=== PATIENT | female | born 1970 ===

== ENCOUNTER 2017-04-13 11:45 | Observation (INO) | payer MEDICAID ==
[2017-04-13 12:07] VITALS: BMI 25.8
[2017-04-13] MEDS ORDERED: Sodium Chloride 0.9% 1,000 ML IV STA ×2 (12:11→14:14)
--- NOTE | 2017-04-13 12:14 | ED PDOC ---
HPI: Abdomen Time Seen by Provider: 04/13/17 12:00 Chief Complaint (Nursing): Abdominal Pain Chief Complaint (Provider): Abdominal Pain History Per: Patient History/Exam Limitations: no limitations Onset/Duration Of Symptoms: Days (x4) Outside of [place] travel?: No Current Symptoms Are (Timing): Still Present Location Of Pain/Discomfort: Diffuse Additional Complaint(s): Annel Willingham is a 46 year old female with a history of hypertension, diabetes, and thyroid problems that presents to the ED with a chief complaint of nonbloody diarrhea and bubbling, cramping abdominal pain that she has been experiencing for the past four days. Patient denies any chest pain, nausea, vomiting, back pain, weakness, numbness, tingling, or headaches. Patient denies eating any new foods or recent travel. Past Medical History Reviewed: Historical Data, Nursing Documentation, Vital Signs - Medical History PMH: HTN, Hyperthyroidism - Family History Family History: States: Unknown Family Hx - Immunization History Hx Tetanus Toxoid Vaccination: No Hx Influenza Vaccination: No Hx Pneumococcal Vaccination: No - Home Medications Home Medications: Ambulatory Orders Medication Instructions Recorded Lisinopril [Zestril] 40 mg PO DAILY 11/13/16 MetFORMIN [glucOPHAGE] 1,000 mg PO BID 11/13/16 Methimazole 20 mg PO BID 11/13/16 SITagliptin [Januvia] 25 mg PO DAILY 11/13/16 Naproxen [Naprosyn] 1 tab PO BID PRN #25 tab 11/14/16 Ciprofloxacin [Cipro] 250 mg PO BID #14 tab 11/27/16 Tramadol HCl [Ultram] 50 mg PO Q6 #10 tab 11/27/16 - Allergies Allergies/Adverse Reactions: Allergies Allergy/AdvReac Type Severity Reaction Status Date / Time shellfish derived Allergy RASH Verified 11/27/16 20:28 Review of Systems ROS Statement: Except As Marked, All Systems Reviewed And Found Negative Cardiovascular: Negative for: Chest Pain Gastrointestinal: Positive for: Abdominal Pain (bubbling, cramping), Diarrhea ( nonbloody). Negative for: Nausea, Vomiting Musculoskeletal: Negative for: Back Pain Neurological: Negative for: Weakness, Numbness, Headache, Other (no tingling) Physical Exam - Reviewed Nursing Documentation Reviewed: Yes Vital Signs Reviewed: Yes - Physical Exam Appears: Positive for: Non-toxic, No Acute Distress Head Exam: Positive for: ATRAUMATIC, NORMOCEPHALIC Skin: Positive for: Normal Color, Warm Eye Exam: Positive for: Normal appearance, EOMI, PERRL Cardiovascular/Chest: Positive for: Regular Rate, Rhythm. Negative for: Murmur Respiratory: Positive for: Normal Breath Sounds. Negative for: Wheezing Gastrointestinal/Abdominal: Positive for: Tenderness (mild diffuse abdominal tenderness). Negative for: Normal Exam, Guarding, Rebound Back: Positive for: Normal Inspection. Negative for: L CVA Tenderness, R CVA Tenderness Neurologic/Psych: Positive for: Alert, bi lead II-XII, Oriented. Negative for: Motor/Sensory Deficits - Laboratory Results Result Diagrams: 04/13/17 12:22 04/13/17 12:22 Interpretation Of Abn Labs: 19 CO2 - Progress ED Course And Treament: 182: Large cyst. Will need us to eval further. 1839: Stable. Dr. Mojica to take over care. FU on US. Medical Decision Making Medical Decision Making: Impression: Abdominal Pain/Diarrhea Plan: * CMP * CBC * Urine * Bentyl 10 mg PO * Sodium Chloride 1000 mLs at 1000 mLs/hr * Reevaluation Scribe Attestation: Documented by Bertha Ponce, acting as a scribe for Fantasma Rajan MD. Provider Scribe Attestation: All medical record entries made by the Scribe were at my direction and personally dictated by me. I have reviewed the chart and agree that the record accurately reflects my personal performance of the history, physical exam, medical decision making, and the department course for this patient. I have also personally directed, reviewed, and agree with the discharge instructions and disposition. ED OBSERVATION Date of observation admission: 04/13/17 Time of observation admission: 14:14 - Observation admission statement Patient is being placed in observation because:: need for further examinations for abdominal pain. - Goals of Observation Goals of observation are:: Continue meds and eval. Disposition - Clinical Impression Clinical Impression: Abdominal cramps, Ovarian cyst - Patient ED Disposition Is Patient to be Admitted: Transfer of Care - Disposition Disposition: Transfer of Care Disposition Time: 18:39 Condition: STABLE Patient Signed Over To: Titi Mojica
[2017-04-13 12:44] LABS: BASO % 0.3 % (0.0-2.0); EOS # 0.1 K/uL (0.0-0.7); EOS % 1.9 % (0.0-4.0); LYMPH # 1.7 K/uL (1.0-4.3); LYMPH % 27.4 % (20.0-40.0); MEAN CELL VOLUME 76.5 fl (81.0-99.0); MEAN CORPUSCULAR HEMOGLOBIN 25.6 pg (27.0-31.0); MEAN CORPUSCULAR HGB CONC 33.4 g/dL (33.0-37.0); MEAN PLATELET VOLUME 9.2 fl (7.2-11.7); MONO # 0.6 K/uL (0.0-0.8); MONO % 9.7 % (0.0-10.0); NEUT # 3.7 K/uL (1.8-7.0); NEUT % 60.7 % (50.0-75.0); NRBC % 0.1 % (0.0-0.0); RBC 5.07 Mil/uL (3.80-5.20); RED CELL DISTRIBUTION WIDTH 14.3 % (11.5-14.5)
[2017-04-13 12:57] LABS: ALB/GLOB RATIO 1.4 (1.0-2.1); ALBUMIN 4.3 g/dL (3.5-5.0); ALT/SGPT 27 U/L (9-52); AST/SGOT 13 U/L (14-36); BLOOD UREA NITROGEN 13 mg/dl (7-17); CALCIUM 9.4 mg/dL (8.4-10.2); GFR AFRICAN-AMERICAN > 60; GFR NON-AFRICAN AMERICAN > 60
[2017-04-13] MEDS ORDERED: Iohexol 240 (50 ml) PO ONE (14:12)
[2017-04-13] MEDS ORDERED: Atropine-Diphenoxylate 0.025-2.5mg/5 mL Oral Liq (60 ml) PO ONE (14:21)
[2017-04-13] MEDS ORDERED: Iohexol 300 100 ML IJ ONE (17:26)
[2017-04-13] MEDS ORDERED: Sodium Chloride 0.9% 50 ML IV ONE (17:26)
--- NOTE | 2017-04-13 18:18 | CT ---
PROCEDURE: CT Abdomen and Pelvis with contrast HISTORY: abd pain COMPARISON: 01/26/2014 TECHNIQUE: Contrast dose: 90 mL Omnipaque 300 Radiation dose: Total exam DLP = 879.23 mGy-cm. This CT exam was performed using one or more of the following dose reduction techniques: Automated exposure control, adjustment of the mA and/or kV according to patient size, and/or use of iterative reconstruction technique. FINDINGS: LOWER THORAX: Unremarkable. LIVER: Unremarkable. No gross lesion or ductal dilatation. GALLBLADDER AND BILE DUCTS: Status post cholecystectomy PANCREAS: Unremarkable. No gross lesion or ductal dilatation. SPLEEN: Unremarkable. ADRENALS: Unremarkable. No mass. KIDNEYS AND URETERS: Unremarkable. No hydronephrosis. No solid mass. VASCULATURE: Unremarkable. No aortic aneurysm. BOWEL: Unremarkable. No obstruction. No gross mural thickening. APPENDIX: Normal appendix. PERITONEUM: Trace fluid in cul-de-sac. LYMPH NODES: Unremarkable. No enlarged lymph nodes. BLADDER: Poorly distended. No gross abnormality. REPRODUCTIVE: Unremarkable uterus. Right ovarian cyst, 3.0 cm diameter. Left ovarian cyst, 5.0 x 6.5 cm. The left ovarian cyst is slightly increased attenuation, measuring 29 Hounsfield units. This may correspond to proteinaceous or hemorrhagic content. Correlate with pelvic ultrasound. BONES: No acute fracture. OTHER FINDINGS: None. IMPRESSION: Bilateral ovarian cysts, 3.0 cm on the right and 6.5 cm on the left. Left ovarian cyst slightly increased in attenuation, nonspecific. This may indicate hemorrhagic or proteinaceous content. Correlate with ultrasound examination. No additional abnormality.
[2017-04-13] MEDS ORDERED: Atropine-Diphenoxylate 0.025-2.5 mg Tab PO ONE (18:45)
--- NOTE | 2017-04-13 19:15 | ED PDOC ---
- Laboratory Results Result Diagrams: 04/13/17 12:22 04/13/17 12:22 Medical Decision Making Medical Decision Making: Receiving sign out: Patient signed out to me by Dr. Rajan pending US Pelvis. Scribe Attestation: Documented by Shonna Noriega acting as a scribe for Titi Mojica MD. Provider Attestation: All medical record entries made by the Scribe were at my direction and personally dictated by me. I have reviewed the chart and agree that the record accurately reflects my personal performance of the history, physical exam, medical decision making, and the department course for this patient. I have also personally directed, reviewed, and agree with the discharge instructions and disposition. Disposition Counseled Patient/Family Regarding: Studies Performed, Diagnosis, Need For Followup - Clinical Impression Clinical Impression: Abdominal cramps, Ovarian cyst - POA Present On Arrival: None - Disposition Disposition: Routine/Home Disposition Time: 21:00 Condition: STABLE Progress Note - Review of Symptoms Events since last encounter: Time: 2251 US Transvaginal IMPRESSION: 1. RIGHT ovarian cyst. 2. Probable LEFT ovarian cyst. Suggest followup to ensure resolution/stability. 3. Incidental/non-acute findings are described above
--- NOTE | 2017-04-13 22:48 | US ---
EXAM: US Pelvis Complete, Transabdominal CLINICAL HISTORY: 46 years old, female; Pain; Pelvic pain TECHNIQUE: Real-time transabdominal pelvic ultrasound (complete) with image documentation. COMPARISON: No relevant prior studies available. FINDINGS: Uterus/cervix: Uterus measures 12.7 x 5.7 x 7.3 cm in size. No myometrial mass. Endometrium: 0.8 cm in thickness. Right ovary: 5.4 x 2.7 x 4.5 cm in size. 2.5 x 2.3 x 2.6 cm anechoic lesion. Small follicles. Normal flow. Left ovary: 7.9 x 4.8 x 6.9 in size. 6.6 x 5.1 x 5.9 anechoic lesion. Small follicles. Normal flow. Free fluid: No significant free fluid. Bladder: Unremarkable as visualized. IMPRESSION: 1. RIGHT ovarian cyst. 2. Probable LEFT ovarian cyst. Suggest followup to ensure resolution/stability. 3. Incidental/non-acute findings are described above. EXAM: US Pelvis, Transvaginal CLINICAL HISTORY: 46 years old, female; Pain; Pelvic pain TECHNIQUE: Real-time transvaginal pelvic ultrasound (complete) with image documentation. Transvaginal imaging was used for better evaluation of the endometrium and adnexa. COMPARISON: No relevant prior studies available. FINDINGS: Uterus/cervix: Uterus measures 12.7 x 5.7 x 7.3 cm in size. No myometrial mass. Endometrium: 0.8 cm in thickness. Right ovary: 5.4 x 2.7 x 4.5 cm in size. 2.5 x 2.3 x 2.6 cm anechoic lesion. Small follicles. Normal flow. Left ovary: 7.9 x 4.8 x 6.9 in size. 6.6 x 5.1 x 5.9 anechoic lesion. Small follicles. Normal flow. Free fluid: No significant free fluid. Bladder: Empty bladder which cannot be evaluated with this probe.
[2017-04-13 23:41] VITALS: BP 127/85; PULSE 87; RESP 16; TEMP 98.2; O2SAT 99
== END 2017-04-13 23:45 | disposition home or self-care (01) ==
LOC: H.ER 11:45 → H.EROBSV 13:12
PROVIDERS: ADMIT Emergency Medicine; ATTEND Emergency Medicine
DX: R19.7 Diarrhea, unspecified (principal); R10.9 Unspecified abdominal pain; E11.9 Type 2 diabetes mellitus without complications; I10 Essential (primary) hypertension; N83.209 Unspecified ovarian cyst, unspecified side; Z79.899 Other long term (current) drug therapy

== ENCOUNTER 2017-11-02 07:41 | Day surgery (SDC) | payer MEDICAID ==
[2017-11-02] MEDS ORDERED: Lactated Ringer's 1,000 ML IV ONE (08:07)
[2017-11-02] MEDS ORDERED: Sodium Chloride 0.9% 500 ML IV ONE (08:07)
[2017-11-02 08:20] VITALS: O2SAT 98
[2017-11-02 08:23] VITALS: BMI 27.3
[2017-11-02] MEDS ORDERED: Midazolam 2 MG/2 ML VIAL ONE (08:50)
[2017-11-02] MEDS ORDERED: Propofol 10 mg/ml Inj (20 ML) ONE ×2 (08:50→09:16)
[2017-11-02 09:47] VITALS: TEMP 96.8
[2017-11-02 10:09] VITALS: BP 122/64; PULSE 71; RESP 14
== END 2017-11-02 10:10 | disposition home or self-care (01) ==
LOC: H.ENDO 07:41
PROVIDERS: ATTEND Internal Medicine Gastroenterology
DX: K29.70 Gastritis, unspecified, without bleeding (principal); K62.1 Rectal polyp; K57.30 Diverticulosis of large intestine without perforation or abscess without bleeding; K21.9 Gastro-esophageal reflux disease without esophagitis; B96.81 Helicobacter pylori [H. pylori] as the cause of diseases classified elsewhere; K64.8 Other hemorrhoids; K59.09 Other constipation; I10 Essential (primary) hypertension; E11.9 Type 2 diabetes mellitus without complications; E78.5 Hyperlipidemia, unspecified; Z79.84 Long term (current) use of oral hypoglycemic drugs
CPT/HCPCS: 43239; 45385; 82948; 88305; J2250; J2704; J7040

== ENCOUNTER 2017-12-07 16:57 | Emergency (ER) | payer MEDICAID ==
[2017-12-07 16:57] VITALS: BMI 27.3
[2017-12-07 17:11] VITALS: PULSE 73; RESP 16; TEMP 99.1; O2SAT 100
[2017-12-07] MEDS ORDERED: Iohexol 240 (50 ml) PO ONE (17:28)
[2017-12-07] MEDS ORDERED: Iohexol 240 (50 ml) ONE (17:36)
[2017-12-07 17:52] VITALS: BP 137/80
[2017-12-07 17:59] LABS: BASO # 0.1 K/uL (0.0-0.2); BASO % 0.7 % (0.0-2.0); EOS # 0.1 K/uL (0.0-0.7); EOS % 0.9 % (0.0-4.0); HEMOGLOBIN 13.2 g/dL (12.0-16.0); LYMPH # 2.1 K/uL (1.0-4.3); LYMPH % 20.8 % (20.0-40.0); MEAN CELL VOLUME 78.3 fl (81.0-99.0); MEAN CORPUSCULAR HEMOGLOBIN 27.3 pg (27.0-31.0); MEAN CORPUSCULAR HGB CONC 34.9 g/dL (33.0-37.0); MEAN PLATELET VOLUME 9.1 fl (7.2-11.7); MONO # 0.5 K/uL (0.0-0.8); MONO % 4.7 % (0.0-10.0); NEUT # 7.2 K/uL (1.8-7.0); NEUT % 72.9 % (50.0-75.0); NRBC % 0.2 % (0.0-0.0); RBC 4.83 Mil/uL (3.80-5.20); RED CELL DISTRIBUTION WIDTH 13.9 % (11.5-14.5); WHITE BLOOD COUNT 9.9 K/uL (4.8-10.8)
[2017-12-07 18:08] LABS: ALT/SGPT 31 U/L (9-52); AST/SGOT 18 U/L (14-36); BLOOD UREA NITROGEN 13 mg/dl (7-17); CALCIUM 9.1 mg/dL (8.4-10.2); GFR AFRICAN-AMERICAN > 60; GFR NON-AFRICAN AMERICAN > 60; LIPASE 64 U/L (23-300)
[2017-12-07 18:26] LABS: SQUAMOUS EPITHIAL 3 /hpf (0-5); URINE BACTERIA RARE (<OCC); URINE BILIRUBIN NEGATIVE (NEGATIVE); URINE BLOOD NEGATIVE (NEGATIVE); URINE CLARITY SLIGHTY-CLOUDY (Clear); URINE COLOR STRAW (YELLOW); URINE GLUCOSE (UA) >=500 mg/dL (Normal); URINE LEUKOCYTE ESTERASE TRACE Leu/uL (Negative); URINE PROTEIN NEGATIVE (NEGATIVE); URINE UROBILINOGEN 0.2-1.0 mg/dL (0.2-1.0)
[2017-12-07] MEDS ORDERED: Insulin Regular 100 units/ml IVP ONE (18:29)
[2017-12-07] MEDS ORDERED: Insulin Regular 100 units/ml ONE (19:00)
[2017-12-07] MEDS ORDERED: Sodium Chloride 0.9% 1,000 ML IV STA (20:50)
--- NOTE | 2017-12-07 20:53 | ED PDOC ---
HPI: Abdomen Time Seen by Provider: 12/07/17 17:20 Chief Complaint (Nursing): Abdominal Pain Chief Complaint (Provider): abdominal pain nausea History Per: Patient History/Exam Limitations: no limitations Current Symptoms Are (Timing): Still Present Severity: Moderate Location Of Pain/Discomfort: Diffuse Quality Of Discomfort: Cramping Associated Symptoms: Nausea, Loss Of Appetite. denies: Vomiting, Diarrhea Exacerbating Factors: None Alleviating Factors: None Last Bowel Movement: Today Additional Complaint(s): 47yo female presents c/o crampy diffuse abdominal pain associated w nausea, bloating and frequent normal BM today. Denies melena, fever, hematemesis, syncope or weakness. Recently completed treatment for Hpylori had EGD and colonoscopy Dr Tolbert recently. Past Medical History Reviewed: Historical Data, Nursing Documentation Vital Signs: Last Vital Signs Temp 99.1 F 12/07/17 17:09 Pulse 73 12/07/17 17:09 Resp 16 12/07/17 17:09 BP 137/80 12/07/17 17:51 Pulse Ox 100 12/07/17 23:11 - Medical History PMH: Gall Bladder Disease, HTN, Hypercholesterolemia, Hyperthyroidism Denies: Chronic Kidney Disease - Surgical History Surgical History: Cholecystectomy - Family History Family History: States: Unknown Family Hx - Living Arrangements Living Arrangements: With Family - Social History Current smoker - smoking cessation education provided: No - Immunization History Hx Tetanus Toxoid Vaccination: No Hx Influenza Vaccination: No Hx Pneumococcal Vaccination: No - Home Medications Home Medications: Ambulatory Orders Medication Instructions Recorded Lisinopril [Zestril] 40 mg PO DAILY 11/13/16 Methimazole 20 mg PO BID 11/13/16 Aspirin [Ecotrin] 81 mg PO DAILY 11/02/17 Dulaglutide [Trulicity] 0.75 mg SQ QWK 11/02/17 Empagliflozin [Jardiance] 25 mg PO DAILY 11/02/17 Lubiprostone [Amitiza] 8 mcg PO BID 11/02/17 MetFORMIN [glucoPHAGE] 1 tab PO BID 11/02/17 Omeprazole 40 mg PO DAILY 11/02/17 Dicyclomine [Dicyclomine HCl] 10 mg PO TID PRN #12 cap 12/07/17 Docusate Sodium [Colace] 100 mg PO BID PRN #20 capsule 12/07/17 Ondansetron [Zofran] 4 mg PO Q6H PRN #10 tab 12/07/17 Ranitidine HCl [Zantac 75] 75 mg PO BID #20 tablet 12/07/17 Naproxen [Naprosyn] 500 mg PO BID PRN #14 tablet 12/08/17 - Allergies Allergies/Adverse Reactions: Allergies Allergy/AdvReac Type Severity Reaction Status Date / Time hazelnut Allergy RASH Verified 11/02/17 08:25 shellfish derived Allergy RASH Verified 11/02/17 08:26 Review of Systems Constitutional: Negative for: Fever, Chills ENT: Negative for: Throat Pain Cardiovascular: Negative for: Chest Pain, Palpitations Respiratory: Negative for: Cough, Shortness of Breath Gastrointestinal: Positive for: Nausea, Abdominal Pain. Negative for: Diarrhea , Constipation, Melena, Hematochezia, Hematemesis, Rectal Pain Genitourinary Female: Negative for: Dysuria, Hematuria Musculoskeletal: Negative for: Neck Pain, Arm Pain, Back Pain Skin: Negative for: Rash, Lesions, Jaundice Neurological: Negative for: Weakness, Numbness, Headache, Dizziness Psych: Negative for: Depression Physical Exam - Reviewed Nursing Documentation Reviewed: Yes Vital Signs Reviewed: Yes - Physical Exam Appears: Positive for: Well, Non-toxic, No Acute Distress Head Exam: Positive for: ATRAUMATIC, NORMAL INSPECTION, NORMOCEPHALIC Skin: Positive for: Normal Color, Warm, DRY Eye Exam: Positive for: EOMI, Normal appearance, PERRL ENT: Positive for: Normal ENT Inspection Neck: Positive for: Normal, Painless ROM Cardiovascular/Chest: Positive for: Regular Rate, Rhythm Respiratory: Positive for: Normal Breath Sounds. Negative for: Respiratory Distress Gastrointestinal/Abdominal: Positive for: Soft, Tenderness (mild diffuse tenderness). Negative for: Guarding, Rebound Back: Positive for: Normal Inspection Extremity: Positive for: Normal ROM Neurologic/Psych: Positive for: Alert, Oriented. Negative for: Motor/Sensory Deficits - Laboratory Results Result Diagrams: 12/07/17 17:56 12/07/17 17:56 - ECG O2 Sat by Pulse Oximetry: 100 Medical Decision Making Medical Decision Making: workup for abd pain initiated w bloodwork, CT abd pelv, bentyl and toradol, zofran ODT (iv zofran not currently available) labs reviewed and clinically unremarkable FINDINGS: Lower thorax: Heart size is normal. There is a hiatal hernia. There is minimal dependent atelectasis and scarring at the lung bases ABDOMEN: Liver: unremarkable Gallbladder and bile ducts: Gallbladder is absent.Common duct is unremarkable. Pancreas: unremarkable Spleen: unremarkable Adrenals: unremarkable Kidneys and ureters: unremarkable Stomach and bowel: Stomach is partially distended. Rotation is normal. There is no small bowel obstruction. There is contrast throughout the small bowel. Terminal ileum is unremarkable. There is mild prominence of the appendix. Appendix contains a small amount of air. Maximal diameter is approximately 9 mm. Similar findings were seen on the prior study. There is a moderately large amount of stool throughout the colon. Appendix: See stomach and bowel PELVIS: Bladder: unremarkable Reproductive: Uterus appears mildly enlarged, 13 x 6.5 cm. There is mild prominence of the right adnexa with multiple follicles/cysts. There is enlargement of the left adnexa with a 6 cm cyst. There are clips versus calcification in the left adnexa. ABDOMEN and PELVIS: Intraperitoneal space: There is no significant fluid.There is no free air. Bones/joints: There are no acute osseous abnormalities. There is minimal spondylosis Soft tissues: unremarkable Vasculature: Aorta and inferior vena cava are unremarkable. There are splenic artery calcifications. Lymph nodes: There are multiple mildly enlarged periaortic nodes. IMPRESSION: Prominence of the left ovary/adnexa with a 6 cm cyst, similar finding seen on the prior study; prominence of the right adnexa with multiple follicles/cysts; no CT findings of appendicitis;; cholecystectomy no ductal dilatation; no acute solid visceral abnormality; possible constipation Additional nonemergent findings as described above. Thank you for allowing us to participate in the care of your patient. 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 Explained need for followup. Requested only naprosyn for Rx for pain. Percocet makes her nauseus. Abdomen non-acute on discharge, ambulating freely without discomfort Has followup w GI. Disposition - Clinical Impression Clinical Impression: Abdominal pain, Ovarian cyst - Patient ED Disposition Is Patient to be Admitted: No - Disposition Referrals: Jose Tolbert MD [Medical Doctor] - Disposition: Routine/Home Disposition Time: 23:50 Condition: STABLE Additional Instructions: Return to ER for any worse or new symptoms. See [employer]E [employer] doctor for further testing of ovarian findings. Take medications as directed Prescriptions: Dicyclomine [Dicyclomine HCl] 10 mg PO TID PRN #12 cap PRN Reason: Gi Distress Docusate Sodium [Colace] 100 mg PO BID PRN #20 capsule PRN Reason: Gi Distress Naproxen [Naprosyn] 500 mg PO BID PRN #14 tablet PRN Reason: Pain, Moderate (4-7) Ondansetron [Zofran] 4 mg PO Q6H PRN #10 tab PRN Reason: Nausea/Vomiting Ranitidine HCl [Zantac 75] 75 mg PO BID #20 tablet Instructions: Ovarian Cysts, Constipation, Adult (DC), Acute Abdomen (Belly Pain), Adult (DC) Forms: Copious (Persian)
--- NOTE | 2017-12-07 21:55 | CT ---
EXAM: CT Abdomen and Pelvis With Intravenous Contrast EXAM DATE/TIME: 12/07/2017 5:28 PM CLINICAL HISTORY: 47 years old, female; Pain; Abdominal pain; Generalized; Prior surgery; Surgery date: 6+ months; Surgery type: 3 c-sections. Removal of ovarian cyst. Gb removed november; Additional info: Abd pain l>r, nausea TECHNIQUE: Axial computed tomography images of the abdomen and pelvis with intravenous contrast. All CT scans at this facility use one or more dose reduction techniques, viz.: automated exposure control; ma/kV adjustment per patient size (including targeted exams where dose is matched to indication; i.e. head); or iterative reconstruction technique. Coronal and sagittal reformatted images were created and reviewed. COMPARISON: CT - ABD PELVIS PO IV CONTRAST 2017-04-13 17:33 FINDINGS: Lower thorax: Heart size is normal. There is a hiatal hernia. There is minimal dependent atelectasis and scarring at the lung bases ABDOMEN: Liver: unremarkable Gallbladder and bile ducts: Gallbladder is absent.Common duct is unremarkable. Pancreas: unremarkable Spleen: unremarkable Adrenals: unremarkable Kidneys and ureters: unremarkable Stomach and bowel: Stomach is partially distended. Rotation is normal. There is no small bowel obstruction. There is contrast throughout the small bowel. Terminal ileum is unremarkable. There is mild prominence of the appendix. Appendix contains a small amount of air. Maximal diameter is approximately 9 mm. Similar findings were seen on the prior study. There is a moderately large amount of stool throughout the colon. Appendix: See stomach and bowel PELVIS: Bladder: unremarkable Reproductive: Uterus appears mildly enlarged, 13 x 6.5 cm. There is mild prominence of the right adnexa with multiple follicles/cysts. There is enlargement of the left adnexa with a 6 cm cyst. There are clips versus calcification in the left adnexa. ABDOMEN and PELVIS: Intraperitoneal space: There is no significant fluid.There is no free air. Bones/joints: There are no acute osseous abnormalities. There is minimal spondylosis Soft tissues: unremarkable Vasculature: Aorta and inferior vena cava are unremarkable. There are splenic artery calcifications. Lymph nodes: There are multiple mildly enlarged periaortic nodes. IMPRESSION: Prominence of the left ovary/adnexa with a 6 cm cyst, similar finding seen on the prior study; prominence of the right adnexa with multiple follicles/cysts; no CT findings of appendicitis;; cholecystectomy no ductal dilatation; no acute solid visceral abnormality; possible constipation Additional nonemergent findings as described above.
--- NOTE | 2017-12-08 00:11 | US ---
EXAM: US Pelvis, Transvaginal US Duplex Arterial/Venous of the Pelvis, Complete EXAM DATE/TIME: 12/07/2017 11:10 PM CLINICAL HISTORY: 47 years old, female; Pain and abnormal findings; Abnormal imaging test; Pelvic pain; Additional info: L ovarian cyst R/O torsion; LMP 11/27/16 TECHNIQUE: Real-time transvaginal pelvic ultrasound (complete) with image documentation. Transvaginal imaging was used for better evaluation of the endometrium and adnexa. Real-time duplex ultrasound scan of the arterial and venous flow of the pelvis with color Doppler flow and spectral waveform analysis. COMPARISON: CT - ABD PELVIS PO CONTRAST ONLY 2017-12-07 20:40 FINDINGS: Uterus: Uterus measures approximately 11 x 6 x 7 cm. endometrium measures approximately 10 mm. There is a nabothian cyst in the cervix. Right ovary: Right ovary measures approximately 4.4 x 3 x 3.3 cm. There are multiple follicles.There is expected blood flow on Doppler imaging Left ovary: Left ovary measures approximately 5.2 x 6 x 6.1 cm. There is a simple appearing 5.3 x 4.8 x 5.7 cm cyst. There is flow in the parenchyma of the left ovary. Free fluid: There is no free fluid. Bladder: Bladder was not visualized. IMPRESSION: 5 x 5 x 5.7 cm left ovarian cyst; multiple follicles the right ovary; no torsion
== END 2017-12-08 00:34 | disposition home or self-care (01) ==
LOC: H.ER 16:57
DX: N83.202 Unspecified ovarian cyst, left side (principal); R10.9 Unspecified abdominal pain; E05.90 Thyrotoxicosis, unspecified without thyrotoxic crisis or storm; E78.00 Pure hypercholesterolemia, unspecified; I10 Essential (primary) hypertension; Z79.84 Long term (current) use of oral hypoglycemic drugs; Z90.49 Acquired absence of other specified parts of digestive tract; Z79.82 Long term (current) use of aspirin
CPT/HCPCS: 74176; 76830; 80053; 81003; 81025; 82948; 83690; 85025; 96374; 99285; J1885; J7040; Q9966

== ENCOUNTER 2017-12-10 10:59 | Inpatient (IN) | payer MEDICAID ==
[2017-12-10 11:00] VITALS: BMI 27.3
[2017-12-10] MEDS ORDERED: Sodium Chloride 0.9% 1,000 ML IV STA (11:42)
[2017-12-10] MEDS ORDERED: Piperacillin/Tazobact 3.375 GM in Sodium Chloride 0.9% 100 ML IVPB STA (11:43)
[2017-12-10 12:02] LABS: VENOUS BLOOD GAS BASE EXCESS 0.5 mmol/L (0.0-2.0); VENOUS BLOOD GAS PCO2 47 mmHg (40-60); VENOUS BLOOD GAS PO2 13 mm/Hg (30-55); VENOUS BLOOD PH 7.36 (7.32-7.43)
[2017-12-10] MEDS ORDERED: Piperacillin/Tazobact 3.375 gm Inj IVPB ONE (12:13)
[2017-12-10 12:16] LABS: BASO % 0.3 % (0.0-2.0); EOS % 0.1 % (0.0-4.0); HEMOGLOBIN 13.2 g/dL (12.0-16.0); LYMPH # 0.8 K/uL (1.0-4.3); MEAN CELL VOLUME 78.6 fl (81.0-99.0); MEAN CORPUSCULAR HEMOGLOBIN 26.1 pg (27.0-31.0); MEAN CORPUSCULAR HGB CONC 33.3 g/dL (33.0-37.0); MEAN PLATELET VOLUME 8.8 fl (7.2-11.7); MONO # 0.5 K/uL (0.0-0.8); MONO % 4.2 % (0.0-10.0); NEUT # 9.7 K/uL (1.8-7.0); NEUT % 88.4 % (50.0-75.0); PLATELET COUNT 225 K/uL (130-400); RBC 5.05 Mil/uL (3.80-5.20); RED CELL DISTRIBUTION WIDTH 13.4 % (11.5-14.5); WHITE BLOOD COUNT 10.9 K/uL (4.8-10.8)
[2017-12-10 12:31] LABS: ALBUMIN 4.3 g/dL (3.5-5.0); ALT/SGPT 18 U/L (9-52); AST/SGOT 23 U/L (14-36); BLOOD UREA NITROGEN 12 mg/dl (7-17); GFR AFRICAN-AMERICAN > 60; GFR NON-AFRICAN AMERICAN > 60; LIPASE 36 U/L (23-300)
[2017-12-10 12:34] LABS: SQUAMOUS EPITHIAL 1 /hpf (0-5); URINE BILIRUBIN NEGATIVE (NEGATIVE); URINE BLOOD SMALL (NEGATIVE); URINE CLARITY SLIGHTY-CLOUDY (Clear); URINE COLOR YELLOW (YELLOW); URINE GLUCOSE (UA) >=500 mg/dL (Normal); URINE LEUKOCYTE ESTERASE TRACE Leu/uL (Negative); URINE PROTEIN NEGATIVE (NEGATIVE); URINE UROBILINOGEN 0.2-1.0 mg/dL (0.2-1.0)
[2017-12-10] MEDS ORDERED: DiphenhydrAMINE 50 mg/ml Inj ONE (12:57)
[2017-12-10] MEDS ORDERED: DiphenhydrAMINE 50 mg/ml Inj IVP STA (13:00)
[2017-12-10] MEDS ORDERED: Sodium Chloride 0.9% 100 ML ONE (13:21)
[2017-12-10] MEDS ORDERED: Iohexol 300 100 ML IJ ONE (13:21)
--- NOTE | 2017-12-10 13:29 | ED PDOC ---
HPI: Abdomen Time Seen by Provider: 12/10/17 11:40 Chief Complaint (Nursing): Abdominal Pain Chief Complaint (Provider): abdominal pain/fever History Per: Patient (47 y/o female here with complaint of LLQ pain since yesterday and fever today. Denies any vomiting/diarrhea. Notes nausea. Has h/ o diverticulitis in past. Patient has h/o cholecystectomy in past. Recently seen 12/07 and diagnosed with ovarian cyst/constipation.) Past Medical History Reviewed: Historical Data, Nursing Documentation, Vital Signs Vital Signs: Last Vital Signs Temp 101 F H 12/10/17 11:05 Pulse 104 H 12/10/17 11:05 Resp 17 12/10/17 11:05 BP 144/75 12/10/17 11:05 Pulse Ox 98 12/10/17 14:23 - Medical History PMH: Gall Bladder Disease, HTN, Hypercholesterolemia, Hyperthyroidism Denies: Chronic Kidney Disease Comment Only: Diverticulitis (Diverticulosis) - Surgical History Surgical History: Cholecystectomy - Family History Family History: States: Unknown Family Hx - Immunization History Hx Tetanus Toxoid Vaccination: No Hx Influenza Vaccination: No Hx Pneumococcal Vaccination: No - Home Medications Home Medications: Ambulatory Orders Medication Instructions Recorded Lisinopril [Zestril] 40 mg PO DAILY 11/13/16 Methimazole 20 mg PO BID 11/13/16 Aspirin [Ecotrin] 81 mg PO DAILY 11/02/17 Dulaglutide [Trulicity] 0.75 mg SQ QWK 11/02/17 Empagliflozin [Jardiance] 25 mg PO DAILY 11/02/17 Lubiprostone [Amitiza] 8 mcg PO BID 11/02/17 MetFORMIN [glucoPHAGE] 1 tab PO BID 11/02/17 Omeprazole 40 mg PO DAILY 11/02/17 Dicyclomine [Dicyclomine HCl] 10 mg PO TID PRN #12 cap 12/07/17 Docusate Sodium [Colace] 100 mg PO BID PRN #20 capsule 12/07/17 Ondansetron [Zofran] 4 mg PO Q6H PRN #10 tab 12/07/17 Ranitidine HCl [Zantac 75] 75 mg PO BID #20 tablet 12/07/17 Naproxen [Naprosyn] 500 mg PO BID PRN #14 tablet 12/08/17 - Allergies Allergies/Adverse Reactions: Allergies Allergy/AdvReac Type Severity Reaction Status Date / Time hazelnut Allergy RASH Verified 11/02/17 08:25 shellfish derived Allergy RASH Verified 11/02/17 08:26 Review of Systems ROS Statement: Except As Marked, All Systems Reviewed And Found Negative Constitutional: Positive for: Fever Gastrointestinal: Positive for: Abdominal Pain Physical Exam - Reviewed Nursing Documentation Reviewed: Yes Vital Signs Reviewed: Yes - Physical Exam Appears: Positive for: Well, Non-toxic, No Acute Distress Head Exam: Positive for: ATRAUMATIC, NORMAL INSPECTION, NORMOCEPHALIC Skin: Positive for: Normal Color, Warm, DRY Eye Exam: Positive for: EOMI, Normal appearance, PERRL ENT: Positive for: Normal ENT Inspection Neck: Positive for: Normal, Painless ROM Cardiovascular/Chest: Positive for: Regular Rate, Rhythm Respiratory: Positive for: CNT, Normal Breath Sounds Gastrointestinal/Abdominal: Positive for: Normal Exam, Bowel Sounds, Soft, Tenderness (left upper/left lower abdomianl pain) Back: Positive for: Normal Inspection Extremity: Positive for: Normal ROM Neurologic/Psych: Positive for: Alert, Oriented - Laboratory Results Result Diagrams: 12/10/17 11:45 12/10/17 11:45 - ECG O2 Sat by Pulse Oximetry: 98 - Progress ED Course And Treament: patient given tylenol 975mg x 1 dose NS 1 liter wide open BC x 2 sent Zosyn 3.375gm iv given Called to bedside for reaction to zosyn. Notes generalized rash/pruiritis. Benadryl 50mg iv x 1 dose/solumedrol 125 mg iv x [address] ABD/PELVIS: IMPRESSION: Large left adnexal cyst with smaller adjacent daughter cyst as described. Multiple small to medium-sized periaortic lymph nodes. Mild bladder wall thickening; rule out cystitis. Minor fatty hepatic infiltration. Postoperative changes of cholecystectomy. Mild splenomegaly. Seen by memory care program resident for Dr. Blood. Will admit to hospital for observation as patient has uncontrolled diabetes in setting of fever/abdominal pain/uti. Disposition - Clinical Impression Clinical Impression: Complicated UTI (urinary tract infection), Uncontrolled diabetes mellitus - Patient ED Disposition Is Patient to be Admitted: Yes - Disposition Disposition Time: 15:53 Condition: FAIR Forms: [employer] ([employer]) - Pt Status Changed To: Hospital Disposition Of: Observation
[2017-12-10 13:30] LABS: BANDS 1 % (0-2); LYMPHOCYTE 8 % (20-50); MONOCYTE 4 % (0-10); NEUTROPHIL 87 % (42-75); TOTAL CELLS COUNTED 100
[2017-12-10 13:31] LABS: LARGE PLATELETS PRESENT; PLATELET ESTIMATE NORMAL (NORMAL)
[2017-12-10] MEDS ORDERED: Iohexol 240 (50 ml) PO ONE (13:31)
--- NOTE | 2017-12-10 14:21 | CT ---
PROCEDURE: CT abdomen pelvis dated 12/10/2017 HISTORY: Diverticulitis COMPARISON: Made with prior CT scan abdomen pelvis and pelvic ultrasound both dated 12/07/2017 TECHNIQUE: Contiguous axial images of the abdomen and pelvis performed following intravenous injection of approximately 95 cc of Omnipaque 300 contrast material. Additional 2 dimensional sagittal and coronal reformats generated. Radiation dose: Total exam DLP = 785.[address] exam was performed using one or more of the following dose reduction techniques: Automated exposure control, adjustment of the mA and/or kV according to patient size, and/or use of iterative reconstruction technique. FINDINGS: LOWER THORAX: Minor passive/dependent type atelectasis both posterior lower lung zones. No evidence of effusion or basilar pneumothorax. Small hiatal hernia with wall thickening of the distal esophagus likely due to protrusion of gastric mucosa. Possibility of esophagitis not excluded. LIVER: Liver exhibits normal size measuring approximately 16 cm in CC dimension. Very minor diffuse fatty hepatic infiltration felt present. No obvious hepatic mass collection or calcification. Portal and splenic veins are opacified. GALLBLADDER AND BILE DUCTS: Post cholecystectomy changes again noted PANCREAS: Unremarkable. No mass. No ductal dilatation. SPLEEN: Spleen is borderline/mildly enlarged measuring approximately 13.6 cm in CC dimension. No obvious splenic mass collection or calcification. ADRENALS: No adrenal lesions. KIDNEYS AND URETERS: Kidneys demonstrate symmetric nephrograms. No evidence of nephrolithiasis or hydronephrosis. . There are tiny foci of low attenuation posterior inferior cortex right kidney and posterolateral mid pole left kidney that could represent tiny cyst or possibly a small angiomyolipoma. BLADDER: Minimal urinary bladder wall thickening which may be due to incomplete distention. Possibility of a cystitis not excluded. REPRODUCTIVE: Apparent large left ovarian cyst which measures smaller adjacent daughter cyst that measures approximately 3.1 x 1.8 cm. . Multiple tiny follicular cysts are also present left ovary. Uterus appears grossly unremarkable. APPENDIX: Normal-appearing partially fluid and contrast filled appendix best seen on coronal image number [id number]. No periappendiceal inflammatory changes. BOWEL: Evaluation of the bowel is somewhat limited due to the lack of oral contrast material. Stomach is incompletely distended which in part accounts for thick-walled appearance. Possibility of gastritis not excluded. Visualized loops of small bowel exhibit normal contour and caliber. No evidence of acute mechanical small bowel obstruction. There is residual oral contrast material present within the colon from prior CT scan. Multiple colonic diverticula are present however no radiographic evidence of acute diverticulitis. . PERITONEUM: Unremarkable. No fluid collection. No free air. LYMPH NODES: Re- demonstrated are to medium-sized multiple small PE medium sized periaortic lymph nodes. VASCULATURE: Unremarkable. No aortic aneurysm. BONES: Minor multilevel degenerative spondylosis of the lower thoracic and lumbar spine. There are no acute compression fractures no retropulsed fragments. OTHER FINDINGS: None. IMPRESSION: Large left adnexal cyst with smaller adjacent daughter cyst as described. Multiple small to medium-sized periaortic lymph nodes. Mild bladder wall thickening; rule out cystitis. Minor fatty hepatic infiltration. Postoperative changes of cholecystectomy. Mild splenomegaly.
--- NOTE | 2017-12-10 15:12 | RAD ---
HISTORY: FEVER COMPARISON: Comparison chest 02/06/2013 TECHNIQUE: Chest PA and lateral FINDINGS: LUNGS: No active pulmonary disease. PLEURA: No significant pleural effusion identified. No pneumothorax apparent. CARDIOVASCULAR: Normal. OSSEOUS STRUCTURES: No significant abnormalities. VISUALIZED UPPER ABDOMEN: Normal. OTHER FINDINGS: None. IMPRESSION: No active disease.
--- NOTE | 2017-12-10 16:28 | CP.PCM.HP ---
<JuanFabián - Last Filed: 12/10/17 20:25> History of Present Illness - History of Present Illness History of Present Illness: 47 y/o F with PMHx of Uncontrolled DM, diverticulosis and HTN presented to ED c/ o abd pain for 1 week associated with occasional nausea. Patient visited ED 3 days ago with similar complains and was diagnosed with constipation/ovarian cyst. Patient states she on multiple DM meds and is compliant but her BS at home are usually elevated 200-300. Abd pain is located to LLQ, she has know hx of diverticulosis/rectal polyp diagnosed on colonoscopy last month. Patient was recently treated for H.Pylori infection which she finished about 2-3 weeks ago. Denies fever at home but admits chills. Denies cough, SOB, CP, palpitations or diarrhea. At ED UA was abnormal and patient had elevated temp. Present on Admission - Present on Admission Any Indicators Present on Admission: Yes History of Uncontrolled Diabetes: Yes Review of Systems - Review of Systems All systems: reviewed and no additional remarkable complaints except - Constitutional Constitutional: Chills, Fever - Gastrointestinal Gastrointestinal: Abdominal Pain - Genitourinary Genitourinary: Dysuria Past Patient History - Infectious Disease Hx of Infectious Diseases: None - Past Medical History & Family History Past Medical History?: Yes - Past Social History Smoking Status: Never Smoked - CARDIAC Hx Hypercholesterolemia: Yes Hx Hypertension: Yes - PULMONARY Hx Respiratory Disorders: No - NEUROLOGICAL Hx Neurological Disorder: No - HEENT Hx HEENT Problems: No - RENAL Hx Chronic Kidney Disease: No - ENDOCRINE/METABOLIC Hx Hyperthyroidism: Yes - HEMATOLOGICAL/ONCOLOGICAL Hx Blood Disorders: No - INTEGUMENTARY Hx Dermatological Problems: No - MUSCULOSKELETAL/RHEUMATOLOGICAL Hx Musculoskeletal Disorders: No - GASTROINTESTINAL Hx Diverticulitis: (Diverticulosis) Hx Gall Bladder Disease: Yes - GENITOURINARY/GYNECOLOGICAL Hx Genitourinary Disorders: No Other/Comment: Ovarian cyst - PSYCHIATRIC Hx Psychophysiologic Disorder: No Hx Substance Use: No - SURGICAL HISTORY Hx Cholecystectomy: Yes - ANESTHESIA Hx Anesthesia: Yes Hx Anesthesia Reactions: No Hx Malignant Hyperthermia: No Meds Allergies/Adverse Reactions: Allergies Allergy/AdvReac Type Severity Reaction Status Date / Time hazelnut Allergy RASH Verified 11/02/17 08:25 shellfish derived Allergy RASH Verified 11/02/17 08:26 piperacillin [From Zosyn] AdvReac RASH Verified 12/10/17 17:07 tazobactam [From Zosyn] AdvReac RASH Verified 12/10/17 17:07 Physical Exam - Constitutional Appears: Non-toxic, No Acute Distress - Eye Exam Eye Exam: EOMI, PERRL - ENT Exam ENT Exam: Mucous Membranes Moist - Respiratory Exam Respiratory Exam: Clear to Auscultation Bilateral, NORMAL BREATHING PATTERN. absent: Decreased Breath Sounds, Rales, Rhonchi, Wheezes, Respiratory Distress - Cardiovascular Exam Cardiovascular Exam: REGULAR RHYTHM, +S1, +S2. absent: Gallop - GI/Abdominal Exam GI & Abdominal Exam: Normal Bowel Sounds, Soft, Tenderness (MIld, LLQ). absent : Distended, Guarding, Rebound, Rigid - Extremities Exam Extremities exam: Positive for: normal capillary refill, pedal pulses present. Negative for: pedal edema, tenderness - Back Exam Back exam: absent: CVA tenderness (L), CVA tenderness (R), muscle spasm, vertebral tenderness - Neurological Exam Neurological exam: Alert, Normal Gait, Oriented x3 - Psychiatric Exam Psychiatric exam: Normal Affect, Normal Mood - Skin Skin Exam: Normal Color, Warm Results - Vital Signs Recent Vital Signs: Last Vital Signs Temp 101 F H 12/10/17 11:05 Pulse 104 H 12/10/17 11:05 Resp 17 12/10/17 11:05 BP 144/75 12/10/17 11:05 Pulse Ox 98 12/10/17 15:54 - Labs Result Diagrams: 12/10/17 11:45 12/10/17 11:45 Labs: Laboratory Results - last 24 hr 12/10/17 12/10/17 12/10/17 11:45 11:45 11:45 WBC 10.9 H RBC 5.05 Hgb 13.2 Hct 39.7 MCV 78.6 L MCH 26.1 L MCHC 33.3 RDW 13.4 Plt Count 225 MPV 8.8 Neut % (Auto) 88.4 H Lymph % (Auto) 7.0 L Banner % (Auto) 4.2 Eos % (Auto) 0.1 Baso % (Auto) 0.3 Neut # (Auto) 9.7 H Lymph # (Auto) 0.8 L Banner # (Auto) 0.5 Eos # (Auto) 0.0 Baso # (Auto) 0.0 Neutrophils % (Manual) 87 H Band Neutrophils % 1 Lymphocytes % (Manual) 8 L Monocytes % (Manual) 4 Platelet Estimate Normal Large Platelets Present RBC Morphology Normal pO2 VBG pH VBG pCO2 VBG HCO3 VBG Total CO2 VBG O2 Sat (Calc) VBG Base Excess VBG Potassium Glucose Lactate FiO2 Sodium 143 Potassium 4.2 Chloride 101 Carbon Dioxide 25 Anion Gap 21 H BUN 12 Creatinine 0.7 Est GFR ( Amer) > 60 Est GFR (Non-Af Amer) > 60 Random Glucose 165 H Calcium 10.0 Total Bilirubin 0.8 AST 23 ALT 18 Alkaline Phosphatase 101 Total Protein 8.6 H Albumin 4.3 Globulin 4.4 H Albumin/Globulin Ratio 1.0 Lipase 36 Venous Blood Potassium Urine Color Yellow Urine Clarity Slighty-cloudy Urine pH 6.0 Ur Specific [place] 1.030 Urine Protein Negative Urine Glucose (UA) >=500 Urine Ketones 80 Urine Blood Small Urine Nitrate Positive H Urine Bilirubin Negative Urine Urobilinogen 0.2-1.0 Ur Leukocyte Esterase Trace Urine RBC (Auto) 2 Urine Microscopic WBC 11 H Ur Squamous Epith Cells 1 12/10/17 11:55 WBC RBC Hgb Hct MCV MCH MCHC RDW Plt Count MPV Neut % (Auto) Lymph % (Auto) Banner % (Auto) Eos % (Auto) Baso % (Auto) Neut # (Auto) Lymph # (Auto) Banner # (Auto) Eos # (Auto) Baso # (Auto) Neutrophils % (Manual) Band Neutrophils % Lymphocytes % (Manual) Monocytes % (Manual) Platelet Estimate Large Platelets RBC Morphology pO2 13 L VBG pH 7.36 VBG pCO2 47 VBG HCO3 23.1 VBG Total CO2 28.0 VBG O2 Sat (Calc) 19.2 L VBG Base Excess 0.5 VBG Potassium 4.1 Glucose 168 H Lactate 0.9 FiO2 21.0 Sodium 140.0 Potassium Chloride 102.0 Carbon Dioxide Anion Gap BUN Creatinine Est GFR ( Amer) Est GFR (Non-Af Amer) Random Glucose Calcium Total Bilirubin AST ALT Alkaline Phosphatase Total Protein Albumin Globulin Albumin/Globulin Ratio Lipase Venous Blood Potassium 4.1 Urine Color Urine Clarity Urine pH Ur Specific [place] Urine Protein Urine Glucose (UA) Urine Ketones Urine Blood Urine Nitrate Urine Bilirubin Urine Urobilinogen Ur Leukocyte Esterase Urine RBC (Auto) Urine Microscopic WBC Ur Squamous Epith Cells Assessment & Plan - Assessment and Plan (Free Text) Assessment: Complicated UTI Cant rule out Pyelonephritis CT of abd no mention to Pyelo however patient has abd UA with fever and chills High risk due to uncontrolled DM Hemodinamically stable F/u Cultures Start IV Cipro for now and supportive measures LLQ abd pain No diverticulitis. Patient has Hx of diverticulosis/constipation Poss due to ovarian cyst vs UTI Stool softeners Uncontrlled DM C/W Home meds for now ISS ACHS Monitor Hyperthyroidism C/W Methimazole <Bruce Blood - Last Filed: 12/13/17 00:29> Results - Vital Signs Recent Vital Signs: Last Vital Signs Temp 98.9 F 12/12/17 23:30 Pulse 85 12/12/17 23:30 Resp 18 12/12/17 23:30 BP 132/80 12/12/17 23:30 Pulse Ox 99 12/12/17 23:30 - Labs Result Diagrams: 12/11/17 05:10 12/11/17 05:10 Labs: Laboratory Results - last 24 hr 12/12/17 12/12/17 12/12/17 05:45 10:58 16:39 POC Glucose (mg/dL) 193 H 243 H 147 H 12/12/17 21:47 POC Glucose (mg/dL) 156 H Assessment & Plan - Assessment and Plan (Free Text) Plan: I was present during evaluation and discussed with Dr Martinez re plans of care and tx. Bruce Blood M.D.
[2017-12-10] MEDS ORDERED: Sodium Chloride 0.9% 1,000 ML IV SCH (16:30)
[2017-12-10] MEDS ORDERED: LUBIPROSTONE 8 MCG PO SCH (17:00)
[2017-12-10] MEDS: Insulin Regular 100 units/ml SC SCH ×2 (18:00→23:42)
[2017-12-10] MEDS: Ciprofloxacin 400mg/200ml D5W 400 MG/200 ML BAG IVPB SCH (21:22)
[2017-12-11 07:19] LABS: BASO % 0.1 % (0.0-2.0); HEMOGLOBIN 12.5 g/dL (12.0-16.0); LYMPH # 1.2 K/uL (1.0-4.3); LYMPH % 9.3 % (20.0-40.0); MEAN CELL VOLUME 79.1 fl (81.0-99.0); MEAN CORPUSCULAR HEMOGLOBIN 26.3 pg (27.0-31.0); MEAN CORPUSCULAR HGB CONC 33.2 g/dL (33.0-37.0); MEAN PLATELET VOLUME 9.3 fl (7.2-11.7); MONO # 0.5 K/uL (0.0-0.8); MONO % 3.7 % (0.0-10.0); NEUT # 10.8 K/uL (1.8-7.0); NEUT % 86.9 % (50.0-75.0); RBC 4.76 Mil/uL (3.80-5.20); RED CELL DISTRIBUTION WIDTH 13.4 % (11.5-14.5); WHITE BLOOD COUNT 12.4 K/uL (4.8-10.8)
[2017-12-11 07:58] LABS: BLOOD UREA NITROGEN 20 mg/dl (7-17); CALCIUM 9.2 mg/dL (8.4-10.2); GFR AFRICAN-AMERICAN > 60; GFR NON-AFRICAN AMERICAN > 60
[2017-12-11] MEDS: methIMAzole 5 MG TAB PO SCH ×2 (08:31→17:05)
[2017-12-11] MEDS: Ciprofloxacin 400mg/200ml D5W 400 MG/200 ML BAG IVPB SCH ×2 (08:31→21:13)
[2017-12-11] MEDS: Insulin Regular 100 units/ml SC SCH ×4 (08:32→23:26)
[2017-12-11] MEDS: Pantoprazole 40 mg EC Tab PO SCH (08:32)
[2017-12-11] MEDS ORDERED: Patient's Own Med (Lisinopril [Zestril] 40 MG) PO SCH (09:00)
[2017-12-11] MEDS ORDERED: Patient's Own Med (Omeprazole [Omeprazole] 40 MG) PO SCH (09:00)
[2017-12-12] MEDS: Insulin Regular 100 units/ml SC SCH ×4 (07:30→23:00)
[2017-12-12] MEDS: Ciprofloxacin 400mg/200ml D5W 400 MG/200 ML BAG IVPB SCH (08:47)
[2017-12-12] MEDS: methIMAzole 5 MG TAB PO SCH (08:48)
[2017-12-12] MEDS: Pantoprazole 40 mg EC Tab PO SCH (08:48)
--- NOTE | 2017-12-12 17:46 | CP.PCM.PN ---
Subjective - Date & Time of Evaluation Date of Evaluation: 12/12/17 Time of Evaluation: 17:45 - Subjective Subjective: I D NOTE PATIENT EXAMINED ,CHART REVIEWED FULL CONSULT DICTATED STARTED RX WITH GENTAMICIN Objective - Vital Signs/Intake and Output Vital Signs (last 24 hours): Temp Pulse Resp BP Pulse Ox 99.2 F 83 20 141/79 98 12/12/17 16:53 12/12/17 16:53 12/12/17 16:53 12/12/17 16:53 12/12/17 16:53 - Medications Medications: Current Medications Acetaminophen (Tylenol 325mg Tab) 650 mg PO Q6 PRN PRN Reason: Fever >100.4 F Aspirin (Ecotrin) 81 mg PO DAILY [facility] Last Admin: 12/12/17 08:48 Dose: 81 mg Dicyclomine HCl (Bentyl) 10 mg PO TID PRN PRN Reason: GI distress Last Admin: 12/11/17 17:06 Dose: 10 mg Docusate Sodium (Colace) 100 mg PO BID PRN PRN Reason: GI distress Last Admin: 12/11/17 08:32 Dose: 100 mg Home Med (Empagliflozin [Jardiance]) 25 mg PO DAILY [facility] Last Admin: 12/12/17 08:48 Dose: 25 mg Home Med (Lubiprostone [Amitiza]) 8 mcg PO BID [facility] Home Med (Dulaglutide [Trulicity]) 0.75 mg SQ QWK [facility] Gentamicin Sulfate/Sodium Chloride (Gentamicin 60mg/50ml Ns) 60 mg in 50 mls @ 50 mls/hr IVPB Q8 [facility] PRN Reason: Protocol Insulin Detemir (Levemir) 15 units SC [facility] Insulin Human Regular (Humulin R) 0 units SC ACCU-CHECK [facility] PRN Reason: Protocol Last Admin: 12/12/17 17:16 Dose: Not Given Lisinopril (Zestril) 40 mg PO DAILY [facility] Last Admin: 12/12/17 08:49 Dose: 40 mg Metformin HCl (Glucophage) 1,000 mg PO BID [facility] Last Admin: 12/12/17 17:17 Dose: 1,000 mg Methimazole (Tapazole) 20 mg PO BID [facility] Last Admin: 12/12/17 17:18 Dose: 20 mg Pantoprazole Sodium (Protonix Ec Tab) 40 mg PO DAILY [facility] Last Admin: 12/12/17 08:48 Dose: 40 mg - Labs Labs: 12/11/17 05:10 12/11/17 05:10
[2017-12-12] MEDS: Gentamicin 60mg/50ml NS 60 MG/50 ML BAG IVPB SCH (17:52)
--- NOTE | 2017-12-12 22:00 | CON ---
INFECTIOUS DISEASE CONSULT DATE: HISTORY OF PRESENT ILLNESS: The patient is a 47-year-old female with a history of diabetes mellitus basically uncontrolled, diverticulosis, HTN, and came to the emergency room today with abdominal pain for one week associated with some nausea, but no vomiting. She came to the emergency room previously this week and was diagnosed with an ovarian cyst and constipation. She is on diabetic meds and is compliant, but her blood sugars at home are usually elevated 200 to 300 She has abdominal pain located to left lower quadrant. She has a history of diverticulosis and a rectal polyp diagnosed on colonoscopy.She was recently treated for an H. pylori infection. There is no fever that she is aware of, but does have chills. PHYSICAL EXAMINATION: GENERAL: The patient is very cooperative and oriented to time and place. HEENT: Within normal limits. LUNGS: Clear. HEART: Regular sinus rhythm. ABDOMEN: Has right and left lower quadrant abdominal pain along with some pain on exam on percussion or pressure. EXTREMITIES: No CCE. BACK: She has some left CVA tenderness. LABORATORY DATA: White count is 12.4, hemoglobin 12.5, platelet count 334, and she has a left shift as she has 86 polys, and 1 band on yesterday's exam. Creatinine is 0.7. GFR is greater than 60. Of significance is her urine culture shows an ESBL E. coli, which is significant resistance. She was given a dose of Cipro in the emergency room, but it is resistant, it is sensitive to piperacillin to which she is allergic to, meropenem and ertapenem, but as she is allergic to Cipro is likely she has pen allergy. I have given her a stat dose earlier in the day of tobramycin and we will start her on gentamicin 60 mg IV piggyback every 8 hours as it is sensitive to that. We will follow her. There may be some issue with her because she will have to be treated with IV gentamicin or an IV aminoglycosides and there is no real oral equivalent to treating this with it. Kale Espinosa MD [facility]
[2017-12-12] MEDS: Insulin Detemir 100 Units/ml Inj SC SCH (22:05)
--- NOTE | 2017-12-13 00:33 | CP.PCM.PN ---
Subjective - Date & Time of Evaluation Date of Evaluation: 12/11/17 Time of Evaluation: 12:40 - Subjective Subjective: Patient continues to have Left flank and LLQ opain Has no fever Still with elevated WBC Accuchecks are elevated Objective - Vital Signs/Intake and Output Vital Signs (last 24 hours): Temp Pulse Resp BP Pulse Ox 98.9 F 85 18 132/80 99 12/12/17 23:30 12/12/17 23:30 12/12/17 23:30 12/12/17 23:30 12/12/17 23:30 - Medications Medications: Current Medications Acetaminophen (Tylenol 325mg Tab) 650 mg PO Q6 PRN PRN Reason: Fever >100.4 F Acetaminophen (Tylenol 325mg Tab) 650 mg PO Q6 PRN PRN Reason: Fever >100.4 F Aspirin (Ecotrin) 81 mg PO DAILY [facility] Last Admin: 12/12/17 08:48 Dose: 81 mg Dicyclomine HCl (Bentyl) 10 mg PO TID PRN PRN Reason: GI distress Last Admin: 12/11/17 17:06 Dose: 10 mg Docusate Sodium (Colace) 100 mg PO BID PRN PRN Reason: GI distress Last Admin: 12/11/17 08:32 Dose: 100 mg Home Med (Empagliflozin [Jardiance]) 25 mg PO DAILY [facility] Last Admin: 12/12/17 08:48 Dose: 25 mg Home Med (Lubiprostone [Amitiza]) 8 mcg PO BID [facility] Home Med (Dulaglutide [Trulicity]) 0.75 mg SQ QWK [facility] Gentamicin Sulfate/Sodium Chloride (Gentamicin 60mg/50ml Ns) 60 mg in 50 mls @ 50 mls/hr IVPB Q8 [facility] PRN Reason: Protocol Last Admin: 12/12/17 17:52 Dose: 50 mls/hr Insulin Detemir (Levemir) 15 units SC HS [facility] Last Admin: 12/12/17 22:05 Dose: 15 units Insulin Human Regular (Humulin R) 0 units SC ACCU-CHECK [facility] PRN Reason: Protocol Last Admin: 12/12/17 17:16 Dose: Not Given Lisinopril (Zestril) 40 mg PO DAILY [facility] Last Admin: 12/12/17 08:49 Dose: 40 mg Metformin HCl (Glucophage) 1,000 mg PO BID [facility] Last Admin: 12/12/17 17:17 Dose: 1,000 mg Methimazole (Tapazole) 20 mg PO BID [facility] Last Admin: 12/12/17 17:18 Dose: 20 mg Ondansetron HCl (Zofran Inj) 4 mg IVP Q6 PRN PRN Reason: Nausea/Vomiting Last Admin: 12/12/17 21:43 Dose: 4 mg Pantoprazole Sodium (Protonix Ec Tab) 40 mg PO DAILY [facility] Last Admin: 12/12/17 08:48 Dose: 40 mg - Labs Labs: 12/11/17 05:10 12/11/17 05:10 - Eye Exam Eye Exam: Normal appearance - ENT Exam ENT Exam: Mucous Membranes Moist - Respiratory Exam Respiratory Exam: Clear to Ausculation Bilateral - Cardiovascular Exam Cardiovascular Exam: REGULAR RHYTHM - GI/Abdominal Exam GI & Abdominal Exam: Tenderness, Normal Bowel Sounds Additional comments: slight tenderness on the LLQ area - Neurological Exam Neurological Exam: Awake, Oriented x3 Assessment and Plan (1) Complicated UTI (urinary tract infection) Status: Acute (2) Uncontrolled diabetes mellitus Status: Acute (3) Abdominal pain Status: Acute - Assessment and Plan (Free Text) Plan: Cont meds Cont tx Cont iv antibiotics follow up urine C and S
[2017-12-13] MEDS: Gentamicin 60mg/50ml NS 60 MG/50 ML BAG IVPB SCH ×3 (00:34→18:01)
--- NOTE | 2017-12-13 00:35 | CP.PCM.PN ---
Subjective - Date & Time of Evaluation Date of Evaluation: 12/12/17 Time of Evaluation: 13:00 - Subjective Subjective: Patient has less pain on the left flank and LLQ area Noted ESBL in urine C and S Currently on Cipro which is resistant. Objective - Vital Signs/Intake and Output Vital Signs (last 24 hours): Temp Pulse Resp BP Pulse Ox 98.9 F 85 18 132/80 99 12/12/17 23:30 12/12/17 23:30 12/12/17 23:30 12/12/17 23:30 12/12/17 23:30 - Medications Medications: Current Medications Acetaminophen (Tylenol 325mg Tab) 650 mg PO Q6 PRN PRN Reason: Fever >100.4 F Acetaminophen (Tylenol 325mg Tab) 650 mg PO Q6 PRN PRN Reason: Fever >100.4 F Aspirin (Ecotrin) 81 mg PO DAILY [facility] Last Admin: 12/12/17 08:48 Dose: 81 mg Dicyclomine HCl (Bentyl) 10 mg PO TID PRN PRN Reason: GI distress Last Admin: 12/11/17 17:06 Dose: 10 mg Docusate Sodium (Colace) 100 mg PO BID PRN PRN Reason: GI distress Last Admin: 12/11/17 08:32 Dose: 100 mg Home Med (Empagliflozin [Jardiance]) 25 mg PO DAILY [facility] Last Admin: 12/12/17 08:48 Dose: 25 mg Home Med (Lubiprostone [Amitiza]) 8 mcg PO BID [facility] Home Med (Dulaglutide [Trulicity]) 0.75 mg SQ QWK [facility] Gentamicin Sulfate/Sodium Chloride (Gentamicin 60mg/50ml Ns) 60 mg in 50 mls @ 50 mls/hr IVPB Q8 [facility] PRN Reason: Protocol Last Admin: 12/12/17 17:52 Dose: 50 mls/hr Insulin Detemir (Levemir) 15 units SC HS [facility] Last Admin: 12/12/17 22:05 Dose: 15 units Insulin Human Regular (Humulin R) 0 units SC ACCU-CHECK [facility] PRN Reason: Protocol Last Admin: 12/12/17 17:16 Dose: Not Given Lisinopril (Zestril) 40 mg PO DAILY [facility] Last Admin: 12/12/17 08:49 Dose: 40 mg Metformin HCl (Glucophage) 1,000 mg PO BID [facility] Last Admin: 12/12/17 17:17 Dose: 1,000 mg Methimazole (Tapazole) 20 mg PO BID [facility] Last Admin: 12/12/17 17:18 Dose: 20 mg Ondansetron HCl (Zofran Inj) 4 mg IVP Q6 PRN PRN Reason: Nausea/Vomiting Last Admin: 12/12/17 21:43 Dose: 4 mg Pantoprazole Sodium (Protonix Ec Tab) 40 mg PO DAILY [facility] Last Admin: 12/12/17 08:48 Dose: 40 mg - Labs Labs: 12/11/17 05:10 12/11/17 05:10 - Head Exam Head Exam: NORMAL INSPECTION - Respiratory Exam Respiratory Exam: NORMAL BREATHING PATTERN - Cardiovascular Exam Cardiovascular Exam: REGULAR RHYTHM - GI/Abdominal Exam GI & Abdominal Exam: Tenderness, Normal Bowel Sounds Assessment and Plan (1) Complicated UTI (urinary tract infection) Status: Acute (2) Uncontrolled diabetes mellitus Status: Acute (3) Abdominal pain Status: Acute - Assessment and Plan (Free Text) Plan: Cont meds Cont tx Inf disease eval for change of antibiotics cont hydration add levemir at hs cont accucheck
[2017-12-13 09:02] LABS: BASO % 0.3 % (0.0-2.0); EOS # 0.1 K/uL (0.0-0.7); EOS % 0.6 % (0.0-4.0); HEMOGLOBIN 12.3 g/dL (12.0-16.0); LYMPH # 2.3 K/uL (1.0-4.3); LYMPH % 20.3 % (20.0-40.0); MEAN CELL VOLUME 76.6 fl (81.0-99.0); MEAN CORPUSCULAR HEMOGLOBIN 26.3 pg (27.0-31.0); MEAN CORPUSCULAR HGB CONC 34.3 g/dL (33.0-37.0); MEAN PLATELET VOLUME 8.5 fl (7.2-11.7); MONO # 0.9 K/uL (0.0-0.8); MONO % 7.9 % (0.0-10.0); NEUT % 70.9 % (50.0-75.0); NRBC % 0.2 % (0.0-0.0); RBC 4.68 Mil/uL (3.80-5.20); RED CELL DISTRIBUTION WIDTH 13.1 % (11.5-14.5); WHITE BLOOD COUNT 11.3 K/uL (4.8-10.8)
[2017-12-13] MEDS: Insulin Regular 100 units/ml SC SCH ×4 (09:36→22:32)
[2017-12-13] MEDS: Pantoprazole 40 mg EC Tab PO SCH (09:37)
--- NOTE | 2017-12-13 11:43 | CP.PCM.PCO ---
Physician Communication Note - Physician Communication Note Physician Communication Note: Per Dr. Espinosa, pt will require IV abx for at least 7 days in TCU
--- NOTE | 2017-12-13 22:31 | CP.PCM.PN ---
Subjective - Date & Time of Evaluation Date of Evaluation: 12/13/17 Time of Evaluation: 11:35 - Subjective Subjective: Patient has no fever. Has no fever Still with elevated WBC Still with elevated FBS Objective - Vital Signs/Intake and Output Vital Signs (last 24 hours): Temp Pulse Resp BP Pulse Ox 99 F 81 18 123/77 97 12/13/17 16:06 12/13/17 16:06 12/13/17 16:06 12/13/17 16:06 12/13/17 16:06 - Medications Medications: Current Medications Acetaminophen (Tylenol 325mg Tab) 650 mg PO Q6 PRN PRN Reason: Fever >100.4 F Acetaminophen (Tylenol 325mg Tab) 650 mg PO Q6 PRN PRN Reason: Fever >100.4 F Aspirin (Ecotrin) 81 mg PO DAILY [facility] Last Admin: 12/13/17 09:30 Dose: 81 mg Dicyclomine HCl (Bentyl) 10 mg PO TID PRN PRN Reason: GI distress Last Admin: 12/11/17 17:06 Dose: 10 mg Docusate Sodium (Colace) 100 mg PO BID PRN PRN Reason: GI distress Last Admin: 12/13/17 18:06 Dose: 100 mg Home Med (Empagliflozin [Jardiance]) 25 mg PO DAILY [facility] Last Admin: 12/13/17 09:32 Dose: 25 mg Home Med (Lubiprostone [Amitiza]) 8 mcg PO BID [facility] Home Med (Dulaglutide [Trulicity]) 0.75 mg SQ QWK [facility] Gentamicin Sulfate/Sodium Chloride (Gentamicin 60mg/50ml Ns) 60 mg in 50 mls @ 50 mls/hr IVPB Q8 [facility] PRN Reason: Protocol Last Admin: 12/13/17 18:01 Dose: 50 mls/hr Insulin Detemir (Levemir) 15 units SC HS [facility] Last Admin: 12/12/17 22:05 Dose: 15 units Insulin Human Regular (Humulin R) 0 units SC ACCU-CHECK [facility] PRN Reason: Protocol Last Admin: 12/13/17 18:07 Dose: 1 unit Lisinopril (Zestril) 40 mg PO DAILY [facility] Last Admin: 12/13/17 09:39 Dose: 40 mg Metformin HCl (Glucophage) 1,000 mg PO BID [facility] Last Admin: 12/13/17 18:07 Dose: 1,000 mg Methimazole (Tapazole) 20 mg PO BID [facility] Last Admin: 12/13/17 18:10 Dose: 20 mg Ondansetron HCl (Zofran Inj) 4 mg IVP Q6 PRN PRN Reason: Nausea/Vomiting Last Admin: 12/12/17 21:43 Dose: 4 mg Pantoprazole Sodium (Protonix Ec Tab) 40 mg PO DAILY [facility] Last Admin: 12/13/17 09:37 Dose: 40 mg - Labs Labs: 12/13/17 08:05 12/11/17 05:10 - Head Exam Head Exam: NORMAL INSPECTION - Eye Exam Eye Exam: Normal appearance - Respiratory Exam Respiratory Exam: NORMAL BREATHING PATTERN - Cardiovascular Exam Cardiovascular Exam: REGULAR RHYTHM - GI/Abdominal Exam GI & Abdominal Exam: Normal Bowel Sounds - Neurological Exam Neurological Exam: Awake, Oriented x3 Assessment and Plan (1) Complicated UTI (urinary tract infection) Status: Acute (2) Uncontrolled diabetes mellitus Status: Acute (3) Abdominal pain Status: Acute - Assessment and Plan (Free Text) Plan: Cont meds Cont tx Cont PT Cont antibiotics increase levemir
[2017-12-13] MEDS: Insulin Detemir 100 Units/ml Inj SC SCH (22:41)
[2017-12-14] MEDS: Gentamicin 60mg/50ml NS 60 MG/50 ML BAG IVPB SCH ×3 (00:18→18:08)
[2017-12-14] MEDS: Insulin Regular 100 units/ml SC SCH ×4 (06:40→22:19)
[2017-12-14] MEDS: Pantoprazole 40 mg EC Tab PO SCH (08:20)
[2017-12-14 09:16] LABS: MEAN CELL VOLUME 77.1 fl (81.0-99.0); MEAN CORPUSCULAR HEMOGLOBIN 26.4 pg (27.0-31.0); MEAN CORPUSCULAR HGB CONC 34.2 g/dL (33.0-37.0); RBC 4.92 Mil/uL (3.80-5.20); RED CELL DISTRIBUTION WIDTH 13.3 % (11.5-14.5); WHITE BLOOD COUNT 13.9 K/uL (4.8-10.8)
[2017-12-14 09:24] LABS: INR 1.2 (0.9-1.2); PARTIAL THROMBOPLASTIN TIME 31.2 Seconds (25.6-37.1); PROTHROMBIN TIME 13.3 Seconds (9.8-13.1)
[2017-12-14] MEDS ORDERED: Lidocaine 2% Inj (20ml) ONE (12:16)
--- NOTE | 2017-12-14 12:33 | PCM.SURG1 ---
Surgeon's Initial Post Op Note - Surgeon's Notes Surgeon: Jersey Santoyo MD Professional Development Instructor: NONE Type of Anesthesia: Local Pre-Operative Diagnosis: Poor venous access Operative Findings: Patent right basilic vein Post-Operative Diagnosis: Poor venous access Operation Performed: Single lumen picc right arm, 33 cm. Tip is in the SVC. Specimen/Specimens Removed: NONE Estimated Blood Loss: EBL {In ML}: 2 Blood Products Given: N/A Drains Used: No Drains Post-Op Condition: Fair Date of Surgery/Procedure: 12/14/17 Time of Surgery/Procedure: 12:25
--- NOTE | 2017-12-14 13:02 | CP.PCM.PN ---
Subjective - Date & Time of Evaluation Date of Evaluation: 12/14/17 Time of Evaluation: 11:00 - Subjective Subjective: Stable, doing better, no acute events overnight, afebrile. No changes in urination or stools. Denies cp, SOB, palpitations, abd pain. Objective - Vital Signs/Intake and Output Vital Signs (last 24 hours): Temp Pulse Resp BP Pulse Ox 97.9 F 88 18 123/65 99 12/14/17 12:17 12/14/17 12:17 12/14/17 12:17 12/14/17 12:17 12/14/17 12:17 - Medications Medications: Current Medications Acetaminophen (Tylenol 325mg Tab) 650 mg PO Q6 PRN PRN Reason: Fever >100.4 F Acetaminophen (Tylenol 325mg Tab) 650 mg PO Q6 PRN PRN Reason: Fever >100.4 F Aspirin (Ecotrin) 81 mg PO DAILY [facility] Last Admin: 12/14/17 08:16 Dose: 81 mg Dicyclomine HCl (Bentyl) 10 mg PO TID PRN PRN Reason: GI distress Last Admin: 12/11/17 17:06 Dose: 10 mg Docusate Sodium (Colace) 100 mg PO BID PRN PRN Reason: GI distress Last Admin: 12/13/17 18:06 Dose: 100 mg Glipizide (Glucotrol) 5 mg PO BID [facility] Last Admin: 12/14/17 08:19 Dose: 5 mg Home Med (Empagliflozin [Jardiance]) 25 mg PO DAILY [facility] Last Admin: 12/14/17 08:17 Dose: 25 mg Home Med (Lubiprostone [Amitiza]) 8 mcg PO BID [facility] Home Med (Dulaglutide [Trulicity]) 0.75 mg SQ QWK [facility] Gentamicin Sulfate/Sodium Chloride (Gentamicin 60mg/50ml Ns) 60 mg in 50 mls @ 50 mls/hr IVPB Q8 [facility] PRN Reason: Protocol Last Admin: 12/14/17 08:18 Dose: 50 mls/hr Insulin Detemir (Levemir) 15 units SC [facility] Last Admin: 12/13/17 22:41 Dose: 15 units Insulin Human Regular (Humulin R) 0 units SC ACCU-CHECK [facility] PRN Reason: Protocol Last Admin: 12/14/17 12:52 Dose: Not Given Lisinopril (Zestril) 40 mg PO DAILY [facility] Last Admin: 12/14/17 08:24 Dose: 40 mg Metformin HCl (Glucophage) 1,000 mg PO BID [facility] Last Admin: 12/14/17 08:18 Dose: 1,000 mg Methimazole (Tapazole) 20 mg PO BID [facility] Last Admin: 12/14/17 08:20 Dose: 20 mg Ondansetron HCl (Zofran Inj) 4 mg IVP Q6 PRN PRN Reason: Nausea/Vomiting Last Admin: 12/12/17 21:43 Dose: 4 mg Pantoprazole Sodium (Protonix Ec Tab) 40 mg PO DAILY [facility] Last Admin: 12/14/17 08:20 Dose: 40 mg - Labs Labs: 12/14/17 09:00 12/11/17 05:10 PT 13.3 Seconds (9.8-13.1) H 12/14/17 09:00 INR 1.2 (0.9-1.2) 12/14/17 09:00 APTT 31.2 Seconds (25.6-37.1) 12/14/17 09:00 - Constitutional Appears: Non-toxic, No Acute Distress - Eye Exam Eye Exam: EOMI, PERRL - ENT Exam ENT Exam: Mucous Membranes Moist - Respiratory Exam Respiratory Exam: Clear to Ausculation Bilateral. absent: Decreased Breath Sounds, Rales, Rhonchi, Wheezes, Respiratory Distress - Cardiovascular Exam Cardiovascular Exam: REGULAR RHYTHM, +S1, +S2. absent: Gallop, Murmur - GI/Abdominal Exam GI & Abdominal Exam: Soft, Normal Bowel Sounds. absent: Firm, Guarding, Rigid, Tenderness, Rebound - Extremities Exam Extremities Exam: Normal Inspection. absent: Calf Tenderness, Pedal Edema - Back Exam Back Exam: absent: CVA tenderness (L), CVA tenderness (R) - Neurological Exam Neurological Exam: Alert, Awake, Normal Gait, Oriented x3 - Psychiatric Exam Psychiatric exam: Normal Affect, Normal Mood - Skin Skin Exam: Normal Color, Warm Assessment and Plan - Assessment and Plan (Free Text) Assessment: UTI to multiresistant ESBL+ E.Coli BCx neg Patient allergic to PCN ID consult appreciated C/W Genta IV as per ID recs PICC line ordered Poss DC later today with IV abx as outpatient
--- NOTE | 2017-12-14 13:58 | CP.PCM.PCO ---
Assessment/Plan - Assessment/Plan Assessment (Free Text): Pt stable in no distress. Prefers to go home on IV abx. Per Dr. Espinosa, gentamicin 80mg q12 hrs x 7 days. Pt aware of d/c plan. Picc inserted. Weekly labs
[2017-12-14] MEDS: Insulin Detemir 100 Units/ml Inj SC SCH (22:20)
[2017-12-15] MEDS: Gentamicin 60mg/50ml NS 60 MG/50 ML BAG IVPB SCH ×2 (00:57→08:41)
[2017-12-15] MEDS: Insulin Regular 100 units/ml SC SCH ×2 (06:52→12:30)
[2017-12-15 08:09] VITALS: BP 121/77; PULSE 89; RESP 20; TEMP 99.2; O2SAT 97
[2017-12-15] MEDS: Pantoprazole 40 mg EC Tab PO SCH (08:42)
--- NOTE | 2017-12-15 12:12 | CP.PCM.DIS ---
Provider - Provider Date of Admission: 12/11/17 15:34 Attending physician: Bruce Blood MD Consults: ID Time Spent in preparation of Discharge (in minutes): 30 Diagnosis - Discharge Diagnosis (1) Complicated UTI (urinary tract infection) Status: Acute (2) Uncontrolled diabetes mellitus Status: Acute Hospital Course - Lab Results Lab Results: Micro Results 12/10/17 11:45 Blood Blood Culture - Preliminary NO GROWTH AFTER 4 DAYS 12/10/17 12:15 Blood Blood Culture - Preliminary NO GROWTH AFTER 4 DAYS 12/10/17 11:45 Urine,Clean Catch Urine Culture - Final Escherichia Coli Most Recent Lab Values WBC 13.9 K/uL (4.8-10.8) H 12/14/17 09:00 RBC 4.92 Mil/uL (3.80-5.20) 12/14/17 09:00 Hgb 13.0 g/dL (12.0-16.0) 12/14/17 09:00 Hct 37.9 % (34.0-47.0) 12/14/17 09:00 MCV 77.1 fl (81.0-99.0) L 12/14/17 09:00 MCH 26.4 pg (27.0-31.0) L 12/14/17 09:00 MCHC 34.2 g/dL (33.0-37.0) 12/14/17 09:00 RDW 13.3 % (11.5-14.5) 12/14/17 09:00 Plt Count 314 K/uL (130-400) 12/14/17 09:00 MPV 8.5 fl (7.2-11.7) 12/13/17 08:05 Neut % (Auto) 70.9 % (50.0-75.0) 12/13/17 08:05 Lymph % (Auto) 20.3 % (20.0-40.0) 12/13/17 08:05 Warren % (Auto) 7.9 % (0.0-10.0) 12/13/17 08:05 Eos % (Auto) 0.6 % (0.0-4.0) 12/13/17 08:05 Baso % (Auto) 0.3 % (0.0-2.0) 12/13/17 08:05 Neut # (Auto) 8.0 K/uL (1.8-7.0) H 12/13/17 08:05 Lymph # (Auto) 2.3 K/uL (1.0-4.3) 12/13/17 08:05 Warren # (Auto) 0.9 K/uL (0.0-0.8) H 12/13/17 08:05 Eos # (Auto) 0.1 K/uL (0.0-0.7) 12/13/17 08:05 Baso # (Auto) 0.0 K/uL (0.0-0.2) 12/13/17 08:05 Neutrophils % (Manual) 87 % (42-75) H 12/10/17 11:45 Band Neutrophils % 1 % (0-2) 12/10/17 11:45 Lymphocytes % (Manual) 8 % (20-50) L 12/10/17 11:45 Monocytes % (Manual) 4 % (0-10) 12/10/17 11:45 Platelet Estimate Normal (NORMAL) 12/10/17 11:45 Large Platelets Present 12/10/17 11:45 RBC Morphology Normal (NORMAL) 12/10/17 11:45 ESR 98 mm/hr (0-20) H 12/13/17 05:50 PT 13.3 Seconds (9.8-13.1) H 12/14/17 09:00 INR 1.2 (0.9-1.2) 12/14/17 09:00 APTT 31.2 Seconds (25.6-37.1) 12/14/17 09:00 pO2 13 mm/Hg (30-55) L 12/10/17 11:55 VBG pH 7.36 (7.32-7.43) 12/10/17 11:55 VBG pCO2 47 mmHg (40-60) 12/10/17 11:55 VBG HCO3 23.1 mmol/L 12/10/17 11:55 VBG Total CO2 28.0 mmol/L (22-28) 12/10/17 11:55 VBG O2 Sat (Calc) 19.2 % (40-65) L 12/10/17 11:55 VBG Base Excess 0.5 mmol/L (0.0-2.0) 12/10/17 11:55 VBG Potassium 4.1 mmol/L (3.6-5.2) 12/10/17 11:55 Sodium 140.0 mmol/L (132-148) 12/10/17 11:55 Chloride 102.0 mmol/L (98-107) 12/10/17 11:55 Glucose 168 mg/dL (65-105) H 12/10/17 11:55 Lactate 0.9 mmol/L (0.7-2.1) 12/10/17 11:55 FiO2 21.0 % 12/10/17 11:55 Sodium 141 mmol/l (132-148) 12/11/17 05:10 Potassium 4.2 MMOL/L (3.6-5.0) 12/11/17 05:10 Chloride 104 mmol/L (98-107) 12/11/17 05:10 Carbon Dioxide 18 mmol/L (22-30) L 12/11/17 05:10 Anion Gap 23 (10-20) H 12/11/17 05:10 BUN 20 mg/dl (7-17) H 12/11/17 05:10 Creatinine 0.7 mg/dl (0.7-1.2) 12/11/17 05:10 Est GFR ( Amer) > 60 12/11/17 05:10 Est GFR (Non-Af Amer) > 60 12/11/17 05:10 POC Glucose (mg/dL) 182 mg/dL (65-110) H 12/15/17 11:25 Random Glucose 171 mg/dL (65-105) H 12/11/17 05:10 Calcium 9.2 mg/dL (8.4-10.2) 12/11/17 05:10 Total Bilirubin 0.8 mg/dl (0.2-1.3) 12/10/17 11:45 AST 23 U/L (14-36) 12/10/17 11:45 ALT 18 U/L (9-52) 12/10/17 11:45 Alkaline Phosphatase 101 U/L (38-126) 12/10/17 11:45 Total Protein 8.6 G/DL (6.3-8.2) H 12/10/17 11:45 Albumin 4.3 g/dL (3.5-5.0) 12/10/17 11:45 Globulin 4.4 gm/dL (2.2-3.9) H 12/10/17 11:45 Albumin/Globulin Ratio 1.0 (1.0-2.1) 12/10/17 11:45 Lipase 36 U/L (23-300) 12/10/17 11:45 Venous Blood Potassium 4.1 mmol/L (3.6-5.2) 12/10/17 11:55 Urine Color Yellow (YELLOW) 12/10/17 11:45 Urine Clarity Slighty-cloudy (Clear) 12/10/17 11:45 Urine pH 6.0 (5.0-8.0) 12/10/17 11:45 Ur Specific Perry 1.030 (1.003-1.030) 12/10/17 11:45 Urine Protein Negative mg/dL (NEGATIVE) 12/10/17 11:45 Urine Glucose (UA) >=500 mg/dL (Normal) 12/10/17 11:45 Urine Ketones 80 mg/dL (NEGATIVE) 12/10/17 11:45 Urine Blood Small (NEGATIVE) 12/10/17 11:45 Urine Nitrate Positive (NEGATIVE) H 12/10/17 11:45 Urine Bilirubin Negative (NEGATIVE) 12/10/17 11:45 Urine Urobilinogen 0.2-1.0 mg/dL (0.2-1.0) 12/10/17 11:45 Ur Leukocyte Esterase Trace Deanna/uL (Negative) 12/10/17 11:45 Urine RBC (Auto) 2 /hpf (0-3) 12/10/17 11:45 Urine Microscopic WBC 11 /hpf (0-5) H 12/10/17 11:45 Ur Squamous Epith Cells 1 /hpf (0-5) 12/10/17 11:45 - Hospital Course Hospital Course: 47 y/o F with PMHx of Uncontrolled DM, diverticulosis and HTN presented to ED c/ o abd pain for 1 week associated with occasional nausea. Patient was found to have ESBl E.Coli UTI highly resistant and patient was started on IV abx and ID was consulted. DM was uncontrolled and patient was started on Glipizide BID and HS levemir while her other home emds were continued. Patient developed a small allergic reaction to 1 dose of Zosyn at ED and she as then treated with aminoglycosides. Today patient is afebrile, asymptomatic and is to be DC home with services to finish IV abx course as per ID recs after PICC line was placed. Discharge Exam - Head Exam Head Exam: NORMAL INSPECTION - Eye Exam Eye Exam: EOMI, PERRL - ENT Exam ENT Exam: Mucous Membranes Moist - Respiratory Exam Respiratory Exam: Clear to PA & Lateral, NORMAL BREATHING PATTERN, UNREMARKABLE. absent: Respiratory Distress - Cardiovascular Exam Cardiovascular Exam: REGULAR RHYTHM, +S1, +S2. absent: Gallop, Systolic Murmur - GI/Abdominal Exam GI & Abdominal Exam: Normal Bowel Sounds, Soft, Unremarkable. absent: Tenderness - Extremities Exam Extremities exam: normal capillary refill, normal inspection - Back Exam Back exam: absent: CVA tenderness (L), CVA tenderness (R) - Neurological Exam Neurological exam: Alert, Oriented x3 - Psychiatric Exam Psychiatric exam: Normal Affect, Normal Mood - Skin Skin Exam: Normal Color, Warm Discharge Plan - Discharge Medications Prescriptions: Gentamicin 60mg/50ml NS 80 mg IVPB Q12 #14 bag GlipiZIDE [Glucotrol] 5 mg PO BID #30 tab - Follow Up Plan Condition: GOOD Disposition: HOME/ ROUTINE Instructions: Glipizide, Extended-Spectrum Beta Lactamase Infection Additional Instructions: follow up with primary MD 1 week. home care services [phone] Referrals: Bruce Blood MD [Family Provider] -
== END 2017-12-15 14:10 | disposition home or self-care (01) | DRG 320 ==
LOC: H.ER 10:59 → INTOOBSV 15:50 → OBSVTOIN 15:50 → H.ERHOLD 15:50 → UNDOADMOB 15:50 → H.MEDSURG1 17:33 → H.ERHOLD 17:33 → H.MEDSURG1 12-11 15:34 → OBSVTOIN 12-11 15:34 → H.MEDSURG1 12-14 18:12
PROVIDERS: ADMIT Family Medicine; ATTEND Family Medicine
PROC: 02HV33Z Insertion of Infusion Device into Superior Vena Cava, Percutaneous Approach (ICD-10-PCS; principal; 2017-12-14)
DX: N39.0 Urinary tract infection, site not specified (principal); E11.65 Type 2 diabetes mellitus with hyperglycemia; E05.90 Thyrotoxicosis, unspecified without thyrotoxic crisis or storm; B96.20 Unspecified Escherichia coli [E. coli] as the cause of diseases classified elsewhere; Z88.0 Allergy status to penicillin; Z16.12 Extended spectrum beta lactamase (ESBL) resistance; E78.00 Pure hypercholesterolemia, unspecified; I10 Essential (primary) hypertension; Z91.013 Allergy to seafood; Z91.018 Allergy to other foods; L27.0 Generalized skin eruption due to drugs and medicaments taken internally; T36.0X5A Adverse effect of penicillins, initial encounter

== ENCOUNTER 2017-12-20 16:11 | Inpatient (IN) | payer MEDICAID ==
[2017-12-20 16:12] VITALS: BMI 27.3
[2017-12-20] MEDS ORDERED: Insulin Regular 100 units/ml IVP ONE (16:32)
[2017-12-20] MEDS ORDERED: Sodium Chloride 0.9% 1,000 ML IV STA ×3 (16:32→19:41)
[2017-12-20] MEDS ORDERED: Morphine 4 MG/ML VIAL IV STA (16:43)
[2017-12-20] MEDS ORDERED: Insulin Regular 100 units/ml ONE (16:58)
[2017-12-20 16:59] LABS: VENOUS BLOOD GAS BASE EXCESS 1.7 mmol/L (0.0-2.0); VENOUS BLOOD GAS PCO2 32 mmHg (40-60); VENOUS BLOOD GAS PO2 27 mm/Hg (30-55); VENOUS BLOOD PH 7.49 (7.32-7.43)
[2017-12-20] MEDS ORDERED: Morphine 4 MG/ML VIAL ONE (16:59)
[2017-12-20 17:02] LABS: BASO # 0.1 K/uL (0.0-0.2); BASO % 0.4 % (0.0-2.0); HEMOGLOBIN 12.5 g/dL (12.0-16.0); LYMPH # 0.7 K/uL (1.0-4.3); LYMPH % 3.9 % (20.0-40.0); MEAN CELL VOLUME 77.8 fl (81.0-99.0); MEAN CORPUSCULAR HGB CONC 33.5 g/dL (33.0-37.0); MEAN PLATELET VOLUME 8.8 fl (7.2-11.7); MONO # 0.6 K/uL (0.0-0.8); MONO % 3.2 % (0.0-10.0); NEUT # 16.2 K/uL (1.8-7.0); NEUT % 92.5 % (50.0-75.0); NRBC % 0.1 % (0.0-0.0); PLATELET COUNT 404 K/uL (130-400); RBC 4.81 Mil/uL (3.80-5.20); RED CELL DISTRIBUTION WIDTH 12.7 % (11.5-14.5); WHITE BLOOD COUNT 17.5 K/uL (4.8-10.8)
[2017-12-20 17:04] LABS: SQUAMOUS EPITHIAL 2 /hpf (0-5); URINE BACTERIA RARE (<OCC); URINE BILIRUBIN NEGATIVE (NEGATIVE); URINE BLOOD SMALL (NEGATIVE); URINE CLARITY SLIGHTY-CLOUDY (Clear); URINE COLOR YELLOW (YELLOW); URINE GLUCOSE (UA) >=500 mg/dL (Normal); URINE LEUKOCYTE ESTERASE TRACE Leu/uL (Negative); URINE PROTEIN NEGATIVE (NEGATIVE); URINE UROBILINOGEN 0.2-1.0 mg/dL (0.2-1.0)
[2017-12-20 17:22] LABS: ALB/GLOB RATIO 0.8 (1.0-2.1); ALBUMIN 3.8 g/dL (3.5-5.0); ALT/SGPT 24 U/L (9-52); AST/SGOT 23 U/L (14-36); BLOOD UREA NITROGEN 17 mg/dl (7-17); CALCIUM 10.1 mg/dL (8.4-10.2); GFR AFRICAN-AMERICAN > 60; GFR NON-AFRICAN AMERICAN > 60; LIPASE 72 U/L (23-300)
[2017-12-20 17:23] LABS: INR 1.3 (0.9-1.2); PARTIAL THROMBOPLASTIN TIME 31.1 Seconds (25.6-37.1); PROTHROMBIN TIME 14.8 Seconds (9.8-13.1)
--- NOTE | 2017-12-20 18:23 | ED PDOC ---
HPI: Abdomen Time Seen by Provider: 12/20/17 16:31 Chief Complaint (Nursing): Abdominal Pain Chief Complaint (Provider): abdominal pain History Per: Patient History/Exam Limitations: no limitations Onset/Duration Of Symptoms: Days (1), Gradual Current Symptoms Are (Timing): Still Present Location Of Pain/Discomfort: RLQ, LLQ Quality Of Discomfort: Sharp Associated Symptoms: Chills, Nausea, Loss Of Appetite, Back Pain Exacerbating Factors: None Alleviating Factors: None Last Bowel Movement: Today Additional Complaint(s): 47yo female under outpatient care with IV gentamicin for ESBL UTI, now presents w worsening lower abdominal pain, chills, weakness and nausea. States received gentamicin via PICC line this morning. Past Medical History Reviewed: Historical Data, Nursing Documentation, Vital Signs Vital Signs: Last Vital Signs Temp 99.7 F H 12/20/17 19:42 Pulse 96 H 12/20/17 19:42 Resp 16 12/20/17 19:42 BP 110/60 12/20/17 19:42 Pulse Ox 98 12/20/17 19:42 - Medical History PMH: Gall Bladder Disease, HTN, Hypercholesterolemia, Hyperthyroidism, Sexually Transmitted Disease Denies: HIV, Chronic Kidney Disease Comment Only: Diverticulitis (Diverticulosis) - Surgical History Surgical History: Cholecystectomy - Family History Family History: States: Unknown Family Hx - Living Arrangements Living Arrangements: With Family - Social History Current smoker - smoking cessation education provided: No Alcohol: None - Immunization History Hx Tetanus Toxoid Vaccination: No Hx Influenza Vaccination: No Hx Pneumococcal Vaccination: No - Home Medications Home Medications: Ambulatory Orders Medication Instructions Recorded Lisinopril [Zestril] 40 mg PO DAILY 11/13/16 Methimazole 20 mg PO BID 11/13/16 Aspirin [Ecotrin] 81 mg PO HS 11/02/17 Empagliflozin [Jardiance] 25 mg PO DAILY 11/02/17 MetFORMIN [glucoPHAGE] 1,000 mg PO BID 11/02/17 Dicyclomine [Bentyl] 10 mg PO TID PRN #12 cap 12/07/17 Docusate Sodium [Colace] 100 mg PO BID PRN #20 capsule 12/07/17 Gentamicin 60mg/50ml NS 80 mg IVPB Q12 #14 bag 12/14/17 GlipiZIDE [Glucotrol] 5 mg PO BID #30 tab 12/15/17 Dulaglutide [Trulicity] 1.5 mg SC MO 12/20/17 Ergocalciferol (Vitamin D2) 50,000 unit PO WE 12/20/17 [Vitamin D2] Fenofibrate [Tricor] 145 mg PO HS 12/20/17 Glucosam/Chond/Hyalu/Cf Borate 1 tab PO DAILY 12/20/17 [Move Free Joint Health Tablet] Ondansetron ODT [Zofran ODT] 4 mg PO Q6 PRN 12/20/17 Ranitidine HCl [Zantac] 150 mg PO Q12 12/20/17 traMADol [Ultram] 50 mg PO Q8 PRN 12/20/17 - Allergies Allergies/Adverse Reactions: Allergies Allergy/AdvReac Type Severity Reaction Status Date / Time hazelnut Allergy RASH Verified 11/02/17 08:25 shellfish derived Allergy RASH Verified 11/02/17 08:26 piperacillin [From Zosyn] AdvReac RASH Verified 12/10/17 17:07 tazobactam [From Zosyn] AdvReac RASH Verified 12/10/17 17:07 Review of Systems Review Of Systems: ROS cannot be obtained secondary to pt's inabilty to answer questions. Constitutional: Positive for: Chills, Weakness Cardiovascular: Negative for: Chest Pain Respiratory: Negative for: Cough, Shortness of Breath Gastrointestinal: Positive for: Nausea, Abdominal Pain Genitourinary Female: Negative for: Dysuria, Frequency Musculoskeletal: Negative for: Neck Pain, Shoulder Pain, Back Pain Skin: Negative for: Rash, Lesions, Jaundice Neurological: Positive for: Weakness (generalized), Dizziness. Negative for: Numbness Psych: Negative for: Anxiety Physical Exam - Reviewed Nursing Documentation Reviewed: Yes Vital Signs Reviewed: Yes - Physical Exam Appears: Positive for: Non-toxic (ill but nontoxic), Uncomfortable Head Exam: Positive for: ATRAUMATIC, NORMAL INSPECTION, NORMOCEPHALIC Skin: Positive for: Warm, Pallor Eye Exam: Positive for: EOMI, Normal appearance, PERRL ENT: Positive for: Normal ENT Inspection, Other (dry mucous membranes) Neck: Positive for: Normal, Painless ROM Cardiovascular/Chest: Positive for: Regular Rate, Rhythm Respiratory: Positive for: CNT, Normal Breath Sounds Gastrointestinal/Abdominal: Positive for: Tenderness (Lower abdomen), Guarding, Rebound Extremity: Positive for: Normal ROM. Negative for: Deformity, Swelling Neurologic/Psych: Positive for: Alert, Oriented. Negative for: Motor/Sensory Deficits - Laboratory Results Result Diagrams: 12/20/17 16:40 12/20/17 16:40 - ECG O2 Sat by Pulse Oximetry: 99 Pulse Ox Interpretation: Normal Medical Decision Making Medical Decision Making: workup for sepsis initiated IVF bolus, cultures, pain control, bloodwork labs reveal elevated WBC 17.5, elevated lactate 3.3, hyperglycemia, and normal Roper Operator. Gentle insulin therapy initiated. CT abd pelv obtained given shellfish allergy no contrast able to be used Accession No. 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 Additional 2 dimensional sagittal and coronal reformats generated. Radiation dose: Total exam DLP = This CT exam was performed using one or more of the following dose reduction techniques: Automated exposure control, adjustment of the mA and/or kV according to patient size, and/or use of iterative reconstruction technique. FINDINGS: LOWER THORAX: Pneumothorax lung bases are clear without infiltrate effusion or basilar pneumothorax. LIVER: The liver exhibits normal size and attenuation pattern without mass collection or calcification. GALLBLADDER AND BILE DUCTS: Distended post cholecystectomy changes again noted PANCREAS: The pancreas appears unremarkable without masses collections or calcifications. SPLEEN: Spleen measures nearly 12 cm in AP dimension. No splenic mass or collection. Early calcification of the splenic artery noted. ADRENALS: No adrenal lesions. . KIDNEYS AND URETERS: Kidneys demonstrate relatively symmetric size. No evidence of nephrolithiasis or hydronephrosis. BLADDER: Urinary bladder incompletely distended which may account for slight thick- walled appearance. Rule out cystitis. REPRODUCTIVE: Previously noted large left adnexal cystic lesion has increased in size. ( Measuring approximately 8.3 cm cc by 8.2 cm trans by 7.6 cm AP and now exhibits air-fluid level. Rule out underlying superinfection - TOA. Questionable small amount of air within what appear to have represented a adjacent daughter cyst versus air within a compressed loop of bowel along right posteromedial aspect of the cystic focus. Mild infiltration changes are seen surrounding the aforementioned cystic structure. There is also free fluid seen within the pelvis APPENDIX: Unremarkable. BOWEL: . Evaluation of the bowel is limited due to the lack of oral contrast material. Stomach is incompletely distended. Visualized loops of small bowel exhibit normal contour and caliber. No evidence of acute mechanical small bowel obstruction. There is a large amount of stool seen within the cecum at ascending and transverse colon consistent with fecal retention/constipation. PERITONEUM: As above. No gross free intraperitoneal air not withstanding air within the aforementioned adnexal cystic lesion LYMPH NODES: Unremarkable. No enlarged lymph nodes. VASCULATURE: No evidence of abdominal aortic aneurysm. BONES: Mild multilevel degenerative spondylosis of the lower thoracic and lumbar spine. OTHER FINDINGS: None. IMPRESSION: Interval increase in size of a left adnexal regions cystic focus of which now exhibits air-fluid level. Rule out superinfection -TOA. Questionable small amount of air within what appear to have represented a small daughter cyst adjacent to this focus versus air within a compressed a loop of of bowel. Mild infiltration changes are seen surrounding the aforementioned cystic structure. There is also of free fluid in the pelvis. Findings discussed with Dr. Matta at approximately 6:10 p.m. with written down and read back verification. Large amount of stool is present within the colon consistent with fecal retention/constipation. approx 6pm Discussed w Dr Jesús Penny and Reji Rosa, received gentamicin this morning approx 620pm Discussed w PMD Dr Blood admit, REVENUE CYCLE ADMINISTRATOR consult Dr Valenzuela if available- call placed. Admit tele, repeat lactate pending in an hour, additional IVF and pain medicine ordered Patient updated on results surgery and REVENUE CYCLE ADMINISTRATOR, d/w Dr Palma 720 to consult Surg resident in ED 730p care transferred Disposition - Clinical Impression Clinical Impression: Severe sepsis, Pelvic abscess - Patient ED Disposition Is Patient to be Admitted: Yes - Disposition Disposition Time: 17:45 Condition: GUARDED - Pt Status Changed To: Hospital Disposition Of: Inpatient - Admit Certification Admit to Inpatient:: After my assessment, the patient will require hospitalization for at least two midnights. This is because of the severity of symptoms shown, intensity of services needed, and/or the medical risk in this patient being treated as an outpatient. - POA Present On Arrival: Poor Glycemic Control
[2017-12-20] MEDS ORDERED: metroNIDAZOLE 500mg/100ml NS 100 ML IVPB STA (18:28)
--- NOTE | 2017-12-20 18:28 | CT ---
PROCEDURE: CT scan abdomen pelvis dated 12/20/2017 HISTORY: Lower abdominal pain , pallor COMPARISON: Comparison made with CT scan 12/10/2017 TECHNIQUE: Contiguous axial images of the abdomen and pelvis performed without oral or intravenous contrast material. Additional 2 dimensional sagittal and coronal reformats generated. Radiation dose: Total exam DLP = This CT exam was performed using one or more of the following dose reduction techniques: Automated exposure control, adjustment of the mA and/or kV according to patient size, and/or use of iterative reconstruction technique. FINDINGS: LOWER THORAX: Pneumothorax lung bases are clear without infiltrate effusion or basilar pneumothorax. LIVER: The liver exhibits normal size and attenuation pattern without mass collection or calcification. GALLBLADDER AND BILE DUCTS: Distended post cholecystectomy changes again noted PANCREAS: The pancreas appears unremarkable without masses collections or calcifications. SPLEEN: Spleen measures nearly 12 cm in AP dimension. No splenic mass or collection. Early calcification of the splenic artery noted. ADRENALS: No adrenal lesions. . KIDNEYS AND URETERS: Kidneys demonstrate relatively symmetric size. No evidence of nephrolithiasis or hydronephrosis. BLADDER: Urinary bladder incompletely distended which may account for slight thick-walled appearance. Rule out cystitis. REPRODUCTIVE: Previously noted large left adnexal cystic lesion has increased in size. (Measuring approximately 8.3 cm cc by 8.2 cm trans by 7.6 cm AP and now exhibits air-fluid level. Rule out underlying superinfection - TOA. Questionable small amount of air within what appear to have represented a adjacent daughter cyst versus air within a compressed loop of bowel along right posteromedial aspect of the cystic focus. Mild infiltration changes are seen surrounding the aforementioned cystic structure. There is also free fluid seen within the pelvis APPENDIX: Unremarkable. BOWEL: . Evaluation of the bowel is limited due to the lack of oral contrast material. Stomach is incompletely distended. Visualized loops of small bowel exhibit normal contour and caliber. No evidence of acute mechanical small bowel obstruction. There is a large amount of stool seen within the cecum at ascending and transverse colon consistent with fecal retention/constipation. PERITONEUM: As above. No gross free intraperitoneal air not withstanding air within the aforementioned adnexal cystic lesion LYMPH NODES: Unremarkable. No enlarged lymph nodes. VASCULATURE: No evidence of abdominal aortic aneurysm. BONES: Mild multilevel degenerative spondylosis of the lower thoracic and lumbar spine. OTHER FINDINGS: None. IMPRESSION: Interval increase in size of a left adnexal regions cystic focus of which now exhibits air-fluid level. Rule out superinfection -TOA. Questionable small amount of air within what appear to have represented a small daughter cyst adjacent to this focus versus air within a compressed a loop of of bowel. Mild infiltration changes are seen surrounding the aforementioned cystic structure. There is also of free fluid in the pelvis. Findings discussed with Dr. Matta at approximately 6:10 p.m. with written down and read back verification. Large amount of stool is present within the colon consistent with fecal retention/constipation.
[2017-12-20 18:37] LABS: ANISOCYTOSIS SLIGHT; BANDS 6 % (0-2); LYMPHOCYTE 8 % (20-50); MICROCYTOSIS SLIGHT; MONOCYTE 5 % (0-10); NEUTROPHIL 81 % (42-75); PLATELET ESTIMATE NORMAL (NORMAL); TOTAL CELLS COUNTED 100
[2017-12-20 18:38] LABS: HYPERSEGMENTATION PRESENT; LARGE PLATELETS PRESENT; OVALOCYTES MODERATE; TEARDROP CELLS SLIGHT
[2017-12-20] MEDS ORDERED: metroNIDAZOLE 500mg/100ml NS 100 ML IVPB ONE (19:19)
[2017-12-20] MEDS ORDERED: HYDROmorphone 0.5 mg/0.5 ml ISec ONE (19:23)
--- NOTE | 2017-12-20 20:09 | CP.PCM.PN ---
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 HAS VANCOMYCIN ON BOARD(RANDOM LEVEL ORDERED FOR AM) HAVE DISCUSSED c WILL SEE IN AM Objective - Vital Signs/Intake and Output Vital Signs (last 24 hours): Temp Pulse Resp BP Pulse Ox 99.7 F H 96 H 16 110/60 99 12/20/17 19:42 12/20/17 19:42 12/20/17 19:42 12/20/17 19:42 12/20/17 20:00 Intake and Output: 12/20/17 12/21/17 18:59 06:59 Intake Total 1000 1000 Balance 1000 1000 - Medications Medications: Current Medications Doxycycline Hyclate 100 mg/ (Sodium Chloride) 100 mls @ 100 mls/hr IVPB Q12 TASHIA PRN Reason: Protocol Sodium Chloride (Sodium Chloride 0.9%) 1,000 mls @ 200 mls/hr IV .Q5H STA Stop: 12/21/17 00:40 Metronidazole (Flagyl 500mg/100ml Ns) 100 mls @ 100 mls/hr IVPB Q8 TASHIA PRN Reason: Protocol Gentamicin Sulfate 180 mg/ (Sodium Chloride) 104.5 mls @ 100 mls/hr IVPB Q24H TASHIA PRN Reason: Protocol - Labs Labs: 12/20/17 16:40 12/20/17 16:40 PT 14.8 Seconds (9.8-13.1) H 12/20/17 16:40 INR 1.3 (0.9-1.2) H 12/20/17 16:40 APTT 31.1 Seconds (25.6-37.1) 12/20/17 16:40
--- NOTE | 2017-12-20 21:04 | CP.PCM.CON ---
<HernanIke - Last Filed: 12/20/17 21:02> History of Present Illness - History of Present Illness History of Present Illness: General Surgery Consult For Dr. Nelson This is a 47F with a PMH of Ovarian cysts, DM, diverticulosis and HTN, hypothryoid who was admitted 2 weeks ago for ESBL UTI. She presents today with acute onset abdominal pain that began while she was watching TV earlier today. She denies any similar pain like this before. Nothing makes it better and nothing makes it worse. SHe reports one episode of emesis that was clear and watery. She denies any fevers or chills at home. In the ED she had a CT which showed a fluid filled cyst in the pelvis. Previous CT had a similar cyst without only fluid an no air. PMH: See above PSH: C-SectionX3, Laparoscopic ovarian cystectomy X2, Lap mirian ALL: Zosyn, Shellfish Social: Denies vices Review of Systems - Review of Systems All systems: reviewed and no additional remarkable complaints except - Constitutional Constitutional: As Per HPI - Cardiovascular Cardiovascular: absent: Chest Pain - Respiratory Respiratory: absent: Cough, Dyspnea - Gastrointestinal Gastrointestinal: Abdominal Pain, Nausea, Vomiting. absent: Diarrhea, Dyspepsia - Genitourinary Genitourinary: absent: Hematuria, Pyuria Past Patient History - Infectious Disease Hx of Infectious Diseases: None - Past Medical History & Family History Past Medical History?: Yes - Past Social History Alcohol: None - CARDIAC Hx Hypercholesterolemia: Yes Hx Hypertension: Yes - PULMONARY Hx Respiratory Disorders: No - NEUROLOGICAL Hx Neurological Disorder: No - HEENT Hx HEENT Problems: No - RENAL Hx Chronic Kidney Disease: No - ENDOCRINE/METABOLIC Hx Hyperthyroidism: Yes - HEMATOLOGICAL/ONCOLOGICAL Hx Human Immunodeficiency Virus (HIV): No - INTEGUMENTARY Hx Dermatological Problems: No - MUSCULOSKELETAL/RHEUMATOLOGICAL Hx Musculoskeletal Disorders: No - GASTROINTESTINAL Hx Diverticulitis: (Diverticulosis) Hx Gall Bladder Disease: Yes - GENITOURINARY/GYNECOLOGICAL Hx Sexually Transmitted Disorders: Yes - PSYCHIATRIC Hx Psychophysiologic Disorder: No Hx Substance Use: No - SURGICAL HISTORY Hx Cholecystectomy: Yes - ANESTHESIA Hx Anesthesia: Yes Hx Anesthesia Reactions: No Hx Malignant Hyperthermia: No Meds Allergies/Adverse Reactions: Allergies Allergy/AdvReac Type Severity Reaction Status Date / Time hazelnut Allergy RASH Verified 11/02/17 08:25 shellfish derived Allergy RASH Verified 11/02/17 08:26 piperacillin [From Zosyn] AdvReac RASH Verified 12/10/17 17:07 tazobactam [From Zosyn] AdvReac RASH Verified 12/10/17 17:07 - Medications Medications: Current Medications Doxycycline Hyclate 100 mg/ (Sodium Chloride) 100 mls @ 100 mls/hr IVPB Q12 TASHIA PRN Reason: Protocol Sodium Chloride (Sodium Chloride 0.9%) 1,000 mls @ 200 mls/hr IV .Q5H STA Stop: 12/21/17 00:40 Metronidazole (Flagyl 500mg/100ml Ns) 100 mls @ 100 mls/hr IVPB Q8 TASHIA PRN Reason: Protocol Gentamicin Sulfate 180 mg/ (Sodium Chloride) 104.5 mls @ 100 mls/hr IVPB Q24H TASHIA PRN Reason: Protocol Physical Exam - Constitutional Appears: Non-toxic, No Acute Distress - Head Exam Head Exam: ATRAUMATIC, NORMOCEPHALIC - Eye Exam Eye Exam: EOMI, Normal appearance - ENT Exam ENT Exam: Mucous Membranes Moist - Respiratory Exam Respiratory Exam: NORMAL BREATHING PATTERN - Cardiovascular Exam Cardiovascular Exam: +S1, +S2 - GI/Abdominal Exam GI & Abdominal Exam: Soft, Tenderness. absent: Distended, Firm, Guarding, Hernia, Rigid - Neurological Exam Neurological exam: Alert, Oriented x3 - Psychiatric Exam Psychiatric exam: Normal Affect, Normal Mood - Skin Skin Exam: Dry, Intact Results - Vital Signs Recent Vital Signs: Last Vital Signs Temp 99.7 F H 12/20/17 19:42 Pulse 96 H 12/20/17 19:42 Resp 16 12/20/17 19:42 BP 110/60 12/20/17 19:42 Pulse Ox 99 12/20/17 20:00 - Labs Result Diagrams: 12/20/17 16:40 12/20/17 16:40 Labs: Laboratory Results - last 24 hr 12/20/17 12/20/17 12/20/17 16:30 16:40 16:40 WBC 17.5 H RBC 4.81 Hgb 12.5 Hct 37.4 MCV 77.8 L MCH 26.0 L MCHC 33.5 RDW 12.7 Plt Count 404 H MPV 8.8 Neut % (Auto) 92.5 H Lymph % (Auto) 3.9 L [place] % (Auto) 3.2 Eos % (Auto) 0.0 Baso % (Auto) 0.4 Neut # (Auto) 16.2 H Lymph # (Auto) 0.7 L [place] # (Auto) 0.6 Eos # (Auto) 0.0 Baso # (Auto) 0.1 Neutrophils % (Manual) 81 H Band Neutrophils % 6 H Lymphocytes % (Manual) 8 L Monocytes % (Manual) 5 Hypersegmented Polys Present Platelet Estimate Normal Large Platelets Present Anisocytosis (manual) Slight Microcytosis (manual) Slight Tear Drop Cells Slight Ovalocytes Moderate PT INR APTT pO2 VBG pH VBG pCO2 VBG HCO3 VBG Total CO2 VBG O2 Sat (Calc) VBG Base Excess Glucose Lactate FiO2 Crit Value Called To Crit Value Called By Crit Value Read Back Blood Gas Notified Time Sodium 142 Potassium 5.1 H Chloride 100 Carbon Dioxide 23 Anion Gap 24 H BUN 17 Creatinine 0.8 Est GFR ( Amer) > 60 Est GFR (Non-Af Amer) > 60 POC Glucose (mg/dL) 329 H Random Glucose 311 H Calcium 10.1 Total Bilirubin 0.6 AST 23 ALT 24 Alkaline Phosphatase 209 H D Total Protein 8.4 H Albumin 3.8 Globulin 4.7 H Albumin/Globulin Ratio 0.8 L Lipase 72 Urine Color Urine Clarity Urine pH Ur Specific [place] Urine Protein Urine Glucose (UA) Urine Ketones Urine Blood Urine Nitrate Urine Bilirubin Urine Urobilinogen Ur Leukocyte Esterase Urine RBC (Auto) Urine Microscopic WBC Ur Squamous Epith Cells Urine Bacteria 12/20/17 12/20/17 12/20/17 16:40 16:52 16:55 WBC RBC Hgb Hct MCV MCH MCHC RDW Plt Count MPV Neut % (Auto) Lymph % (Auto) [place] % (Auto) Eos % (Auto) Baso % (Auto) Neut # (Auto) Lymph # (Auto) [place] # (Auto) Eos # (Auto) Baso # (Auto) Neutrophils % (Manual) Band Neutrophils % Lymphocytes % (Manual) Monocytes % (Manual) Hypersegmented Polys Platelet Estimate Large Platelets Anisocytosis (manual) Microcytosis (manual) Tear Drop Cells Ovalocytes PT 14.8 H INR 1.3 H APTT 31.1 pO2 27 L VBG pH 7.49 H VBG pCO2 32 L VBG HCO3 25.2 VBG Total CO2 25.4 VBG O2 Sat (Calc) 56.1 VBG Base Excess 1.7 Glucose 308 H Lactate 3.3 H FiO2 21.0 Crit Value Called To Dr phillips Crit Value Called By 6075 Crit Value Read Back Y Blood Gas Notified Time 1658 Sodium 193.0 H* Potassium Chloride 119.0 H Carbon Dioxide Anion Gap BUN Creatinine Est GFR ( Amer) Est GFR (Non-Af Amer) POC Glucose (mg/dL) Random Glucose Calcium Total Bilirubin AST ALT Alkaline Phosphatase Total Protein Albumin Globulin Albumin/Globulin Ratio Lipase Urine Color Yellow Urine Clarity Slighty-cloudy Urine pH 6.0 Ur Specific [place] 1.035 H Urine Protein Negative Urine Glucose (UA) >=500 Urine Ketones Trace Urine Blood Small Urine Nitrate Negative Urine Bilirubin Negative Urine Urobilinogen 0.2-1.0 Ur Leukocyte Esterase Trace Urine RBC (Auto) 5 H Urine Microscopic WBC 11 H Ur Squamous Epith Cells 2 Urine Bacteria Rare 12/20/17 19:33 WBC RBC Hgb Hct MCV MCH MCHC RDW Plt Count MPV Neut % (Auto) Lymph % (Auto) [place] % (Auto) Eos % (Auto) Baso % (Auto) Neut # (Auto) Lymph # (Auto) [place] # (Auto) Eos # (Auto) Baso # (Auto) Neutrophils % (Manual) Band Neutrophils % Lymphocytes % (Manual) Monocytes % (Manual) Hypersegmented Polys Platelet Estimate Large Platelets Anisocytosis (manual) Microcytosis (manual) Tear Drop Cells Ovalocytes PT INR APTT pO2 VBG pH VBG pCO2 VBG HCO3 VBG Total CO2 VBG O2 Sat (Calc) VBG Base Excess Glucose Lactate FiO2 Crit Value Called To Crit Value Called By Crit Value Read Back Blood Gas Notified Time Sodium Potassium Chloride Carbon Dioxide Anion Gap BUN Creatinine Est GFR ( Amer) Est GFR (Non-Af Amer) POC Glucose (mg/dL) 211 H Random Glucose Calcium Total Bilirubin AST ALT Alkaline Phosphatase Total Protein Albumin Globulin Albumin/Globulin Ratio Lipase Urine Color Urine Clarity Urine pH Ur Specific [place] Urine Protein Urine Glucose (UA) Urine Ketones Urine Blood Urine Nitrate Urine Bilirubin Urine Urobilinogen Ur Leukocyte Esterase Urine RBC (Auto) Urine Microscopic WBC Ur Squamous Epith Cells Urine Bacteria Assessment & Plan - Assessment and Plan (Free Text) Assessment: 47F with abdominal pain CT: Pelvic Cyst with air fluid level WBC 17 NPO IVF ABX F/U OBGYN Recs Discussed with Dr. Omar Becerra PGY2 <Samir Nelson - Last Filed: 12/21/17 16:51> History of Present Illness - History of Present Illness History of Present Illness: Patient was seen and examined at the bedside. Agree with resident's note above. Meds - Medications Medications: Current Medications Aspirin (Ecotrin) 81 mg PO HS [facility] Dicyclomine HCl (Bentyl) 10 mg PO TID PRN PRN Reason: GI distress Docusate Sodium (Colace) 100 mg PO BID PRN PRN Reason: GI distress Ergocalciferol (Drisdol 50,000 Intl Units Cap) 1 cap PO WE TASHIA Famotidine (Pepcid) 20 mg PO BID [facility] Last Admin: 12/21/17 10:16 Dose: Not Given Fenofibrate (Tricor) 145 mg PO HS [facility] Glipizide (Glucotrol) 5 mg PO BID [facility] Last Admin: 12/21/17 10:12 Dose: Not Given Doxycycline Hyclate 100 mg/ (Sodium Chloride) 100 mls @ 100 mls/hr IVPB Q12 TASHIA PRN Reason: Protocol Last Admin: 12/21/17 10:23 Dose: 100 mls/hr Metronidazole (Flagyl 500mg/100ml Ns) 100 mls @ 100 mls/hr IVPB Q8 TASHIA PRN Reason: Protocol Last Admin: 12/21/17 10:23 Dose: 100 mls/hr Gentamicin Sulfate 180 mg/ (Sodium Chloride) 104.5 mls @ 100 mls/hr IVPB Q24H TASHIA PRN Reason: Protocol Last Admin: 12/21/17 00:30 Dose: 100 mls/hr Sodium Chloride (Sodium Chloride 0.9%) 1,000 mls @ 125 mls/hr IV .Q8H [facility] Stop: 12/22/17 14:58 Last Admin: 12/21/17 15:28 Dose: 125 mls/hr Lisinopril (Zestril) 40 mg PO DAILY [facility] Last Admin: 12/21/17 15:29 Dose: 40 mg Metformin HCl (Glucophage) 1,000 mg PO BID [facility] Last Admin: 12/21/17 10:11 Dose: Not Given Methimazole (Tapazole) 20 mg PO BID [facility] Last Admin: 12/21/17 14:03 Dose: Not Given Morphine Sulfate (Morphine) 2 mg IVP Q4 PRN PRN Reason: Pain, severe (8-10) Last Admin: 12/21/17 14:21 Dose: 2 mg Ondansetron HCl (Zofran Odt) 4 mg PO Q6 PRN PRN Reason: Nausea/Vomiting Tramadol HCl (Ultram) 50 mg PO Q8 PRN PRN Reason: Pain, severe (8-10) Results - Vital Signs Recent Vital Signs: Last Vital Signs Temp 99.8 F H 12/21/17 15:41 Pulse 102 H 12/21/17 15:41 Resp 20 12/21/17 15:41 BP 150/63 12/21/17 15:41 Pulse Ox 96 12/21/17 15:41 - Labs Result Diagrams: 12/21/17 04:20 12/21/17 04:20 Labs: Laboratory Results - last 24 hr 12/20/17 12/20/17 12/20/17 16:40 16:40 16:40 WBC 17.5 H RBC 4.81 Hgb 12.5 Hct 37.4 MCV 77.8 L MCH 26.0 L MCHC 33.5 RDW 12.7 Plt Count 404 H MPV 8.8 Neut % (Auto) 92.5 H Lymph % (Auto) 3.9 L [place] % (Auto) 3.2 Eos % (Auto) 0.0 Baso % (Auto) 0.4 Neut # (Auto) 16.2 H Lymph # (Auto) 0.7 L [place] # (Auto) 0.6 Eos # (Auto) 0.0 Baso # (Auto) 0.1 Neutrophils % (Manual) 81 H Band Neutrophils % 6 H Lymphocytes % (Manual) 8 L Monocytes % (Manual) 5 Hypersegmented Polys Present Platelet Estimate Normal Large Platelets Present Anisocytosis (manual) Slight Microcytosis (manual) Slight Tear Drop Cells Slight Ovalocytes Moderate PT 14.8 H INR 1.3 H APTT 31.1 pO2 VBG pH VBG pCO2 VBG HCO3 VBG Total CO2 VBG O2 Sat (Calc) VBG Base Excess VBG Potassium Glucose Lactate FiO2 Crit Value Called To Crit Value Called By Crit Value Read Back Blood Gas Notified Time Sodium 142 Potassium 5.1 H Chloride 100 Carbon Dioxide 23 Anion Gap 24 H BUN 17 Creatinine 0.8 Est GFR ( Amer) > 60 Est GFR (Non-Af Amer) > 60 POC Glucose (mg/dL) Random Glucose 311 H Calcium 10.1 Total Bilirubin 0.6 AST 23 ALT 24 Alkaline Phosphatase 209 H D Total Protein 8.4 H Albumin 3.8 Globulin 4.7 H Albumin/Globulin Ratio 0.8 L Lipase 72 Venous Blood Potassium Urine Color Urine Clarity Urine pH Ur Specific [place] Urine Protein Urine Glucose (UA) Urine Ketones Urine Blood Urine Nitrate Urine Bilirubin Urine Urobilinogen Ur Leukocyte Esterase Urine RBC (Auto) Urine Microscopic WBC Ur Squamous Epith Cells Urine Bacteria Random Vancomycin 12/20/17 12/20/17 12/20/17 16:52 16:55 19:33 WBC RBC Hgb Hct MCV MCH MCHC RDW Plt Count MPV Neut % (Auto) Lymph % (Auto) [place] % (Auto) Eos % (Auto) Baso % (Auto) Neut # (Auto) Lymph # (Auto) [place] # (Auto) Eos # (Auto) Baso # (Auto) Neutrophils % (Manual) Band Neutrophils % Lymphocytes % (Manual) Monocytes % (Manual) Hypersegmented Polys Platelet Estimate Large Platelets Anisocytosis (manual) Microcytosis (manual) Tear Drop Cells Ovalocytes PT INR APTT pO2 27 L VBG pH 7.49 H VBG pCO2 32 L VBG HCO3 25.2 VBG Total CO2 25.4 VBG O2 Sat (Calc) 56.1 VBG Base Excess 1.7 VBG Potassium Glucose 308 H Lactate 3.3 H FiO2 21.0 Crit Value Called To Dr phillips Crit Value Called By 6075 Crit Value Read Back Y Blood Gas Notified Time 1658 Sodium 193.0 H* Potassium Chloride 119.0 H Carbon Dioxide Anion Gap BUN Creatinine Est GFR ( Amer) Est GFR (Non-Af Amer) POC Glucose (mg/dL) 211 H Random Glucose Calcium Total Bilirubin AST ALT Alkaline Phosphatase Total Protein Albumin Globulin Albumin/Globulin Ratio Lipase Venous Blood Potassium Urine Color Yellow Urine Clarity Slighty-cloudy Urine pH 6.0 Ur Specific [place] 1.035 H Urine Protein Negative Urine Glucose (UA) >=500 Urine Ketones Trace Urine Blood Small Urine Nitrate Negative Urine Bilirubin Negative Urine Urobilinogen 0.2-1.0 Ur Leukocyte Esterase Trace Urine RBC (Auto) 5 H Urine Microscopic WBC 11 H Ur Squamous Epith Cells 2 Urine Bacteria Rare Random Vancomycin 12/20/17 12/21/17 12/21/17 21:51 04:20 04:20 WBC 19.8 H RBC 4.29 Hgb 11.0 L Hct 33.8 L MCV 78.6 L MCH 25.6 L MCHC 32.5 L RDW 12.9 Plt Count 383 MPV Neut % (Auto) Lymph % (Auto) [place] % (Auto) Eos % (Auto) Baso % (Auto) Neut # (Auto) Lymph # (Auto) [place] # (Auto) Eos # (Auto) Baso # (Auto) Neutrophils % (Manual) Band Neutrophils % Lymphocytes % (Manual) Monocytes % (Manual) Hypersegmented Polys Platelet Estimate Large Platelets Anisocytosis (manual) Microcytosis (manual) Tear Drop Cells Ovalocytes PT INR APTT pO2 40 VBG pH 7.36 VBG pCO2 37 L VBG HCO3 21.1 VBG Total CO2 22.0 VBG O2 Sat (Calc) 76.8 H VBG Base Excess -4.0 L VBG Potassium 4.6 Glucose 221 H Lactate 1.1 FiO2 21.0 Crit Value Called To Crit Value Called By Crit Value Read Back Blood Gas Notified Time Sodium 139.0 145 Potassium 4.7 Chloride 109.0 H 106 Carbon Dioxide 15 L Anion Gap 29 H BUN 15 Creatinine 0.8 Est GFR ( Amer) > 60 Est GFR (Non-Af Amer) > 60 POC Glucose (mg/dL) Random Glucose 178 H Calcium 9.0 Total Bilirubin 0.9 AST 19 ALT 32 Alkaline Phosphatase 174 H Total Protein 7.2 Albumin 3.2 L Globulin 4.0 H Albumin/Globulin Ratio 0.8 L Lipase Venous Blood Potassium 4.6 Urine Color Urine Clarity Urine pH Ur Specific [place] Urine Protein Urine Glucose (UA) Urine Ketones Urine Blood Urine Nitrate Urine Bilirubin Urine Urobilinogen Ur Leukocyte Esterase Urine RBC (Auto) Urine Microscopic WBC Ur Squamous Epith Cells Urine Bacteria Random Vancomycin 12/21/17 12/21/17 12/21/17 04:20 05:46 11:31 WBC RBC Hgb Hct MCV MCH MCHC RDW Plt Count MPV Neut % (Auto) Lymph % (Auto) [place] % (Auto) Eos % (Auto) Baso % (Auto) Neut # (Auto) Lymph # (Auto) [place] # (Auto) Eos # (Auto) Baso # (Auto) Neutrophils % (Manual) Band Neutrophils % Lymphocytes % (Manual) Monocytes % (Manual) Hypersegmented Polys Platelet Estimate Large Platelets Anisocytosis (manual) Microcytosis (manual) Tear Drop Cells Ovalocytes PT INR APTT pO2 VBG pH VBG pCO2 VBG HCO3 VBG Total CO2 VBG O2 Sat (Calc) VBG Base Excess VBG Potassium Glucose Lactate FiO2 Crit Value Called To Crit Value Called By Crit Value Read Back Blood Gas Notified Time Sodium Potassium Chloride Carbon Dioxide Anion Gap BUN Creatinine Est GFR ( Amer) Est GFR (Non-Af Amer) POC Glucose (mg/dL) 151 H 144 H Random Glucose Calcium Total Bilirubin AST ALT Alkaline Phosphatase Total Protein Albumin Globulin Albumin/Globulin Ratio Lipase Venous Blood Potassium Urine Color Urine Clarity Urine pH Ur Specific [place] Urine Protein Urine Glucose (UA) Urine Ketones Urine Blood Urine Nitrate Urine Bilirubin Urine Urobilinogen Ur Leukocyte Esterase Urine RBC (Auto) Urine Microscopic WBC Ur Squamous Epith Cells Urine Bacteria Random Vancomycin 9.2 12/21/17 15:34 WBC RBC Hgb Hct MCV MCH MCHC RDW Plt Count MPV Neut % (Auto) Lymph % (Auto) [place] % (Auto) Eos % (Auto) Baso % (Auto) Neut # (Auto) Lymph # (Auto) [place] # (Auto) Eos # (Auto) Baso # (Auto) Neutrophils % (Manual) Band Neutrophils % Lymphocytes % (Manual) Monocytes % (Manual) Hypersegmented Polys Platelet Estimate Large Platelets Anisocytosis (manual) Microcytosis (manual) Tear Drop Cells Ovalocytes PT INR APTT pO2 VBG pH VBG pCO2 VBG HCO3 VBG Total CO2 VBG O2 Sat (Calc) VBG Base Excess VBG Potassium Glucose Lactate FiO2 Crit Value Called To Crit Value Called By Crit Value Read Back Blood Gas Notified Time Sodium Potassium Chloride Carbon Dioxide Anion Gap BUN Creatinine Est GFR ( Amer) Est GFR (Non-Af Amer) POC Glucose (mg/dL) 157 H Random Glucose Calcium Total Bilirubin AST ALT Alkaline Phosphatase Total Protein Albumin Globulin Albumin/Globulin Ratio Lipase Venous Blood Potassium Urine Color Urine Clarity Urine pH Ur Specific [place] Urine Protein Urine Glucose (UA) Urine Ketones Urine Blood Urine Nitrate Urine Bilirubin Urine Urobilinogen Ur Leukocyte Esterase Urine RBC (Auto) Urine Microscopic WBC Ur Squamous Epith Cells Urine Bacteria Random Vancomycin - Imaging and Cardiology CT scan - abdomen Status: Image reviewed by me, Report reviewed by me
[2017-12-20 21:54] LABS: VENOUS BLOOD GAS PCO2 37 mmHg (40-60); VENOUS BLOOD GAS PO2 40 mm/Hg (30-55); VENOUS BLOOD PH 7.36 (7.32-7.43)
--- NOTE | 2017-12-20 23:56 | CP.PCM.CON ---
History of Present Illness - History of Present Illness History of Present Illness: 47-year-old female with acute onset today of generalized abdominal pain. Patient reports pain has stayed somewhat constant since onset. Patient reports having a few episodes of vomiting earlier in the day. Patient reports having bowel movement today without difficulty. Now, patient resting comfortably but complains of lingering discomfort. Patient denies any nausea at this time, urinary symptoms, diarrhea, irregular bleeding, vaginal discharge, fever or chills. Patient previously diagnosed with ovarian cyst approximately [address] and ultrasound today shows increased size to 8 cm. Area with atypical presentation showing air fluid levels. Past Patient History - Infectious Disease Hx of Infectious Diseases: None - Past Medical History & Family History Past Medical History?: Yes - Past Social History Alcohol: None - CARDIAC Hx Cardiac Disorders: Yes - PULMONARY Hx Respiratory Disorders: No - NEUROLOGICAL Hx Neurological Disorder: No - HEENT Hx HEENT Problems: No - RENAL Hx Chronic Kidney Disease: No - ENDOCRINE/METABOLIC Hx Endocrine Disorders: Yes - HEMATOLOGICAL/ONCOLOGICAL Hx Human Immunodeficiency Virus (HIV): No - INTEGUMENTARY Hx Dermatological Problems: No - MUSCULOSKELETAL/RHEUMATOLOGICAL Hx Musculoskeletal Disorders: No - GASTROINTESTINAL Hx Diverticulitis: (Diverticulosis) Hx Gall Bladder Disease: Yes - GENITOURINARY/GYNECOLOGICAL Hx Sexually Transmitted Disorders: Yes - PSYCHIATRIC Hx Psychophysiologic Disorder: No - SURGICAL HISTORY Hx Cholecystectomy: Yes - ANESTHESIA Hx Anesthesia: Yes Hx Anesthesia Reactions: No Hx Malignant Hyperthermia: No Meds Allergies/Adverse Reactions: Allergies Allergy/AdvReac Type Severity Reaction Status Date / Time hazelnut Allergy RASH Verified 11/02/17 08:25 shellfish derived Allergy RASH Verified 11/02/17 08:26 piperacillin [From Zosyn] AdvReac RASH Verified 12/10/17 17:07 tazobactam [From Zosyn] AdvReac RASH Verified 12/10/17 17:07 - Medications Medications: Current Medications Doxycycline Hyclate 100 mg/ (Sodium Chloride) 100 mls @ 100 mls/hr IVPB Q12 TASHIA PRN Reason: Protocol Sodium Chloride (Sodium Chloride 0.9%) 1,000 mls @ 200 mls/hr IV .Q5H STA Stop: 12/21/17 00:40 Last Admin: 12/20/17 22:05 Dose: 200 mls/hr Metronidazole (Flagyl 500mg/100ml Ns) 100 mls @ 100 mls/hr IVPB Q8 TASHIA PRN Reason: Protocol Gentamicin Sulfate 180 mg/ (Sodium Chloride) 104.5 mls @ 100 mls/hr IVPB Q24H TASHIA PRN Reason: Protocol Physical Exam - Constitutional Appears: Non-toxic - Head Exam Head Exam: ATRAUMATIC - Respiratory Exam Respiratory Exam: NORMAL BREATHING PATTERN - Cardiovascular Exam Cardiovascular Exam: REGULAR RHYTHM - GI/Abdominal Exam Additional comments: Positive diffuse mild distention, abdomen diffusely tender, hyperactive bowel sounds. No rebound, no guarding. - Extremities Exam Extremities exam: Positive for: normal inspection. Negative for: calf tenderness Results - Vital Signs Recent Vital Signs: Last Vital Signs Temp 99.9 F H 12/20/17 22:35 Pulse 102 H 12/20/17 22:35 Resp 20 12/20/17 22:35 BP 121/76 12/20/17 22:35 Pulse Ox 98 12/20/17 22:35 - Labs Result Diagrams: 12/20/17 16:40 12/20/17 16:40 Labs: Laboratory Results - last 24 hr 12/20/17 12/20/17 12/20/17 16:30 16:40 16:40 WBC 17.5 H RBC 4.81 Hgb 12.5 Hct 37.4 MCV 77.8 L MCH 26.0 L MCHC 33.5 RDW 12.7 Plt Count 404 H MPV 8.8 Neut % (Auto) 92.5 H Lymph % (Auto) 3.9 L [place] % (Auto) 3.2 Eos % (Auto) 0.0 Baso % (Auto) 0.4 Neut # (Auto) 16.2 H Lymph # (Auto) 0.7 L [place] # (Auto) 0.6 Eos # (Auto) 0.0 Baso # (Auto) 0.1 Neutrophils % (Manual) 81 H Band Neutrophils % 6 H Lymphocytes % (Manual) 8 L Monocytes % (Manual) 5 Hypersegmented Polys Present Platelet Estimate Normal Large Platelets Present Anisocytosis (manual) Slight Microcytosis (manual) Slight Tear Drop Cells Slight Ovalocytes Moderate PT INR APTT pO2 VBG pH VBG pCO2 VBG HCO3 VBG Total CO2 VBG O2 Sat (Calc) VBG Base Excess VBG Potassium Glucose Lactate FiO2 Crit Value Called To Crit Value Called By Crit Value Read Back Blood Gas Notified Time Sodium 142 Potassium 5.1 H Chloride 100 Carbon Dioxide 23 Anion Gap 24 H BUN 17 Creatinine 0.8 Est GFR ( Amer) > 60 Est GFR (Non-Af Amer) > 60 POC Glucose (mg/dL) 329 H Random Glucose 311 H Calcium 10.1 Total Bilirubin 0.6 AST 23 ALT 24 Alkaline Phosphatase 209 H D Total Protein 8.4 H Albumin 3.8 Globulin 4.7 H Albumin/Globulin Ratio 0.8 L Lipase 72 Venous Blood Potassium Urine Color Urine Clarity Urine pH Ur Specific [place] Urine Protein Urine Glucose (UA) Urine Ketones Urine Blood Urine Nitrate Urine Bilirubin Urine Urobilinogen Ur Leukocyte Esterase Urine RBC (Auto) Urine Microscopic WBC Ur Squamous Epith Cells Urine Bacteria 12/20/17 12/20/17 12/20/17 16:40 16:52 16:55 WBC RBC Hgb Hct MCV MCH MCHC RDW Plt Count MPV Neut % (Auto) Lymph % (Auto) [place] % (Auto) Eos % (Auto) Baso % (Auto) Neut # (Auto) Lymph # (Auto) [place] # (Auto) Eos # (Auto) Baso # (Auto) Neutrophils % (Manual) Band Neutrophils % Lymphocytes % (Manual) Monocytes % (Manual) Hypersegmented Polys Platelet Estimate Large Platelets Anisocytosis (manual) Microcytosis (manual) Tear Drop Cells Ovalocytes PT 14.8 H INR 1.3 H APTT 31.1 pO2 27 L VBG pH 7.49 H VBG pCO2 32 L VBG HCO3 25.2 VBG Total CO2 25.4 VBG O2 Sat (Calc) 56.1 VBG Base Excess 1.7 VBG Potassium Glucose 308 H Lactate 3.3 H FiO2 21.0 Crit Value Called To Dr phillips Crit Value Called By 6060 Crit Value Read Back Y Blood Gas Notified Time 1658 Sodium 193.0 H* Potassium Chloride 119.0 H Carbon Dioxide Anion Gap BUN Creatinine Est GFR ( Amer) Est GFR (Non-Af Amer) POC Glucose (mg/dL) Random Glucose Calcium Total Bilirubin AST ALT Alkaline Phosphatase Total Protein Albumin Globulin Albumin/Globulin Ratio Lipase Venous Blood Potassium Urine Color Yellow Urine Clarity Slighty-cloudy Urine pH 6.0 Ur Specific [place] 1.035 H Urine Protein Negative Urine Glucose (UA) >=500 Urine Ketones Trace Urine Blood Small Urine Nitrate Negative Urine Bilirubin Negative Urine Urobilinogen 0.2-1.0 Ur Leukocyte Esterase Trace Urine RBC (Auto) 5 H Urine Microscopic WBC 11 H Ur Squamous Epith Cells 2 Urine Bacteria Rare 12/20/17 12/20/17 19:33 21:51 WBC RBC Hgb Hct MCV MCH MCHC RDW Plt Count MPV Neut % (Auto) Lymph % (Auto) [place] % (Auto) Eos % (Auto) Baso % (Auto) Neut # (Auto) Lymph # (Auto) [place] # (Auto) Eos # (Auto) Baso # (Auto) Neutrophils % (Manual) Band Neutrophils % Lymphocytes % (Manual) Monocytes % (Manual) Hypersegmented Polys Platelet Estimate Large Platelets Anisocytosis (manual) Microcytosis (manual) Tear Drop Cells Ovalocytes PT INR APTT pO2 40 VBG pH 7.36 VBG pCO2 37 L VBG HCO3 21.1 VBG Total CO2 22.0 VBG O2 Sat (Calc) 76.8 H VBG Base Excess -4.0 L VBG Potassium 4.6 Glucose 221 H Lactate 1.1 FiO2 21.0 Crit Value Called To Crit Value Called By Crit Value Read Back Blood Gas Notified Time Sodium 139.0 Potassium Chloride 109.0 H Carbon Dioxide Anion Gap BUN Creatinine Est GFR ( Amer) Est GFR (Non-Af Amer) POC Glucose (mg/dL) 211 H Random Glucose Calcium Total Bilirubin AST ALT Alkaline Phosphatase Total Protein Albumin Globulin Albumin/Globulin Ratio Lipase Venous Blood Potassium 4.6 Urine Color Urine Clarity Urine pH Ur Specific [place] Urine Protein Urine Glucose (UA) Urine Ketones Urine Blood Urine Nitrate Urine Bilirubin Urine Urobilinogen Ur Leukocyte Esterase Urine RBC (Auto) Urine Microscopic WBC Ur Squamous Epith Cells Urine Bacteria - Imaging and Cardiology CT scan - pelvis Status: Image reviewed by me, Report reviewed by me US - abdomen Status: Image reviewed by me Assessment & Plan - Assessment and Plan (Free Text) Assessment: Abdominal pain, left adnexal cyst possible tubo-ovarian abscess. Plan: Continue observation and IV antibiotics Nothing by mouth after midnight today If discomfort does not improve or worsen, consider laparoscopy I discussed plan with patient and all patient questions answered. - Date & Time Date: 12/21/17 Time: 00:03
[2017-12-21] MEDS: metroNIDAZOLE 500mg/100ml NS 100 ML IVPB SCH ×4 (00:01→17:15)
[2017-12-21] MEDS ORDERED: Morphine 4 MG/ML VIAL IVP PRN ×2 (00:04→22:50)
[2017-12-21] MEDS: Gentamicin 180 MG in Sodium Chloride 0.9% 100 ML IVPB SCH (00:30)
[2017-12-21] MEDS ORDERED: Morphine 4 MG/ML VIAL IVP SCH (05:00)
[2017-12-21 06:11] LABS: MEAN CELL VOLUME 78.6 fl (81.0-99.0); MEAN CORPUSCULAR HEMOGLOBIN 25.6 pg (27.0-31.0); MEAN CORPUSCULAR HGB CONC 32.5 g/dL (33.0-37.0); RBC 4.29 Mil/uL (3.80-5.20); RED CELL DISTRIBUTION WIDTH 12.9 % (11.5-14.5); WHITE BLOOD COUNT 19.8 K/uL (4.8-10.8)
[2017-12-21] MEDS: Morphine 4 MG/ML VIAL IVP PRN ×3 (06:31→14:21)
[2017-12-21 06:35] LABS: ALB/GLOB RATIO 0.8 (1.0-2.1); ALBUMIN 3.2 g/dL (3.5-5.0); ALT/SGPT 32 U/L (9-52); AST/SGOT 19 U/L (14-36); BLOOD UREA NITROGEN 15 mg/dl (7-17); GFR AFRICAN-AMERICAN > 60; GFR NON-AFRICAN AMERICAN > 60
--- NOTE | 2017-12-21 08:00 | CP.PCM.PN ---
Addendum entered and electronically signed by Carlos Grover DO 12/21/17 09:28: No IR consult needed Cont IV Abx F/u OBGYN recs Sarkis Grover, PGY2 Original Note: <Carlos Grover - Last Filed: 12/21/17 07:57> Subjective - Date & Time of Evaluation Date of Evaluation: 12/21/17 Time of Evaluation: 07:57 - Subjective Subjective: SURGERY NOTE DR. NELSON 47F seen and examined at bedside. Patient continues to complain of abdominal pain. States pain is diffuse but more in the periumbilical region. Denies nausea , vomiting, fevers or chills. Objective - Vital Signs/Intake and Output Vital Signs (last 24 hours): Temp Pulse Resp BP Pulse Ox 99.1 F 106 H 18 115/72 99 12/21/17 05:01 12/21/17 05:01 12/21/17 05:01 12/21/17 05:01 12/21/17 05:01 Intake and Output: 12/21/17 12/21/17 06:59 18:59 Intake Total 1000 Balance 1000 - Medications Medications: Current Medications Aspirin (Ecotrin) 81 mg PO HS TASHIA Dicyclomine HCl (Bentyl) 10 mg PO TID PRN PRN Reason: GI distress Docusate Sodium (Colace) 100 mg PO BID PRN PRN Reason: GI distress Ergocalciferol (Drisdol 50,000 Intl Units Cap) 1 cap PO WE TASHIA Famotidine (Pepcid) 20 mg PO BID TASHIA Fenofibrate (Tricor) 145 mg PO HS TASHIA Glipizide (Glucotrol) 5 mg PO BID TASHIA Home Med (Dulaglutide [Trulicity]) 1.5 mg SC MO TASHIA Home Med (Empagliflozin [Jardiance]) 25 mg PO DAILY TASHIA Home Med (Glucosam/Chond/Hyalu/Cf Borate [Move Free Joint Health Tablet]) 1 tab PO DAILY TASHIA Doxycycline Hyclate 100 mg/ (Sodium Chloride) 100 mls @ 100 mls/hr IVPB Q12 TASHIA PRN Reason: Protocol Last Admin: 12/21/17 00:25 Dose: 100 mls/hr Metronidazole (Flagyl 500mg/100ml Ns) 100 mls @ 100 mls/hr IVPB Q8 TASHIA PRN Reason: Protocol Last Admin: 12/21/17 00:30 Dose: 100 mls/hr Gentamicin Sulfate 180 mg/ (Sodium Chloride) 104.5 mls @ 100 mls/hr IVPB Q24H TASHIA PRN Reason: Protocol Last Admin: 12/21/17 00:30 Dose: 100 mls/hr Lisinopril (Zestril) 40 mg PO DAILY TASHIA Metformin HCl (Glucophage) 1,000 mg PO BID TASHIA Methimazole (Tapazole) 20 mg PO BID TASHIA Morphine Sulfate (Morphine) 2 mg IVP Q4 PRN PRN Reason: Pain, severe (8-10) Last Admin: 12/21/17 06:31 Dose: 2 mg Ondansetron HCl (Zofran Odt) 4 mg PO Q6 PRN PRN Reason: Nausea/Vomiting Tramadol HCl (Ultram) 50 mg PO Q8 PRN PRN Reason: Pain, severe (8-10) - Labs Labs: 12/21/17 04:20 12/21/17 04:20 PT 14.8 Seconds (9.8-13.1) H 12/20/17 16:40 INR 1.3 (0.9-1.2) H 12/20/17 16:40 APTT 31.1 Seconds (25.6-37.1) 12/20/17 16:40 - Constitutional Appears: Well, Non-toxic, No Acute Distress - Respiratory Exam Respiratory Exam: Clear to Ausculation Bilateral, NORMAL BREATHING PATTERN - Cardiovascular Exam Cardiovascular Exam: REGULAR RHYTHM, +S1, +S2 - GI/Abdominal Exam GI & Abdominal Exam: Soft, Tenderness (diffusely). absent: Distended, Firm, Guarding, Rigid, Rebound - Neurological Exam Neurological Exam: Alert, Awake - Psychiatric Exam Psychiatric exam: Normal Affect, Normal Mood - Skin Skin Exam: Dry, Intact, Normal Color, Warm Assessment and Plan - Assessment and Plan (Free Text) Assessment: 47F with abdominal pain 2/2 pelvic cysts, likely infected Plan: NPO IVF Continue antibiotics Rec OBGYN consult Rec IR consults for poss drainage Further recs discuss with Dr. Omar Grover, PGY2 <Samir Nelson - Last Filed: 12/21/17 16:54> Subjective - Date & Time of Evaluation Time of Evaluation: 16:30 - Subjective Subjective: Patient was seen and examined at the bedside. Agree with resident's note above. Objective - Vital Signs/Intake and Output Vital Signs (last 24 hours): Temp Pulse Resp BP Pulse Ox 99.8 F H 102 H 20 150/63 96 12/21/17 15:41 12/21/17 15:41 12/21/17 15:41 12/21/17 15:41 12/21/17 15:41 Intake and Output: 12/21/17 12/21/17 06:59 18:59 Intake Total 1000 Balance 1000 - Medications Medications: Current Medications Aspirin (Ecotrin) 81 mg PO HS TASHIA Dicyclomine HCl (Bentyl) 10 mg PO TID PRN PRN Reason: GI distress Docusate Sodium (Colace) 100 mg PO BID PRN PRN Reason: GI distress Ergocalciferol (Drisdol 50,000 Intl Units Cap) 1 cap PO WE TASHIA Famotidine (Pepcid) 20 mg PO BID [facility] Last Admin: 12/21/17 10:16 Dose: Not Given Fenofibrate (Tricor) 145 mg PO HS TASHIA Glipizide (Glucotrol) 5 mg PO BID [facility] Last Admin: 12/21/17 10:12 Dose: Not Given Doxycycline Hyclate 100 mg/ (Sodium Chloride) 100 mls @ 100 mls/hr IVPB Q12 TASHIA PRN Reason: Protocol Last Admin: 12/21/17 10:23 Dose: 100 mls/hr Metronidazole (Flagyl 500mg/100ml Ns) 100 mls @ 100 mls/hr IVPB Q8 TASHIA PRN Reason: Protocol Last Admin: 12/21/17 10:23 Dose: 100 mls/hr Gentamicin Sulfate 180 mg/ (Sodium Chloride) 104.5 mls @ 100 mls/hr IVPB Q24H TASHIA PRN Reason: Protocol Last Admin: 12/21/17 00:30 Dose: 100 mls/hr Sodium Chloride (Sodium Chloride 0.9%) 1,000 mls @ 125 mls/hr IV .Q8H [facility] Stop: 12/22/17 14:58 Last Admin: 12/21/17 15:28 Dose: 125 mls/hr Lisinopril (Zestril) 40 mg PO DAILY [facility] Last Admin: 12/21/17 15:29 Dose: 40 mg Metformin HCl (Glucophage) 1,000 mg PO BID [facility] Last Admin: 12/21/17 10:11 Dose: Not Given Methimazole (Tapazole) 20 mg PO BID [facility] Last Admin: 12/21/17 14:03 Dose: Not Given Morphine Sulfate (Morphine) 2 mg IVP Q4 PRN PRN Reason: Pain, severe (8-10) Last Admin: 12/21/17 14:21 Dose: 2 mg Ondansetron HCl (Zofran Odt) 4 mg PO Q6 PRN PRN Reason: Nausea/Vomiting Tramadol HCl (Ultram) 50 mg PO Q8 PRN PRN Reason: Pain, severe (8-10) - Labs Labs: 12/21/17 04:20 12/21/17 04:20 PT 14.8 Seconds (9.8-13.1) H 12/20/17 16:40 INR 1.3 (0.9-1.2) H 12/20/17 16:40 APTT 31.1 Seconds (25.6-37.1) 12/20/17 16:40 Assessment and Plan - Assessment and Plan (Free Text) Plan: - NPO - IV fluids - pain control - Continue antibiotics as per ID - Patient is going to OR today with [facility] team - No general surgery intervention at present time - Will follow
--- NOTE | 2017-12-21 08:23 | RAD ---
HISTORY: Sepsis COMPARISON: 12/10/2017. FINDINGS: LUNGS: The lungs are well inflated and clear. PLEURA: No significant pleural effusion identified, no pneumothorax apparent. CARDIOVASCULAR: Normal. OSSEOUS STRUCTURES: No significant abnormalities. VISUALIZED UPPER ABDOMEN: Normal. OTHER FINDINGS: None. IMPRESSION: No active pulmonary disease.
[2017-12-21] MEDS ORDERED: Patient's Own Med (Lisinopril [Zestril] 40 MG) PO SCH (09:00)
[2017-12-21] MEDS ORDERED: [UNRECOGNIZED DRUG - REMARK] PO SCH (09:00)
--- NOTE | 2017-12-21 10:52 | US ---
HISTORY: Large adnexal cysts Menstrual status: LMP 12/03/2017 COMPARISON: 12/07/2017 pelvic ultrasound December 20, 2017. CT abdomen and pelvis taylor TECHNIQUE: Transabdominal only. Real-time technique with 2D, duplex and color Doppler FINDINGS: UTERUS: Measures 5.6 x 6.1 x 10.7 cm. Normal in size and appearance. No fibroid or other mass lesion seen. ENDOMETRIUM: Measures 4.6 mm in diameter. Unremarkable. CERVIX: No cervical abnormality identified. RIGHT OVARY: Measures 3.8 x 6.2 cm. No solid mass. Normal flow. Multiple subcentimeter follicles. Additional larger simple cysts 2.3 x 3.3 cm and 1.4 x 2.2 cm. LEFT OVARY: Measures 4.2 x 6.7 x 8.1 cm. No solid mass. Normal flow. Septated cyst 6.5 x 8.1 cm the air-fluid level identified on recent CT scan is not appreciated with seen degree of clarity. FREE FLUID: No significant free fluid noted. OTHER FINDINGS: None. IMPRESSION: Confirmation of findings on recent CT scan. Specifically a enlarged adnexa bilaterally. The right ovary contains simple cysts. The left adnexa contains a large dominant cyst with small daughter cysts. Concordant results (preliminary interpretation) provided by [employer]. Procedure Completed: 22:00 Preliminary ([facility]) Report: Dictated and Authenticated: 21:36. Final Interpretation: 10:46.
--- NOTE | 2017-12-21 14:32 | CP.PCM.PN ---
<Dell Nunes - Last Filed: 12/21/17 14:29> Subjective - Date & Time of Evaluation Date of Evaluation: 12/21/17 Time of Evaluation: 10:30 - Subjective Subjective: patient bela nd examined at bedside this morning. There are no acute events overnight; however, patient is having generalized abdominal pain. Patietn receives pain medication with minimal relief. Patient reports gas production and small hard bowel movement last night. Patient evaluated by [employer] [employer] and general surgery. Objective - Vital Signs/Intake and Output Vital Signs (last 24 hours): Temp Pulse Resp BP Pulse Ox 99.4 F 107 H 18 127/76 97 12/21/17 12:00 12/21/17 12:00 12/21/17 12:00 12/21/17 14:03 12/21/17 12:00 Intake and Output: 12/21/17 12/21/17 06:59 18:59 Intake Total 1000 Balance 1000 - Medications Medications: Current Medications Aspirin (Ecotrin) 81 mg PO HS TASHIA Dicyclomine HCl (Bentyl) 10 mg PO TID PRN PRN Reason: GI distress Docusate Sodium (Colace) 100 mg PO BID PRN PRN Reason: GI distress Ergocalciferol (Drisdol 50,000 Intl Units Cap) 1 cap PO WE TASHIA Famotidine (Pepcid) 20 mg PO BID [facility] Last Admin: 12/21/17 10:16 Dose: Not Given Fenofibrate (Tricor) 145 mg PO HS TASHIA Glipizide (Glucotrol) 5 mg PO BID [facility] Last Admin: 12/21/17 10:12 Dose: Not Given Doxycycline Hyclate 100 mg/ (Sodium Chloride) 100 mls @ 100 mls/hr IVPB Q12 TASHIA PRN Reason: Protocol Last Admin: 12/21/17 10:23 Dose: 100 mls/hr Metronidazole (Flagyl 500mg/100ml Ns) 100 mls @ 100 mls/hr IVPB Q8 TASHIA PRN Reason: Protocol Last Admin: 12/21/17 10:23 Dose: 100 mls/hr Gentamicin Sulfate 180 mg/ (Sodium Chloride) 104.5 mls @ 100 mls/hr IVPB Q24H TASHIA PRN Reason: Protocol Last Admin: 12/21/17 00:30 Dose: 100 mls/hr Lisinopril (Zestril) 40 mg PO DAILY [facility] Last Admin: 12/21/17 14:03 Dose: Not Given Metformin HCl (Glucophage) 1,000 mg PO BID [facility] Last Admin: 12/21/17 10:11 Dose: Not Given Methimazole (Tapazole) 20 mg PO BID [facility] Last Admin: 12/21/17 14:03 Dose: Not Given Morphine Sulfate (Morphine) 2 mg IVP Q4 PRN PRN Reason: Pain, severe (8-10) Last Admin: 12/21/17 14:21 Dose: 2 mg Ondansetron HCl (Zofran Odt) 4 mg PO Q6 PRN PRN Reason: Nausea/Vomiting Tramadol HCl (Ultram) 50 mg PO Q8 PRN PRN Reason: Pain, severe (8-10) - Labs Labs: 12/21/17 04:20 12/21/17 04:20 PT 14.8 Seconds (9.8-13.1) H 12/20/17 16:40 INR 1.3 (0.9-1.2) H 12/20/17 16:40 APTT 31.1 Seconds (25.6-37.1) 12/20/17 16:40 - Constitutional Appears: No Acute Distress - Head Exam Head Exam: ATRAUMATIC, NORMAL INSPECTION, NORMOCEPHALIC - Eye Exam Eye Exam: Normal appearance - ENT Exam ENT Exam: Mucous Membranes Moist - Neck Exam Neck Exam: Full ROM. absent: Tenderness - Respiratory Exam Respiratory Exam: Clear to Ausculation Bilateral, NORMAL BREATHING PATTERN. absent: Accessory Muscle Use, Decreased Breath Sounds, Rales, Rhonchi, Wheezes, Respiratory Distress - Cardiovascular Exam Cardiovascular Exam: Tachycardia, REGULAR RHYTHM - GI/Abdominal Exam GI & Abdominal Exam: Soft, Tenderness (diffuse), Normal Bowel Sounds - Extremities Exam Extremities Exam: Normal Inspection. absent: Calf Tenderness, Pedal Edema, Tenderness - Neurological Exam Neurological Exam: Alert, Awake, Oriented x3 - Skin Skin Exam: Dry, Intact, Normal Color, Warm Assessment and Plan (1) Abdominal pain Status: Acute (2) Ovarian cyst Status: Acute - Assessment and Plan (Free Text) Plan: c/w present management [employer] recommendations appreciated General surgery recommendations appreciated Infectious Disease recommendations appreciated flagyl 500 mg IV Q8h day 1 gentamicin 180 mg IV daily day 1 doxycycline 100 mg IV Q12h day 2 pain control w/ morphine 2 mg IV Q4h prn patient NPO [employer] planning for OR tonight @ 19:00 <Bruce Blood - Last Filed: 12/23/17 21:01> Objective - Vital Signs/Intake and Output Vital Signs (last 24 hours): Temp Pulse Resp BP Pulse Ox 98.2 F 104 H 18 164/97 H 96 12/23/17 16:10 12/23/17 16:10 12/23/17 16:10 12/23/17 16:10 12/23/17 16:10 Intake and Output: 12/23/17 12/24/17 18:59 06:59 Output Total 525 Balance -525 - Medications Medications: Current Medications Aspirin (Ecotrin) 81 mg PO HS [facility] Last Admin: 12/22/17 01:59 Dose: Not Given Dextrose (Dextrose 50% Inj) 0 ml IV STAT PRN; Protocol PRN Reason: Hypoglycemia Protocol Dextrose (Glutose 15) 0 gm PO ONCE PRN; Protocol PRN Reason: Hypoglycemia Protocol Dicyclomine HCl (Bentyl) 10 mg PO TID PRN PRN Reason: GI distress Docusate Sodium (Colace) 100 mg PO BID PRN PRN Reason: GI distress Ergocalciferol (Drisdol 50,000 Intl Units Cap) 1 cap PO WE [facility] Last Admin: 12/22/17 01:59 Dose: Not Given Famotidine (Pepcid) 20 mg PO BID [facility] Last Admin: 12/22/17 08:47 Dose: Not Given Fenofibrate (Tricor) 145 mg PO [facility] Glipizide (Glucotrol) 5 mg PO BID [facility] Last Admin: 12/22/17 08:45 Dose: Not Given Glucagon (Glucagen Diagnostic Kit) 0 mg IM STAT PRN; Protocol PRN Reason: Hypoglycemia Protocol Guaifenesin/Dextromethorphan (Mucinex-Dm 600-30 Mg) 1 tab PO BID [facility] Last Admin: 12/23/17 18:14 Dose: Not Given Heparin Sodium (Porcine) (Heparin) 5,000 units SC Q8 TASHIA PRN Reason: Protocol Last Admin: 12/23/17 18:12 Dose: 5,000 units Doxycycline Hyclate 100 mg/ (Sodium Chloride) 100 mls @ 100 mls/hr IVPB Q12 TASHIA PRN Reason: Protocol Last Admin: 12/23/17 11:43 Dose: 100 mls/hr Metronidazole (Flagyl 500mg/100ml Ns) 100 mls @ 100 mls/hr IVPB Q8 TASHIA PRN Reason: Protocol Last Admin: 12/23/17 18:09 Dose: 100 mls/hr Gentamicin Sulfate 180 mg/ (Sodium Chloride) 104.5 mls @ 100 mls/hr IVPB Q24H [facility] PRN Reason: Protocol Last Admin: 12/22/17 20:31 Dose: 100 mls/hr Lactated Ringer's (Lactated Ringer's 500ml) 500 mls @ 1,000 mls/hr IV .Q30M [facility] Last Admin: 12/23/17 10:00 Dose: 1,000 mls/hr Sodium Chloride (Sodium Chloride 0.9%) 1,000 mls @ 125 mls/hr IV .Q8H [facility] Stop: 12/24/17 14:34 Last Admin: 12/23/17 18:10 Dose: Not Given Insulin Human Lispro (Humalog) 0 units SC ACHS PRN; Protocol PRN Reason: hyperglycemia Last Admin: 12/22/17 12:10 Dose: 2 units Lisinopril (Zestril) 40 mg PO DAILY [facility] Last Admin: 12/22/17 08:49 Dose: Not Given Metformin HCl (Glucophage) 1,000 mg PO BID [facility] Last Admin: 12/22/17 08:45 Dose: Not Given Methimazole (Tapazole) 20 mg PO BID [facility] Last Admin: 12/22/17 08:47 Dose: Not Given Morphine Sulfate (Morphine) 2 mg IVP Q4 PRN PRN Reason: Pain, severe (8-10) Last Admin: 12/23/17 04:04 Dose: 2 mg Ondansetron HCl (Zofran Odt) 4 mg PO Q6 PRN PRN Reason: Nausea/Vomiting Tramadol HCl (Ultram) 50 mg PO Q8 PRN PRN Reason: Pain, severe (8-10) - Labs Labs: 12/23/17 05:30 12/23/17 05:30 PT 14.8 Seconds (9.8-13.1) H 12/20/17 16:40 INR 1.3 (0.9-1.2) H 12/20/17 16:40 APTT 31.1 Seconds (25.6-37.1) 12/20/17 16:40 Assessment and Plan (1) Pelvic abscess Status: Acute (2) Abdominal pain Status: Acute (3) Complicated UTI (urinary tract infection) Status: Acute (4) Ovarian mass, left Status: Acute (5) Uncontrolled diabetes mellitus Status: Acute - Assessment and Plan (Free Text) Plan: I was present during evaluation and discussed with Dr Nunes re plans of care and tx. Bruce Blood M.D.
--- NOTE | 2017-12-21 14:36 | CP.PCM.CON ---
History of Present Illness - History of Present Illness History of Present Illness: CONSULT NOTE FOR DR. LEVIN 47-year-old female presents with abdominal pain that she say began 2 weeks ago but got much worse yesterday. She states the pain is diffused with localization around the umbilical region. Patient states pain is associated with nausea/ vomiting. She vomited clear liquid multiple times. She denies any feeling of fevers and chills. She admits to feeling constipated. Patient states she had this pain in the past as far as 2004 but had not had it since. She has a history of bilateral ovarian cystectomies back then. PMH: HTN, DM, HLD, Hypothyroid PSH: C-sectionx3, tubal ligation, Lap ovarian cystectomy, open ovarian cystectomy Social: denies tobacco, alcohol, and illicit drugs Allergies: Hazelnut, shellfish, piperacillin, tazobactam Past Patient History - Infectious Disease Hx of Infectious Diseases: None - Past Medical History & Family History Past Medical History?: Yes - Past Social History Smoking Status: Never Smoked - CARDIAC Hx Cardiac Disorders: Yes Hx Hypercholesterolemia: Yes Hx Hypertension: Yes - PULMONARY Hx Respiratory Disorders: No - NEUROLOGICAL Hx Neurological Disorder: No - HEENT Hx HEENT Problems: No - RENAL Hx Chronic Kidney Disease: No - ENDOCRINE/METABOLIC Hx Endocrine Disorders: Yes Hx Diabetes Mellitus Type 2: Yes Hx Hyperthyroidism: Yes - HEMATOLOGICAL/ONCOLOGICAL Hx Blood Disorders: No Hx Human Immunodeficiency Virus (HIV): No - INTEGUMENTARY Hx Dermatological Problems: No - MUSCULOSKELETAL/RHEUMATOLOGICAL Hx Musculoskeletal Disorders: No Hx Falls: No - GASTROINTESTINAL Hx Gastrointestinal Disorders: Yes Hx Diverticulitis: (Diverticulosis) Hx Gall Bladder Disease: Yes - GENITOURINARY/GYNECOLOGICAL Hx Genitourinary Disorders: Yes Hx Sexually Transmitted Disorders: Yes Other/Comment: left ovarian cyst - PSYCHIATRIC Hx Psychophysiologic Disorder: No Hx Substance Use: No - SURGICAL HISTORY Hx Surgeries: Yes Hx Section: Yes (x3) Hx Cholecystectomy: Yes Other/Comment: ovarian cysts removal - ANESTHESIA Hx Anesthesia: Yes Hx Anesthesia Reactions: No Hx Malignant Hyperthermia: No Meds Allergies/Adverse Reactions: Allergies Allergy/AdvReac Type Severity Reaction Status Date / Time hazelnut Allergy RASH Verified 11/02/17 08:25 shellfish derived Allergy RASH Verified 11/02/17 08:26 piperacillin [From Zosyn] AdvReac RASH Verified 12/10/17 17:07 tazobactam [From Zosyn] AdvReac RASH Verified 12/10/17 17:07 - Medications Medications: Current Medications Aspirin (Ecotrin) 81 mg PO HS [facility] Dicyclomine HCl (Bentyl) 10 mg PO TID PRN PRN Reason: GI distress Docusate Sodium (Colace) 100 mg PO BID PRN PRN Reason: GI distress Ergocalciferol (Drisdol 50,000 Intl Units Cap) 1 cap PO WE [facility] Famotidine (Pepcid) 20 mg PO BID [facility] Last Admin: 12/21/17 10:16 Dose: Not Given Fenofibrate (Tricor) 145 mg PO HS [facility] Glipizide (Glucotrol) 5 mg PO BID [facility] Last Admin: 12/21/17 10:12 Dose: Not Given Doxycycline Hyclate 100 mg/ (Sodium Chloride) 100 mls @ 100 mls/hr IVPB Q12 [facility] PRN Reason: Protocol Last Admin: 12/21/17 10:23 Dose: 100 mls/hr Metronidazole (Flagyl 500mg/100ml Ns) 100 mls @ 100 mls/hr IVPB Q8 [facility] PRN Reason: Protocol Last Admin: 12/21/17 10:23 Dose: 100 mls/hr Gentamicin Sulfate 180 mg/ (Sodium Chloride) 104.5 mls @ 100 mls/hr IVPB Q24H [facility] PRN Reason: Protocol Last Admin: 12/21/17 00:30 Dose: 100 mls/hr Lisinopril (Zestril) 40 mg PO DAILY [facility] Last Admin: 12/21/17 14:03 Dose: Not Given Metformin HCl (Glucophage) 1,000 mg PO BID [facility] Last Admin: 12/21/17 10:11 Dose: Not Given Methimazole (Tapazole) 20 mg PO BID [facility] Last Admin: 12/21/17 14:03 Dose: Not Given Morphine Sulfate (Morphine) 2 mg IVP Q4 PRN PRN Reason: Pain, severe (8-10) Last Admin: 12/21/17 14:21 Dose: 2 mg Ondansetron HCl (Zofran Odt) 4 mg PO Q6 PRN PRN Reason: Nausea/Vomiting Tramadol HCl (Ultram) 50 mg PO Q8 PRN PRN Reason: Pain, severe (8-10) Physical Exam - Constitutional Appears: Well, Non-toxic, No Acute Distress, Other (uncomfortable) - Head Exam Head Exam: ATRAUMATIC - Eye Exam Eye Exam: EOMI, PERRL - ENT Exam ENT Exam: Mucous Membranes Moist - Respiratory Exam Respiratory Exam: Clear to Auscultation Bilateral, NORMAL BREATHING PATTERN - Cardiovascular Exam Cardiovascular Exam: REGULAR RHYTHM, +S1, +S2 - GI/Abdominal Exam GI & Abdominal Exam: Soft, Tenderness (diffusely tender, moderate to severe pain ). absent: Distended, Firm, Guarding, Rebound, Rigid - Extremities Exam Extremities exam: Negative for: pedal edema, tenderness - Neurological Exam Neurological exam: Alert, Oriented x3 - Psychiatric Exam Psychiatric exam: Normal Affect, Normal Mood - Skin Skin Exam: Dry, Intact, Normal Color, Warm Results - Vital Signs Recent Vital Signs: Last Vital Signs Temp 99.4 F 12/21/17 12:00 Pulse 107 H 12/21/17 12:00 Resp 18 12/21/17 12:00 BP 127/76 12/21/17 14:03 Pulse Ox 97 12/21/17 12:00 - Labs Result Diagrams: 12/21/17 04:20 12/21/17 04:20 Labs: Laboratory Results - last 24 hr 12/20/17 12/20/17 12/20/17 16:30 16:40 16:40 WBC 17.5 H RBC 4.81 Hgb 12.5 Hct 37.4 MCV 77.8 L MCH 26.0 L MCHC 33.5 RDW 12.7 Plt Count 404 H MPV 8.8 Neut % (Auto) 92.5 H Lymph % (Auto) 3.9 L Preston % (Auto) 3.2 Eos % (Auto) 0.0 Baso % (Auto) 0.4 Neut # (Auto) 16.2 H Lymph # (Auto) 0.7 L Preston # (Auto) 0.6 Eos # (Auto) 0.0 Baso # (Auto) 0.1 Neutrophils % (Manual) 81 H Band Neutrophils % 6 H Lymphocytes % (Manual) 8 L Monocytes % (Manual) 5 Hypersegmented Polys Present Platelet Estimate Normal Large Platelets Present Anisocytosis (manual) Slight Microcytosis (manual) Slight Tear Drop Cells Slight Ovalocytes Moderate PT INR APTT pO2 VBG pH VBG pCO2 VBG HCO3 VBG Total CO2 VBG O2 Sat (Calc) VBG Base Excess VBG Potassium Glucose Lactate FiO2 Crit Value Called To Crit Value Called By Crit Value Read Back Blood Gas Notified Time Sodium 142 Potassium 5.1 H Chloride 100 Carbon Dioxide 23 Anion Gap 24 H BUN 17 Creatinine 0.8 Est GFR ( Amer) > 60 Est GFR (Non-Af Amer) > 60 POC Glucose (mg/dL) 329 H Random Glucose 311 H Calcium 10.1 Total Bilirubin 0.6 AST 23 ALT 24 Alkaline Phosphatase 209 H D Total Protein 8.4 H Albumin 3.8 Globulin 4.7 H Albumin/Globulin Ratio 0.8 L Lipase 72 Venous Blood Potassium Urine Color Urine Clarity Urine pH Ur Specific Dixon Urine Protein Urine Glucose (UA) Urine Ketones Urine Blood Urine Nitrate Urine Bilirubin Urine Urobilinogen Ur Leukocyte Esterase Urine RBC (Auto) Urine Microscopic WBC Ur Squamous Epith Cells Urine Bacteria Random Vancomycin 12/20/17 12/20/17 12/20/17 16:40 16:52 16:55 WBC RBC Hgb Hct MCV MCH MCHC RDW Plt Count MPV Neut % (Auto) Lymph % (Auto) Preston % (Auto) Eos % (Auto) Baso % (Auto) Neut # (Auto) Lymph # (Auto) Preston # (Auto) Eos # (Auto) Baso # (Auto) Neutrophils % (Manual) Band Neutrophils % Lymphocytes % (Manual) Monocytes % (Manual) Hypersegmented Polys Platelet Estimate Large Platelets Anisocytosis (manual) Microcytosis (manual) Tear Drop Cells Ovalocytes PT 14.8 H INR 1.3 H APTT 31.1 pO2 27 L VBG pH 7.49 H VBG pCO2 32 L VBG HCO3 25.2 VBG Total CO2 25.4 VBG O2 Sat (Calc) 56.1 VBG Base Excess 1.7 VBG Potassium Glucose 308 H Lactate 3.3 H FiO2 21.0 Crit Value Called To Dr phillips Crit Value Called By 6075 Crit Value Read Back Y Blood Gas Notified Time 1658 Sodium 193.0 H* Potassium Chloride 119.0 H Carbon Dioxide Anion Gap BUN Creatinine Est GFR ( Amer) Est GFR (Non-Af Amer) POC Glucose (mg/dL) Random Glucose Calcium Total Bilirubin AST ALT Alkaline Phosphatase Total Protein Albumin Globulin Albumin/Globulin Ratio Lipase Venous Blood Potassium Urine Color Yellow Urine Clarity Slighty-cloudy Urine pH 6.0 Ur Specific Dixon 1.035 H Urine Protein Negative Urine Glucose (UA) >=500 Urine Ketones Trace Urine Blood Small Urine Nitrate Negative Urine Bilirubin Negative Urine Urobilinogen 0.2-1.0 Ur Leukocyte Esterase Trace Urine RBC (Auto) 5 H Urine Microscopic WBC 11 H Ur Squamous Epith Cells 2 Urine Bacteria Rare Random Vancomycin 12/20/17 12/20/17 12/21/17 19:33 21:51 04:20 WBC 19.8 H RBC 4.29 Hgb 11.0 L Hct 33.8 L MCV 78.6 L MCH 25.6 L MCHC 32.5 L RDW 12.9 Plt Count 383 MPV Neut % (Auto) Lymph % (Auto) Preston % (Auto) Eos % (Auto) Baso % (Auto) Neut # (Auto) Lymph # (Auto) Preston # (Auto) Eos # (Auto) Baso # (Auto) Neutrophils % (Manual) Band Neutrophils % Lymphocytes % (Manual) Monocytes % (Manual) Hypersegmented Polys Platelet Estimate Large Platelets Anisocytosis (manual) Microcytosis (manual) Tear Drop Cells Ovalocytes PT INR APTT pO2 40 VBG pH 7.36 VBG pCO2 37 L VBG HCO3 21.1 VBG Total CO2 22.0 VBG O2 Sat (Calc) 76.8 H VBG Base Excess -4.0 L VBG Potassium 4.6 Glucose 221 H Lactate 1.1 FiO2 21.0 Crit Value Called To Crit Value Called By Crit Value Read Back Blood Gas Notified Time Sodium 139.0 Potassium Chloride 109.0 H Carbon Dioxide Anion Gap BUN Creatinine Est GFR ( Amer) Est GFR (Non-Af Amer) POC Glucose (mg/dL) 211 H Random Glucose Calcium Total Bilirubin AST ALT Alkaline Phosphatase Total Protein Albumin Globulin Albumin/Globulin Ratio Lipase Venous Blood Potassium 4.6 Urine Color Urine Clarity Urine pH Ur Specific Dixon Urine Protein Urine Glucose (UA) Urine Ketones Urine Blood Urine Nitrate Urine Bilirubin Urine Urobilinogen Ur Leukocyte Esterase Urine RBC (Auto) Urine Microscopic WBC Ur Squamous Epith Cells Urine Bacteria Random Vancomycin 12/21/17 12/21/17 12/21/17 04:20 04:20 05:46 WBC RBC Hgb Hct MCV MCH MCHC RDW Plt Count MPV Neut % (Auto) Lymph % (Auto) Preston % (Auto) Eos % (Auto) Baso % (Auto) Neut # (Auto) Lymph # (Auto) Preston # (Auto) Eos # (Auto) Baso # (Auto) Neutrophils % (Manual) Band Neutrophils % Lymphocytes % (Manual) Monocytes % (Manual) Hypersegmented Polys Platelet Estimate Large Platelets Anisocytosis (manual) Microcytosis (manual) Tear Drop Cells Ovalocytes PT INR APTT pO2 VBG pH VBG pCO2 VBG HCO3 VBG Total CO2 VBG O2 Sat (Calc) VBG Base Excess VBG Potassium Glucose Lactate FiO2 Crit Value Called To Crit Value Called By Crit Value Read Back Blood Gas Notified Time Sodium 145 Potassium 4.7 Chloride 106 Carbon Dioxide 15 L Anion Gap 29 H BUN 15 Creatinine 0.8 Est GFR ( Amer) > 60 Est GFR (Non-Af Amer) > 60 POC Glucose (mg/dL) 151 H Random Glucose 178 H Calcium 9.0 Total Bilirubin 0.9 AST 19 ALT 32 Alkaline Phosphatase 174 H Total Protein 7.2 Albumin 3.2 L Globulin 4.0 H Albumin/Globulin Ratio 0.8 L Lipase Venous Blood Potassium Urine Color Urine Clarity Urine pH Ur Specific Dixon Urine Protein Urine Glucose (UA) Urine Ketones Urine Blood Urine Nitrate Urine Bilirubin Urine Urobilinogen Ur Leukocyte Esterase Urine RBC (Auto) Urine Microscopic WBC Ur Squamous Epith Cells Urine Bacteria Random Vancomycin 9.2 12/21/17 11:31 WBC RBC Hgb Hct MCV MCH MCHC RDW Plt Count MPV Neut % (Auto) Lymph % (Auto) Preston % (Auto) Eos % (Auto) Baso % (Auto) Neut # (Auto) Lymph # (Auto) Preston # (Auto) Eos # (Auto) Baso # (Auto) Neutrophils % (Manual) Band Neutrophils % Lymphocytes % (Manual) Monocytes % (Manual) Hypersegmented Polys Platelet Estimate Large Platelets Anisocytosis (manual) Microcytosis (manual) Tear Drop Cells Ovalocytes PT INR APTT pO2 VBG pH VBG pCO2 VBG HCO3 VBG Total CO2 VBG O2 Sat (Calc) VBG Base Excess VBG Potassium Glucose Lactate FiO2 Crit Value Called To Crit Value Called By Crit Value Read Back Blood Gas Notified Time Sodium Potassium Chloride Carbon Dioxide Anion Gap BUN Creatinine Est GFR ( Amer) Est GFR (Non-Af Amer) POC Glucose (mg/dL) 144 H Random Glucose Calcium Total Bilirubin AST ALT Alkaline Phosphatase Total Protein Albumin Globulin Albumin/Globulin Ratio Lipase Venous Blood Potassium Urine Color Urine Clarity Urine pH Ur Specific Dixon Urine Protein Urine Glucose (UA) Urine Ketones Urine Blood Urine Nitrate Urine Bilirubin Urine Urobilinogen Ur Leukocyte Esterase Urine RBC (Auto) Urine Microscopic WBC Ur Squamous Epith Cells Urine Bacteria Random Vancomycin Assessment & Plan - Assessment and Plan (Free Text) Assessment: 47F with left adnexal cysts, likely infected Plan: - Continue Abx - Plan as per CARTOGRAPHIC DRAFTER - Laparoscopy if patient does not improve - Also recommend IR drainage with continuation of Abx Discussed with Dr. Christiano Grover, PGY2
[2017-12-21] MEDS ORDERED: Morphine 4 MG/ML VIAL IVP ONE (14:55)
--- NOTE | 2017-12-21 14:59 | CP.PCM.PN ---
Subjective - Date & Time of Evaluation Date of Evaluation: 12/21/17 Time of Evaluation: 14:35 - Subjective Subjective: She still has pain. Pain meds somewhat working but more and more noticeable compared to admission. Objective - Vital Signs/Intake and Output Vital Signs (last 24 hours): Temp Pulse Resp BP Pulse Ox 99.4 F 107 H 18 127/76 97 12/21/17 12:00 12/21/17 12:00 12/21/17 12:00 12/21/17 14:03 12/21/17 12:00 Intake and Output: 12/21/17 12/21/17 06:59 18:59 Intake Total 1000 Balance 1000 - Medications Medications: Current Medications Aspirin (Ecotrin) 81 mg PO HS [facility] Dicyclomine HCl (Bentyl) 10 mg PO TID PRN PRN Reason: GI distress Docusate Sodium (Colace) 100 mg PO BID PRN PRN Reason: GI distress Ergocalciferol (Drisdol 50,000 Intl Units Cap) 1 cap PO WE [facility] Famotidine (Pepcid) 20 mg PO BID [facility] Last Admin: 12/21/17 10:16 Dose: Not Given Fenofibrate (Tricor) 145 mg PO HS [facility] Glipizide (Glucotrol) 5 mg PO BID [facility] Last Admin: 12/21/17 10:12 Dose: Not Given Doxycycline Hyclate 100 mg/ (Sodium Chloride) 100 mls @ 100 mls/hr IVPB Q12 [facility] PRN Reason: Protocol Last Admin: 12/21/17 10:23 Dose: 100 mls/hr Metronidazole (Flagyl 500mg/100ml Ns) 100 mls @ 100 mls/hr IVPB Q8 [facility] PRN Reason: Protocol Last Admin: 12/21/17 10:23 Dose: 100 mls/hr Gentamicin Sulfate 180 mg/ (Sodium Chloride) 104.5 mls @ 100 mls/hr IVPB Q24H [facility] PRN Reason: Protocol Last Admin: 12/21/17 00:30 Dose: 100 mls/hr Lisinopril (Zestril) 40 mg PO DAILY [facility] Last Admin: 12/21/17 14:03 Dose: Not Given Metformin HCl (Glucophage) 1,000 mg PO BID [facility] Last Admin: 12/21/17 10:11 Dose: Not Given Methimazole (Tapazole) 20 mg PO BID [facility] Last Admin: 12/21/17 14:03 Dose: Not Given Morphine Sulfate (Morphine) 2 mg IVP Q4 PRN PRN Reason: Pain, severe (8-10) Last Admin: 12/21/17 14:21 Dose: 2 mg Morphine Sulfate (Morphine) 2 mg IVP ONCE ONE Stop: 12/21/17 14:56 Ondansetron HCl (Zofran Odt) 4 mg PO Q6 PRN PRN Reason: Nausea/Vomiting Tramadol HCl (Ultram) 50 mg PO Q8 PRN PRN Reason: Pain, severe (8-10) - Labs Labs: 12/21/17 04:20 12/21/17 04:20 PT 14.8 Seconds (9.8-13.1) H 12/20/17 16:40 INR 1.3 (0.9-1.2) H 12/20/17 16:40 APTT 31.1 Seconds (25.6-37.1) 12/20/17 16:40 - Head Exam Head Exam: NORMAL INSPECTION - GI/Abdominal Exam GI & Abdominal Exam: Soft, Tenderness. absent: Rebound Additional comments: slight guarding on deep palpation Assessment and Plan - Assessment and Plan (Free Text) Assessment: pelvic mass ? TOA vs GI etiology; Hx ovarian cyst enlarging Plan: Condition explained to pt. She understands. Procedure (incl laparoscopy/poss laparotomy/removal of fallopian tube/ovary) and risks/complications discussed ... Informed consents obtained. Dr Blood and product consultant Dr Guido Roland aware...scheduled with OR later today
[2017-12-21] MEDS ORDERED: Sodium Chloride 0.9% 1,000 ML IV SCH (15:00)
[2017-12-21] MEDS ORDERED: Chlorhexidine Gluconate 1 APPL/PKT TP ONE (15:38)
[2017-12-21] MEDS ORDERED: Ketamine 50 mg/ml Inj (10 ml) ONE (18:47)
[2017-12-21] MEDS ORDERED: Rocuronium 10 mg/ml (5 ml) ONE ×2 (18:47→21:11)
[2017-12-21] MEDS ORDERED: Lidocaine 4% (Laryng-O-Jet) Kit MM ONE (18:47)
[2017-12-21] MEDS ORDERED: Succinylcholine 200 mg/10 ml Inj IV ONE (18:47)
[2017-12-21] MEDS ORDERED: Etomidate 20 mg/10ml Inj IV ONE (18:51)
[2017-12-21] MEDS ORDERED: ceFAZolin IV 2 gm in Dextrose 2 GM/50 ML BAG IVPB ONE (19:00)
[2017-12-21] MEDS ORDERED: Lidocaine Hydrochloride 1% 0 ML ONE (19:15)
[2017-12-21] MEDS ORDERED: Clindamycin 600mg/50ml NS 600 MG/50 ML BAG IVPB ONE (19:15)
[2017-12-21] MEDS ORDERED: Bupivacaine 0.5% Inj(30mL) ONE (19:15)
[2017-12-21] MEDS ORDERED: Midazolam 2 MG/2 ML VIAL ONE (19:20)
[2017-12-21] MEDS ORDERED: Lactated Ringer's 1,000 ML IV ONE ×4 (19:20→22:44)
[2017-12-21] MEDS ORDERED: Dexamethasone 4 mg/1 ml ONE (19:35)
[2017-12-21] MEDS ORDERED: Gentamicin 80 mg/2mL Inj. IVPB ONE (19:45)
[2017-12-21] MEDS ORDERED: Bupivacaine 0.5% Inj(30mL) IJ ONE (19:48)
[2017-12-21] MEDS ORDERED: Neostigmine 1:1000 (1 mg/ml) Inj ONE (20:02)
[2017-12-21] MEDS ORDERED: Doxycycline 100 mg Inj IVPB ONE (20:15)
[2017-12-21] MEDS ORDERED: Sodium Chloride 0.9% 3,000 ML IV ONE (22:00)
[2017-12-21] MEDS ORDERED: Trimethobenzamide 200 mg/2 mL Inj IM ONE (22:52)
--- NOTE | 2017-12-21 22:53 | PCM.SURG1 ---
Surgeon's Initial Post Op Note - Surgeon's Notes Surgeon: Tiffany SNYDER DO Crane Hooker: Cortez Valenzueal MD Type of Anesthesia: General Endo Anesthesia Administered By: David Power MD Pre-Operative Diagnosis: Pelvic mass/abscess Operative Findings: -Extensive pelvic/abd adhesions. -Incidental enterotomy. - left ovarian cyst/abscess. Post-Operative Diagnosis: Abscess Operation Performed: Laparoscopy; laparotomy; removal of abscess/cultures; lyiss of adhesions; intraoperative consult with surgeon for enteroomy Specimen/Specimens Removed: left ovarian abscess Estimated Blood Loss: EBL {In ML}: 75 Blood Products Given: N/A Date of Surgery/Procedure: 12/21/17 Time of Surgery/Procedure: 20:00
--- NOTE | 2017-12-21 22:53 | PCM.SURG1 ---
Surgeon's Initial Post Op Note - Surgeon's Notes Surgeon: Dr. Christiano Mcmillan Oyster Bed Worker: Kirti Parker PGY1 Type of Anesthesia: General Endo Anesthesia Administered By: Dr. Aquino Pre-Operative Diagnosis: Tubo-ovarian abscess Operative Findings: Tubo-ovarian abscess, extensive adhesions, enterotomy Post-Operative Diagnosis: Tubo-ovarian abscess, extensive adhesions, enterotomy Operation Performed: Diagnostic laparoscopy coverted to Laparotomy, extensive lysis of adhesions, removal of tubo-ovarian abscess, repair of enterotomy with alessandra patch Specimen/Specimens Removed: Tubo-ovarian abscess Estimated Blood Loss: EBL {In ML}: 75 Blood Products Given: N/A Drains Used: Brennan Gallego (10 fr) Post-Op Condition: Good Date of Surgery/Procedure: 12/21/17 Time of Surgery/Procedure: 07:30
--- NOTE | 2017-12-21 22:55 | PCM.ANESB5 ---
Transverse Abdominis Block - Transverse Abdominis Plane Date of Procedure: 12/21/17 Anesthesiologist: Kenia Pre-Procedure Diagnosis: Pelvic mass Post-Procedure Diagnosis: Tuboovarian abscess Procedure Performed: Transverse Abdominis Plane Nerve Block Left, Transverse Abdominis Plane Nerve Block Right - Procedure Transverse Abdominis Plane Nerve Block: The procedure was explained to the patient that it is for post-operative pain management and would be performed after surgery. Consent was obtained prior to surgery after a thorough discussion with the patient regarding the benefits and possible complications of transverse abdominis plane block. After the surgery had concluded and before the patient emerged from general anesthesia, time-out was held with the circulating nurse to re-confirm the appropriate block. With the patient in supine position, the ultrasound probe was placed transverse to the abdominal wall at the mid-axillary line above the iliac crest of the appropriate side. The skin, subcutaneous tissue, fat, external oblique muscle, internal oblique muscle, and the transverse abdominis muscle were identified. The general area of the block site was then prepped with Betadine three times. At this point, a # 21-gauge Stimuplex 4-inch needle was inserted posterior to and in plane with the ultrasound probe and directed anteriorly. Needle was advanced under direct ultrasound visualization until it reached the plane between the internal oblique and transverse abdominis muscles. After appropriate placement, 2mL of local anesthetic solution was injected. When the transverse abdominis plane was observed expanding in an ellipsoid way, the rest of the solution was slowly injected. A total of ___20___ mL of __0.25___ % ___ bupivicaine with 1:200,000 epinephrine was used for this block. The needle was then removed and sterile dressing was applied. Similarly, the same procedure was performed on the other side using the same medications. The patient had stable vital signs throughout and had no untoward complications after emergence from general anesthesia in the recovery room.
[2017-12-21] MEDS ORDERED: Lactated Ringer's 1,000 ML IV SCH (23:00)
--- NOTE | 2017-12-21 23:10 | CON ---
INFECTIOUS DISEASE CONSULT DATE: HISTORY OF PRESENT ILLNESS: The patient is a 47-year-old female who previously admitted to the hospital 2 weeks ago for an ESBL E. coli. UTI. The patient is allergic to PIPERACILLIN AND TAZOBACTAM and therefore PENICILLIN. The patient was treated with IV gentamicin while hospitalized ,was sent home on home IV therapy.Shewas on her last day, which was yesterday when, she developed nausea, vomiting, and severe abdominal pain, and came to the emergency room. She states she did not have any pain like this before and denied any fever or chills while at home. She has a past medical history of diabetes, ovarian cyst, diverticulosis, hypertension, and hypothyroid. When she came to the emergency room, she had an abdominal and pelvis transvaginal ultrasound, which showed a large adnexa bilaterally. The right ovary containing simple cyst and the left adnexa has a large dominant cyst with other cysts. The left ovary cyst that increased in size and there was also an air fluid level now noted. The CT scan of the abdomen and pelvis showed interval increase in size of left adnexal regions of cystic focus, which are now exhibits air fluid level that rule out infection and TOA, questionable small amount of air, which now the patient represents a complex cyst adjacent to the focus versus air within a compressed loop of valve, mild infiltrative changes was seen surrounding the aforementioned cystic structure. There is an area of free fluid also in the pelvis. Large amount of stool is present within colon consistent with fecal retention which is confirmed on historyas she has been unable to have a reasonably good bowel movement recently. LABORATORY DATA: Microbiology is pending. White count is 17.5 and then today was 19.8, hemoglobin is 11 today, there is a platelet count of 383 and definitely a left shift as poly count is 92.5. There were also 6 bands. Creatinine 0.8, GFR is greater than 60, and blood sugars are elevated. LFTs are within normal limits. Random vancomycin level today after one dose of vancomycin yesterday is 9.2. Urine show RBC, WBC, and some rare bacteria. PHYSICAL EXAMINATION: GENERAL: The patient is alert, cooperative, and pleasant. HEENT: Within normal limits. NECK: Supple with some shotty adenopathy. HEART: Regular sinus rhythm. LUNGS: Essentially clear. ABDOMEN: Unable to even touch her abdomen with her having any pain. There is some guarding and rebound in lower abdomen. EXTREMITIES: Lower extremities are negative for CCE. ASSESSMENT AND PLAN: At this point in time, diagnosed would be intraabdominal sepsis, will possibly need surgical intervention. At the present time, would continue same antibiotics. Due to the PENICILLIN ALLERGY, we will give her Vibramycin, Flagyl, and continue the gentamicin, probably we will add vancomycin to the course of therapy also. Kale Espinosa MD [facility]
[2017-12-21] MEDS: Insulin Lispro (humaLOG) 100 Units/ml Inj SC PRN (23:43)
[2017-12-22] MEDS ORDERED: Ergocalciferol 50,000 Intl Units Cap PO SCH (00:05)
[2017-12-22] MEDS: Gentamicin 180 MG in Sodium Chloride 0.9% 100 ML IVPB SCH ×2 (01:58→20:31)
[2017-12-22] MEDS: metroNIDAZOLE 500mg/100ml NS 100 ML IVPB SCH ×3 (01:58→17:07)
[2017-12-22] MEDS: Lactated Ringer's 1,000 ML IV SCH ×2 (02:09→03:32)
[2017-12-22 05:36] LABS: HEMOGLOBIN 10.3 g/dL (12.0-16.0); MEAN CELL VOLUME 79.3 fl (81.0-99.0); MEAN CORPUSCULAR HEMOGLOBIN 25.5 pg (27.0-31.0); MEAN CORPUSCULAR HGB CONC 32.2 g/dL (33.0-37.0); RBC 4.05 Mil/uL (3.80-5.20); RED CELL DISTRIBUTION WIDTH 13.4 % (11.5-14.5)
[2017-12-22 05:38] LABS: BLOOD UREA NITROGEN 18 mg/dl (7-17); CALCIUM 9.1 mg/dL (8.4-10.2); GFR AFRICAN-AMERICAN > 60; GFR NON-AFRICAN AMERICAN 59
[2017-12-22 09:01] LABS: BASO % 0.1 % (0.0-2.0); HEMOGLOBIN 10.4 g/dL (12.0-16.0); LYMPH # 0.6 K/uL (1.0-4.3); LYMPH % 2.3 % (20.0-40.0); MEAN CELL VOLUME 79.4 fl (81.0-99.0); MEAN CORPUSCULAR HEMOGLOBIN 25.9 pg (27.0-31.0); MEAN CORPUSCULAR HGB CONC 32.6 g/dL (33.0-37.0); MONO # 0.5 K/uL (0.0-0.8); NEUT # 22.8 K/uL (1.8-7.0); NEUT % 95.6 % (50.0-75.0); PLATELET COUNT 455 K/uL (130-400); RBC 4.03 Mil/uL (3.80-5.20); RED CELL DISTRIBUTION WIDTH 13.2 % (11.5-14.5); WHITE BLOOD COUNT 23.9 K/uL (4.8-10.8)
--- NOTE | 2017-12-22 09:45 | CP.PCM.PN ---
<Gabby Escalante - Last Filed: 12/22/17 10:18> Subjective - Date & Time of Evaluation Date of Evaluation: 12/22/17 Time of Evaluation: 09:30 - Subjective Subjective: Patient seen and examined this morning at the bedside with OB Hospitalist. POD#1 , patient is s/p Laparoscopy; laparotomy; removal of abscess/cultures; lyiss of adhesions; intraoperative consult with surgeon for enteroomy and s/p b/l nerve block for pain. Patient denies any pain this morning and feels thirsty, denies any weakness, dizziness, blurred vision, chest pain or SOB. Patient hasn't moved around much in bed since surgery yet. ESMER drain is draining serosanguineous fluid about 10-15 cc, Urine output is 1200 cc, NGT is draining minimum greenish fluid. Objective - Vital Signs/Intake and Output Vital Signs (last 24 hours): Temp Pulse Resp BP Pulse Ox 98.0 F 109 H 22 134/72 100 12/22/17 08:00 12/22/17 08:49 12/22/17 08:00 12/22/17 08:49 12/22/17 08:00 Intake and Output: 12/22/17 12/22/17 06:59 18:59 Intake Total 4600 300 Output Total 2800 Balance 1800 300 - Medications Medications: Current Medications Aspirin (Ecotrin) 81 mg PO [facility] Last Admin: 12/22/17 01:59 Dose: Not Given Dicyclomine HCl (Bentyl) 10 mg PO TID PRN PRN Reason: GI distress Docusate Sodium (Colace) 100 mg PO BID PRN PRN Reason: GI distress Ergocalciferol (Drisdol 50,000 Intl Units Cap) 1 cap PO WE [facility] Last Admin: 12/22/17 01:59 Dose: Not Given Famotidine (Pepcid) 20 mg PO BID [facility] Last Admin: 12/22/17 08:47 Dose: Not Given Fenofibrate (Tricor) 145 mg PO [facility] Glipizide (Glucotrol) 5 mg PO BID [facility] Last Admin: 12/22/17 08:45 Dose: Not Given Doxycycline Hyclate 100 mg/ (Sodium Chloride) 100 mls @ 100 mls/hr IVPB Q12 [facility] PRN Reason: Protocol Last Admin: 12/22/17 08:49 Dose: 100 mls/hr Metronidazole (Flagyl 500mg/100ml Ns) 100 mls @ 100 mls/hr IVPB Q8 [facility] PRN Reason: Protocol Last Admin: 12/22/17 08:44 Dose: 100 mls/hr Gentamicin Sulfate 180 mg/ (Sodium Chloride) 104.5 mls @ 100 mls/hr IVPB Q24H [facility] PRN Reason: Protocol Last Admin: 12/22/17 01:58 Dose: Not Given Acetaminophen (Ofirmev) 100 mls @ 400 mls/hr IVPB Q6H [facility] PRN Reason: Protocol Stop: 12/22/17 19:16 Last Admin: 12/22/17 08:55 Dose: 400 mls/hr Lactated Ringer's (Lactated Ringer's) 1,000 mls @ 200 mls/hr IV .Q5H [facility] Last Admin: 12/22/17 08:43 Dose: 200 mls/hr Lactated Ringer's (Lactated Ringer's) 1,000 mls @ 200 mls/hr IV .Q5H [facility] Last Admin: 12/22/17 03:32 Dose: 200 mls/hr Insulin Human Lispro (Humalog) 0 units SC ACHS PRN; Protocol PRN Reason: hyperglycemia Last Admin: 12/21/17 23:43 Dose: 4 units Lisinopril (Zestril) 40 mg PO DAILY [facility] Last Admin: 12/22/17 08:49 Dose: Not Given Metformin HCl (Glucophage) 1,000 mg PO BID [facility] Last Admin: 12/22/17 08:45 Dose: Not Given Methimazole (Tapazole) 20 mg PO BID [facility] Last Admin: 12/22/17 08:47 Dose: Not Given Morphine Sulfate (Morphine) 2 mg IVP Q4 PRN PRN Reason: Pain, severe (8-10) Last Admin: 12/21/17 14:21 Dose: 2 mg Morphine Sulfate (Morphine Cv/Cvn Cv Tsc System Operator 1 Mg/Ml) 0 mg IV PRN PRN; Protocol PRN Reason: Pain, moderate (4-7) Last Admin: 12/21/17 23:55 Dose: 30 mg Ondansetron HCl (Zofran Odt) 4 mg PO Q6 PRN PRN Reason: Nausea/Vomiting Tramadol HCl (Ultram) 50 mg PO Q8 PRN PRN Reason: Pain, severe (8-10) - Labs Labs: 12/22/17 08:30 12/22/17 04:25 PT 14.8 Seconds (9.8-13.1) H 12/20/17 16:40 INR 1.3 (0.9-1.2) H 12/20/17 16:40 APTT 31.1 Seconds (25.6-37.1) 12/20/17 16:40 - Constitutional Appears: No Acute Distress - Eye Exam Eye Exam: EOMI, Normal appearance, PERRL Pupil Exam: NORMAL ACCOMODATION - ENT Exam ENT Exam: Mucous Membranes Moist - Neck Exam Neck Exam: Normal Inspection - Respiratory Exam Respiratory Exam: Clear to Ausculation Bilateral, NORMAL BREATHING PATTERN - Cardiovascular Exam Cardiovascular Exam: REGULAR RHYTHM - GI/Abdominal Exam GI & Abdominal Exam: Soft, Hypoactive Bowel Sounds. absent: Tenderness Additional comments: Dressing is placed at incision site with ESMER drain, clean, dry and intact - Extremities Exam Extremities Exam: Normal Capillary Refill, Normal Inspection - Back Exam Back Exam: NORMAL INSPECTION - Neurological Exam Neurological Exam: Alert, Awake, Oriented x3 - Psychiatric Exam Psychiatric exam: Normal Affect - Skin Skin Exam: Dry, Intact, Normal Color, Warm Assessment and Plan - Assessment and Plan (Free Text) Assessment: A/P: 47 y/o F with PMH of Ovarian cysts, DM, diverticulosis and HTN, hypothryoid admitted for pelvic pain/left ovarian abscess. 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 Pelvic pain/left ovarian abscess - POD 1 - S/p Diagnostic laparoscopy coverted to Laparotomy, extensive lysis of adhesions, removal of tubo-ovarian abscess, repair of enterotomy with alessandra patch - S/p NGT, ESMER drain and george - S/p b/l Transverse Abdominis Nerve Block - S/p Ancef, gent and evelyn for OR - ESMER drain is draining serosanguineous fluid about 10-15 cc, Urine output is 1200 cc, NGT is draining minimum greenish fluid - Blood cx /: No growth after 24 hr, f/u - F/u culture/Pathology 12/20 - Pain management, Morphine MOBILE DEVICE DEVELOPER, Morphine and tramadol PRN - ID consult: Flagyl, Genta and Doxy, continue management as per ID - Continue management as per primary team and Surgery Case discussed with Dr. Cramer <Jaz Cramer - Last Filed: 12/22/17 16:59> Objective - Vital Signs/Intake and Output Vital Signs (last 24 hours): Temp Pulse Resp BP Pulse Ox 98.3 F 98 H 18 122/68 99 12/22/17 16:33 12/22/17 16:33 12/22/17 16:33 12/22/17 16:33 12/22/17 16:33 Intake and Output: 12/22/17 12/22/17 06:59 18:59 Intake Total 4600 300 Output Total 2800 2400 Balance 1800 -2100 - Medications Medications: Current Medications Aspirin (Ecotrin) 81 mg PO HS [facility] Last Admin: 12/22/17 01:59 Dose: Not Given Dextrose (Dextrose 50% Inj) 0 ml IV STAT PRN; Protocol PRN Reason: Hypoglycemia Protocol Dextrose (Glutose 15) 0 gm PO ONCE PRN; Protocol PRN Reason: Hypoglycemia Protocol Dicyclomine HCl (Bentyl) 10 mg PO TID PRN PRN Reason: GI distress Docusate Sodium (Colace) 100 mg PO BID PRN PRN Reason: GI distress Ergocalciferol (Drisdol 50,000 Intl Units Cap) 1 cap PO [facility] Last Admin: 12/22/17 01:59 Dose: Not Given Famotidine (Pepcid) 20 mg PO BID [facility] Last Admin: 12/22/17 08:47 Dose: Not Given Fenofibrate (Tricor) 145 mg PO [facility] Glipizide (Glucotrol) 5 mg PO BID [facility] Last Admin: 12/22/17 08:45 Dose: Not Given Glucagon (Glucagen Diagnostic Kit) 0 mg IM STAT PRN; Protocol PRN Reason: Hypoglycemia Protocol Heparin Sodium (Porcine) (Heparin) 5,000 units SC Q8 [facility] PRN Reason: Protocol Last Admin: 12/22/17 12:20 Dose: 5,000 units Doxycycline Hyclate 100 mg/ (Sodium Chloride) 100 mls @ 100 mls/hr IVPB Q12 [facility] PRN Reason: Protocol Last Admin: 12/22/17 08:49 Dose: 100 mls/hr Metronidazole (Flagyl 500mg/100ml Ns) 100 mls @ 100 mls/hr IVPB Q8 [facility] PRN Reason: Protocol Last Admin: 12/22/17 08:44 Dose: 100 mls/hr Gentamicin Sulfate 180 mg/ (Sodium Chloride) 104.5 mls @ 100 mls/hr IVPB Q24H [facility] PRN Reason: Protocol Last Admin: 12/22/17 01:58 Dose: Not Given Acetaminophen (Ofirmev) 100 mls @ 400 mls/hr IVPB Q6H [facility] PRN Reason: Protocol Stop: 12/22/17 19:16 Last Admin: 12/22/17 15:34 Dose: 400 mls/hr Sodium Chloride (Sodium Chloride 0.9%) 1,000 mls @ 125 mls/hr IV .Q8H [facility] Stop: 12/23/17 12:15 Last Admin: 12/22/17 15:34 Dose: 125 mls/hr Insulin Human Lispro (Humalog) 0 units SC ACHS PRN; Protocol PRN Reason: hyperglycemia Last Admin: 12/22/17 12:10 Dose: 2 units Lisinopril (Zestril) 40 mg PO DAILY [facility] Last Admin: 12/22/17 08:49 Dose: Not Given Metformin HCl (Glucophage) 1,000 mg PO BID [facility] Last Admin: 12/22/17 08:45 Dose: Not Given Methimazole (Tapazole) 20 mg PO BID [facility] Last Admin: 12/22/17 08:47 Dose: Not Given Morphine Sulfate (Morphine) 2 mg IVP Q4 PRN PRN Reason: Pain, severe (8-10) Last Admin: 12/21/17 14:21 Dose: 2 mg Morphine Sulfate (Morphine Cv/Cvn Cv Tsc System Operator 1 Mg/Ml) 0 mg IV PRN PRN; Protocol PRN Reason: Pain, moderate (4-7) Last Admin: 12/21/17 23:55 Dose: 30 mg Ondansetron HCl (Zofran Odt) 4 mg PO Q6 PRN PRN Reason: Nausea/Vomiting Tramadol HCl (Ultram) 50 mg PO Q8 PRN PRN Reason: Pain, severe (8-10) - Labs Labs: 12/22/17 08:30 12/22/17 04:25 PT 14.8 Seconds (9.8-13.1) H 12/20/17 16:40 INR 1.3 (0.9-1.2) H 12/20/17 16:40 APTT 31.1 Seconds (25.6-37.1) 12/20/17 16:40 Assessment and Plan - Assessment and Plan (Free Text) Assessment: OB Hospitalist Addendum: Pt seen and examined by me. Agree w/ above. POD 1s/ p L/s converted to laparotomy, KAREN, removal of tubo-ovarian abscess/ cultures, with repair of incidental enterotomy by surgeon, doing well, w/ ESMER drain and NG tube in place. Continue current management as per primary team and Surgery. (ES )
[2017-12-22 11:19] LABS: BANDS 9 % (0-2); LYMPHOCYTE 2 % (20-50); NEUTROPHIL 88 % (42-75); PLATELET ESTIMATE INCREASED (NORMAL); REACTIVE LYMPHOCYTES 1 % (0-0); TOTAL CELLS COUNTED 100
[2017-12-22 11:20] LABS: HYPOCHROMIC SLIGHT; OVALOCYTES SLIGHT
[2017-12-22 11:23] LABS: MONOCYTE 0 % (0-10)
--- NOTE | 2017-12-22 12:00 | CP.PCM.PN ---
Subjective - Date & Time of Evaluation Date of Evaluation: 12/22/17 Time of Evaluation: 11:58 - Subjective Subjective: SURGERY NOTE FOR DR. LEVIN 47F seen and examined at bedside. Patient states pain is much more improved, denies nausea, vomiting, Has no other complaints. Objective - Vital Signs/Intake and Output Vital Signs (last 24 hours): Temp Pulse Resp BP Pulse Ox 98.0 F 104 H 21 142/70 99 12/22/17 08:00 12/22/17 10:00 12/22/17 10:00 12/22/17 10:00 12/22/17 10:00 Intake and Output: 12/22/17 12/22/17 06:59 18:59 Intake Total 4600 300 Output Total 2800 Balance 1800 300 - Medications Medications: Current Medications Aspirin (Ecotrin) 81 mg PO HS [facility]S [facility] Last Admin: 12/22/17 01:59 Dose: Not Given Dicyclomine HCl (Bentyl) 10 mg PO TID PRN PRN Reason: GI distress Docusate Sodium (Colace) 100 mg PO BID PRN PRN Reason: GI distress Ergocalciferol (Drisdol 50,000 Intl Units Cap) 1 cap PO WE [facility] 234 BEDS [facility] Last Admin: 12/22/17 01:59 Dose: Not Given Famotidine (Pepcid) 20 mg PO BID [facility] 234 B[facility]S [facility] Last Admin: 12/22/17 08:47 Dose: Not Given Fenofibrate (Tricor) 145 mg PO [facility] Glipizide (Glucotrol) 5 mg PO BID [facility] 234 B[facility]S [facility] Last Admin: 12/22/17 08:45 Dose: Not Given Doxycycline Hyclate 100 mg/ (Sodium Chloride) 100 mls @ 100 mls/hr IVPB Q12 [facility] PRN Reason: Protocol Last Admin: 12/22/17 08:49 Dose: 100 mls/hr Metronidazole (Flagyl 500mg/100ml Ns) 100 mls @ 100 mls/hr IVPB Q8 [facility] PRN Reason: Protocol Last Admin: 12/22/17 08:44 Dose: 100 mls/hr Gentamicin Sulfate 180 mg/ (Sodium Chloride) 104.5 mls @ 100 mls/hr IVPB Q24H [facility] PRN Reason: Protocol Last Admin: 12/22/17 01:58 Dose: Not Given Acetaminophen (Ofirmev) 100 mls @ 400 mls/hr IVPB Q6H [facility] 234 BEDS [facility] PRN Reason: Protocol Stop: 12/22/17 19:16 Last Admin: 12/22/17 08:55 Dose: 400 mls/hr Lactated Ringer's (Lactated Ringer's) 1,000 mls @ 200 mls/hr IV .Q5H [facility] 234 BEDS [facility] Last Admin: 12/22/17 08:43 Dose: 200 mls/hr Lactated Ringer's (Lactated Ringer's) 1,000 mls @ 200 mls/hr IV .Q5H [facility] 234 BEDS [facility] Last Admin: 12/22/17 03:32 Dose: 200 mls/hr Insulin Human Lispro (Humalog) 0 units SC ACHS PRN; Protocol PRN Reason: hyperglycemia Last Admin: 12/21/17 23:43 Dose: 4 units Lisinopril (Zestril) 40 mg PO DAILY [facility] 234 BEDS [facility] Last Admin: 12/22/17 08:49 Dose: Not Given Metformin HCl (Glucophage) 1,000 mg PO BID [facility] 234 [facility]EDS [facility] Last Admin: 12/22/17 08:45 Dose: Not Given Methimazole (Tapazole) 20 mg PO BID [facility] 234 [facility]S [facility] Last Admin: 12/22/17 08:47 Dose: Not Given Morphine Sulfate (Morphine) 2 mg IVP Q4 PRN PRN Reason: Pain, severe (8-10) Last Admin: 12/21/17 14:21 Dose: 2 mg Morphine Sulfate (Morphine Mold Inspector 1 Mg/Ml) 0 mg IV PRN PRN; Protocol PRN Reason: Pain, moderate (4-7) Last Admin: 12/21/17 23:55 Dose: 30 mg Ondansetron HCl (Zofran Odt) 4 mg PO Q6 PRN PRN Reason: Nausea/Vomiting Tramadol HCl (Ultram) 50 mg PO Q8 PRN PRN Reason: Pain, severe (8-10) - Labs Labs: 12/22/17 08:30 12/22/17 04:25 PT 14.8 Seconds (9.8-13.1) H 12/20/17 16:40 INR 1.3 (0.9-1.2) H 12/20/17 16:40 APTT 31.1 Seconds (25.6-37.1) 12/20/17 16:40 - Constitutional Appears: Well, Non-toxic, No Acute Distress - Respiratory Exam Respiratory Exam: Clear to Ausculation Bilateral, NORMAL BREATHING PATTERN - Cardiovascular Exam Cardiovascular Exam: REGULAR RHYTHM, +S1, +S2 - GI/Abdominal Exam GI & Abdominal Exam: Soft, Tenderness (mild appropriate tenderness). absent: Distended, Firm, Guarding, Rigid, Rebound Additional comments: Dressing CDI, Abdominal drain: 50cc serosang NGT: 25cc - Neurological Exam Neurological Exam: Alert, Awake - Psychiatric Exam Psychiatric exam: Normal Affect, Normal Mood - Skin Skin Exam: Dry, Intact, Normal Color, Warm Assessment and Plan - Assessment and Plan (Free Text) Assessment: 47F s/p ex laparotomy with removal of infected left ovarian cyst and enterorrhaphy POD1 Plan: - NPO - IVF, pain control - Continue antibiotics - Out of bed to chair - Await bowel function Further recs discuss with Dr. Christiano Grover, PGY2
[2017-12-22] MEDS: Insulin Lispro (humaLOG) 100 Units/ml Inj SC PRN (12:10)
--- NOTE | 2017-12-22 13:57 | CP.PCM.PN ---
<Dell Nunes - Last Filed: 12/22/17 13:54> Subjective - Date & Time of Evaluation Date of Evaluation: 12/22/17 Time of Evaluation: 10:00 - Subjective Subjective: Patient seen and examined at bedside this morning. There are no acute events overnight, NAD. Patient s/p ex laparotomy with removal of infected left ovarian cyst and enterorrhaphy POD1. Patient denies abdominal pain, nausea, vomiting, or fever. Patient reports she has not had gas or bowel movement yet. Objective - Vital Signs/Intake and Output Vital Signs (last 24 hours): Temp Pulse Resp BP Pulse Ox 97.9 F 105 H 18 166/87 H 98 12/22/17 12:00 12/22/17 12:00 12/22/17 12:00 12/22/17 12:00 12/22/17 12:00 Intake and Output: 12/22/17 12/22/17 06:59 18:59 Intake Total 4600 300 Output Total 2800 800 Balance 1800 -500 - Medications Medications: Current Medications Aspirin (Ecotrin) 81 mg PO [facility] Last Admin: 12/22/17 01:59 Dose: Not Given Dicyclomine HCl (Bentyl) 10 mg PO TID PRN PRN Reason: GI distress Docusate Sodium (Colace) 100 mg PO BID PRN PRN Reason: GI distress Ergocalciferol (Drisdol 50,000 Intl Units Cap) 1 cap PO WE [facility] Last Admin: 12/22/17 01:59 Dose: Not Given Famotidine (Pepcid) 20 mg PO BID [facility] Last Admin: 12/22/17 08:47 Dose: Not Given Fenofibrate (Tricor) 145 mg PO [facility] Glipizide (Glucotrol) 5 mg PO BID [facility] Last Admin: 12/22/17 08:45 Dose: Not Given Heparin Sodium (Porcine) (Heparin) 5,000 units SC Q8 [facility] PRN Reason: Protocol Last Admin: 12/22/17 12:20 Dose: 5,000 units Doxycycline Hyclate 100 mg/ (Sodium Chloride) 100 mls @ 100 mls/hr IVPB Q12 [facility] PRN Reason: Protocol Last Admin: 12/22/17 08:49 Dose: 100 mls/hr Metronidazole (Flagyl 500mg/100ml Ns) 100 mls @ 100 mls/hr IVPB Q8 [facility] PRN Reason: Protocol Last Admin: 12/22/17 08:44 Dose: 100 mls/hr Gentamicin Sulfate 180 mg/ (Sodium Chloride) 104.5 mls @ 100 mls/hr IVPB Q24H [facility] PRN Reason: Protocol Last Admin: 12/22/17 01:58 Dose: Not Given Acetaminophen (Ofirmev) 100 mls @ 400 mls/hr IVPB Q6H [facility] PRN Reason: Protocol Stop: 12/22/17 19:16 Last Admin: 12/22/17 08:55 Dose: 400 mls/hr Sodium Chloride (Sodium Chloride 0.9%) 1,000 mls @ 125 mls/hr IV .Q8H [facility] Stop: 12/23/17 12:15 Insulin Human Lispro (Humalog) 0 units SC ACHS PRN; Protocol PRN Reason: hyperglycemia Last Admin: 12/22/17 12:10 Dose: 2 units Lisinopril (Zestril) 40 mg PO DAILY [facility] Last Admin: 12/22/17 08:49 Dose: Not Given Metformin HCl (Glucophage) 1,000 mg PO BID [facility] Last Admin: 12/22/17 08:45 Dose: Not Given Methimazole (Tapazole) 20 mg PO BID [facility] Last Admin: 12/22/17 08:47 Dose: Not Given Morphine Sulfate (Morphine) 2 mg IVP Q4 PRN PRN Reason: Pain, severe (8-10) Last Admin: 12/21/17 14:21 Dose: 2 mg Morphine Sulfate (Morphine Bag Cutter 1 Mg/Ml) 0 mg IV PRN PRN; Protocol PRN Reason: Pain, moderate (4-7) Last Admin: 12/21/17 23:55 Dose: 30 mg Ondansetron HCl (Zofran Odt) 4 mg PO Q6 PRN PRN Reason: Nausea/Vomiting Tramadol HCl (Ultram) 50 mg PO Q8 PRN PRN Reason: Pain, severe (8-10) - Labs Labs: 12/22/17 08:30 12/22/17 04:25 PT 14.8 Seconds (9.8-13.1) H 12/20/17 16:40 INR 1.3 (0.9-1.2) H 12/20/17 16:40 APTT 31.1 Seconds (25.6-37.1) 12/20/17 16:40 - Constitutional Appears: Non-toxic, No Acute Distress - Head Exam Head Exam: ATRAUMATIC, NORMAL INSPECTION, NORMOCEPHALIC - Eye Exam Eye Exam: Normal appearance - ENT Exam ENT Exam: Mucous Membranes Dry - Neck Exam Neck Exam: Full ROM. absent: Tenderness - Respiratory Exam Respiratory Exam: Clear to Ausculation Bilateral, NORMAL BREATHING PATTERN. absent: Accessory Muscle Use, Decreased Breath Sounds, Rales, Rhonchi, Wheezes, Respiratory Distress - Cardiovascular Exam Cardiovascular Exam: Tachycardia, REGULAR RHYTHM - GI/Abdominal Exam GI & Abdominal Exam: Soft, Normal Bowel Sounds. absent: Distended, Tenderness Additional comments: ESMER drain producing about 50cc serosanguinous fluid, dressing c/d/i - Extremities Exam Extremities Exam: absent: Calf Tenderness, Pedal Edema, Tenderness Additional comments: PICC line in right upper extremity - Neurological Exam Neurological Exam: Alert, Awake, Oriented x3 - Skin Skin Exam: Dry, Intact, Normal Color, Warm Assessment and Plan (1) Abdominal pain Status: Acute (2) Ovarian cyst Status: Resolved - Assessment and Plan (Free Text) Plan: c/w present management SCIENCE FACULTY MEMBER recommendations appreciated General surgery recommendations appreciated Infectious Disease recommendations appreciated flagyl 500 mg IV Q8h day 2 gentamicin 180 mg IV daily day 2 doxycycline 100 mg IV Q12h day 3 pain control w/ morphine 2 mg IV Q4h prn, morphine DOOR FURRING INSTALLER 1 mg prn insulin sliding scale hypoglycemic protocol patient NPO hold PO medications monitor for return of bowel function monitor for acute changes encourage out of bed to chair <Bruce Blood - Last Filed: 12/23/17 21:02> Objective - Vital Signs/Intake and Output Vital Signs (last 24 hours): Temp Pulse Resp BP Pulse Ox 98.2 F 104 H 18 164/97 H 96 12/23/17 16:10 12/23/17 16:10 12/23/17 16:10 12/23/17 16:10 12/23/17 16:10 Intake and Output: 12/23/17 12/24/17 18:59 06:59 Output Total 525 Balance -525 - Medications Medications: Current Medications Aspirin (Ecotrin) 81 mg PO HS [facility] Last Admin: 12/22/17 01:59 Dose: Not Given Dextrose (Dextrose 50% Inj) 0 ml IV STAT PRN; Protocol PRN Reason: Hypoglycemia Protocol Dextrose (Glutose 15) 0 gm PO ONCE PRN; Protocol PRN Reason: Hypoglycemia Protocol Dicyclomine HCl (Bentyl) 10 mg PO TID PRN PRN Reason: GI distress Docusate Sodium (Colace) 100 mg PO BID PRN PRN Reason: GI distress Ergocalciferol (Drisdol 50,000 Intl Units Cap) 1 cap PO WE [facility] Last Admin: 12/22/17 01:59 Dose: Not Given Famotidine (Pepcid) 20 mg PO BID [facility] Last Admin: 12/22/17 08:47 Dose: Not Given Fenofibrate (Tricor) 145 mg PO HS [facility] Glipizide (Glucotrol) 5 mg PO BID [facility] Last Admin: 12/22/17 08:45 Dose: Not Given Glucagon (Glucagen Diagnostic Kit) 0 mg IM STAT PRN; Protocol PRN Reason: Hypoglycemia Protocol Guaifenesin/Dextromethorphan (Mucinex-Dm 600-30 Mg) 1 tab PO BID [facility] Last Admin: 12/23/17 18:14 Dose: Not Given Heparin Sodium (Porcine) (Heparin) 5,000 units SC Q8 [facility] PRN Reason: Protocol Last Admin: 12/23/17 18:12 Dose: 5,000 units Doxycycline Hyclate 100 mg/ (Sodium Chloride) 100 mls @ 100 mls/hr IVPB Q12 [facility] PRN Reason: Protocol Last Admin: 12/23/17 11:43 Dose: 100 mls/hr Metronidazole (Flagyl 500mg/100ml Ns) 100 mls @ 100 mls/hr IVPB Q8 [facility] PRN Reason: Protocol Last Admin: 12/23/17 18:09 Dose: 100 mls/hr Gentamicin Sulfate 180 mg/ (Sodium Chloride) 104.5 mls @ 100 mls/hr IVPB Q24H [facility] PRN Reason: Protocol Last Admin: 12/22/17 20:31 Dose: 100 mls/hr Lactated Ringer's (Lactated Ringer's 500ml) 500 mls @ 1,000 mls/hr IV .Q30M [facility] Last Admin: 12/23/17 10:00 Dose: 1,000 mls/hr Sodium Chloride (Sodium Chloride 0.9%) 1,000 mls @ 125 mls/hr IV .Q8H [facility] Stop: 12/24/17 14:34 Last Admin: 12/23/17 18:10 Dose: Not Given Insulin Human Lispro (Humalog) 0 units SC ACHS PRN; Protocol PRN Reason: hyperglycemia Last Admin: 12/22/17 12:10 Dose: 2 units Lisinopril (Zestril) 40 mg PO DAILY [facility] Last Admin: 12/22/17 08:49 Dose: Not Given Metformin HCl (Glucophage) 1,000 mg PO BID [facility] Last Admin: 12/22/17 08:45 Dose: Not Given Methimazole (Tapazole) 20 mg PO BID [facility] Last Admin: 12/22/17 08:47 Dose: Not Given Morphine Sulfate (Morphine) 2 mg IVP Q4 PRN PRN Reason: Pain, severe (8-10) Last Admin: 12/23/17 04:04 Dose: 2 mg Ondansetron HCl (Zofran Odt) 4 mg PO Q6 PRN PRN Reason: Nausea/Vomiting Tramadol HCl (Ultram) 50 mg PO Q8 PRN PRN Reason: Pain, severe (8-10) - Labs Labs: 12/23/17 05:30 12/23/17 05:30 PT 14.8 Seconds (9.8-13.1) H 12/20/17 16:40 INR 1.3 (0.9-1.2) H 12/20/17 16:40 APTT 31.1 Seconds (25.6-37.1) 12/20/17 16:40 Assessment and Plan (1) Pelvic abscess Status: Acute (2) Abdominal pain Status: Acute (3) Complicated UTI (urinary tract infection) Status: Acute (4) Ovarian mass, left Status: Acute (5) Uncontrolled diabetes mellitus Status: Acute - Assessment and Plan (Free Text) Plan: I was present during evaluation and discussed with Dr Nunes re plans of care and tx. Bruce Blood M.D.
[2017-12-22] MEDS ORDERED: Glucagon Recombinant 1 mg Inj IM PRN (14:05)
[2017-12-22] MEDS ORDERED: Dextrose 50% SYRINGE Inj (50 ml) IV PRN (14:05)
[2017-12-22] MEDS: Sodium Chloride 0.9% 1,000 ML IV SCH ×2 (15:34→21:56)
--- NOTE | 2017-12-22 18:56 | CP.PCM.PN ---
Subjective - Date & Time of Evaluation Date of Evaluation: 12/22/17 Time of Evaluation: 18:54 - Subjective Subjective: I D NOTE FIRST DAY POST OP AWAIT CULTURE RESULTS CONTINUE SAME ANTIBIOTIC REGIMEN Objective - Vital Signs/Intake and Output Vital Signs (last 24 hours): Temp Pulse Resp BP Pulse Ox 98.3 F 98 H 18 122/68 99 12/22/17 16:33 12/22/17 16:33 12/22/17 16:33 12/22/17 16:33 12/22/17 16:33 Intake and Output: 12/22/17 12/22/17 06:59 18:59 Intake Total 4600 300 Output Total 2800 2400 Balance 1800 -2100 - Medications Medications: Current Medications Aspirin (Ecotrin) 81 mg PO HS [facility] Last Admin: 12/22/17 01:59 Dose: Not Given Dextrose (Dextrose 50% Inj) 0 ml IV STAT PRN; Protocol PRN Reason: Hypoglycemia Protocol Dextrose (Glutose 15) 0 gm PO ONCE PRN; Protocol PRN Reason: Hypoglycemia Protocol Dicyclomine HCl (Bentyl) 10 mg PO TID PRN PRN Reason: GI distress Docusate Sodium (Colace) 100 mg PO BID PRN PRN Reason: GI distress Ergocalciferol (Drisdol 50,000 Intl Units Cap) 1 cap PO WE [facility] Last Admin: 12/22/17 01:59 Dose: Not Given Famotidine (Pepcid) 20 mg PO BID [facility] Last Admin: 12/22/17 08:47 Dose: Not Given Fenofibrate (Tricor) 145 mg PO [facility] Glipizide (Glucotrol) 5 mg PO BID [facility] Last Admin: 12/22/17 08:45 Dose: Not Given Glucagon (Glucagen Diagnostic Kit) 0 mg IM STAT PRN; Protocol PRN Reason: Hypoglycemia Protocol Heparin Sodium (Porcine) (Heparin) 5,000 units SC Q8 [facility] PRN Reason: Protocol Last Admin: 12/22/17 17:07 Dose: 5,000 units Doxycycline Hyclate 100 mg/ (Sodium Chloride) 100 mls @ 100 mls/hr IVPB Q12 [facility] PRN Reason: Protocol Last Admin: 12/22/17 08:49 Dose: 100 mls/hr Metronidazole (Flagyl 500mg/100ml Ns) 100 mls @ 100 mls/hr IVPB Q8 [facility] PRN Reason: Protocol Last Admin: 12/22/17 17:07 Dose: 100 mls/hr Gentamicin Sulfate 180 mg/ (Sodium Chloride) 104.5 mls @ 100 mls/hr IVPB Q24H [facility] PRN Reason: Protocol Last Admin: 12/22/17 01:58 Dose: Not Given Acetaminophen (Ofirmev) 100 mls @ 400 mls/hr IVPB Q6H [facility] PRN Reason: Protocol Stop: 12/22/17 19:16 Last Admin: 12/22/17 15:34 Dose: 400 mls/hr Sodium Chloride (Sodium Chloride 0.9%) 1,000 mls @ 125 mls/hr IV .Q8H [facility] Stop: 12/23/17 12:15 Last Admin: 12/22/17 15:34 Dose: 125 mls/hr Insulin Human Lispro (Humalog) 0 units SC ACHS PRN; Protocol PRN Reason: hyperglycemia Last Admin: 12/22/17 12:10 Dose: 2 units Lisinopril (Zestril) 40 mg PO DAILY [facility] Last Admin: 12/22/17 08:49 Dose: Not Given Metformin HCl (Glucophage) 1,000 mg PO BID [facility] Last Admin: 12/22/17 08:45 Dose: Not Given Methimazole (Tapazole) 20 mg PO BID [facility] Last Admin: 12/22/17 08:47 Dose: Not Given Morphine Sulfate (Morphine) 2 mg IVP Q4 PRN PRN Reason: Pain, severe (8-10) Last Admin: 12/21/17 14:21 Dose: 2 mg Morphine Sulfate (Morphine [employer] 1 Mg/Ml) 0 mg IV PRN PRN; Protocol PRN Reason: Pain, moderate (4-7) Last Admin: 12/21/17 23:55 Dose: 30 mg Ondansetron HCl (Zofran Odt) 4 mg PO Q6 PRN PRN Reason: Nausea/Vomiting Tramadol HCl (Ultram) 50 mg PO Q8 PRN PRN Reason: Pain, severe (8-10) - Labs Labs: 12/22/17 08:30 12/22/17 04:25 PT 14.8 Seconds (9.8-13.1) H 12/20/17 16:40 INR 1.3 (0.9-1.2) H 12/20/17 16:40 APTT 31.1 Seconds (25.6-37.1) 12/20/17 16:40
--- NOTE | 2017-12-23 00:19 | CP.PCM.HP ---
History of Present Illness - History of Present Illness History of Present Illness: This is a 47 y/o female admitted for worsening abdominal pain while on Gentamicin iv at home for UTI. She was recently admitted for UTI sepsis with and was noted to have a small adnexal mass on CT scan, A repeat Ct scan of the abdomen showed a rapidly enlarged left adnexal mass associated with abd tencerness mostly LLQ area, Sx was associated with low grade fever, Noted to have elevated WBC hence admitted, Present on Admission - Present on Admission Any Indicators Present on Admission: No History of DVT/PE: No History of Uncontrolled Diabetes: No Urinary Catheter: No Decubitus Ulcer Present: No Review of Systems - Gastrointestinal Gastrointestinal: Abdominal Pain, Belching Past Patient History - Infectious Disease Hx of Infectious Diseases: None - Past Medical History & Family History Past Medical History?: Yes - Past Social History Smoking Status: Never Smoked - CARDIAC Hx Cardiac Disorders: Yes Hx Hypercholesterolemia: Yes Hx Hypertension: Yes - PULMONARY Hx Respiratory Disorders: No - NEUROLOGICAL Hx Neurological Disorder: No - HEENT Hx HEENT Problems: No - RENAL Hx Chronic Kidney Disease: No - ENDOCRINE/METABOLIC Hx Endocrine Disorders: Yes Hx Diabetes Mellitus Type 2: Yes Hx Hyperthyroidism: Yes - HEMATOLOGICAL/ONCOLOGICAL Hx Blood Disorders: No Hx Human Immunodeficiency Virus (HIV): No - INTEGUMENTARY Hx Dermatological Problems: No - MUSCULOSKELETAL/RHEUMATOLOGICAL Hx Musculoskeletal Disorders: No Hx Falls: No - GASTROINTESTINAL Hx Gastrointestinal Disorders: Yes Hx Diverticulitis: (Diverticulosis) Hx Gall Bladder Disease: Yes - GENITOURINARY/GYNECOLOGICAL Hx Genitourinary Disorders: Yes Hx Sexually Transmitted Disorders: Yes Other/Comment: left ovarian cyst - PSYCHIATRIC Hx Psychophysiologic Disorder: No Hx Substance Use: No - SURGICAL HISTORY Hx Surgeries: Yes Hx Section: Yes (x3) Hx Cholecystectomy: Yes Other/Comment: ovarian cysts removal - ANESTHESIA Hx Anesthesia: Yes Hx Anesthesia Reactions: No Hx Malignant Hyperthermia: No Meds Allergies/Adverse Reactions: Allergies Allergy/AdvReac Type Severity Reaction Status Date / Time hazelnut Allergy RASH Verified 11/02/17 08:25 shellfish derived Allergy RASH Verified 11/02/17 08:26 piperacillin [From Zosyn] AdvReac RASH Verified 12/10/17 17:07 tazobactam [From Zosyn] AdvReac RASH Verified 12/10/17 17:07 Physical Exam - Head Exam Head Exam: NORMAL INSPECTION - Eye Exam Eye Exam: Normal appearance - Respiratory Exam Respiratory Exam: Clear to Auscultation Bilateral - Cardiovascular Exam Cardiovascular Exam: REGULAR RHYTHM - GI/Abdominal Exam GI & Abdominal Exam: Distended, Tenderness - Neurological Exam Neurological exam: CN II-XII Intact, Oriented x3 Results - Vital Signs Recent Vital Signs: Last Vital Signs Temp 98.3 F 12/22/17 16:33 Pulse 98 H 12/22/17 16:33 Resp 18 12/22/17 16:33 BP 122/68 12/22/17 16:33 Pulse Ox 99 12/22/17 16:33 - Labs Result Diagrams: 12/23/17 05:30 12/23/17 05:30 Labs: Laboratory Results - last 24 hr 12/22/17 12/22/17 12/22/17 04:25 04:25 05:30 WBC 23.0 H RBC 4.05 Hgb 10.3 L Hct 32.1 L MCV 79.3 L MCH 25.5 L MCHC 32.2 L RDW 13.4 Plt Count 415 H MPV Neut % (Auto) Lymph % (Auto) Shackelford % (Auto) Eos % (Auto) Baso % (Auto) Neut # (Auto) Lymph # (Auto) [place]ord # (Auto) Eos # (Auto) Baso # (Auto) Neutrophils % (Manual) Band Neutrophils % Lymphocytes % (Manual) Reactive Lymphs % Monocytes % (Manual) Platelet Estimate Hypochromasia (manual) Ovalocytes Sodium 146 Potassium 4.9 Chloride 113 H Carbon Dioxide 14 L Anion Gap 24 H BUN 18 H Creatinine 1.0 Est GFR ( Amer) > 60 Est GFR (Non-Af Amer) 59 POC Glucose (mg/dL) 193 H Random Glucose 211 H Calcium 9.1 12/22/17 12/22/17 12/22/17 08:30 11:59 17:24 WBC 23.9 H RBC 4.03 Hgb 10.4 L Hct 32.0 L MCV 79.4 L MCH 25.9 L MCHC 32.6 L RDW 13.2 Plt Count 455 H MPV 8.0 Neut % (Auto) 95.6 H Lymph % (Auto) 2.3 L [place]ackelford % (Auto) 2.0 Eos % (Auto) 0.0 Baso % (Auto) 0.1 Neut # (Auto) 22.8 H Lymph # (Auto) 0.6 L [place]ack[place]ord # (Auto) 0.5 Eos # (Auto) 0.0 Baso # (Auto) 0.0 Neutrophils % (Manual) 88 H Band Neutrophils % 9 H Lymphocytes % (Manual) 2 L Reactive Lymphs % 1 H Monocytes % (Manual) 0 Platelet Estimate Increased H Hypochromasia (manual) Slight Ovalocytes Slight Sodium Potassium Chloride Carbon Dioxide Anion Gap BUN Creatinine Est GFR ( Amer) Est GFR (Non-Af Amer) POC Glucose (mg/dL) 190 H 197 H Random Glucose Calcium 12/22/17 21:57 WBC RBC Hgb Hct MCV MCH MCHC RDW Plt Count MPV Neut % (Auto) Lymph % (Auto) Shack[place]ord % (Auto) Eos % (Auto) Baso % (Auto) Neut # (Auto) Lymph # (Auto) [place]ord # (Auto) Eos # (Auto) Baso # (Auto) Neutrophils % (Manual) Band Neutrophils % Lymphocytes % (Manual) Reactive Lymphs % Monocytes % (Manual) Platelet Estimate Hypochromasia (manual) Ovalocytes Sodium Potassium Chloride Carbon Dioxide Anion Gap BUN Creatinine Est GFR ( Amer) Est GFR (Non-Af Amer) POC Glucose (mg/dL) 197 H Random Glucose Calcium Assessment & Plan (1) Pelvic abscess Status: Acute (2) Abdominal pain Status: Acute (3) Complicated UTI (urinary tract infection) Status: Acute (4) Ovarian mass, left Status: Acute (5) Uncontrolled diabetes mellitus Status: Acute - Assessment and Plan (Free Text) Plan: Con tmeds NPO Hydrate 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
[2017-12-23] MEDS: metroNIDAZOLE 500mg/100ml NS 100 ML IVPB SCH ×3 (00:56→18:09)
[2017-12-23] MEDS: Morphine 4 MG/ML VIAL IVP PRN (04:04)
[2017-12-23] MEDS: Sodium Chloride 0.9% 1,000 ML IV SCH ×4 (05:49→22:26)
--- NOTE | 2017-12-23 07:18 | OP ---
PROCEDURE DATE: 12/21/2017 PREOPERATIVE DIAGNOSIS: Pelvic mass, possible abscess. POSTOPERATIVE DIAGNOSIS: Abscess. OPERATION PERFORMED: 1. Diagnostic laparoscopy. 2. Laparotomy with surgical services tech, removal of abscess and cultures, lysis of adhesions, intraoperative consult with surgeon for the enterotomy and lysis of adhesions. SURGEON: Lupillo Prince DO ELECTRO PLATER: Keo Valenzuela MD SECOND ELECTRO PLATER: Dr. Boo, PGY1. INTRAOPERATIVE CONSULTATION: Dr. Guido Alvarado surgical oncologist from [facility]. TYPE OF ANESTHESIA: General endotracheal. ANESTHESIA ADMINISTERED BY: Ward Aquino MD OPERATIVE FINDINGS: Extensive pelvic and abdominal adhesions, pus in the abdomen, incidental enterotomy, and left ovarian cyst/abscess. SPECIMENS: Removed left ovarian abscess. ESTIMATED BLOOD LOSS: 75 mL BLOOD PRODUCTS: None. DESCRIPTION OF PROCEDURE: Annel was brought to the operating room. She was initially placed in a supine position after successful induction of general anesthesia. She was placed in lithotomy position. She was draped and prepped in usual sterile manner and NG tube was in place. Attention was drawn to the perineal area where a speculum was placed in the posterior vagina to visualized the cervix. Cervix was grasped about the 12 o'clock position using a single-tooth tenaculum. Thereafter, the cervix was gradually dilated using dilators and HUMI manipulator was placed into the endocervical canal and into the uterus and insufflated with approximately 7 cc air. The speculum and retractors were removed. Martinez catheter was then placed and noted to be draining clear urine. Attention was drawn to the abdominal area. Marcaine was infiltrated in the umbilicus. Incision was made through the umbilicus and Veress needle was placed through the umbilicus into the peritoneal cavity and then insufflated with approximately 15 mmHg pressure using CO2 gas. A 5-mm trocar was placed. The gas tubing was placed to the 5-mm trocar, this was done twice but adequate pressure was not obtained. Trocar removed and decision was made to a Emilie technique, first the incision was then extended using scalpel. The fascia was identified using two Mayela clamps, tented up, and cut using a curved Earl scissor. A 5-mm trocar was placed to the umbilical incision. Peritoneal cavity was insufflated with the 15 mmHg pressure. We able to identify extensive adhesions around the umbilicus and on both sides and into the pelvis with some liquid noted to be look like pus was in the pelvis. Perihepatic area was noted to be clear of any adhesions. At this time, it was also noted that with an enterotomy with the trocar, Dr Guido Alvarado was called for an intraoperative consult. All equipment left in place until his arrival. Laparoscope removed. The patient was placed into the supine position. She was re-draped and incision was made vertically and around the umbilicus by Dr. Guido Alvarado, his dictation to follow. After lysis of adhesions and copious irrigation, we were able to identify the left ovarian mass. Omental adhesions all around the mass was done using LigaSure. Hemostasis being assured at the base of left ovarian mass using LigaSure, this was removed. Hemostasis also being assured. Noted to be pus coming out of this mass as well, cultures were taken and this was sent to pathology lab. Left side of the uterus noted to be some bleeding and 0 Vicryl suture was used for hemostasis in [id number] fashion x2. Copious irrigation was performed and thereafter general surgeon continued the case with repair of the enterotomy. Refer to remainder of the dictation by surgery team. After closure of the skin as well as placement of a drain, she was brought to the ICU for postoperative care. Lupillo Prince DO [facility]ITAL[facility]ney
[2017-12-23 07:34] LABS: BASO % 0.2 % (0.0-2.0); LYMPH # 0.8 K/uL (1.0-4.3); LYMPH % 3.9 % (20.0-40.0); MEAN CELL VOLUME 78.9 fl (81.0-99.0); MEAN CORPUSCULAR HEMOGLOBIN 25.4 pg (27.0-31.0); MEAN CORPUSCULAR HGB CONC 32.2 g/dL (33.0-37.0); MONO # 0.6 K/uL (0.0-0.8); MONO % 3.1 % (0.0-10.0); NEUT # 18.6 K/uL (1.8-7.0); NEUT % 92.8 % (50.0-75.0); RBC 3.95 Mil/uL (3.80-5.20); RED CELL DISTRIBUTION WIDTH 13.7 % (11.5-14.5)
[2017-12-23 07:54] LABS: ALB/GLOB RATIO 0.7 (1.0-2.1); ALBUMIN 2.7 g/dL (3.5-5.0); ALT/SGPT 28 U/L (9-52); AST/SGOT 18 U/L (14-36); BLOOD UREA NITROGEN 22 mg/dl (7-17); CALCIUM 9.7 mg/dL (8.4-10.2); GFR AFRICAN-AMERICAN > 60; GFR NON-AFRICAN AMERICAN > 60
--- NOTE | 2017-12-23 08:00 | CP.PCM.PN ---
Subjective - Date & Time of Evaluation Date of Evaluation: 12/23/17 Time of Evaluation: 07:15 - Subjective Subjective: General Patient seen and examined at bedside. Patient states pain is controlled. Denies nausea/vomiting. She states she is passing gas. Kirill drain with 10 cc of serosanguinous output overnight. She has no other complaints at this time. Objective - Vital Signs/Intake and Output Vital Signs (last 24 hours): Temp Pulse Resp BP Pulse Ox 97.3 F L 91 H 19 153/80 H 95 12/23/17 00:33 12/23/17 00:33 12/23/17 00:33 12/23/17 00:33 12/23/17 00:33 Intake and Output: 12/23/17 12/23/17 06:59 18:59 Intake Total 0 Output Total 25 Balance -25 - Medications Medications: Current Medications Aspirin (Ecotrin) 81 mg PO HS [facility] Last Admin: 12/22/17 01:59 Dose: Not Given Dextrose (Dextrose 50% Inj) 0 ml IV STAT PRN; Protocol PRN Reason: Hypoglycemia Protocol Dextrose (Glutose 15) 0 gm PO ONCE PRN; Protocol PRN Reason: Hypoglycemia Protocol Dicyclomine HCl (Bentyl) 10 mg PO TID PRN PRN Reason: GI distress Docusate Sodium (Colace) 100 mg PO BID PRN PRN Reason: GI distress Ergocalciferol (Drisdol 50,000 Intl Units Cap) 1 cap PO [facility] Last Admin: 12/22/17 01:59 Dose: Not Given Famotidine (Pepcid) 20 mg PO BID [facility] Last Admin: 12/22/17 08:47 Dose: Not Given Fenofibrate (Tricor) 145 mg PO [facility] Glipizide (Glucotrol) 5 mg PO BID [facility] Last Admin: 12/22/17 08:45 Dose: Not Given Glucagon (Glucagen Diagnostic Kit) 0 mg IM STAT PRN; Protocol PRN Reason: Hypoglycemia Protocol Heparin Sodium (Porcine) (Heparin) 5,000 units SC Q8 [facility] PRN Reason: Protocol Last Admin: 12/23/17 01:02 Dose: 5,000 units Doxycycline Hyclate 100 mg/ (Sodium Chloride) 100 mls @ 100 mls/hr IVPB Q12 [facility] PRN Reason: Protocol Last Admin: 12/22/17 21:51 Dose: 100 mls/hr Metronidazole (Flagyl 500mg/100ml Ns) 100 mls @ 100 mls/hr IVPB Q8 [facility] PRN Reason: Protocol Last Admin: 12/23/17 00:56 Dose: 100 mls/hr Gentamicin Sulfate 180 mg/ (Sodium Chloride) 104.5 mls @ 100 mls/hr IVPB Q24H [facility] PRN Reason: Protocol Last Admin: 12/22/17 20:31 Dose: 100 mls/hr Sodium Chloride (Sodium Chloride 0.9%) 1,000 mls @ 125 mls/hr IV .Q8H [facility] Stop: 12/23/17 12:15 Last Admin: 12/23/17 05:49 Dose: 125 mls/hr Insulin Human Lispro (Humalog) 0 units SC ACHS PRN; Protocol PRN Reason: hyperglycemia Last Admin: 12/22/17 12:10 Dose: 2 units Lisinopril (Zestril) 40 mg PO DAILY [facility] Last Admin: 12/22/17 08:49 Dose: Not Given Metformin HCl (Glucophage) 1,000 mg PO BID [facility] Last Admin: 12/22/17 08:45 Dose: Not Given Methimazole (Tapazole) 20 mg PO BID [facility] Last Admin: 12/22/17 08:47 Dose: Not Given Morphine Sulfate (Morphine) 2 mg IVP Q4 PRN PRN Reason: Pain, severe (8-10) Last Admin: 12/23/17 04:04 Dose: 2 mg Ondansetron HCl (Zofran Odt) 4 mg PO Q6 PRN PRN Reason: Nausea/Vomiting Tramadol HCl (Ultram) 50 mg PO Q8 PRN PRN Reason: Pain, severe (8-10) - Labs Labs: 12/23/17 05:30 12/23/17 05:30 PT 14.8 Seconds (9.8-13.1) H 12/20/17 16:40 INR 1.3 (0.9-1.2) H 12/20/17 16:40 APTT 31.1 Seconds (25.6-37.1) 12/20/17 16:40 - Constitutional Appears: No Acute Distress - ENT Exam ENT Exam: Mucous Membranes Moist Additional comments: NGT in place - Respiratory Exam Respiratory Exam: NORMAL BREATHING PATTERN - Cardiovascular Exam Cardiovascular Exam: REGULAR RHYTHM - GI/Abdominal Exam GI & Abdominal Exam: Soft, Tenderness. absent: Distended, Firm, Guarding, Rebound Additional comments: Dressing and packing changed Abdominal drain: 10cc serosanguinous output - Extremities Exam Extremities Exam: Normal Capillary Refill - Neurological Exam Neurological Exam: Alert, Awake, Oriented x3 - Psychiatric Exam Psychiatric exam: Normal Affect, Normal Mood - Skin Skin Exam: Dry, Intact, Normal Color, Warm Assessment and Plan - Assessment and Plan (Free Text) Plan: 47F s/p ex laparotomy with removal of TOA and enterorrhaphy POD#2 - NPO - IVF - NGT - I's & O's - pain control - Continue antibiotics - OOB to chair, encourage ambulation, IS - Await bowel function - Further recommendations as per Dr. Christiano Suggs PGY1
--- NOTE | 2017-12-23 08:12 | CP.PCM.PN ---
Subjective - Date & Time of Evaluation Date of Evaluation: 12/23/17 Time of Evaluation: 08:11 - Subjective Subjective: OBGYN Progress Note 47 YO admitted for abdominal pain POD2; S/p ex laparotomy with removal of infected left ovarian cyst and enterorrhaphy Pt was transfered from ICU to med/surg. Doing well overnight. Martinez was d/c, urination without any difficulties. Endorsing abdominal pain, but with movement , well controlled with meds. Remains afebriel. Denies chest pain, dyspnea, N/V/D /C. ESMER 24Hrs 35ml NGT 24hrs >500ml Objective - Vital Signs/Intake and Output Vital Signs (last 24 hours): Temp Pulse Resp BP Pulse Ox 97.3 F L 91 H 19 153/80 H 95 12/23/17 00:33 12/23/17 00:33 12/23/17 00:33 12/23/17 00:33 12/23/17 00:33 Intake and Output: 12/23/17 12/23/17 06:59 18:59 Intake Total 0 Output Total 25 Balance -25 - Medications Medications: Current Medications Aspirin (Ecotrin) 81 mg PO HS [facility] Last Admin: 12/22/17 01:59 Dose: Not Given Dextrose (Dextrose 50% Inj) 0 ml IV STAT PRN; Protocol PRN Reason: Hypoglycemia Protocol Dextrose (Glutose 15) 0 gm PO ONCE PRN; Protocol PRN Reason: Hypoglycemia Protocol Dicyclomine HCl (Bentyl) 10 mg PO TID PRN PRN Reason: GI distress Docusate Sodium (Colace) 100 mg PO BID PRN PRN Reason: GI distress Ergocalciferol (Drisdol 50,000 Intl Units Cap) 1 cap PO WE [facility] Last Admin: 12/22/17 01:59 Dose: Not Given Famotidine (Pepcid) 20 mg PO BID [facility] Last Admin: 12/22/17 08:47 Dose: Not Given Fenofibrate (Tricor) 145 mg PO HS [facility] Glipizide (Glucotrol) 5 mg PO BID [facility] Last Admin: 12/22/17 08:45 Dose: Not Given Glucagon (Glucagen Diagnostic Kit) 0 mg IM STAT PRN; Protocol PRN Reason: Hypoglycemia Protocol Heparin Sodium (Porcine) (Heparin) 5,000 units SC Q8 [facility] PRN Reason: Protocol Last Admin: 12/23/17 01:02 Dose: 5,000 units Doxycycline Hyclate 100 mg/ (Sodium Chloride) 100 mls @ 100 mls/hr IVPB Q12 [facility] PRN Reason: Protocol Last Admin: 12/22/17 21:51 Dose: 100 mls/hr Metronidazole (Flagyl 500mg/100ml Ns) 100 mls @ 100 mls/hr IVPB Q8 [facility] PRN Reason: Protocol Last Admin: 12/23/17 00:56 Dose: 100 mls/hr Gentamicin Sulfate 180 mg/ (Sodium Chloride) 104.5 mls @ 100 mls/hr IVPB Q24H [facility] PRN Reason: Protocol Last Admin: 12/22/17 20:31 Dose: 100 mls/hr Sodium Chloride (Sodium Chloride 0.9%) 1,000 mls @ 125 mls/hr IV .Q8H [facility] Stop: 12/23/17 12:15 Last Admin: 12/23/17 05:49 Dose: 125 mls/hr Insulin Human Lispro (Humalog) 0 units SC ACHS PRN; Protocol PRN Reason: hyperglycemia Last Admin: 12/22/17 12:10 Dose: 2 units Lisinopril (Zestril) 40 mg PO DAILY [facility] Last Admin: 12/22/17 08:49 Dose: Not Given Metformin HCl (Glucophage) 1,000 mg PO BID [facility] Last Admin: 12/22/17 08:45 Dose: Not Given Methimazole (Tapazole) 20 mg PO BID [facility] Last Admin: 12/22/17 08:47 Dose: Not Given Morphine Sulfate (Morphine) 2 mg IVP Q4 PRN PRN Reason: Pain, severe (8-10) Last Admin: 12/23/17 04:04 Dose: 2 mg Ondansetron HCl (Zofran Odt) 4 mg PO Q6 PRN PRN Reason: Nausea/Vomiting Tramadol HCl (Ultram) 50 mg PO Q8 PRN PRN Reason: Pain, severe (8-10) - Labs Labs: 12/23/17 05:30 12/23/17 05:30 PT 14.8 Seconds (9.8-13.1) H 12/20/17 16:40 INR 1.3 (0.9-1.2) H 12/20/17 16:40 APTT 31.1 Seconds (25.6-37.1) 12/20/17 16:40 - Constitutional Appears: Non-toxic, No Acute Distress, Other (NGT still in place-draining green fluid approximately >500ml ) - Head Exam Head Exam: ATRAUMATIC, NORMOCEPHALIC - Eye Exam Eye Exam: EOMI, Normal appearance - ENT Exam ENT Exam: Mucous Membranes Dry (chapped lips ) - Neck Exam Neck Exam: Full ROM - Respiratory Exam Respiratory Exam: Clear to Ausculation Bilateral, NORMAL BREATHING PATTERN - Cardiovascular Exam Cardiovascular Exam: REGULAR RHYTHM, +S1, +S2 - GI/Abdominal Exam GI & Abdominal Exam: Soft, Tenderness (tenderness to palpation around incision site), Normal Bowel Sounds. absent: Distended, Guarding Additional comments: Ex lap incision is covered with dressing. Dry and intact. ESMER is noted in the RUQ draining sero-sangunious fluid 15cc noted. - Extremities Exam Extremities Exam: Full ROM. absent: Calf Tenderness, Pedal Edema - Neurological Exam Neurological Exam: Alert, Awake, Oriented x3 - Skin Skin Exam: Dry, Intact, Normal Color, Warm Assessment and Plan - Assessment and Plan (Free Text) Assessment: 47 y/o F with PMH of Ovarian cysts, DM, diverticulosis and HTN, hypothryoid admitted for pelvic pain/left ovarian abscess. POD2, s/p ex laparotomy with removal of infected left ovarian cyst and enterorrhaphy. Pelvic pain/left ovarian abscess - s/p ex lap, cyst removal; ESMER drain intact - Pt remains afebrile, WBC downtrending 20 (12/23/17). 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
[2017-12-23] MEDS ORDERED: Lactated Ringer's 500 ML IV SCH (08:15)
--- NOTE | 2017-12-23 09:48 | CP.PCM.PN ---
<Dell Nunes - Last Filed: 12/23/17 12:40> Subjective - Date & Time of Evaluation Date of Evaluation: 12/23/17 Time of Evaluation: 08:20 - Subjective Subjective: Patient seen and examined at bedside this morning. There are no acute events overnight, NAD. Patient s/p ex laparotomy with removal of infected left ovarian cyst and enterorrhaphy POD2. Patient denies abdominal pain, nausea, vomiting, or fever. Patient reports she has not had gas or bowel movement yet. Patient seen by RESIDENTIAL CONCIERGE and surgery. Objective - Vital Signs/Intake and Output Vital Signs (last 24 hours): Temp Pulse Resp BP Pulse Ox 97.3 F L 94 H 19 159/83 H 96 12/23/17 08:52 12/23/17 08:52 12/23/17 08:52 12/23/17 08:52 12/23/17 08:52 Intake and Output: 12/23/17 12/23/17 06:59 18:59 Intake Total 0 Output Total 25 Balance -25 - Medications Medications: Current Medications Aspirin (Ecotrin) 81 mg PO HS [facility] Last Admin: 12/22/17 01:59 Dose: Not Given Dextrose (Dextrose 50% Inj) 0 ml IV STAT PRN; Protocol PRN Reason: Hypoglycemia Protocol Dextrose (Glutose 15) 0 gm PO ONCE PRN; Protocol PRN Reason: Hypoglycemia Protocol Dicyclomine HCl (Bentyl) 10 mg PO TID PRN PRN Reason: GI distress Docusate Sodium (Colace) 100 mg PO BID PRN PRN Reason: GI distress Ergocalciferol (Drisdol 50,000 Intl Units Cap) 1 cap PO WE [facility] Last Admin: 12/22/17 01:59 Dose: Not Given Famotidine (Pepcid) 20 mg PO BID [facility] Last Admin: 12/22/17 08:47 Dose: Not Given Fenofibrate (Tricor) 145 mg PO [facility] Glipizide (Glucotrol) 5 mg PO BID [facility] Last Admin: 12/22/17 08:45 Dose: Not Given Glucagon (Glucagen Diagnostic Kit) 0 mg IM STAT PRN; Protocol PRN Reason: Hypoglycemia Protocol Heparin Sodium (Porcine) (Heparin) 5,000 units SC Q8 [facility] PRN Reason: Protocol Last Admin: 12/23/17 01:02 Dose: 5,000 units Doxycycline Hyclate 100 mg/ (Sodium Chloride) 100 mls @ 100 mls/hr IVPB Q12 [facility] PRN Reason: Protocol Last Admin: 12/22/17 21:51 Dose: 100 mls/hr Metronidazole (Flagyl 500mg/100ml Ns) 100 mls @ 100 mls/hr IVPB Q8 [facility] PRN Reason: Protocol Last Admin: 12/23/17 00:56 Dose: 100 mls/hr Gentamicin Sulfate 180 mg/ (Sodium Chloride) 104.5 mls @ 100 mls/hr IVPB Q24H [facility] PRN Reason: Protocol Last Admin: 12/22/17 20:31 Dose: 100 mls/hr Sodium Chloride (Sodium Chloride 0.9%) 1,000 mls @ 125 mls/hr IV .Q8H [facility] Stop: 12/23/17 12:15 Last Admin: 12/23/17 05:49 Dose: 125 mls/hr Lactated Ringer's (Lactated Ringer's 500ml) 500 mls @ 1,000 mls/hr IV .Q30M [facility] Insulin Human Lispro (Humalog) 0 units SC ACHS PRN; Protocol PRN Reason: hyperglycemia Last Admin: 12/22/17 12:10 Dose: 2 units Lisinopril (Zestril) 40 mg PO DAILY [facility] Last Admin: 12/22/17 08:49 Dose: Not Given Metformin HCl (Glucophage) 1,000 mg PO BID [facility] Last Admin: 12/22/17 08:45 Dose: Not Given Methimazole (Tapazole) 20 mg PO BID [facility] Last Admin: 12/22/17 08:47 Dose: Not Given Morphine Sulfate (Morphine) 2 mg IVP Q4 PRN PRN Reason: Pain, severe (8-10) Last Admin: 12/23/17 04:04 Dose: 2 mg Ondansetron HCl (Zofran Odt) 4 mg PO Q6 PRN PRN Reason: Nausea/Vomiting Tramadol HCl (Ultram) 50 mg PO Q8 PRN PRN Reason: Pain, severe (8-10) - Labs Labs: 12/23/17 05:30 12/23/17 05:30 PT 14.8 Seconds (9.8-13.1) H 12/20/17 16:40 INR 1.3 (0.9-1.2) H 12/20/17 16:40 APTT 31.1 Seconds (25.6-37.1) 12/20/17 16:40 - Constitutional Appears: Non-toxic, No Acute Distress - Head Exam Head Exam: ATRAUMATIC, NORMAL INSPECTION, NORMOCEPHALIC - Eye Exam Eye Exam: Normal appearance - ENT Exam ENT Exam: Mucous Membranes Dry Additional comments: NGT in place, draining dark fluid on suction - Neck Exam Neck Exam: Full ROM. absent: Tenderness - Respiratory Exam Respiratory Exam: Clear to Ausculation Bilateral. absent: Accessory Muscle Use , Decreased Breath Sounds, Rales, Rhonchi, Wheezes, Respiratory Distress - Cardiovascular Exam Cardiovascular Exam: REGULAR RHYTHM. absent: Tachycardia - GI/Abdominal Exam GI & Abdominal Exam: Soft, Tenderness (at surgical site), Normal Bowel Sounds. absent: Distended, Guarding Additional comments: incision site dressed, c/d/i, ESMER drain RUQ draining 15cc serosanguinous fluid - Extremities Exam Extremities Exam: absent: Calf Tenderness, Pedal Edema, Tenderness Additional comments: PICC line in right upper extremity - Neurological Exam Neurological Exam: Alert, Awake, Oriented x3 - Skin Skin Exam: Dry, Intact, Normal Color, Warm Assessment and Plan (1) Abdominal pain Status: Acute (2) Ovarian cyst Status: Resolved - Assessment and Plan (Free Text) Plan: c/w present management, POD2 [facility] DIRECTOR recommendations appreciated General surgery recommendations appreciated Infectious Disease recommendations appreciated - Blood cx 4/2: No growth 48Hrs - Urine culture 4/3: Final, no growth - Wound cx 4/3: Final many gram neg rods - F/u culture/Pathology 4/2 flagyl 500 mg IV Q8h day 3 gentamicin 180 mg IV daily day 3 doxycycline 100 mg IV Q12h day 4 pain control w/ Morphine 2 mg IV Q4 insulin sliding scale hypoglycemic protocol patient NPO hold PO medications monitor for return of bowel function monitor for acute changes encourage incentive spirometry encourage out of bed to chair <Bruce Blood - Last Filed: 12/23/17 21:03> Objective - Vital Signs/Intake and Output Vital Signs (last 24 hours): Temp Pulse Resp BP Pulse Ox 98.2 F 104 H 18 164/97 H 96 12/23/17 16:10 12/23/17 16:10 12/23/17 16:10 12/23/17 16:10 12/23/17 16:10 Intake and Output: 12/23/17 12/24/17 18:59 06:59 Output Total 525 Balance -525 - Medications Medications: Current Medications Aspirin (Ecotrin) 81 mg PO HS [facility] Last Admin: 12/22/17 01:59 Dose: Not Given Dextrose (Dextrose 50% Inj) 0 ml IV STAT PRN; Protocol PRN Reason: Hypoglycemia Protocol Dextrose (Glutose 15) 0 gm PO ONCE PRN; Protocol PRN Reason: Hypoglycemia Protocol Dicyclomine HCl (Bentyl) 10 mg PO TID PRN PRN Reason: GI distress Docusate Sodium (Colace) 100 mg PO BID PRN PRN Reason: GI distress Ergocalciferol (Drisdol 50,000 Intl Units Cap) 1 cap PO WE [facility] Last Admin: 12/22/17 01:59 Dose: Not Given Famotidine (Pepcid) 20 mg PO BID [facility] Last Admin: 12/22/17 08:47 Dose: Not Given Fenofibrate (Tricor) 145 mg PO [facility] Glipizide (Glucotrol) 5 mg PO BID [facility] Last Admin: 12/22/17 08:45 Dose: Not Given Glucagon (Glucagen Diagnostic Kit) 0 mg IM STAT PRN; Protocol PRN Reason: Hypoglycemia Protocol Guaifenesin/Dextromethorphan (Mucinex-Dm 600-30 Mg) 1 tab PO BID [facility] Last Admin: 12/23/17 18:14 Dose: Not Given Heparin Sodium (Porcine) (Heparin) 5,000 units SC Q8 [facility] PRN Reason: Protocol Last Admin: 12/23/17 18:12 Dose: 5,000 units Doxycycline Hyclate 100 mg/ (Sodium Chloride) 100 mls @ 100 mls/hr IVPB Q12 [facility] PRN Reason: Protocol Last Admin: 12/23/17 11:43 Dose: 100 mls/hr Metronidazole (Flagyl 500mg/100ml Ns) 100 mls @ 100 mls/hr IVPB Q8 [facility] PRN Reason: Protocol Last Admin: 12/23/17 18:09 Dose: 100 mls/hr Gentamicin Sulfate 180 mg/ (Sodium Chloride) 104.5 mls @ 100 mls/hr IVPB Q24H [facility] PRN Reason: Protocol Last Admin: 12/22/17 20:31 Dose: 100 mls/hr Lactated Ringer's (Lactated Ringer's 500ml) 500 mls @ 1,000 mls/hr IV .Q30M [facility] Last Admin: 12/23/17 10:00 Dose: 1,000 mls/hr Sodium Chloride (Sodium Chloride 0.9%) 1,000 mls @ 125 mls/hr IV .Q8H [facility] Stop: 12/24/17 14:34 Last Admin: 12/23/17 18:10 Dose: Not Given Insulin Human Lispro (Humalog) 0 units SC ACHS PRN; Protocol PRN Reason: hyperglycemia Last Admin: 12/22/17 12:10 Dose: 2 units Lisinopril (Zestril) 40 mg PO DAILY [facility] Last Admin: 12/22/17 08:49 Dose: Not Given Metformin HCl (Glucophage) 1,000 mg PO BID [facility] Last Admin: 12/22/17 08:45 Dose: Not Given Methimazole (Tapazole) 20 mg PO BID [facility] Last Admin: 12/22/17 08:47 Dose: Not Given Morphine Sulfate (Morphine) 2 mg IVP Q4 PRN PRN Reason: Pain, severe (8-10) Last Admin: 12/23/17 04:04 Dose: 2 mg Ondansetron HCl (Zofran Odt) 4 mg PO Q6 PRN PRN Reason: Nausea/Vomiting Tramadol HCl (Ultram) 50 mg PO Q8 PRN PRN Reason: Pain, severe (8-10) - Labs Labs: 12/23/17 05:30 12/23/17 05:30 PT 14.8 Seconds (9.8-13.1) H 12/20/17 16:40 INR 1.3 (0.9-1.2) H 12/20/17 16:40 APTT 31.1 Seconds (25.6-37.1) 12/20/17 16:40 Assessment and Plan (1) Pelvic abscess Status: Acute (2) Abdominal pain Status: Acute (3) Complicated UTI (urinary tract infection) Status: Acute (4) Ovarian mass, left Status: Acute (5) Uncontrolled diabetes mellitus Status: Acute - Assessment and Plan (Free Text) Plan: I was present during evaluation and discussed with Dr Nunes re plans of care and tx. Bruce Blood M.D.
--- NOTE | 2017-12-23 15:54 | CP.PCM.PN ---
Subjective - Date & Time of Evaluation Date of Evaluation: 12/23/17 Time of Evaluation: 10:00 - Subjective Subjective: Pt seen on 6th floor - transferred prior day. She is thirsty but otherwise better than yesterday. Some incisional pain. Objective - Vital Signs/Intake and Output Vital Signs (last 24 hours): Temp Pulse Resp BP Pulse Ox 97.3 F L 94 H 19 159/83 H 96 12/23/17 08:52 12/23/17 08:52 12/23/17 08:52 12/23/17 08:52 12/23/17 08:52 Intake and Output: 12/23/17 12/23/17 06:59 18:59 Intake Total 0 Output Total 25 Balance -25 - Medications Medications: Current Medications Aspirin (Ecotrin) 81 mg PO HS [facility] Last Admin: 12/22/17 01:59 Dose: Not Given Dextrose (Dextrose 50% Inj) 0 ml IV STAT PRN; Protocol PRN Reason: Hypoglycemia Protocol Dextrose (Glutose 15) 0 gm PO ONCE PRN; Protocol PRN Reason: Hypoglycemia Protocol Dicyclomine HCl (Bentyl) 10 mg PO TID PRN PRN Reason: GI distress Docusate Sodium (Colace) 100 mg PO BID PRN PRN Reason: GI distress Ergocalciferol (Drisdol 50,000 Intl Units Cap) 1 cap PO WE [facility] Last Admin: 12/22/17 01:59 Dose: Not Given Famotidine (Pepcid) 20 mg PO BID [facility] Last Admin: 12/22/17 08:47 Dose: Not Given Fenofibrate (Tricor) 145 mg PO [facility] Glipizide (Glucotrol) 5 mg PO BID [facility] Last Admin: 12/22/17 08:45 Dose: Not Given Glucagon (Glucagen Diagnostic Kit) 0 mg IM STAT PRN; Protocol PRN Reason: Hypoglycemia Protocol Guaifenesin/Dextromethorphan (Mucinex-Dm 600-30 Mg) 1 tab PO BID [facility] Heparin Sodium (Porcine) (Heparin) 5,000 units SC Q8 [facility] PRN Reason: Protocol Last Admin: 12/23/17 09:57 Dose: 5,000 units Doxycycline Hyclate 100 mg/ (Sodium Chloride) 100 mls @ 100 mls/hr IVPB Q12 [facility] PRN Reason: Protocol Last Admin: 12/23/17 11:43 Dose: 100 mls/hr Metronidazole (Flagyl 500mg/100ml Ns) 100 mls @ 100 mls/hr IVPB Q8 [facility] PRN Reason: Protocol Last Admin: 12/23/17 09:57 Dose: 100 mls/hr Gentamicin Sulfate 180 mg/ (Sodium Chloride) 104.5 mls @ 100 mls/hr IVPB Q24H [facility] PRN Reason: Protocol Last Admin: 12/22/17 20:31 Dose: 100 mls/hr Lactated Ringer's (Lactated Ringer's 500ml) 500 mls @ 1,000 mls/hr IV .Q30M [facility] Last Admin: 12/23/17 10:00 Dose: 1,000 mls/hr Sodium Chloride (Sodium Chloride 0.9%) 1,000 mls @ 125 mls/hr IV .Q8H [facility] Stop: 12/24/17 14:34 Insulin Human Lispro (Humalog) 0 units SC ACHS PRN; Protocol PRN Reason: hyperglycemia Last Admin: 12/22/17 12:10 Dose: 2 units Lisinopril (Zestril) 40 mg PO DAILY [facility] Last Admin: 12/22/17 08:49 Dose: Not Given Metformin HCl (Glucophage) 1,000 mg PO BID [facility] Last Admin: 12/22/17 08:45 Dose: Not Given Methimazole (Tapazole) 20 mg PO BID [facility] Last Admin: 12/22/17 08:47 Dose: Not Given Morphine Sulfate (Morphine) 2 mg IVP Q4 PRN PRN Reason: Pain, severe (8-10) Last Admin: 12/23/17 04:04 Dose: 2 mg Ondansetron HCl (Zofran Odt) 4 mg PO Q6 PRN PRN Reason: Nausea/Vomiting Tramadol HCl (Ultram) 50 mg PO Q8 PRN PRN Reason: Pain, severe (8-10) - Labs Labs: 12/23/17 05:30 12/23/17 05:30 PT 14.8 Seconds (9.8-13.1) H 12/20/17 16:40 INR 1.3 (0.9-1.2) H 12/20/17 16:40 APTT 31.1 Seconds (25.6-37.1) 12/20/17 16:40 - Constitutional Appears: Non-toxic - GI/Abdominal Exam GI & Abdominal Exam: Soft. absent: Distended, Firm, Guarding, Rigid, Tenderness , Rebound - Psychiatric Exam Psychiatric exam: Normal Affect Assessment and Plan - Assessment and Plan (Free Text) Assessment: S/P laparotomy day 2- removal abscess; repair small bowel; lysis of adhesions Plan: Followed with general surgery/ID/IM...Yesterday and today, I discussed surgery with patient in detail. She understands and her questions answered.
[2017-12-23] MEDS: guaiFENesin-DM 600-30 mg ER Tab PO SCH ×2 (18:11→18:14)
[2017-12-23] MEDS: Gentamicin 180 MG in Sodium Chloride 0.9% 100 ML IVPB SCH (20:22)
[2017-12-24] MEDS: metroNIDAZOLE 500mg/100ml NS 100 ML IVPB SCH ×3 (01:00→17:33)
[2017-12-24] MEDS: Morphine 4 MG/ML VIAL IVP PRN ×2 (03:55→23:14)
--- NOTE | 2017-12-24 06:27 | CP.PCM.PN ---
Subjective - Date & Time of Evaluation Date of Evaluation: 12/24/17 Time of Evaluation: 06:25 - Subjective Subjective: OBGYN Progress Note 47 YO admitted for abdominal pain, ovarian abscess POD3; S/p ex laparotomy with removal of infected left ovarian cyst and enterorrhaphy No acute overnight events. Pt endorsing abdominal pain, but well controlled with pain meds. Passing flatus, urination without any difficulties. Remains afebriel. Denies chest pain, dyspnea, N/V/D/C. ESMER 24Hrs 25cc-sero sangunious NGT 24hrs >500ml brown Objective - Vital Signs/Intake and Output Vital Signs (last 24 hours): Temp Pulse Resp BP Pulse Ox 97.4 F L 103 H 18 176/80 H 98 12/24/17 00:24 12/24/17 00:24 12/24/17 00:24 12/24/17 00:24 12/24/17 00:24 Intake and Output: 12/23/17 12/24/17 18:59 06:59 Output Total 525 Balance -525 - Medications Medications: Current Medications Aspirin (Ecotrin) 81 mg PO [facility] Last Admin: 12/22/17 01:59 Dose: Not Given Dextrose (Dextrose 50% Inj) 0 ml IV STAT PRN; Protocol PRN Reason: Hypoglycemia Protocol Dextrose (Glutose 15) 0 gm PO ONCE PRN; Protocol PRN Reason: Hypoglycemia Protocol Dicyclomine HCl (Bentyl) 10 mg PO TID PRN PRN Reason: GI distress Docusate Sodium (Colace) 100 mg PO BID PRN PRN Reason: GI distress Ergocalciferol (Drisdol 50,000 Intl Units Cap) 1 cap PO [facility] Last Admin: 12/22/17 01:59 Dose: Not Given Famotidine (Pepcid) 20 mg PO BID [facility] Last Admin: 12/22/17 08:47 Dose: Not Given Fenofibrate (Tricor) 145 mg PO [facility] Glipizide (Glucotrol) 5 mg PO BID [facility] Last Admin: 12/22/17 08:45 Dose: Not Given Glucagon (Glucagen Diagnostic Kit) 0 mg IM STAT PRN; Protocol PRN Reason: Hypoglycemia Protocol Guaifenesin/Dextromethorphan (Mucinex-Dm 600-30 Mg) 1 tab PO BID [facility] Last Admin: 12/23/17 18:14 Dose: Not Given Heparin Sodium (Porcine) (Heparin) 5,000 units SC Q8 [facility] PRN Reason: Protocol Last Admin: 12/24/17 01:00 Dose: 5,000 units Doxycycline Hyclate 100 mg/ (Sodium Chloride) 100 mls @ 100 mls/hr IVPB Q12 [facility] PRN Reason: Protocol Last Admin: 12/23/17 22:28 Dose: 100 mls/hr Metronidazole (Flagyl 500mg/100ml Ns) 100 mls @ 100 mls/hr IVPB Q8 [facility] PRN Reason: Protocol Last Admin: 12/24/17 01:00 Dose: 100 mls/hr Gentamicin Sulfate 180 mg/ (Sodium Chloride) 104.5 mls @ 100 mls/hr IVPB Q24H [facility] PRN Reason: Protocol Last Admin: 12/23/17 20:22 Dose: 100 mls/hr Sodium Chloride (Sodium Chloride 0.9%) 1,000 mls @ 125 mls/hr IV .Q8H [facility] Stop: 12/24/17 14:34 Last Admin: 12/23/17 22:26 Dose: 125 mls/hr Insulin Human Lispro (Humalog) 0 units SC ACHS PRN; Protocol PRN Reason: hyperglycemia Last Admin: 12/22/17 12:10 Dose: 2 units Lisinopril (Zestril) 40 mg PO DAILY [facility] Last Admin: 12/22/17 08:49 Dose: Not Given Metformin HCl (Glucophage) 1,000 mg PO BID [facility] Last Admin: 12/22/17 08:45 Dose: Not Given Methimazole (Tapazole) 20 mg PO BID [facility] Last Admin: 12/22/17 08:47 Dose: Not Given Morphine Sulfate (Morphine) 2 mg IVP Q4 PRN PRN Reason: Pain, severe (8-10) Last Admin: 12/24/17 03:55 Dose: 2 mg Ondansetron HCl (Zofran Odt) 4 mg PO Q6 PRN PRN Reason: Nausea/Vomiting Tramadol HCl (Ultram) 50 mg PO Q8 PRN PRN Reason: Pain, severe (8-10) - Labs Labs: 12/23/17 05:30 12/23/17 05:30 PT 14.8 Seconds (9.8-13.1) H 12/20/17 16:40 INR 1.3 (0.9-1.2) H 12/20/17 16:40 APTT 31.1 Seconds (25.6-37.1) 12/20/17 16:40 - Constitutional Appears: Non-toxic, No Acute Distress - Head Exam Head Exam: ATRAUMATIC, NORMAL INSPECTION Additional comments: NGT inplace, draining brown fluid - Eye Exam Eye Exam: EOMI, Normal appearance - ENT Exam ENT Exam: Mucous Membranes Dry - Neck Exam Neck Exam: Full ROM - Respiratory Exam Respiratory Exam: Clear to Ausculation Bilateral, NORMAL BREATHING PATTERN - Cardiovascular Exam Cardiovascular Exam: REGULAR RHYTHM, +S1, +S2 - GI/Abdominal Exam GI & Abdominal Exam: Soft, Tenderness (to palpation of RLQ, and around incision site.), Hyperactive Bowel Sounds Additional comments: Ex lap incision covered in gauze, no drainage noted. ESMER in place, RUQ draining 15cc of sero-sangunious fluid - Extremities Exam Extremities Exam: Full ROM. absent: Calf Tenderness, Pedal Edema - Neurological Exam Neurological Exam: Alert, Awake, Oriented x3 - Psychiatric Exam Psychiatric exam: Normal Affect, Normal Mood - Skin Skin Exam: Dry, Intact, Normal Color, Warm Assessment and Plan - Assessment and Plan (Free Text) Assessment: 47 y/o F with PMH of Ovarian cysts, DM, diverticulosis and HTN, hypothryoid admitted for pelvic pain/left ovarian abscess. POD3, s/p ex laparotomy with removal of infected left ovarian cyst and enterorrhaphy. Pelvic pain/left ovarian abscess - s/p ex lap, cyst removal; ESMER drain intact - Pt remains afebrile, WBC downtrending 20 (12/23/17). - ESMER drain is draining serosanguineous fluid about 25cc, NGT intact - pain management: S/p b/l Transverse Abdominis Nerve Block, s/p Morphine [employer]; currently on Morphine Q4 and Ultram Q8 - Blood cx 12/20: No growth 72Hrs - Urine culture 12/21: Final, no growth - Wound cx 3: Final gram neg rods - encourage ambulation, and incentive spirometry - F/u culture/Pathology 12/20 - ID consult: continue management as per ID - Continue management as per primary team and Surgery
[2017-12-24 07:38] LABS: ALB/GLOB RATIO 0.7 (1.0-2.1); ALBUMIN 2.5 g/dL (3.5-5.0); ALT/SGPT 29 U/L (9-52); AST/SGOT 19 U/L (14-36); BLOOD UREA NITROGEN 22 mg/dl (7-17); CALCIUM 9.6 mg/dL (8.4-10.2); GFR AFRICAN-AMERICAN > 60; GFR NON-AFRICAN AMERICAN > 60
[2017-12-24 07:46] LABS: BASO % 0.2 % (0.0-2.0); LYMPH # 0.8 K/uL (1.0-4.3); LYMPH % 7.6 % (20.0-40.0); MEAN CELL VOLUME 78.8 fl (81.0-99.0); MEAN CORPUSCULAR HEMOGLOBIN 26.2 pg (27.0-31.0); MEAN CORPUSCULAR HGB CONC 33.2 g/dL (33.0-37.0); MEAN PLATELET VOLUME 7.8 fl (7.2-11.7); MONO # 0.5 K/uL (0.0-0.8); MONO % 4.6 % (0.0-10.0); NEUT # 9.4 K/uL (1.8-7.0); NEUT % 87.6 % (50.0-75.0); NRBC % 0.1 % (0.0-0.0); RBC 3.81 Mil/uL (3.80-5.20); RED CELL DISTRIBUTION WIDTH 13.4 % (11.5-14.5); WHITE BLOOD COUNT 10.8 K/uL (4.8-10.8)
--- NOTE | 2017-12-24 07:52 | CP.PCM.PN ---
Subjective - Date & Time of Evaluation Date of Evaluation: 12/24/17 Time of Evaluation: 07:30 - Subjective Subjective: General Surgery Note for Dr. Alvarado Patient seen and examined at bedside. No acute event overnight. Patient states pain is controlled. Denies nausea/vomiting. She states she is passing gas. NGT with 500 cc/12 hrs of of dark output. ESMER drain with 25 cc of output. Objective - Vital Signs/Intake and Output Vital Signs (last 24 hours): Temp Pulse Resp BP Pulse Ox 97.4 F L 103 H 18 176/80 H 98 12/24/17 00:24 12/24/17 00:24 12/24/17 00:24 12/24/17 00:24 12/24/17 00:24 Intake and Output: 12/24/17 12/24/17 06:59 18:59 Output Total 525 Balance -525 - Medications Medications: Current Medications Aspirin (Ecotrin) [address] [facility] Last Admin: 12/22/17 01:59 Dose: Not Given Dextrose (Dextrose 50% Inj) 0 ml IV STAT PRN; Protocol PRN Reason: Hypoglycemia Protocol Dextrose (Glutose 15) 0 gm PO ONCE PRN; Protocol PRN Reason: Hypoglycemia Protocol Dicyclomine HCl (Bentyl) 10 mg PO TID PRN PRN Reason: GI distress Docusate Sodium (Colace) 100 mg PO BID PRN PRN Reason: GI distress Ergocalciferol (Drisdol 50,000 Intl Units Cap) 1 cap PO [facility] Last Admin: 12/22/17 01:59 Dose: Not Given Famotidine (Pepcid) 20 mg PO BID [facility] Last Admin: 12/22/17 08:47 Dose: Not Given Fenofibrate (Tricor) [address] [facility] Glipizide (Glucotrol) 5 mg PO BID [facility] Last Admin: 12/22/17 08:45 Dose: Not Given Glucagon (Glucagen Diagnostic Kit) 0 mg IM STAT PRN; Protocol PRN Reason: Hypoglycemia Protocol Guaifenesin/Dextromethorphan (Mucinex-Dm 600-30 Mg) 1 tab PO BID [facility] Last Admin: 12/23/17 18:14 Dose: Not Given Heparin Sodium (Porcine) (Heparin) 5,000 units SC Q8 [facility] PRN Reason: Protocol Last Admin: 12/24/17 01:00 Dose: 5,000 units Doxycycline Hyclate 100 mg/ (Sodium Chloride) 100 mls @ 100 mls/hr IVPB Q12 [facility] PRN Reason: Protocol Last Admin: 12/23/17 22:28 Dose: 100 mls/hr Metronidazole (Flagyl 500mg/100ml Ns) 100 mls @ 100 mls/hr IVPB Q8 [facility] PRN Reason: Protocol Last Admin: 12/24/17 01:00 Dose: 100 mls/hr Gentamicin Sulfate 180 mg/ (Sodium Chloride) 104.5 mls @ 100 mls/hr IVPB Q24H [facility] PRN Reason: Protocol Last Admin: 12/23/17 20:22 Dose: 100 mls/hr Sodium Chloride (Sodium Chloride 0.9%) 1,000 mls @ 125 mls/hr IV .Q8H [facility] Stop: 12/24/17 14:34 Last Admin: 12/23/17 22:26 Dose: 125 mls/hr Insulin Human Lispro (Humalog) 0 units SC ACHS PRN; Protocol PRN Reason: hyperglycemia Last Admin: 12/22/17 12:10 Dose: 2 units Lisinopril (Zestril) 40 mg PO DAILY [facility] Last Admin: 12/22/17 08:49 Dose: Not Given Metformin HCl (Glucophage) 1,000 mg PO BID [facility] Last Admin: 12/22/17 08:45 Dose: Not Given Methimazole (Tapazole) 20 mg PO BID [facility] Last Admin: 12/22/17 08:47 Dose: Not Given Morphine Sulfate (Morphine) 2 mg IVP Q4 PRN PRN Reason: Pain, severe (8-10) Last Admin: 12/24/17 03:55 Dose: 2 mg Ondansetron HCl (Zofran Odt) 4 mg PO Q6 PRN PRN Reason: Nausea/Vomiting Tramadol HCl (Ultram) 50 mg PO Q8 PRN PRN Reason: Pain, severe (8-10) - Labs Labs: 12/23/17 05:30 12/24/17 05:30 PT 14.8 Seconds (9.8-13.1) H 12/20/17 16:40 INR 1.3 (0.9-1.2) H 12/20/17 16:40 APTT 31.1 Seconds (25.6-37.1) 12/20/17 16:40 - Constitutional Appears: No Acute Distress - Head Exam Head Exam: ATRAUMATIC, NORMOCEPHALIC - Eye Exam Eye Exam: Normal appearance - ENT Exam ENT Exam: Mucous Membranes Moist - Respiratory Exam Respiratory Exam: NORMAL BREATHING PATTERN - Cardiovascular Exam Cardiovascular Exam: REGULAR RHYTHM - GI/Abdominal Exam GI & Abdominal Exam: Soft. absent: Distended, Guarding, Tenderness Additional comments: Dressing clean dry and intact ESMER drain with 25 cc of slightly cloudy serosanguinous output - Neurological Exam Neurological Exam: Alert, Awake, Oriented x3 - Psychiatric Exam Psychiatric exam: Normal Affect, Normal Mood - Skin Skin Exam: Dry, Intact, Normal Color, Warm Assessment and Plan - Assessment and Plan (Free Text) Plan: 47F s/p ex laparotomy with removal of TOA and enterorrhaphy POD#3 - NPO - IVF - NGT - I's & O's - pain control - Continue antibiotics - Protonix Q12H - OOB to chair, encourage ambulation, IS - Await bowel function - Further recommendations as per Dr. Christiano Suggs PGY1
[2017-12-24] MEDS: Sodium Chloride 0.9% 1,000 ML IV SCH (08:04)
[2017-12-24] MEDS: Insulin Lispro (humaLOG) 100 Units/ml Inj SC PRN (08:05)
[2017-12-24] MEDS ORDERED: Dextrose 5%/0.45% NS 1,000 ML IV SCH (08:30)
[2017-12-24] MEDS: guaiFENesin-DM 600-30 mg ER Tab PO SCH ×2 (10:03→17:34)
--- NOTE | 2017-12-24 11:08 | CP.PCM.PN ---
<Dell Nunes - Last Filed: 12/24/17 13:56> Subjective - Date & Time of Evaluation Date of Evaluation: 12/24/17 Time of Evaluation: 07:55 - Subjective Subjective: Patient seen and examined at bedside this morning. There are no acute events overnight, NAD. Patient s/p ex laparotomy with removal of infected left ovarian cyst and enterorrhaphy POD3. Patient denies abdominal pain, nausea, vomiting, or fever. Patient reports she has gas but no bowel movement yet. 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 NGT still draining dark colored fluid, less than yesterday. ESMER drain 20-25 cc. Objective - Vital Signs/Intake and Output Vital Signs (last 24 hours): Temp Pulse Resp BP Pulse Ox 97.5 F L 90 19 161/83 H 97 12/24/17 08:01 12/24/17 08:01 12/24/17 08:01 12/24/17 08:01 12/24/17 08:01 Intake and Output: 12/24/17 12/24/17 06:59 18:59 Output Total 525 Balance -525 - Medications Medications: Current Medications Aspirin (Ecotrin) 81 mg PO HS [facility] Last Admin: 12/22/17 01:59 Dose: Not Given Dextrose (Dextrose 50% Inj) 0 ml IV STAT PRN; Protocol PRN Reason: Hypoglycemia Protocol Dextrose (Glutose 15) 0 gm PO ONCE PRN; Protocol PRN Reason: Hypoglycemia Protocol Dicyclomine HCl (Bentyl) 10 mg PO TID PRN PRN Reason: GI distress Docusate Sodium (Colace) 100 mg PO BID PRN PRN Reason: GI distress Enalaprilat (Vasotec Iv) 1.25 mg IV Q12 [facility] Enoxaparin Sodium (Lovenox) 40 mg SC DAILY [facility] PRN Reason: Protocol Ergocalciferol (Drisdol 50,000 Intl Units Cap) 1 cap PO WE [facility] Last Admin: 12/22/17 01:59 Dose: Not Given Famotidine (Pepcid) 20 mg PO BID [facility] Last Admin: 12/22/17 08:47 Dose: Not Given Fenofibrate (Tricor) 145 mg PO HS [facility] Glipizide (Glucotrol) 5 mg PO BID [facility] Last Admin: 12/22/17 08:45 Dose: Not Given Glucagon (Glucagen Diagnostic Kit) 0 mg IM STAT PRN; Protocol PRN Reason: Hypoglycemia Protocol Guaifenesin/Dextromethorphan (Mucinex-Dm 600-30 Mg) 1 tab PO BID [facility] Last Admin: 12/24/17 10:03 Dose: Not Given Doxycycline Hyclate 100 mg/ (Sodium Chloride) 100 mls @ 100 mls/hr IVPB Q12 [facility] PRN Reason: Protocol Last Admin: 12/24/17 09:56 Dose: 100 mls/hr Metronidazole (Flagyl 500mg/100ml Ns) 100 mls @ 100 mls/hr IVPB Q8 [facility] PRN Reason: Protocol Last Admin: 12/24/17 09:56 Dose: 100 mls/hr Gentamicin Sulfate 180 mg/ (Sodium Chloride) 104.5 mls @ 100 mls/hr IVPB Q24H [facility] PRN Reason: Protocol Last Admin: 12/23/17 20:22 Dose: 100 mls/hr Dextrose/Sodium Chloride (Dextrose 5%/0.45% Ns 1000 Ml) 1,000 mls @ 125 mls/hr IV .Q8H [facility] Stop: 12/25/17 08:25 Last Admin: 12/24/17 10:05 Dose: 125 mls/hr Insulin Human Lispro (Humalog) 0 units SC ACHS PRN; Protocol PRN Reason: hyperglycemia Last Admin: 12/24/17 08:05 Dose: 3 units Lisinopril (Zestril) 40 mg PO DAILY [facility] Last Admin: 12/22/17 08:49 Dose: Not Given Metformin HCl (Glucophage) 1,000 mg PO BID [facility] Last Admin: 12/22/17 08:45 Dose: Not Given Methimazole (Tapazole) 20 mg PO BID [facility] Last Admin: 12/22/17 08:47 Dose: Not Given Morphine Sulfate (Morphine) 2 mg IVP Q4 PRN PRN Reason: Pain, severe (8-10) Last Admin: 12/24/17 03:55 Dose: 2 mg Ondansetron HCl (Zofran Odt) 4 mg PO Q6 PRN PRN Reason: Nausea/Vomiting Pantoprazole Sodium (Protonix Inj) 40 mg IVP Q12H [facility] Last Admin: 12/24/17 10:03 Dose: 40 mg Tramadol HCl (Ultram) 50 mg PO Q8 PRN PRN Reason: Pain, severe (8-10) - Labs Labs: 12/24/17 05:30 12/24/17 05:30 PT 14.8 Seconds (9.8-13.1) H 12/20/17 16:40 INR 1.3 (0.9-1.2) H 12/20/17 16:40 APTT 31.1 Seconds (25.6-37.1) 12/20/17 16:40 - Constitutional Appears: Non-toxic, No Acute Distress - Head Exam Head Exam: ATRAUMATIC, NORMAL INSPECTION, NORMOCEPHALIC - Eye Exam Eye Exam: Normal appearance - ENT Exam ENT Exam: Mucous Membranes Dry Additional comments: NGT in place, draining dark fluid on suction - Neck Exam Neck Exam: Full ROM. absent: Tenderness - Respiratory Exam Respiratory Exam: Clear to Ausculation Bilateral. absent: Accessory Muscle Use , Decreased Breath Sounds, Rales, Rhonchi, Wheezes, Respiratory Distress - Cardiovascular Exam Cardiovascular Exam: REGULAR RHYTHM. absent: Tachycardia - GI/Abdominal Exam GI & Abdominal Exam: Soft, Tenderness, Normal Bowel Sounds. 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 Alvarado protonix 40 mg IV Q12h pain control w/ Morphine 2 mg IV Q4 insulin sliding scale hypoglycemic protocol patient NPO hold PO medications monitor for return of bowel function monitor for acute changes encourage incentive spirometry encourage out of bed to chair DVT PPX: lovenox 40 mg SC daily <CaitieBruce L - Last Filed: 12/25/17 23:08> Objective - Vital Signs/Intake and Output Vital Signs (last 24 hours): Temp Pulse Resp BP Pulse Ox 97.9 F 82 18 154/84 H 99 12/25/17 17:01 12/25/17 17:01 12/25/17 17:01 12/25/17 21:06 12/25/17 17:01 Intake and Output: 12/25/17 12/26/17 18:59 06:59 Output Total 15 Balance -15 - Medications Medications: Current Medications Aspirin (Ecotrin) [address] [facility] Last Admin: 12/22/17 01:59 Dose: Not Given Dextrose (Dextrose 50% Inj) 0 ml IV STAT PRN; Protocol PRN Reason: Hypoglycemia Protocol Dextrose (Glutose 15) 0 gm PO ONCE PRN; Protocol PRN Reason: Hypoglycemia Protocol Dicyclomine HCl (Bentyl) 10 mg PO TID PRN PRN Reason: GI distress Docusate Sodium (Colace) 100 mg PO BID PRN PRN Reason: GI distress Enalaprilat (Vasotec Iv) 1.25 mg IV Q12 [facility] Last Admin: 12/25/17 21:06 Dose: 1.25 mg Enoxaparin Sodium (Lovenox) 40 mg SC DAILY [facility] PRN Reason: Protocol Last Admin: 12/25/17 09:37 Dose: 40 mg Ergocalciferol (Drisdol 50,000 Intl Units Cap) 1 cap PO WE [facility] Last Admin: 12/22/17 01:59 Dose: Not Given Famotidine (Pepcid) 20 mg PO BID [facility] Last Admin: 12/22/17 08:47 Dose: Not Given Fenofibrate (Tricor) [address] [facility] Glipizide (Glucotrol) 5 mg PO BID [facility] Last Admin: 12/22/17 08:45 Dose: Not Given Glucagon (Glucagen Diagnostic Kit) 0 mg IM STAT PRN; Protocol PRN Reason: Hypoglycemia Protocol Guaifenesin/Dextromethorphan (Mucinex-Dm 600-30 Mg) 1 tab PO BID [facility] Last Admin: 12/25/17 17:25 Dose: 1 tab Chromium/Copper/Manganese/Zinc 3 ml/ Multivitamins/Vitamin C 10 ml/ Amino Acids/ Electrolytes/Dextrose 2,013 mls @ 83 mls/hr IV .Q24H [facility] Stop: 12/26/17 17:59 Last Admin: 12/25/17 21:20 Dose: 83 mls/hr Insulin Human Regular (Humulin R) 0 units SC Q6 [facility] PRN Reason: Protocol Last Admin: 12/25/17 17:26 Dose: 8 units Lisinopril (Zestril) 40 mg PO DAILY [facility] Last Admin: 12/22/17 08:49 Dose: Not Given Metformin HCl (Glucophage) 1,000 mg PO BID [facility] Last Admin: 12/22/17 08:45 Dose: Not Given Methimazole (Tapazole) 20 mg PO BID [facility] Last Admin: 12/22/17 08:47 Dose: Not Given Morphine Sulfate (Morphine) 2 mg IVP Q4 PRN PRN Reason: Pain, severe (8-10) Last Admin: 12/25/17 17:21 Dose: 2 mg Ondansetron HCl (Zofran Odt) 4 mg PO Q6 PRN PRN Reason: Nausea/Vomiting Pantoprazole Sodium (Protonix Inj) 40 mg IVP Q12H [facility] Last Admin: 12/25/17 21:06 Dose: 40 mg Tramadol HCl (Ultram) 50 mg PO Q8 PRN PRN Reason: Pain, severe (8-10) - Labs Labs: 12/25/17 05:05 12/25/17 05:05 PT 14.8 Seconds (9.8-13.1) H 12/20/17 16:40 INR 1.3 (0.9-1.2) H 12/20/17 16:40 APTT 31.1 Seconds (25.6-37.1) 12/20/17 16:40 Assessment and Plan (1) Pelvic abscess Status: Acute (2) Abdominal pain Status: Acute (3) Complicated UTI (urinary tract infection) Status: Acute (4) Ovarian mass, left Status: Acute (5) Uncontrolled diabetes mellitus Status: Acute - Assessment and Plan (Free Text) Plan: I was present during evaluation and discussed with Dr Des re plans of care and tx. Bruce Blood M.D.
[2017-12-24] MEDS: Potassium Ch 20mEq in D5-1/2NS 1,000 ML IV SCH ×2 (11:30→17:34)
[2017-12-24] MEDS: Enoxaparin 40 mg Syringe SC SCH (11:42)
[2017-12-24] MEDS: EnalaprilAT 1.25 mg/ml Inj IV SCH ×2 (12:45→23:16)
[2017-12-24] MEDS ORDERED: [UNRECOGNIZED DRUG - OTHER] IV ONE (14:00)
[2017-12-24] MEDS ORDERED: COPPER IV ONE (14:00)
[2017-12-24] MEDS ORDERED: ZINC IV ONE (14:00)
[2017-12-24] MEDS ORDERED: MANGANESE IV ONE (14:00)
[2017-12-24] MEDS ORDERED: CHROMIUM IV ONE (14:00)
[2017-12-24] MEDS ORDERED: MULTIVITAMIN IV ONE (14:00)
--- NOTE | 2017-12-24 19:38 | CP.PCM.PN ---
Subjective - Date & Time of Evaluation Date of Evaluation: 12/24/17 Time of Evaluation: 17:00 - Subjective Subjective: 47 yo s/p exploratory laparotomy for left TOA, removal of left ovarian cyst and enterorrhaphy POD #3, stable. Patient reports lethargy, but othewise denies BROWNE, no SOB, abdominal pain controlled with medication, voiding well, ambulating minimally, +NG tube draining 500ml today and ESMER drain drained 25ml serosanginous , +flatus, no BM Objective - Vital Signs/Intake and Output Vital Signs (last 24 hours): Temp Pulse Resp BP Pulse Ox 97.2 F L 92 H 18 161/80 H 97 12/24/17 16:29 12/24/17 16:29 12/24/17 16:29 12/24/17 16:29 12/24/17 16:29 - Medications Medications: Current Medications Aspirin (Ecotrin) 81 mg PO [facility] Last Admin: 12/22/17 01:59 Dose: Not Given Dextrose (Dextrose 50% Inj) 0 ml IV STAT PRN; Protocol PRN Reason: Hypoglycemia Protocol Dextrose (Glutose 15) 0 gm PO ONCE PRN; Protocol PRN Reason: Hypoglycemia Protocol Dicyclomine HCl (Bentyl) 10 mg PO TID PRN PRN Reason: GI distress Docusate Sodium (Colace) 100 mg PO BID PRN PRN Reason: GI distress Enalaprilat (Vasotec Iv) 1.25 mg IV Q12 [facility] Last Admin: 12/24/17 12:45 Dose: 1.25 mg Enoxaparin Sodium (Lovenox) 40 mg SC DAILY [facility] PRN Reason: Protocol Last Admin: 12/24/17 11:42 Dose: Not Given Ergocalciferol (Drisdol 50,000 Intl Units Cap) 1 cap PO WE [facility] Last Admin: 12/22/17 01:59 Dose: Not Given Famotidine (Pepcid) 20 mg PO BID [facility] Last Admin: 12/22/17 08:47 Dose: Not Given Fenofibrate (Tricor) 145 mg PO [facility] Glipizide (Glucotrol) 5 mg PO BID [facility] Last Admin: 12/22/17 08:45 Dose: Not Given Glucagon (Glucagen Diagnostic Kit) 0 mg IM STAT PRN; Protocol PRN Reason: Hypoglycemia Protocol Guaifenesin/Dextromethorphan (Mucinex-Dm 600-30 Mg) 1 tab PO BID [facility] Last Admin: 12/24/17 17:34 Dose: Not Given Doxycycline Hyclate 100 mg/ (Sodium Chloride) 100 mls @ 100 mls/hr IVPB Q12 [facility] PRN Reason: Protocol Last Admin: 12/24/17 09:56 Dose: 100 mls/hr Metronidazole (Flagyl 500mg/100ml Ns) 100 mls @ 100 mls/hr IVPB Q8 [facility] PRN Reason: Protocol Last Admin: 12/24/17 17:33 Dose: 100 mls/hr Gentamicin Sulfate 180 mg/ (Sodium Chloride) 104.5 mls @ 100 mls/hr IVPB Q24H [facility] PRN Reason: Protocol Last Admin: 12/23/17 20:22 Dose: 100 mls/hr Potassium Chloride/Dextrose/Sod Cl (Potassium Chl 20 Meq In D5-1/2ns) 1,000 mls @ 125 mls/hr IV .Q8H [facility] Stop: 12/25/17 11:22 Last Admin: 12/24/17 17:34 Dose: 125 mls/hr Chromium/Copper/Manganese/Zinc 3 ml/ Multivitamins/Vitamin C 10 ml/ Amino Acids/ Electrolytes/Dextrose 2,013 mls @ 83 mls/hr IV .Q24H [facility] Stop: 12/25/17 13:59 Last Admin: 12/24/17 15:43 Dose: 83 mls/hr Insulin Human Lispro (Humalog) 0 units SC ACHS PRN; Protocol PRN Reason: hyperglycemia Last Admin: 12/24/17 08:05 Dose: 3 units Lisinopril (Zestril) 40 mg PO DAILY [facility] Last Admin: 12/22/17 08:49 Dose: Not Given Metformin HCl (Glucophage) 1,000 mg PO BID [facility] Last Admin: 12/22/17 08:45 Dose: Not Given Methimazole (Tapazole) 20 mg PO BID [facility] Last Admin: 12/22/17 08:47 Dose: Not Given Morphine Sulfate (Morphine) 2 mg IVP Q4 PRN PRN Reason: Pain, severe (8-10) Last Admin: 12/24/17 03:55 Dose: 2 mg Ondansetron HCl (Zofran Odt) 4 mg PO Q6 PRN PRN Reason: Nausea/Vomiting Pantoprazole Sodium (Protonix Inj) 40 mg IVP Q12H [facility] Last Admin: 12/24/17 10:03 Dose: 40 mg Tramadol HCl (Ultram) 50 mg PO Q8 PRN PRN Reason: Pain, severe (8-10) - Labs Labs: 12/24/17 05:30 12/24/17 05:30 PT 14.8 Seconds (9.8-13.1) H 12/20/17 16:40 INR 1.3 (0.9-1.2) H 12/20/17 16:40 APTT 31.1 Seconds (25.6-37.1) 12/20/17 16:40 - Constitutional Appears: Non-toxic, No Acute Distress - Head Exam Head Exam: ATRAUMATIC - Eye Exam Pupil Exam: NORMAL ACCOMODATION - Respiratory Exam Respiratory Exam: NORMAL BREATHING PATTERN - Cardiovascular Exam Cardiovascular Exam: REGULAR RHYTHM - GI/Abdominal Exam Additional comments: Incision clean/dry/+kaleb +BS, no gaurding, no rebound, +ESMER drain draining serosanginous fluid - Extremities Exam Extremities Exam: Normal Inspection Assessment and Plan - Assessment and Plan (Free Text) Plan: A/P 47 yo s/p exploratory laporatomy POD #3 for left ovarian cyst removal secondary to a TOA and enterorrhaphy 1. Patient stable, currently with NG tube and NPO. Continue to follow management as per surgery 2. Continue current antibiotics and post-operative orders 3. OOB to chair 4. Morphine prn pain
[2017-12-24] MEDS: Gentamicin 180 MG in Sodium Chloride 0.9% 100 ML IVPB SCH (21:00)
[2017-12-25] MEDS: metroNIDAZOLE 500mg/100ml NS 100 ML IVPB SCH ×3 (02:00→17:25)
[2017-12-25] MEDS: Potassium Ch 20mEq in D5-1/2NS 1,000 ML IV SCH (06:25)
[2017-12-25] MEDS: Insulin Lispro (humaLOG) 100 Units/ml Inj SC PRN (06:50)
--- NOTE | 2017-12-25 07:17 | CP.PCM.PN ---
Subjective - Date & Time of Evaluation Date of Evaluation: 12/25/17 Time of Evaluation: 07:17 - Subjective Subjective: OBGYN Progress Note 47 YO admitted for abdominal pain, ovarian abscess POD4; S/p ex laparotomy for left TOA, removal of left ovarian cyst and enterorrhaphy No acute overnight events. Pt endorsing BM x 2. States that she is moving around a little more today then previously and her lethargy has resolved. +NG tube draining 400ml today and ESMER drain drained 20ml serosanginous, +flatus, + BM. Denies chest pain, dyspnea, headache, dizziness, n/v/d/c and remains afebrile. Objective - Vital Signs/Intake and Output Vital Signs (last 24 hours): Temp Pulse Resp BP Pulse Ox 98 F 94 H 19 164/79 H 97 12/25/17 00:34 12/25/17 00:34 12/25/17 00:34 12/25/17 00:34 12/25/17 00:34 Intake and Output: 12/25/17 12/25/17 06:59 18:59 Output Total 240 Balance -240 - Medications Medications: Current Medications Aspirin (Ecotrin) 81 mg PO [facility] Last Admin: 12/22/17 01:59 Dose: Not Given Dextrose (Dextrose 50% Inj) 0 ml IV STAT PRN; Protocol PRN Reason: Hypoglycemia Protocol Dextrose (Glutose 15) 0 gm PO ONCE PRN; Protocol PRN Reason: Hypoglycemia Protocol Dicyclomine HCl (Bentyl) 10 mg PO TID PRN PRN Reason: GI distress Docusate Sodium (Colace) 100 mg PO BID PRN PRN Reason: GI distress Enalaprilat (Vasotec Iv) 1.25 mg IV Q12 [facility] Last Admin: 12/24/17 23:16 Dose: 1.25 mg Enoxaparin Sodium (Lovenox) 40 mg SC DAILY [facility] PRN Reason: Protocol Last Admin: 12/24/17 11:42 Dose: Not Given Ergocalciferol (Drisdol 50,000 Intl Units Cap) 1 cap PO WE [facility] Last Admin: 12/22/17 01:59 Dose: Not Given Famotidine (Pepcid) 20 mg PO BID [facility] Last Admin: 12/22/17 08:47 Dose: Not Given Fenofibrate (Tricor) 145 mg PO [facility] Glipizide (Glucotrol) 5 mg PO BID [facility] Last Admin: 12/22/17 08:45 Dose: Not Given Glucagon (Glucagen Diagnostic Kit) 0 mg IM STAT PRN; Protocol PRN Reason: Hypoglycemia Protocol Guaifenesin/Dextromethorphan (Mucinex-Dm 600-30 Mg) 1 tab PO BID [facility] Last Admin: 12/24/17 17:34 Dose: Not Given Doxycycline Hyclate 100 mg/ (Sodium Chloride) 100 mls @ 100 mls/hr IVPB Q12 [facility] PRN Reason: Protocol Last Admin: 12/24/17 21:35 Dose: 100 mls/hr Metronidazole (Flagyl 500mg/100ml Ns) 100 mls @ 100 mls/hr IVPB Q8 [facility] PRN Reason: Protocol Last Admin: 12/25/17 02:00 Dose: 100 mls/hr Gentamicin Sulfate 180 mg/ (Sodium Chloride) 104.5 mls @ 100 mls/hr IVPB Q24H [facility] PRN Reason: Protocol Last Admin: 12/24/17 21:00 Dose: 100 mls/hr Potassium Chloride/Dextrose/Sod Cl (Potassium Chl 20 Meq In D5-1/2ns) 1,000 mls @ 125 mls/hr IV .Q8H [facility] Stop: 12/25/17 11:22 Last Admin: 12/25/17 06:25 Dose: 125 mls/hr Chromium/Copper/Manganese/Zinc 3 ml/ Multivitamins/Vitamin C 10 ml/ Amino Acids/ Electrolytes/Dextrose 2,013 mls @ 83 mls/hr IV .Q24H [facility] Stop: 12/25/17 13:59 Last Admin: 12/24/17 15:43 Dose: 83 mls/hr Insulin Human Lispro (Humalog) 0 units SC ACHS PRN; Protocol PRN Reason: hyperglycemia Last Admin: 12/25/17 06:50 Dose: 6 units Lisinopril (Zestril) 40 mg PO DAILY [facility] Last Admin: 12/22/17 08:49 Dose: Not Given Metformin HCl (Glucophage) 1,000 mg PO BID [facility] Last Admin: 12/22/17 08:45 Dose: Not Given Methimazole (Tapazole) 20 mg PO BID [facility] Last Admin: 12/22/17 08:47 Dose: Not Given Morphine Sulfate (Morphine) 2 mg IVP Q4 PRN PRN Reason: Pain, severe (8-10) Last Admin: 12/24/17 23:14 Dose: 2 mg Ondansetron HCl (Zofran Odt) 4 mg PO Q6 PRN PRN Reason: Nausea/Vomiting Pantoprazole Sodium (Protonix Inj) 40 mg IVP Q12H [facility] Last Admin: 12/24/17 21:30 Dose: 40 mg Tramadol HCl (Ultram) 50 mg PO Q8 PRN PRN Reason: Pain, severe (8-10) - Labs Labs: 12/24/17 05:30 12/24/17 05:30 PT 14.8 Seconds (9.8-13.1) H 12/20/17 16:40 INR 1.3 (0.9-1.2) H 12/20/17 16:40 APTT 31.1 Seconds (25.6-37.1) 12/20/17 16:40 - Constitutional Appears: No Acute Distress - Head Exam Head Exam: ATRAUMATIC, NORMAL INSPECTION Additional comments: NGT in place - Eye Exam Eye Exam: EOMI, Normal appearance - ENT Exam ENT Exam: Mucous Membranes Moist - Neck Exam Neck Exam: Full ROM - Respiratory Exam Respiratory Exam: Clear to Ausculation Bilateral, NORMAL BREATHING PATTERN - Cardiovascular Exam Cardiovascular Exam: REGULAR RHYTHM, +S1, +S2 - GI/Abdominal Exam GI & Abdominal Exam: Soft, Tenderness. absent: Distended, Guarding Additional comments: Tenderness to palpation of the LLQ. Incision site dressing intact. ESMER intact in RUQ, draining sero-sangunious fluids - Extremities Exam Extremities Exam: Full ROM, Normal Inspection. absent: Calf Tenderness, Pedal Edema - Neurological Exam Neurological Exam: Alert, Awake, Oriented x3 - Psychiatric Exam Psychiatric exam: Normal Affect, Normal Mood - Skin Skin Exam: Intact, Normal Color, Warm Assessment and Plan - Assessment and Plan (Free Text) Assessment: 47 y/o F admitted for pelvic pain/left ovarian abscess. POD3, s/p exploratory laporatomy POD #4 for left ovarian cyst removal secondary to a TOA and enterorrhaphy Pelvic pain/left ovarian abscess - s/p ex lap, cyst removal; ESMER drain intact - Pt remains afebrile, WBC downtrending 10.8 (12/24/17) down from 20 (12/23/17). - ESMER drain is draining serosanguineous fluid about 20cc, NGT intact - pain management: S/p b/l Transverse Abdominis Nerve Block, s/p Morphine [employer]; currently on Morphine Q4 and Ultram Q8 - Blood cx 2: No growth 72Hrs - Urine culture 12/21: Final, no growth - Wound cx 12/21: Final, E. coli - encourage ambulation, and incentive spirometry - F/u Pathology - Abx: continue management as per ID - Continue management as per primary team and Surgery
[2017-12-25 07:34] LABS: HEMOGLOBIN 9.7 g/dL (12.0-16.0); MEAN CELL VOLUME 78.8 fl (81.0-99.0); MEAN CORPUSCULAR HEMOGLOBIN 25.6 pg (27.0-31.0); MEAN CORPUSCULAR HGB CONC 32.5 g/dL (33.0-37.0); RBC 3.77 Mil/uL (3.80-5.20); RED CELL DISTRIBUTION WIDTH 13.4 % (11.5-14.5); WHITE BLOOD COUNT 9.4 K/uL (4.8-10.8)
[2017-12-25 07:42] LABS: BLOOD UREA NITROGEN 18 mg/dl (7-17); CALCIUM 9.5 mg/dL (8.4-10.2); GFR AFRICAN-AMERICAN > 60; GFR NON-AFRICAN AMERICAN > 60
--- NOTE | 2017-12-25 09:04 | CP.PCM.PN ---
Subjective - Date & Time of Evaluation Date of Evaluation: 12/25/17 Time of Evaluation: 07:30 - Subjective Subjective: Patient seen and examined. No acute events over night. NGT output 200cc/12 hrs. Patient passing flatus and having BM. Abdominal incision site is c/d/i. Objective - Vital Signs/Intake and Output Vital Signs (last 24 hours): Temp Pulse Resp BP Pulse Ox 98 F 94 H 19 164/79 H 97 12/25/17 00:34 12/25/17 00:34 12/25/17 00:34 12/25/17 00:34 12/25/17 00:34 Intake and Output: 12/25/17 12/25/17 06:59 18:59 Output Total 240 Balance -240 - Medications Medications: Current Medications Aspirin (Ecotrin) 81 mg PO HS [facility] Last Admin: 12/22/17 01:59 Dose: Not Given Dextrose (Dextrose 50% Inj) 0 ml IV STAT PRN; Protocol PRN Reason: Hypoglycemia Protocol Dextrose (Glutose 15) 0 gm PO ONCE PRN; Protocol PRN Reason: Hypoglycemia Protocol Dicyclomine HCl (Bentyl) 10 mg PO TID PRN PRN Reason: GI distress Docusate Sodium (Colace) 100 mg PO BID PRN PRN Reason: GI distress Enalaprilat (Vasotec Iv) 1.25 mg IV Q12 [facility] Last Admin: 12/24/17 23:16 Dose: 1.25 mg Enoxaparin Sodium (Lovenox) 40 mg SC DAILY [facility] PRN Reason: Protocol Last Admin: 12/24/17 11:42 Dose: Not Given Ergocalciferol (Drisdol 50,000 Intl Units Cap) 1 cap PO WE [facility] Last Admin: 12/22/17 01:59 Dose: Not Given Famotidine (Pepcid) 20 mg PO BID [facility] Last Admin: 12/22/17 08:47 Dose: Not Given Fenofibrate (Tricor) 145 mg PO [facility] Glipizide (Glucotrol) 5 mg PO BID [facility] Last Admin: 12/22/17 08:45 Dose: Not Given Glucagon (Glucagen Diagnostic Kit) 0 mg IM STAT PRN; Protocol PRN Reason: Hypoglycemia Protocol Guaifenesin/Dextromethorphan (Mucinex-Dm 600-30 Mg) 1 tab PO BID [facility] Last Admin: 12/24/17 17:34 Dose: Not Given Doxycycline Hyclate 100 mg/ (Sodium Chloride) 100 mls @ 100 mls/hr IVPB Q12 [facility] PRN Reason: Protocol Last Admin: 12/24/17 21:35 Dose: 100 mls/hr Metronidazole (Flagyl 500mg/100ml Ns) 100 mls @ 100 mls/hr IVPB Q8 [facility] PRN Reason: Protocol Last Admin: 12/25/17 02:00 Dose: 100 mls/hr Gentamicin Sulfate 180 mg/ (Sodium Chloride) 104.5 mls @ 100 mls/hr IVPB Q24H [facility] PRN Reason: Protocol Last Admin: 12/24/17 21:00 Dose: 100 mls/hr Potassium Chloride/Dextrose/Sod Cl (Potassium Chl 20 Meq In D5-1/2ns) 1,000 mls @ 125 mls/hr IV .Q8H [facility] Stop: 12/25/17 11:22 Last Admin: 12/25/17 06:25 Dose: 125 mls/hr Chromium/Copper/Manganese/Zinc 3 ml/ Multivitamins/Vitamin C 10 ml/ Amino Acids/ Electrolytes/Dextrose 2,013 mls @ 83 mls/hr IV .Q24H [facility] Stop: 12/25/17 13:59 Last Admin: 12/24/17 15:43 Dose: 83 mls/hr Insulin Human Lispro (Humalog) 0 units SC ACHS PRN; Protocol PRN Reason: hyperglycemia Last Admin: 12/25/17 06:50 Dose: 6 units Lisinopril (Zestril) 40 mg PO DAILY [facility] Last Admin: 12/22/17 08:49 Dose: Not Given Metformin HCl (Glucophage) 1,000 mg PO BID [facility] Last Admin: 12/22/17 08:45 Dose: Not Given Methimazole (Tapazole) 20 mg PO BID [facility] Last Admin: 12/22/17 08:47 Dose: Not Given Morphine Sulfate (Morphine) 2 mg IVP Q4 PRN PRN Reason: Pain, severe (8-10) Last Admin: 12/24/17 23:14 Dose: 2 mg Ondansetron HCl (Zofran Odt) 4 mg PO Q6 PRN PRN Reason: Nausea/Vomiting Pantoprazole Sodium (Protonix Inj) 40 mg IVP Q12H [facility] Last Admin: 12/24/17 21:30 Dose: 40 mg Tramadol HCl (Ultram) 50 mg PO Q8 PRN PRN Reason: Pain, severe (8-10) - Labs Labs: 12/25/17 05:05 12/25/17 05:05 PT 14.8 Seconds (9.8-13.1) H 12/20/17 16:40 INR 1.3 (0.9-1.2) H 12/20/17 16:40 APTT 31.1 Seconds (25.6-37.1) 12/20/17 16:40 - Constitutional Appears: No Acute Distress - Head Exam Head Exam: NORMOCEPHALIC - Eye Exam Eye Exam: Normal appearance - ENT Exam ENT Exam: Mucous Membranes Moist - Respiratory Exam Respiratory Exam: NORMAL BREATHING PATTERN - Cardiovascular Exam Cardiovascular Exam: +S1, +S2 - GI/Abdominal Exam GI & Abdominal Exam: Soft - Neurological Exam Neurological Exam: Alert, Awake, Oriented x3 - Psychiatric Exam Psychiatric exam: Normal Mood - Skin Skin Exam: Dry, Intact, Normal Color, Warm Assessment and Plan - Assessment and Plan (Free Text) Assessment: 47F s/p exploratory laparotomy with removal of TOA and enterorrhaphy POD#4 Plan: -Start Clear liquids -C/w TPN until pt tolerating diet -Remove NGT - pain control - Continue antibiotics - OOB to chair, encourage ambulation, IS - Discussed with Dr. Christiano Fernandez PGY2
[2017-12-25] MEDS: Enoxaparin 40 mg Syringe SC SCH (09:37)
[2017-12-25] MEDS: guaiFENesin-DM 600-30 mg ER Tab PO SCH ×2 (09:37→17:25)
[2017-12-25] MEDS: EnalaprilAT 1.25 mg/ml Inj IV SCH ×2 (09:56→21:06)
[2017-12-25] MEDS ORDERED: Insulin Regular 100 units/ml SC SCH (10:00)
[2017-12-25] MEDS: Morphine 4 MG/ML VIAL IVP PRN (17:21)
[2017-12-25] MEDS: Insulin Regular 100 units/ml SC SCH ×2 (17:26→22:00)
[2017-12-25] MEDS ORDERED: CHROMIUM IV ONE (18:00)
[2017-12-25] MEDS ORDERED: COPPER IV ONE (18:00)
[2017-12-25] MEDS ORDERED: MANGANESE IV ONE (18:00)
[2017-12-25] MEDS ORDERED: ZINC IV ONE (18:00)
[2017-12-25] MEDS ORDERED: [UNRECOGNIZED DRUG - OTHER] IV ONE (18:00)
[2017-12-25] MEDS ORDERED: MULTIVITAMIN IV ONE (18:00)
[2017-12-25] MEDS: Gentamicin 180 MG in Sodium Chloride 0.9% 100 ML IVPB SCH (21:05)
--- NOTE | 2017-12-25 23:11 | CP.PCM.PN ---
Subjective - Date & Time of Evaluation Date of Evaluation: 12/25/17 Time of Evaluation: 17:20 - Subjective Subjective: Had bowel movement Has minima lpain Tolerated clear liquids Has no fever. Objective - Vital Signs/Intake and Output Vital Signs (last 24 hours): Temp Pulse Resp BP Pulse Ox 97.9 F 82 18 154/84 H 99 12/25/17 17:01 12/25/17 17:01 12/25/17 17:01 12/25/17 21:06 12/25/17 17:01 Intake and Output: 12/25/17 12/26/17 18:59 06:59 Output Total 15 Balance -15 - Medications Medications: Current Medications Aspirin (Ecotrin) 81 mg PO [facility] Last Admin: 12/22/17 01:59 Dose: Not Given Dextrose (Dextrose 50% Inj) 0 ml IV STAT PRN; Protocol PRN Reason: Hypoglycemia Protocol Dextrose (Glutose 15) 0 gm PO ONCE PRN; Protocol PRN Reason: Hypoglycemia Protocol Dicyclomine HCl (Bentyl) 10 mg PO TID PRN PRN Reason: GI distress Docusate Sodium (Colace) 100 mg PO BID PRN PRN Reason: GI distress Enalaprilat (Vasotec Iv) 1.25 mg IV Q12 [facility] Last Admin: 12/25/17 21:06 Dose: 1.25 mg Enoxaparin Sodium (Lovenox) 40 mg SC DAILY [facility] PRN Reason: Protocol Last Admin: 12/25/17 09:37 Dose: 40 mg Ergocalciferol (Drisdol 50,000 Intl Units Cap) 1 cap PO WE [facility] Last Admin: 12/22/17 01:59 Dose: Not Given Famotidine (Pepcid) 20 mg PO BID [facility] Last Admin: 12/22/17 08:47 Dose: Not Given Fenofibrate (Tricor) 145 mg PO [facility] Glipizide (Glucotrol) 5 mg PO BID [facility] Last Admin: 12/22/17 08:45 Dose: Not Given Glucagon (Glucagen Diagnostic Kit) 0 mg IM STAT PRN; Protocol PRN Reason: Hypoglycemia Protocol Guaifenesin/Dextromethorphan (Mucinex-Dm 600-30 Mg) 1 tab PO BID [facility] Last Admin: 12/25/17 17:25 Dose: 1 tab Chromium/Copper/Manganese/Zinc 3 ml/ Multivitamins/Vitamin C 10 ml/ Amino Acids/ Electrolytes/Dextrose 2,013 mls @ 83 mls/hr IV .Q24H ONE Stop: 12/26/17 17:59 Last Admin: 12/25/17 21:20 Dose: 83 mls/hr Insulin Human Regular (Humulin R) 0 units SC Q6 [facility] PRN Reason: Protocol Last Admin: 12/25/17 17:26 Dose: 8 units Lisinopril (Zestril) 40 mg PO DAILY [facility] Last Admin: 12/22/17 08:49 Dose: Not Given Metformin HCl (Glucophage) 1,000 mg PO BID [facility] Last Admin: 12/22/17 08:45 Dose: Not Given Methimazole (Tapazole) 20 mg PO BID [facility] Last Admin: 12/22/17 08:47 Dose: Not Given Morphine Sulfate (Morphine) 2 mg IVP Q4 PRN PRN Reason: Pain, severe (8-10) Last Admin: 12/25/17 17:21 Dose: 2 mg Ondansetron HCl (Zofran Odt) 4 mg PO Q6 PRN PRN Reason: Nausea/Vomiting Pantoprazole Sodium (Protonix Inj) 40 mg IVP Q12H [facility] Last Admin: 12/25/17 21:06 Dose: 40 mg Tramadol HCl (Ultram) 50 mg PO Q8 PRN PRN Reason: Pain, severe (8-10) - Labs Labs: 12/25/17 05:05 12/25/17 05:05 PT 14.8 Seconds (9.8-13.1) H 12/20/17 16:40 INR 1.3 (0.9-1.2) H 12/20/17 16:40 APTT 31.1 Seconds (25.6-37.1) 12/20/17 16:40 - Head Exam Head Exam: NORMAL INSPECTION - Eye Exam Eye Exam: Normal appearance - ENT Exam ENT Exam: Mucous Membranes Moist - Respiratory Exam Respiratory Exam: Clear to Ausculation Bilateral - Cardiovascular Exam Cardiovascular Exam: REGULAR RHYTHM - GI/Abdominal Exam GI & Abdominal Exam: Normal Bowel Sounds - Neurological Exam Neurological Exam: Awake, Oriented x3 Assessment and Plan (1) Pelvic abscess Status: Acute (2) Abdominal pain Status: Acute (3) Complicated UTI (urinary tract infection) Status: Acute (4) Ovarian mass, left Status: Acute (5) Uncontrolled diabetes mellitus Status: Acute - Assessment and Plan (Free Text) Plan: Con tmeds Cont tx advance diet tylenol cont meds ambulate
[2017-12-26] MEDS: Insulin Regular 100 units/ml SC SCH ×4 (04:50→22:44)
--- NOTE | 2017-12-26 07:41 | CP.PCM.PN ---
<Chris Suggs - Last Filed: 12/26/17 08:00> Subjective - Date & Time of Evaluation Date of Evaluation: 12/26/17 Time of Evaluation: 07:05 - Subjective Subjective: General Surgery Note for Dr. Alvarado Patient seen and examined. No acute event overnight. Patient states dee has improved. Patient passing flatus and having BM. She is tolerating clear liquids. She is also on TPN still. Patient has no complaints at this time. Objective - Vital Signs/Intake and Output Vital Signs (last 24 hours): Temp Pulse Resp BP Pulse Ox 97.7 F 88 18 158/88 H 99 12/26/17 00:16 12/26/17 00:16 12/26/17 00:16 12/26/17 00:16 12/26/17 00:16 Intake and Output: 12/26/17 12/26/17 06:59 18:59 Intake Total 815 Balance 815 - Medications Medications: Current Medications Aspirin (Ecotrin) 81 mg PO [facility] Last Admin: 12/22/17 01:59 Dose: Not Given Dextrose (Dextrose 50% Inj) 0 ml IV STAT PRN; Protocol PRN Reason: Hypoglycemia Protocol Dextrose (Glutose 15) 0 gm PO ONCE PRN; Protocol PRN Reason: Hypoglycemia Protocol Dicyclomine HCl (Bentyl) 10 mg PO TID PRN PRN Reason: GI distress Docusate Sodium (Colace) 100 mg PO BID PRN PRN Reason: GI distress Enalaprilat (Vasotec Iv) 1.25 mg IV Q12 [facility] Last Admin: 12/25/17 21:06 Dose: 1.25 mg Enoxaparin Sodium (Lovenox) 40 mg SC DAILY [facility] PRN Reason: Protocol Last Admin: 12/25/17 09:37 Dose: 40 mg Ergocalciferol (Drisdol 50,000 Intl Units Cap) 1 cap PO WE [facility] Last Admin: 12/22/17 01:59 Dose: Not Given Famotidine (Pepcid) 20 mg PO BID [facility] Last Admin: 12/22/17 08:47 Dose: Not Given Fenofibrate (Tricor) 145 mg PO [facility] Glipizide (Glucotrol) 5 mg PO BID [facility] Last Admin: 12/22/17 08:45 Dose: Not Given Glucagon (Glucagen Diagnostic Kit) 0 mg IM STAT PRN; Protocol PRN Reason: Hypoglycemia Protocol Guaifenesin/Dextromethorphan (Mucinex-Dm 600-30 Mg) 1 tab PO BID [facility] Last Admin: 12/25/17 17:25 Dose: 1 tab Chromium/Copper/Manganese/Zinc 3 ml/ Multivitamins/Vitamin C 10 ml/ Amino Acids/ Electrolytes/Dextrose 2,013 mls @ 83 mls/hr IV .Q24H ONE Stop: 12/26/17 17:59 Last Admin: 12/25/17 21:20 Dose: 83 mls/hr Insulin Human Regular (Humulin R) 0 units SC Q6 [facility] PRN Reason: Protocol Last Admin: 12/26/17 04:50 Dose: 3 units Lisinopril (Zestril) 40 mg PO DAILY [facility] Last Admin: 12/22/17 08:49 Dose: Not Given Metformin HCl (Glucophage) 1,000 mg PO BID [facility] Last Admin: 12/22/17 08:45 Dose: Not Given Methimazole (Tapazole) 20 mg PO BID [facility] Last Admin: 12/22/17 08:47 Dose: Not Given Morphine Sulfate (Morphine) 2 mg IVP Q4 PRN PRN Reason: Pain, severe (8-10) Last Admin: 12/25/17 17:21 Dose: 2 mg Ondansetron HCl (Zofran Odt) 4 mg PO Q6 PRN PRN Reason: Nausea/Vomiting Pantoprazole Sodium (Protonix Inj) 40 mg IVP Q12H [facility] Last Admin: 12/25/17 21:06 Dose: 40 mg Tramadol HCl (Ultram) 50 mg PO Q8 PRN PRN Reason: Pain, severe (8-10) - Labs Labs: 12/25/17 05:05 12/25/17 05:05 PT 14.8 Seconds (9.8-13.1) H 12/20/17 16:40 INR 1.3 (0.9-1.2) H 12/20/17 16:40 APTT 31.1 Seconds (25.6-37.1) 12/20/17 16:40 - Constitutional Appears: No Acute Distress - Eye Exam Eye Exam: Normal appearance - ENT Exam ENT Exam: Mucous Membranes Moist - Respiratory Exam Respiratory Exam: NORMAL BREATHING PATTERN - Cardiovascular Exam Cardiovascular Exam: REGULAR RHYTHM - GI/Abdominal Exam GI & Abdominal Exam: Soft, Tenderness (suprapubic), Normal Bowel Sounds. absent : Distended, Firm, Guarding, Rigid Additional comments: midline incision with packing in place, dressing changed today - Neurological Exam Neurological Exam: Alert, Awake, Oriented x3 - Psychiatric Exam Psychiatric exam: Normal Affect, Normal Mood - Skin Skin Exam: Dry, Warm Assessment and Plan - Assessment and Plan (Free Text) Plan: 47F s/p exploratory laparotomy with removal of TOA and enterorrhaphy POD#5 -Clear liquids, ADAT -TPN -Pain control -IV antibiotics -OOB to chair/encourage ambulation/IS -Will discuss with Dr. Christiano Suggs PGY1 <Guido Alvarado - Last Filed: 12/29/17 14:08> Objective - Vital Signs/Intake and Output Vital Signs (last 24 hours): Temp Pulse Resp BP Pulse Ox 98 F 89 20 145/90 99 12/29/17 09:00 12/29/17 09:00 12/29/17 09:00 12/29/17 09:00 12/29/17 09:00 - Medications Medications: Current Medications Acetaminophen (Tylenol 325mg Tab) 650 mg PO Q6 PRN PRN Reason: Pain, Mild (1-3) Last Admin: 12/29/17 11:31 Dose: 650 mg Aspirin (Ecotrin) 81 mg PO [facility] Last Admin: 12/22/17 01:59 Dose: Not Given Dextrose (Dextrose 50% Inj) 0 ml IV STAT PRN; Protocol PRN Reason: Hypoglycemia Protocol Dextrose (Glutose 15) 0 gm PO ONCE PRN; Protocol PRN Reason: Hypoglycemia Protocol Dicyclomine HCl (Bentyl) 10 mg PO TID PRN PRN Reason: GI distress Docusate Sodium (Colace) 100 mg PO BID PRN PRN Reason: GI distress Ergocalciferol (Drisdol 50,000 Intl Units Cap) 1 cap PO WE [facility] Last Admin: 12/22/17 01:59 Dose: Not Given Famotidine (Pepcid) 20 mg PO BID [facility] Last Admin: 12/22/17 08:47 Dose: Not Given Fenofibrate (Tricor) 145 mg PO [facility] Glipizide (Glucotrol) 5 mg PO BID [facility] Last Admin: 12/22/17 08:45 Dose: Not Given Glucagon (Glucagen Diagnostic Kit) 0 mg IM STAT PRN; Protocol PRN Reason: Hypoglycemia Protocol Guaifenesin/Dextromethorphan (Mucinex-Dm 600-30 Mg) 1 tab PO BID [facility] Last Admin: 12/29/17 08:20 Dose: 1 tab Gentamicin Sulfate 180 mg/ (Sodium Chloride) 254.5 mls @ 100 mls/hr IVPB DAILY [facility] PRN Reason: Protocol Last Admin: 12/29/17 08:19 Dose: 100 mls/hr Insulin Human Regular (Humulin R) 0 units SC ACHS [facility] PRN Reason: Protocol Last Admin: 12/29/17 13:08 Dose: 6 units Losartan Potassium (Cozaar) 100 mg PO DAILY [facility] Last Admin: 12/29/17 08:17 Dose: 100 mg Metformin HCl (Glucophage) 1,000 mg PO BID [facility] Last Admin: 12/22/17 08:45 Dose: Not Given Methimazole (Tapazole) 20 mg PO BID [facility] Last Admin: 12/22/17 08:47 Dose: Not Given Morphine Sulfate (Morphine) 2 mg IVP Q4 PRN PRN Reason: Pain, severe (8-10) Last Admin: 12/28/17 23:25 Dose: 2 mg Ondansetron HCl (Zofran Odt) 4 mg PO Q6 PRN PRN Reason: Nausea/Vomiting Pantoprazole Sodium (Protonix Inj) 40 mg IVP Q12H [facility] Last Admin: 12/29/17 08:20 Dose: 40 mg Tramadol HCl (Ultram) 50 mg PO Q8 PRN PRN Reason: Pain, severe (8-10) - Labs Labs: 12/29/17 12:50 12/29/17 12:50 PT 14.8 Seconds (9.8-13.1) H 12/20/17 16:40 INR 1.3 (0.9-1.2) H 12/20/17 16:40 APTT 31.1 Seconds (25.6-37.1) 12/20/17 16:40 Assessment and Plan - Assessment and Plan (Free Text) Assessment: Pt remains afebrile with a WBC increase 912.2) c/o mild RLQ and suprapubic abd pain. CTabd/pelvis suggestive of postop fluid collections vs abscesses in the lower abd and pelvis. Dr Santoyo (IR) notified for percutaneous aspiraton +/- drain placement. Discussed w/ pt//PMD. Continue IV ABX.
[2017-12-26] MEDS: Enoxaparin 40 mg Syringe SC SCH (09:30)
[2017-12-26] MEDS: guaiFENesin-DM 600-30 mg ER Tab PO SCH ×2 (09:30→17:19)
[2017-12-26] MEDS: EnalaprilAT 1.25 mg/ml Inj IV SCH (09:40)
--- NOTE | 2017-12-26 10:37 | CP.PCM.PN ---
Subjective - Date & Time of Evaluation Date of Evaluation: 12/26/17 Time of Evaluation: 10:00 - Subjective Subjective: OBGYN PROGRESS NOTE: CC: POD 5. S/P Exploratory Laparotomy, extensive lysis of adhesions, removal of tubo-ovarian abscess, repair of enterotomy with omental patch. 47 y/o F evaluated and examined by bedside. Pt reports feeling better. LLQ abdominal pain present, 5/10 intensity at most severe and controlled with medications. Pt under TPN, also tolerating PO-clear liquid diet, ambulating slowly around her room, passing gasses, and had another bowel movement today. Pt denies fever, dizziness, CP, SOB, nausea, vomiting, urinary complaints. ESMER drain: ~15cc Objective - Vital Signs/Intake and Output Vital Signs (last 24 hours): Temp Pulse Resp BP Pulse Ox 97.9 F 89 18 155/98 H 98 12/26/17 08:58 12/26/17 09:44 12/26/17 09:44 12/26/17 09:44 12/26/17 09:44 Intake and Output: 12/26/17 12/26/17 06:59 18:59 Intake Total 815 Balance 815 - Medications Medications: Current Medications Aspirin (Ecotrin) 81 mg PO HS [facility] Last Admin: 12/22/17 01:59 Dose: Not Given Dextrose (Dextrose 50% Inj) 0 ml IV STAT PRN; Protocol PRN Reason: Hypoglycemia Protocol Dextrose (Glutose 15) 0 gm PO ONCE PRN; Protocol PRN Reason: Hypoglycemia Protocol Dicyclomine HCl (Bentyl) 10 mg PO TID PRN PRN Reason: GI distress Docusate Sodium (Colace) 100 mg PO BID PRN PRN Reason: GI distress Enalaprilat (Vasotec Iv) 1.25 mg IV Q12 [facility] Last Admin: 12/26/17 09:40 Dose: 1.25 mg Enoxaparin Sodium (Lovenox) 40 mg SC DAILY [facility] PRN Reason: Protocol Last Admin: 12/26/17 09:30 Dose: 40 mg Ergocalciferol (Drisdol 50,000 Intl Units Cap) 1 cap PO WE [facility] Last Admin: 12/22/17 01:59 Dose: Not Given Famotidine (Pepcid) 20 mg PO BID [facility] Last Admin: 12/22/17 08:47 Dose: Not Given Fenofibrate (Tricor) 145 mg PO [facility] Glipizide (Glucotrol) 5 mg PO BID [facility] Last Admin: 12/22/17 08:45 Dose: Not Given Glucagon (Glucagen Diagnostic Kit) 0 mg IM STAT PRN; Protocol PRN Reason: Hypoglycemia Protocol Guaifenesin/Dextromethorphan (Mucinex-Dm 600-30 Mg) 1 tab PO BID [facility] Last Admin: 12/26/17 09:30 Dose: 1 tab Chromium/Copper/Manganese/Zinc 3 ml/ Multivitamins/Vitamin C 10 ml/ Amino Acids/ Electrolytes/Dextrose 2,013 mls @ 83 mls/hr IV .Q24H ONE Stop: 12/26/17 17:59 Last Admin: 12/25/17 21:20 Dose: 83 mls/hr Insulin Human Regular (Humulin R) 0 units SC Q6 [facility] PRN Reason: Protocol Last Admin: 12/26/17 04:50 Dose: 3 units Lisinopril (Zestril) 40 mg PO DAILY [facility] Last Admin: 12/22/17 08:49 Dose: Not Given Metformin HCl (Glucophage) 1,000 mg PO BID [facility] Last Admin: 12/22/17 08:45 Dose: Not Given Methimazole (Tapazole) 20 mg PO BID [facility] Last Admin: 12/22/17 08:47 Dose: Not Given Morphine Sulfate (Morphine) 2 mg IVP Q4 PRN PRN Reason: Pain, severe (8-10) Last Admin: 12/25/17 17:21 Dose: 2 mg Ondansetron HCl (Zofran Odt) 4 mg PO Q6 PRN PRN Reason: Nausea/Vomiting Pantoprazole Sodium (Protonix Inj) 40 mg IVP Q12H [facility] Last Admin: 12/26/17 09:30 Dose: 40 mg Tramadol HCl (Ultram) 50 mg PO Q8 PRN PRN Reason: Pain, severe (8-10) - Labs Labs: 12/25/17 05:05 12/25/17 05:05 PT 14.8 Seconds (9.8-13.1) H 12/20/17 16:40 INR 1.3 (0.9-1.2) H 12/20/17 16:40 APTT 31.1 Seconds (25.6-37.1) 12/20/17 16:40 - Constitutional Appears: Well, No Acute Distress - Head Exam Head Exam: ATRAUMATIC, NORMAL INSPECTION - Eye Exam Eye Exam: EOMI - ENT Exam ENT Exam: Mucous Membranes Moist - Neck Exam Neck Exam: Full ROM, Normal Inspection. absent: Meningismus - Respiratory Exam Respiratory Exam: Clear to Ausculation Bilateral, NORMAL BREATHING PATTERN - Cardiovascular Exam Cardiovascular Exam: REGULAR RHYTHM - GI/Abdominal Exam GI & Abdominal Exam: Soft, Tenderness (suprapubic and on LLQ around ESMER drain. ) , Normal Bowel Sounds. absent: Guarding, Rigid Additional comments: Dressing vertically on mid-abdomen, beneath umbilicus is intact and clean. - Extremities Exam Extremities Exam: Full ROM. absent: Calf Tenderness, Joint Swelling - Neurological Exam Neurological Exam: Alert, Awake, Oriented x3 - Psychiatric Exam Psychiatric exam: Normal Affect, Normal Mood Assessment and Plan - Assessment and Plan (Free Text) Assessment: 47 y/o F admitted for pelvic pain/left ovarian abscess. POD 5, s/p exploratory laporatomy for left ovarian cyst removal secondary to a TOA and enterorrhaphy Plan: 1. Pelvic pain/left ovarian abscess - s/p ex lap, cyst removal; ESMER drain intact - Pt remains afebrile, WBC down-trending 9.4 (12/25/17), 10.8 (12/24/17), down from 20 (12/23/17). - ESMER drain is draining serosanguineous fluid about 15 cc. - Blood cx from 12/20: No growth after 5 days. - Urine culture 12/20: Final, no growth - Wound cx 12/21: Final, E. 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 GTolentino PGY-1
[2017-12-26] MEDS ORDERED: metroNIDAZOLE 500mg/100ml NS 100 ML IVPB SCH (12:00)
[2017-12-26] MEDS ORDERED: Multivitamin (MVI) 10 ML, Chromium/Copper/Manganese/Zinc 3 ML in Amino/Dex E 4.25/10 10... IV ONE ×2 (12:30→18:00)
[2017-12-26] MEDS: Morphine 4 MG/ML VIAL IVP PRN (14:27)
--- NOTE | 2017-12-26 15:06 | CP.PCM.PN ---
Subjective - Date & Time of Evaluation Date of Evaluation: 12/27/15 Time of Evaluation: 15:00 - Subjective Subjective: I D NOTE AFEBRILE TOLERATING LIQUID DIET CONTINUE DOXYCYCLINE,FLAGLY,GENTAMICIN SHOULD HAVE F/U CT SCAN OF ABDOMEN/PELVIS Objective - Vital Signs/Intake and Output Vital Signs (last 24 hours): Temp Pulse Resp BP Pulse Ox 97.9 F 89 18 155/98 H 98 12/26/17 08:58 12/26/17 09:44 12/26/17 09:44 12/26/17 09:44 12/26/17 09:44 Intake and Output: 12/26/17 12/26/17 06:59 18:59 Intake Total 815 160 Balance 815 160 - Medications Medications: Current Medications Aspirin (Ecotrin) 81 mg PO HS [facility] Last Admin: 12/22/17 01:59 Dose: Not Given Dextrose (Dextrose 50% Inj) 0 ml IV STAT PRN; Protocol PRN Reason: Hypoglycemia Protocol Dextrose (Glutose 15) 0 gm PO ONCE PRN; Protocol PRN Reason: Hypoglycemia Protocol Dicyclomine HCl (Bentyl) 10 mg PO TID PRN PRN Reason: GI distress Docusate Sodium (Colace) 100 mg PO BID PRN PRN Reason: GI distress Enalaprilat (Vasotec Iv) 1.25 mg IV Q12 [facility] Last Admin: 12/26/17 09:40 Dose: 1.25 mg Enoxaparin Sodium (Lovenox) 40 mg SC DAILY [facility] PRN Reason: Protocol Last Admin: 12/26/17 09:30 Dose: 40 mg Ergocalciferol (Drisdol 50,000 Intl Units Cap) 1 cap PO WE [facility] Last Admin: 12/22/17 01:59 Dose: Not Given Famotidine (Pepcid) 20 mg PO BID [facility] Last Admin: 12/22/17 08:47 Dose: Not Given Fenofibrate (Tricor) 145 mg PO [facility] Glipizide (Glucotrol) 5 mg PO BID [facility] Last Admin: 12/22/17 08:45 Dose: Not Given Glucagon (Glucagen Diagnostic Kit) 0 mg IM STAT PRN; Protocol PRN Reason: Hypoglycemia Protocol Guaifenesin/Dextromethorphan (Mucinex-Dm 600-30 Mg) 1 tab PO BID [facility] Last Admin: 12/26/17 09:30 Dose: 1 tab Chromium/Copper/Manganese/Zinc 3 ml/ Multivitamins/Vitamin C 10 ml/ Amino Acids/ Electrolytes/Dextrose 2,013 mls @ 83 mls/hr IV .Q24H ONE Stop: 12/26/17 17:59 Last Admin: 12/25/17 21:20 Dose: 83 mls/hr Metronidazole (Flagyl 500mg/100ml Ns) 100 mls @ 100 mls/hr IVPB Q8 [facility] PRN Reason: Protocol Last Admin: 12/26/17 12:45 Dose: 100 mls/hr Doxycycline Hyclate 100 mg/ (Sodium Chloride) 100 mls @ 100 mls/hr IVPB Q12 [facility] PRN Reason: Protocol Last Admin: 12/26/17 14:17 Dose: 100 mls/hr Gentamicin Sulfate 180 mg/ (Sodium Chloride) 254.5 mls @ 100 mls/hr IVPB DAILY [facility] PRN Reason: Protocol Multivitamins/Vitamin C 10 ml/Chromium/Copper/Manganese/Zinc 3 ml/ Amino Acids/ Electrolytes/Dextrose 2,013 mls @ 83 mls/hr IV .Q24H ONE Stop: 12/27/17 17:59 Insulin Human Regular (Humulin R) 0 units SC Q6 [facility] PRN Reason: Protocol Last Admin: 12/26/17 11:31 Dose: 10 units Lisinopril (Zestril) 40 mg PO DAILY [facility] Last Admin: 12/22/17 08:49 Dose: Not Given Metformin HCl (Glucophage) 1,000 mg PO BID [facility] Last Admin: 12/22/17 08:45 Dose: Not Given Methimazole (Tapazole) 20 mg PO BID [facility] Last Admin: 12/22/17 08:47 Dose: Not Given Morphine Sulfate (Morphine) 2 mg IVP Q4 PRN PRN Reason: Pain, severe (8-10) Last Admin: 12/26/17 14:27 Dose: 2 mg Ondansetron HCl (Zofran Odt) 4 mg PO Q6 PRN PRN Reason: Nausea/Vomiting Pantoprazole Sodium (Protonix Inj) 40 mg IVP Q12H [facility] Last Admin: 12/26/17 09:30 Dose: 40 mg Tramadol HCl (Ultram) 50 mg PO Q8 PRN PRN Reason: Pain, severe (8-10) - Labs Labs: 12/25/17 05:05 12/25/17 05:05 PT 14.8 Seconds (9.8-13.1) H 12/20/17 16:40 INR 1.3 (0.9-1.2) H 12/20/17 16:40 APTT 31.1 Seconds (25.6-37.1) 12/20/17 16:40
[2017-12-26] MEDS ORDERED: Povidone Iodine Topical 10% Sol ONE (16:36)
--- NOTE | 2017-12-26 19:38 | CP.PCM.PN ---
Subjective - Date & Time of Evaluation Date of Evaluation: 12/26/17 Time of Evaluation: 13:00 - Subjective Subjective: Patient was able to tolerate liquids Had a bm today Has no fever Has slight pain on the RLQ area WBC is normal Noted elevated BP Objective - Vital Signs/Intake and Output Vital Signs (last 24 hours): Temp Pulse Resp BP Pulse Ox 98.6 F 83 18 157/88 H 99 12/26/17 16:25 12/26/17 16:25 12/26/17 16:25 12/26/17 16:25 12/26/17 16:25 Intake and Output: 12/26/17 12/27/17 18:59 06:59 Intake Total 160 Balance 160 - Medications Medications: Current Medications Aspirin (Ecotrin) 81 mg PO HS [facility] Last Admin: 12/22/17 01:59 Dose: Not Given Dextrose (Dextrose 50% Inj) 0 ml IV STAT PRN; Protocol PRN Reason: Hypoglycemia Protocol Dextrose (Glutose 15) 0 gm PO ONCE PRN; Protocol PRN Reason: Hypoglycemia Protocol Dicyclomine HCl (Bentyl) 10 mg PO TID PRN PRN Reason: GI distress Docusate Sodium (Colace) 100 mg PO BID PRN PRN Reason: GI distress Enoxaparin Sodium (Lovenox) 40 mg SC DAILY [facility] PRN Reason: Protocol Last Admin: 12/26/17 09:30 Dose: 40 mg Ergocalciferol (Drisdol 50,000 Intl Units Cap) 1 cap PO [facility] Last Admin: 12/22/17 01:59 Dose: Not Given Famotidine (Pepcid) 20 mg PO BID [facility] Last Admin: 12/22/17 08:47 Dose: Not Given Fenofibrate (Tricor) 145 mg PO [facility] Glipizide (Glucotrol) 5 mg PO BID [facility] Last Admin: 12/22/17 08:45 Dose: Not Given Glucagon (Glucagen Diagnostic Kit) 0 mg IM STAT PRN; Protocol PRN Reason: Hypoglycemia Protocol Guaifenesin/Dextromethorphan (Mucinex-Dm 600-30 Mg) 1 tab PO BID [facility] Last Admin: 12/26/17 17:19 Dose: 1 tab Doxycycline Hyclate 100 mg/ (Sodium Chloride) 100 mls @ 100 mls/hr IVPB Q12 [facility] PRN Reason: Protocol Last Admin: 12/26/17 14:17 Dose: 100 mls/hr Gentamicin Sulfate 180 mg/ (Sodium Chloride) 254.5 mls @ 100 mls/hr IVPB DAILY [facility] PRN Reason: Protocol Metronidazole (Flagyl 500mg/100ml Ns) 100 mls @ 100 mls/hr IVPB Q8@0400,1200, 2000 [facility] PRN Reason: Protocol Insulin Human Regular (Humulin R) 0 units SC Q6 [facility] PRN Reason: Protocol Last Admin: 12/26/17 17:19 Dose: 8 units Losartan Potassium (Cozaar) 100 mg PO DAILY [facility] Metformin HCl (Glucophage) 1,000 mg PO BID [facility] Last Admin: 12/22/17 08:45 Dose: Not Given Methimazole (Tapazole) 20 mg PO BID [facility] Last Admin: 12/22/17 08:47 Dose: Not Given Morphine Sulfate (Morphine) 2 mg IVP Q4 PRN PRN Reason: Pain, severe (8-10) Last Admin: 12/26/17 14:27 Dose: 2 mg Ondansetron HCl (Zofran Odt) 4 mg PO Q6 PRN PRN Reason: Nausea/Vomiting Pantoprazole Sodium (Protonix Inj) 40 mg IVP Q12H [facility] Last Admin: 12/26/17 09:30 Dose: 40 mg Tramadol HCl (Ultram) 50 mg PO Q8 PRN PRN Reason: Pain, severe (8-10) - Labs Labs: 12/25/17 05:05 12/25/17 05:05 PT 14.8 Seconds (9.8-13.1) H 12/20/17 16:40 INR 1.3 (0.9-1.2) H 12/20/17 16:40 APTT 31.1 Seconds (25.6-37.1) 12/20/17 16:40 - Head Exam Head Exam: NORMAL INSPECTION - Eye Exam Eye Exam: Normal appearance - ENT Exam ENT Exam: Mucous Membranes Moist - Respiratory Exam Respiratory Exam: Clear to Ausculation Bilateral, NORMAL BREATHING PATTERN - Cardiovascular Exam Cardiovascular Exam: REGULAR RHYTHM - GI/Abdominal Exam GI & Abdominal Exam: Normal Bowel Sounds - Neurological Exam Neurological Exam: Awake, Oriented x3 Assessment and Plan (1) Pelvic abscess Status: Acute (2) Abdominal pain Status: Acute (3) Complicated UTI (urinary tract infection) Status: Acute (4) Ovarian mass, left Status: Acute (5) Uncontrolled diabetes mellitus Status: Acute - Assessment and Plan (Free Text) Plan: Cont meds Cont tx advance diet to full then soft cont meds start Phys therapy hydrate cbc cmp in am.
[2017-12-26] MEDS: metroNIDAZOLE 500mg/100ml NS 100 ML IVPB SCH (20:02)
[2017-12-26] MEDS: GENTAMICIN IVPB SCH (20:03)
[2017-12-26] MEDS: SODIUM CHLORIDE 0.9% IVPB SCH (20:03)
[2017-12-27] MEDS ORDERED: Amino/Dex E 4.25/10 1000 ML 1,000 ML IV ONE (01:00)
[2017-12-27] MEDS: Morphine 4 MG/ML VIAL IVP PRN (02:37)
[2017-12-27] MEDS: Insulin Regular 100 units/ml SC SCH ×4 (04:13→22:35)
[2017-12-27] MEDS: metroNIDAZOLE 500mg/100ml NS 100 ML IVPB SCH ×3 (04:15→20:27)
--- NOTE | 2017-12-27 06:21 | CP.PCM.PN ---
<Shruthi Boo - Last Filed: 12/27/17 06:29> Subjective - Date & Time of Evaluation Date of Evaluation: 12/27/17 Time of Evaluation: 06:21 - Subjective Subjective: OBGYN Progress Note 47 YO admitted for abdominal pain, ovarian abscess POD6; S/p ex laparotomy for left TOA, removal of left ovarian cyst and enterorrhaphy No acute overnight events. Diet was advanced yesterday to heart healthy diet. Pt is tolerating diet, is having regular BM. Pt endorsing pain in the lower pelvis around the incision site, pain is 6/10 at worst but tolerable with pain meds. Pt is ambulating around the room and to the bathroom without any difficulties. Denies chest pain, dyspnea, palpitations, n/v/d/c and remains afebrile. ESMER still intact--draining ~ 10cc serosangunious fluid Objective - Vital Signs/Intake and Output Vital Signs (last 24 hours): Temp Pulse Resp BP Pulse Ox 98.4 F 95 H 20 143/81 99 12/26/17 23:43 12/26/17 23:43 12/26/17 23:43 12/26/17 23:43 12/26/17 23:43 Intake and Output: 12/26/17 12/27/17 18:59 06:59 Intake Total 160 Output Total 5 Balance 160 -5 - Medications Medications: Current Medications Aspirin (Ecotrin) 81 mg PO [facility] Last Admin: 12/22/17 01:59 Dose: Not Given Dextrose (Dextrose 50% Inj) 0 ml IV STAT PRN; Protocol PRN Reason: Hypoglycemia Protocol Dextrose (Glutose 15) 0 gm PO ONCE PRN; Protocol PRN Reason: Hypoglycemia Protocol Dicyclomine HCl (Bentyl) 10 mg PO TID PRN PRN Reason: GI distress Docusate Sodium (Colace) 100 mg PO BID PRN PRN Reason: GI distress Enoxaparin Sodium (Lovenox) 40 mg SC DAILY [facility] PRN Reason: Protocol Last Admin: 12/26/17 09:30 Dose: 40 mg Ergocalciferol (Drisdol 50,000 Intl Units Cap) 1 cap PO WE [facility] Last Admin: 12/22/17 01:59 Dose: Not Given Famotidine (Pepcid) 20 mg PO BID [facility] Last Admin: 12/22/17 08:47 Dose: Not Given Fenofibrate (Tricor) 145 mg PO [facility] Glipizide (Glucotrol) 5 mg PO BID [facility] Last Admin: 12/22/17 08:45 Dose: Not Given Glucagon (Glucagen Diagnostic Kit) 0 mg IM STAT PRN; Protocol PRN Reason: Hypoglycemia Protocol Guaifenesin/Dextromethorphan (Mucinex-Dm 600-30 Mg) 1 tab PO BID [facility] Last Admin: 12/26/17 17:19 Dose: 1 tab Doxycycline Hyclate 100 mg/ (Sodium Chloride) 100 mls @ 100 mls/hr IVPB Q12 [facility] PRN Reason: Protocol Last Admin: 12/26/17 20:44 Dose: Not Given Gentamicin Sulfate 180 mg/ (Sodium Chloride) 254.5 mls @ 100 mls/hr IVPB DAILY [facility] PRN Reason: Protocol Last Admin: 12/26/17 20:03 Dose: 100 mls/hr Metronidazole (Flagyl 500mg/100ml Ns) 100 mls @ 100 mls/hr IVPB Q8@0400,1200, 2000 [facility] PRN Reason: Protocol Last Admin: 12/27/17 04:15 Dose: 100 mls/hr Insulin Human Regular (Humulin R) 0 units SC Q6 [facility] PRN Reason: Protocol Last Admin: 12/27/17 04:13 Dose: Not Given Losartan Potassium (Cozaar) 100 mg PO DAILY [facility] Metformin HCl (Glucophage) 1,000 mg PO BID [facility] Last Admin: 12/22/17 08:45 Dose: Not Given Methimazole (Tapazole) 20 mg PO BID [facility] Last Admin: 12/22/17 08:47 Dose: Not Given Morphine Sulfate (Morphine) 2 mg IVP Q4 PRN PRN Reason: Pain, severe (8-10) Last Admin: 12/27/17 02:37 Dose: 2 mg Ondansetron HCl (Zofran Odt) 4 mg PO Q6 PRN PRN Reason: Nausea/Vomiting Pantoprazole Sodium (Protonix Inj) 40 mg IVP Q12H [facility] Last Admin: 12/26/17 20:03 Dose: 40 mg Tramadol HCl (Ultram) 50 mg PO Q8 PRN PRN Reason: Pain, severe (8-10) - Labs Labs: 12/25/17 05:05 12/25/17 05:05 PT 14.8 Seconds (9.8-13.1) H 12/20/17 16:40 INR 1.3 (0.9-1.2) H 12/20/17 16:40 APTT 31.1 Seconds (25.6-37.1) 12/20/17 16:40 - Constitutional Appears: No Acute Distress - Head Exam Head Exam: ATRAUMATIC, NORMOCEPHALIC - Eye Exam Eye Exam: EOMI, Normal appearance - ENT Exam ENT Exam: Mucous Membranes Moist - Neck Exam Neck Exam: Full ROM - Respiratory Exam Respiratory Exam: Clear to Ausculation Bilateral, NORMAL BREATHING PATTERN - Cardiovascular Exam Cardiovascular Exam: REGULAR RHYTHM, +S1, +S2 - GI/Abdominal Exam GI & Abdominal Exam: Soft, Tenderness (to palpation of the RLQ and suprapubic area), Normal Bowel Sounds Additional comments: Incision site dressing intact. ESMER intact in RUQ, draining sero-sangunious fluids - Extremities Exam Extremities Exam: Full ROM. absent: Calf Tenderness, Pedal Edema, Tenderness - Neurological Exam Neurological Exam: Alert, Awake, Oriented x3 - Psychiatric Exam Psychiatric exam: Normal Affect, Normal Mood - Skin Skin Exam: Dry, Intact, Normal Color, Warm Assessment and Plan - Assessment and Plan (Free Text) Assessment: Assessment/Plan: 47 y/o Female admitted for pelvic pain/left ovarian abscess. POD 6, s/p exploratory laporatomy for left ovarian cyst removal secondary to a TOA and enterorrhaphy 1. Pelvic pain/left ovarian abscess - s/p cyst removal; ESMER drain intact - Pathology final; sig for endometriotic cysts and abscess - Pt remains afebrile, WBC down-trending 9.4 (12/25/17), 10.8 (12/24/17) from 20 (12/23/17). - ESMER drain is draining serosanguineous fluid ~ 10 cc. - Blood cx from 12/20: Final, no growth - Urine culture 2: Final, no growth - Wound cx 12/21: Final, E. Coli - Encourage ambulation, and incentive spirometry - Continue management as per primary team, ID and Surgery <Maren Love S - Last Filed: 12/27/17 15:20> Subjective - Subjective Subjective: Pt seen and examined by me. agree w/ above assessment and plan. Objective - Vital Signs/Intake and Output Vital Signs (last 24 hours): Temp Pulse Resp BP Pulse Ox 98.4 F 95 H 20 144/79 98 12/27/17 08:11 12/27/17 09:48 12/27/17 08:11 12/27/17 09:20 12/27/17 09:48 Intake and Output: 12/27/17 12/27/17 06:59 18:59 Output Total 5 Balance -5 - Medications Medications: Current Medications Aspirin (Ecotrin) 81 mg PO [facility] Last Admin: 12/22/17 01:59 Dose: Not Given Dextrose (Dextrose 50% Inj) 0 ml IV STAT PRN; Protocol PRN Reason: Hypoglycemia Protocol Dextrose (Glutose 15) 0 gm PO ONCE PRN; Protocol PRN Reason: Hypoglycemia Protocol Dicyclomine HCl (Bentyl) 10 mg PO TID PRN PRN Reason: GI distress Docusate Sodium (Colace) 100 mg PO BID PRN PRN Reason: GI distress Ergocalciferol (Drisdol 50,000 Intl Units Cap) 1 cap PO [facility] Last Admin: 12/22/17 01:59 Dose: Not Given Famotidine (Pepcid) 20 mg PO BID [facility] Last Admin: 12/22/17 08:47 Dose: Not Given Fenofibrate (Tricor) 145 mg PO [facility] Glipizide (Glucotrol) 5 mg PO BID [facility] Last Admin: 12/22/17 08:45 Dose: Not Given Glucagon (Glucagen Diagnostic Kit) 0 mg IM STAT PRN; Protocol PRN Reason: Hypoglycemia Protocol Guaifenesin/Dextromethorphan (Mucinex-Dm 600-30 Mg) 1 tab PO BID [facility] Last Admin: 12/27/17 09:21 Dose: 1 tab Doxycycline Hyclate 100 mg/ (Sodium Chloride) 100 mls @ 100 mls/hr IVPB Q12 [facility] PRN Reason: Protocol Last Admin: 12/27/17 09:22 Dose: 100 mls/hr Gentamicin Sulfate 180 mg/ (Sodium Chloride) 254.5 mls @ 100 mls/hr IVPB DAILY [facility] PRN Reason: Protocol Last Admin: 12/27/17 11:27 Dose: 100 mls/hr Metronidazole (Flagyl 500mg/100ml Ns) 100 mls @ 100 mls/hr IVPB Q8@0400,1200, 2000 [facility] PRN Reason: Protocol Last Admin: 12/27/17 11:27 Dose: 100 mls/hr Insulin Human Regular (Humulin R) 0 units SC ACHS [facility] PRN Reason: Protocol Losartan Potassium (Cozaar) 100 mg PO DAILY [facility] Last Admin: 12/27/17 09:20 Dose: 100 mg Metformin HCl (Glucophage) 1,000 mg PO BID [facility] Last Admin: 12/22/17 08:45 Dose: Not Given Methimazole (Tapazole) 20 mg PO BID [facility] Last Admin: 12/22/17 08:47 Dose: Not Given Ondansetron HCl (Zofran Odt) 4 mg PO Q6 PRN PRN Reason: Nausea/Vomiting Pantoprazole Sodium (Protonix Inj) 40 mg IVP Q12H [facility] Last Admin: 12/27/17 09:22 Dose: 40 mg Tramadol HCl (Ultram) 50 mg PO Q8 PRN PRN Reason: Pain, severe (8-10) - Labs Labs: 12/27/17 06:00 12/27/17 06:00 PT 14.8 Seconds (9.8-13.1) H 12/20/17 16:40 INR 1.3 (0.9-1.2) H 12/20/17 16:40 APTT 31.1 Seconds (25.6-37.1) 12/20/17 16:40
[2017-12-27 07:16] LABS: BASO % 0.3 % (0.0-2.0); EOS # 0.1 K/uL (0.0-0.7); EOS % 0.5 % (0.0-4.0); HEMOGLOBIN 10.1 g/dL (12.0-16.0); LYMPH # 1.5 K/uL (1.0-4.3); LYMPH % 12.4 % (20.0-40.0); MEAN CORPUSCULAR HEMOGLOBIN 25.6 pg (27.0-31.0); MEAN CORPUSCULAR HGB CONC 33.3 g/dL (33.0-37.0); MEAN PLATELET VOLUME 8.2 fl (7.2-11.7); MONO # 0.8 K/uL (0.0-0.8); MONO % 6.8 % (0.0-10.0); NEUT # 9.5 K/uL (1.8-7.0); NRBC % 0.2 % (0.0-0.0); RBC 3.94 Mil/uL (3.80-5.20); WHITE BLOOD COUNT 11.9 K/uL (4.8-10.8)
[2017-12-27 07:35] LABS: ALB/GLOB RATIO 0.7 (1.0-2.1); ALBUMIN 2.5 g/dL (3.5-5.0); ALT/SGPT 39 U/L (9-52); AST/SGOT 26 U/L (14-36); BLOOD UREA NITROGEN 13 mg/dl (7-17); CALCIUM 8.8 mg/dL (8.4-10.2); GFR AFRICAN-AMERICAN > 60; GFR NON-AFRICAN AMERICAN > 60
--- NOTE | 2017-12-27 08:23 | CP.PCM.PN ---
Subjective - Date & Time of Evaluation Date of Evaluation: 12/27/17 Time of Evaluation: 08:20 - Subjective Subjective: SURGERY NOTE FOR DR. LEVIN 47F seen and examined at bedside. Patient continues to complain of pain at lower midline incision site. Otherwise no other acute events overnight. Denies nausea/vomiting. She has been tolerating diet. Objective - Vital Signs/Intake and Output Vital Signs (last 24 hours): Temp Pulse Resp BP Pulse Ox 98.4 F 93 H 20 144/79 98 12/27/17 08:11 12/27/17 08:11 12/27/17 08:11 12/27/17 08:11 12/27/17 08:11 Intake and Output: 12/27/17 12/27/17 06:59 18:59 Output Total 5 Balance -5 - Medications Medications: Current Medications Aspirin (Ecotrin) 81 mg PO HS [facility] Last Admin: 12/22/17 01:59 Dose: Not Given Dextrose (Dextrose 50% Inj) 0 ml IV STAT PRN; Protocol PRN Reason: Hypoglycemia Protocol Dextrose (Glutose 15) 0 gm PO ONCE PRN; Protocol PRN Reason: Hypoglycemia Protocol Dicyclomine HCl (Bentyl) 10 mg PO TID PRN PRN Reason: GI distress Docusate Sodium (Colace) 100 mg PO BID PRN PRN Reason: GI distress Enoxaparin Sodium (Lovenox) 40 mg SC DAILY [facility] PRN Reason: Protocol Last Admin: 12/26/17 09:30 Dose: 40 mg Ergocalciferol (Drisdol 50,000 Intl Units Cap) 1 cap PO [facility] Last Admin: 12/22/17 01:59 Dose: Not Given Famotidine (Pepcid) 20 mg PO BID [facility] Last Admin: 12/22/17 08:47 Dose: Not Given Fenofibrate (Tricor) 145 mg PO [facility] Glipizide (Glucotrol) 5 mg PO BID [facility] Last Admin: 12/22/17 08:45 Dose: Not Given Glucagon (Glucagen Diagnostic Kit) 0 mg IM STAT PRN; Protocol PRN Reason: Hypoglycemia Protocol Guaifenesin/Dextromethorphan (Mucinex-Dm 600-30 Mg) 1 tab PO BID [facility] Last Admin: 12/26/17 17:19 Dose: 1 tab Doxycycline Hyclate 100 mg/ (Sodium Chloride) 100 mls @ 100 mls/hr IVPB Q12 [facility] PRN Reason: Protocol Last Admin: 12/26/17 20:44 Dose: Not Given Gentamicin Sulfate 180 mg/ (Sodium Chloride) 254.5 mls @ 100 mls/hr IVPB DAILY [facility] PRN Reason: Protocol Last Admin: 12/26/17 20:03 Dose: 100 mls/hr Metronidazole (Flagyl 500mg/100ml Ns) 100 mls @ 100 mls/hr IVPB Q8@0400,1200, 2000 [facility] PRN Reason: Protocol Last Admin: 12/27/17 04:15 Dose: 100 mls/hr Insulin Human Regular (Humulin R) 0 units SC Q6 [facility] PRN Reason: Protocol Last Admin: 12/27/17 04:13 Dose: Not Given Losartan Potassium (Cozaar) 100 mg PO DAILY [facility] Metformin HCl (Glucophage) 1,000 mg PO BID [facility] Last Admin: 12/22/17 08:45 Dose: Not Given Methimazole (Tapazole) 20 mg PO BID [facility] Last Admin: 12/22/17 08:47 Dose: Not Given Morphine Sulfate (Morphine) 2 mg IVP Q4 PRN PRN Reason: Pain, severe (8-10) Last Admin: 12/27/17 02:37 Dose: 2 mg Ondansetron HCl (Zofran Odt) 4 mg PO Q6 PRN PRN Reason: Nausea/Vomiting Pantoprazole Sodium (Protonix Inj) 40 mg IVP Q12H [facility] Last Admin: 12/26/17 20:03 Dose: 40 mg Tramadol HCl (Ultram) 50 mg PO Q8 PRN PRN Reason: Pain, severe (8-10) - Labs Labs: 12/27/17 06:00 12/27/17 06:00 PT 14.8 Seconds (9.8-13.1) H 12/20/17 16:40 INR 1.3 (0.9-1.2) H 12/20/17 16:40 APTT 31.1 Seconds (25.6-37.1) 12/20/17 16:40 - Constitutional Appears: Well, Non-toxic, No Acute Distress - Respiratory Exam Respiratory Exam: Clear to Ausculation Bilateral, NORMAL BREATHING PATTERN - Cardiovascular Exam Cardiovascular Exam: REGULAR RHYTHM, +S1, +S2 - GI/Abdominal Exam GI & Abdominal Exam: Soft, Tenderness. absent: Distended, Firm, Guarding, Rigid , Rebound Additional comments: incision packed Lower portion of midline incision draining sero-purulent material - Neurological Exam Neurological Exam: Alert, Awake Assessment and Plan - Assessment and Plan (Free Text) Assessment: 47F s/p ex-lap, removal of Tubo-ovarian abscess, repair of enterotomy POD#6 Plan: - Recommend narrowing of Antibiotics - Recommend Endocrine consult Further recs discuss with Dr. Christiano Grover, PGY2
[2017-12-27] MEDS: guaiFENesin-DM 600-30 mg ER Tab PO SCH ×2 (09:21→17:22)
[2017-12-27] MEDS: Enoxaparin 40 mg Syringe SC SCH (09:21)
[2017-12-27] MEDS: SODIUM CHLORIDE 0.9% IVPB SCH (11:27)
[2017-12-27] MEDS: GENTAMICIN IVPB SCH (11:27)
--- NOTE | 2017-12-27 14:15 | CP.PCM.PN ---
Subjective - Date & Time of Evaluation Date of Evaluation: 12/27/17 Time of Evaluation: 14:11 - Subjective Subjective: I D NOTE PATIENT STILL HAS ABDOMINAL PAIN STILL HAS SOME DRAINAGE DIET INCREASED POSITIVE BOWEL SOUNDS HAVE ORDERED CT SCAN OF ABDOMEN/PELVIS CONTINUE IV ANTIBIOTICS Objective - Vital Signs/Intake and Output Vital Signs (last 24 hours): Temp Pulse Resp BP Pulse Ox 98.4 F 95 H 20 144/79 98 12/27/17 08:11 12/27/17 09:48 12/27/17 08:11 12/27/17 09:20 12/27/17 09:48 Intake and Output: 12/27/17 12/27/17 06:59 18:59 Output Total 5 Balance -5 - Medications Medications: Current Medications Aspirin (Ecotrin) [address] [facility] Last Admin: 12/22/17 01:59 Dose: Not Given Dextrose (Dextrose 50% Inj) 0 ml IV STAT PRN; Protocol PRN Reason: Hypoglycemia Protocol Dextrose (Glutose 15) 0 gm PO ONCE PRN; Protocol PRN Reason: Hypoglycemia Protocol Dicyclomine HCl (Bentyl) 10 mg PO TID PRN PRN Reason: GI distress Docusate Sodium (Colace) 100 mg PO BID PRN PRN Reason: GI distress Ergocalciferol (Drisdol 50,000 Intl Units Cap) 1 cap PO [facility] Last Admin: 12/22/17 01:59 Dose: Not Given Famotidine (Pepcid) 20 mg PO BID [facility] Last Admin: 12/22/17 08:47 Dose: Not Given Fenofibrate (Tricor) [address] [facility] Glipizide (Glucotrol) 5 mg PO BID [facility] Last Admin: 12/22/17 08:45 Dose: Not Given Glucagon (Glucagen Diagnostic Kit) 0 mg IM STAT PRN; Protocol PRN Reason: Hypoglycemia Protocol Guaifenesin/Dextromethorphan (Mucinex-Dm 600-30 Mg) 1 tab PO BID [facility] Last Admin: 12/27/17 09:21 Dose: 1 tab Doxycycline Hyclate 100 mg/ (Sodium Chloride) 100 mls @ 100 mls/hr IVPB Q12 [facility] PRN Reason: Protocol Last Admin: 12/27/17 09:22 Dose: 100 mls/hr Gentamicin Sulfate 180 mg/ (Sodium Chloride) 254.5 mls @ 100 mls/hr IVPB DAILY [facility] PRN Reason: Protocol Last Admin: 12/27/17 11:27 Dose: 100 mls/hr Metronidazole (Flagyl 500mg/100ml Ns) 100 mls @ 100 mls/hr IVPB Q8@0400,1200, 2000 [facility] PRN Reason: Protocol Last Admin: 12/27/17 11:27 Dose: 100 mls/hr Insulin Human Regular (Humulin R) 0 units SC ACHS [facility] PRN Reason: Protocol Losartan Potassium (Cozaar) 100 mg PO DAILY [facility] Last Admin: 12/27/17 09:20 Dose: 100 mg Metformin HCl (Glucophage) 1,000 mg PO BID [facility] Last Admin: 12/22/17 08:45 Dose: Not Given Methimazole (Tapazole) 20 mg PO BID [facility] Last Admin: 12/22/17 08:47 Dose: Not Given Ondansetron HCl (Zofran Odt) 4 mg PO Q6 PRN PRN Reason: Nausea/Vomiting Pantoprazole Sodium (Protonix Inj) 40 mg IVP Q12H [facility] Last Admin: 12/27/17 09:22 Dose: 40 mg Tramadol HCl (Ultram) 50 mg PO Q8 PRN PRN Reason: Pain, severe (8-10) - Labs Labs: 12/27/17 06:00 12/27/17 06:00 PT 14.8 Seconds (9.8-13.1) H 12/20/17 16:40 INR 1.3 (0.9-1.2) H 12/20/17 16:40 APTT 31.1 Seconds (25.6-37.1) 12/20/17 16:40
[2017-12-27] MEDS ORDERED: Iohexol 300 100 ML IJ ONE (16:05)
[2017-12-27] MEDS ORDERED: Barium Sulfate Susp 2.1% w/v, 2.0% w/w 450 mL Bottle PO ONE (17:28)
[2017-12-28] MEDS ORDERED: Morphine 5 MG/ML SYRINGE IVP ONE (02:31)
[2017-12-28] MEDS: metroNIDAZOLE 500mg/100ml NS 100 ML IVPB SCH ×3 (04:01→20:22)
[2017-12-28] MEDS ORDERED: Barium Sulfate Susp 2.1% w/v, 2.0% w/w 450 mL Bottle PO ONE ×2 (06:00→07:30)
--- NOTE | 2017-12-28 06:55 | CP.PCM.PN ---
<Shruthi Boo - Last Filed: 12/28/17 06:46> Subjective - Date & Time of Evaluation Date of Evaluation: 12/28/17 Time of Evaluation: 06:46 - Subjective Subjective: 47 YO admitted for abdominal pain, ovarian abscess POD7; S/p ex laparotomy for left TOA, removal of left ovarian cyst and enterorrhaphy No acute overnight events. Pt is tolerating diet, is having regular BM. Endorsing pain in the lower pelvis, pain is worse at night but is improving. Pt is ambulating around the room and to the bathroom without any difficulties. Denies chest pain, dyspnea, palpitations, headache, n/v/d/c, chills and fever. ESMER still intact--draining ~ 7cc serosangunious fluid Objective - Vital Signs/Intake and Output Vital Signs (last 24 hours): Temp Pulse Resp BP Pulse Ox 99.4 F 94 H 18 136/80 99 12/28/17 01:00 12/28/17 01:00 12/28/17 01:00 12/28/17 01:00 12/28/17 01:00 Intake and Output: 12/27/17 12/28/17 18:59 06:59 Intake Total 240 Output Total 5 2 Balance -5 238 - Medications Medications: Current Medications Aspirin (Ecotrin) 81 mg PO [facility] Last Admin: 12/22/17 01:59 Dose: Not Given Barium Sulfate (Readi-Cat 2) 150 ml PO ONCE ONE Stop: 12/28/17 07:31 Dextrose (Dextrose 50% Inj) 0 ml IV STAT PRN; Protocol PRN Reason: Hypoglycemia Protocol Dextrose (Glutose 15) 0 gm PO ONCE PRN; Protocol PRN Reason: Hypoglycemia Protocol Dicyclomine HCl (Bentyl) 10 mg PO TID PRN PRN Reason: GI distress Docusate Sodium (Colace) 100 mg PO BID PRN PRN Reason: GI distress Ergocalciferol (Drisdol 50,000 Intl Units Cap) 1 cap PO [facility] Last Admin: 12/22/17 01:59 Dose: Not Given Famotidine (Pepcid) 20 mg PO BID [facility] Last Admin: 12/22/17 08:47 Dose: Not Given Fenofibrate (Tricor) 145 mg PO [facility] Glipizide (Glucotrol) 5 mg PO BID [facility] Last Admin: 12/22/17 08:45 Dose: Not Given Glucagon (Glucagen Diagnostic Kit) 0 mg IM STAT PRN; Protocol PRN Reason: Hypoglycemia Protocol Guaifenesin/Dextromethorphan (Mucinex-Dm 600-30 Mg) 1 tab PO BID [facility] Last Admin: 12/27/17 17:22 Dose: 1 tab Doxycycline Hyclate 100 mg/ (Sodium Chloride) 100 mls @ 100 mls/hr IVPB Q12 [facility] PRN Reason: Protocol Last Admin: 12/27/17 20:27 Dose: 100 mls/hr Gentamicin Sulfate 180 mg/ (Sodium Chloride) 254.5 mls @ 100 mls/hr IVPB DAILY [facility] PRN Reason: Protocol Last Admin: 12/27/17 11:27 Dose: 100 mls/hr Metronidazole (Flagyl 500mg/100ml Ns) 100 mls @ 100 mls/hr IVPB Q8@0400,1200, 2000 [facility] PRN Reason: Protocol Last Admin: 12/28/17 04:01 Dose: 100 mls/hr Insulin Human Regular (Humulin R) 0 units SC ACHS [facility] PRN Reason: Protocol Last Admin: 12/27/17 22:35 Dose: Not Given Losartan Potassium (Cozaar) 100 mg PO DAILY [facility] Last Admin: 12/27/17 09:20 Dose: 100 mg Metformin HCl (Glucophage) 1,000 mg PO BID [facility] Last Admin: 12/22/17 08:45 Dose: Not Given Methimazole (Tapazole) 20 mg PO BID [facility] Last Admin: 12/22/17 08:47 Dose: Not Given Ondansetron HCl (Zofran Odt) 4 mg PO Q6 PRN PRN Reason: Nausea/Vomiting Pantoprazole Sodium (Protonix Inj) 40 mg IVP Q12H [facility] Last Admin: 12/27/17 21:11 Dose: 40 mg Tramadol HCl (Ultram) 50 mg PO Q8 PRN PRN Reason: Pain, severe (8-10) - Labs Labs: 12/27/17 06:00 12/27/17 06:00 PT 14.8 Seconds (9.8-13.1) H 12/20/17 16:40 INR 1.3 (0.9-1.2) H 12/20/17 16:40 APTT 31.1 Seconds (25.6-37.1) 12/20/17 16:40 - Constitutional Appears: No Acute Distress - Head Exam Head Exam: ATRAUMATIC, NORMOCEPHALIC - Eye Exam Eye Exam: EOMI, Normal appearance - ENT Exam ENT Exam: Mucous Membranes Moist - Neck Exam Neck Exam: Full ROM - Respiratory Exam Respiratory Exam: Clear to Ausculation Bilateral, NORMAL BREATHING PATTERN. absent: Rales, Rhonchi, Wheezes - Cardiovascular Exam Cardiovascular Exam: REGULAR RHYTHM, +S1, +S2 - GI/Abdominal Exam GI & Abdominal Exam: Soft, Tenderness (To palpation of the RLQ and around incision site in the supra-pubic area ), Normal Bowel Sounds. absent: Distended , Guarding Additional comments: Wound dressing intact-small amount of drainage noted on dressing in the supra pubic area ESMER intact in RUQ-draining sero-sanguinous fluid, ~2cc seen in ESMER - Extremities Exam Extremities Exam: Full ROM. absent: Calf Tenderness, Pedal Edema - Neurological Exam Neurological Exam: Alert, Awake, Oriented x3 - Psychiatric Exam Psychiatric exam: Normal Affect, Normal Mood - Skin Skin Exam: Intact, Normal Color, Warm Assessment and Plan - Assessment and Plan (Free Text) Assessment: Assessment/Plan: 47 y/o Female admitted for pelvic pain/left ovarian abscess. POD 7, s/p exploratory laporatomy for left ovarian cyst removal secondary to a TOA and enterorrhaphy. Pelvic pain/left ovarian abscess - s/p cyst removal; ESMER drain intact - Pathology final; sig for endometriotic cysts and abscess - Pt remains afebrile, CBC 11.9 (12/27), from 9.4 (12/25/17), 10.8 (12/24/17) - ESMER drain is draining serosanguineous fluid ~ 7 cc. - Blood and urine cx from 12/20: Final, no growth - Wound cx 12/21: Final, E. Coli - CT abdomen/pelvis pending 12/28/17 - Encourage ambulation, and incentive spirometry - Continue management as per primary team, ID and Surgery <Lupillo Prince - Last Filed: 12/29/17 07:49> Objective - Vital Signs/Intake and Output Vital Signs (last 24 hours): Temp Pulse Resp BP Pulse Ox 98 F 89 20 145/90 99 12/29/17 07:46 12/29/17 07:46 12/29/17 07:46 12/29/17 07:46 12/29/17 07:46 - Medications Medications: Current Medications Aspirin (Ecotrin) 81 mg PO HS [facility] Last Admin: 12/22/17 01:59 Dose: Not Given Dextrose (Dextrose 50% Inj) 0 ml IV STAT PRN; Protocol PRN Reason: Hypoglycemia Protocol Dextrose (Glutose 15) 0 gm PO ONCE PRN; Protocol PRN Reason: Hypoglycemia Protocol Dicyclomine HCl (Bentyl) 10 mg PO TID PRN PRN Reason: GI distress Docusate Sodium (Colace) 100 mg PO BID PRN PRN Reason: GI distress Ergocalciferol (Drisdol 50,000 Intl Units Cap) 1 cap PO [facility] Last Admin: 12/22/17 01:59 Dose: Not Given Famotidine (Pepcid) 20 mg PO BID [facility] Last Admin: 12/22/17 08:47 Dose: Not Given Fenofibrate (Tricor) 145 mg PO [facility] Glipizide (Glucotrol) 5 mg PO BID [facility] Last Admin: 12/22/17 08:45 Dose: Not Given Glucagon (Glucagen Diagnostic Kit) 0 mg IM STAT PRN; Protocol PRN Reason: Hypoglycemia Protocol Guaifenesin/Dextromethorphan (Mucinex-Dm 600-30 Mg) 1 tab PO BID [facility] Last Admin: 12/28/17 16:25 Dose: 1 tab Doxycycline Hyclate 100 mg/ (Sodium Chloride) 100 mls @ 100 mls/hr IVPB Q12 [facility] PRN Reason: Protocol Last Admin: 12/28/17 20:22 Dose: 100 mls/hr Gentamicin Sulfate 180 mg/ (Sodium Chloride) 254.5 mls @ 100 mls/hr IVPB DAILY [facility] PRN Reason: Protocol Last Admin: 12/28/17 09:25 Dose: 100 mls/hr Metronidazole (Flagyl 500mg/100ml Ns) 100 mls @ 100 mls/hr IVPB Q8@0400,1200, 2000 [facility] PRN Reason: Protocol Last Admin: 12/29/17 04:01 Dose: 100 mls/hr Insulin Human Regular (Humulin R) 0 units SC ACHS [facility] PRN Reason: Protocol Last Admin: 12/28/17 21:16 Dose: Not Given Losartan Potassium (Cozaar) 100 mg PO DAILY [facility] Last Admin: 12/28/17 09:22 Dose: 100 mg Metformin HCl (Glucophage) 1,000 mg PO BID [facility] Last Admin: 12/22/17 08:45 Dose: Not Given Methimazole (Tapazole) 20 mg PO BID [facility] Last Admin: 12/22/17 08:47 Dose: Not Given Morphine Sulfate (Morphine) 2 mg IVP Q4 PRN PRN Reason: Pain, severe (8-10) Last Admin: 12/28/17 23:25 Dose: 2 mg Ondansetron HCl (Zofran Odt) 4 mg PO Q6 PRN PRN Reason: Nausea/Vomiting Pantoprazole Sodium (Protonix Inj) 40 mg IVP Q12H [facility] Last Admin: 12/28/17 20:26 Dose: 40 mg Tramadol HCl (Ultram) 50 mg PO Q8 PRN PRN Reason: Pain, severe (8-10) - Labs Labs: 12/28/17 07:51 12/28/17 07:51 PT 14.8 Seconds (9.8-13.1) H 12/20/17 16:40 INR 1.3 (0.9-1.2) H 12/20/17 16:40 APTT 31.1 Seconds (25.6-37.1) 12/20/17 16:40 Assessment and Plan - Assessment and Plan (Free Text) Plan: OB Hospitalist on-call. on rounds, I saw her. She has markedly improved. Her questions answered. PATRICIA
--- NOTE | 2017-12-28 07:45 | CP.PCM.PN ---
Subjective - Date & Time of Evaluation Date of Evaluation: 12/28/17 Time of Evaluation: 07:45 - Subjective Subjective: General Surgery Note for Dr. Alvarado Patient seen and examined at bedside. No acute event overnight. Patient complains of pain at inferior pole of midline incision. Denies nausea/vomiting. Tolerating diet. She is passing gas and having BMs. Objective - Vital Signs/Intake and Output Vital Signs (last 24 hours): Temp Pulse Resp BP Pulse Ox 99.4 F 94 H 18 136/80 99 12/28/17 01:00 12/28/17 01:00 12/28/17 01:00 12/28/17 01:00 12/28/17 01:00 Intake and Output: 12/28/17 12/28/17 06:59 18:59 Intake Total 240 Output Total 2 Balance 238 - Medications Medications: Current Medications Aspirin (Ecotrin) 81 mg PO [facility] Last Admin: 12/22/17 01:59 Dose: Not Given Dextrose (Dextrose 50% Inj) 0 ml IV STAT PRN; Protocol PRN Reason: Hypoglycemia Protocol Dextrose (Glutose 15) 0 gm PO ONCE PRN; Protocol PRN Reason: Hypoglycemia Protocol Dicyclomine HCl (Bentyl) 10 mg PO TID PRN PRN Reason: GI distress Docusate Sodium (Colace) 100 mg PO BID PRN PRN Reason: GI distress Ergocalciferol (Drisdol 50,000 Intl Units Cap) 1 cap PO [facility] Last Admin: 12/22/17 01:59 Dose: Not Given Famotidine (Pepcid) 20 mg PO BID [facility] Last Admin: 12/22/17 08:47 Dose: Not Given Fenofibrate (Tricor) 145 mg PO [facility] Glipizide (Glucotrol) 5 mg PO BID [facility] Last Admin: 12/22/17 08:45 Dose: Not Given Glucagon (Glucagen Diagnostic Kit) 0 mg IM STAT PRN; Protocol PRN Reason: Hypoglycemia Protocol Guaifenesin/Dextromethorphan (Mucinex-Dm 600-30 Mg) 1 tab PO BID [facility] Last Admin: 12/27/17 17:22 Dose: 1 tab Doxycycline Hyclate 100 mg/ (Sodium Chloride) 100 mls @ 100 mls/hr IVPB Q12 [facility] PRN Reason: Protocol Last Admin: 12/27/17 20:27 Dose: 100 mls/hr Gentamicin Sulfate 180 mg/ (Sodium Chloride) 254.5 mls @ 100 mls/hr IVPB DAILY [facility] PRN Reason: Protocol Last Admin: 12/27/17 11:27 Dose: 100 mls/hr Metronidazole (Flagyl 500mg/100ml Ns) 100 mls @ 100 mls/hr IVPB Q8@0400,1200, 2000 [facility] PRN Reason: Protocol Last Admin: 12/28/17 04:01 Dose: 100 mls/hr Insulin Human Regular (Humulin R) 0 units SC ACHS [facility] PRN Reason: Protocol Last Admin: 12/27/17 22:35 Dose: Not Given Losartan Potassium (Cozaar) 100 mg PO DAILY [facility] Last Admin: 12/27/17 09:20 Dose: 100 mg Metformin HCl (Glucophage) 1,000 mg PO BID [facility] Last Admin: 12/22/17 08:45 Dose: Not Given Methimazole (Tapazole) 20 mg PO BID [facility] Last Admin: 12/22/17 08:47 Dose: Not Given Ondansetron HCl (Zofran Odt) 4 mg PO Q6 PRN PRN Reason: Nausea/Vomiting Pantoprazole Sodium (Protonix Inj) 40 mg IVP Q12H [facility] Last Admin: 12/27/17 21:11 Dose: 40 mg Tramadol HCl (Ultram) 50 mg PO Q8 PRN PRN Reason: Pain, severe (8-10) - Labs Labs: 12/27/17 06:00 12/27/17 06:00 PT 14.8 Seconds (9.8-13.1) H 12/20/17 16:40 INR 1.3 (0.9-1.2) H 12/20/17 16:40 APTT 31.1 Seconds (25.6-37.1) 12/20/17 16:40 - Constitutional Appears: No Acute Distress - Head Exam Head Exam: ATRAUMATIC, NORMOCEPHALIC - Eye Exam Eye Exam: EOMI, Normal appearance Pupil Exam: PERRL - ENT Exam ENT Exam: Mucous Membranes Moist - Respiratory Exam Respiratory Exam: NORMAL BREATHING PATTERN - Cardiovascular Exam Cardiovascular Exam: REGULAR RHYTHM - GI/Abdominal Exam GI & Abdominal Exam: Soft, Tenderness (lower portion of incision (suprapubic)), Normal Bowel Sounds. absent: Distended, Firm, Guarding, Rigid, Rebound Additional comments: incision with packing, draining sero-purulent fluid dressing changed - clean, dry, intact - Neurological Exam Neurological Exam: Alert, Awake, Oriented x3 - Psychiatric Exam Psychiatric exam: Normal Affect, Normal Mood - Skin Skin Exam: Dry, Warm Assessment and Plan - Assessment and Plan (Free Text) Plan: 47F s/p ex-lap, removal of Tubo-ovarian abscess, repair of enterotomy POD#7 - f/u CT scan ordered by ID - Pain control - Recommend narrowing of Antibiotics - Recommend Endocrine consult - Further recs discuss with Dr. Christiano Suggs PGY1
[2017-12-28 07:57] LABS: BASO % 0.2 % (0.0-2.0); EOS % 0.4 % (0.0-4.0); HEMOGLOBIN 9.7 g/dL (12.0-16.0); LYMPH # 1.2 K/uL (1.0-4.3); LYMPH % 10.5 % (20.0-40.0); MEAN CELL VOLUME 77.4 fl (81.0-99.0); MEAN CORPUSCULAR HEMOGLOBIN 25.8 pg (27.0-31.0); MEAN CORPUSCULAR HGB CONC 33.3 g/dL (33.0-37.0); MEAN PLATELET VOLUME 8.2 fl (7.2-11.7); MONO # 0.8 K/uL (0.0-0.8); MONO % 7.2 % (0.0-10.0); NEUT % 81.7 % (50.0-75.0); RBC 3.76 Mil/uL (3.80-5.20)
[2017-12-28 08:23] LABS: ALB/GLOB RATIO 0.7 (1.0-2.1); ALBUMIN 2.4 g/dL (3.5-5.0); ALT/SGPT 32 U/L (9-52); AST/SGOT 18 U/L (14-36); BLOOD UREA NITROGEN 12 mg/dl (7-17); CALCIUM 8.7 mg/dL (8.4-10.2); GFR AFRICAN-AMERICAN > 60; GFR NON-AFRICAN AMERICAN > 60
[2017-12-28] MEDS: SODIUM CHLORIDE 0.9% IVPB SCH (09:25)
[2017-12-28] MEDS: GENTAMICIN IVPB SCH (09:25)
[2017-12-28] MEDS: guaiFENesin-DM 600-30 mg ER Tab PO SCH ×2 (09:26→16:25)
[2017-12-28] MEDS: Insulin Regular 100 units/ml SC SCH ×4 (09:26→21:16)
[2017-12-28] MEDS ORDERED: Iohexol 300 50 ML ONE (10:15)
[2017-12-28] MEDS ORDERED: Morphine 4 MG/ML VIAL IVP PRN (11:56)
--- NOTE | 2017-12-28 12:40 | CP.PCM.PN ---
<Dell Nunes - Last Filed: 12/28/17 12:36> Subjective - Date & Time of Evaluation Date of Evaluation: 12/28/17 Time of Evaluation: 08:15 - Subjective Subjective: Patient seen and examined at bedside this morning. There are no acute events overnight, NAD. Patient s/p ex laparotomy with removal of infected left ovarian cyst and enterorrhaphy POD7. Patient denies abdominal pain, nausea, vomiting, or fever. Patient reports she has gas and bowel movement this morning. Patient tolerating PO w/o issue. Patient seen by [facility]INO[facility] OPERATOR and surgery. ESMER drain 5-7 cc. Objective - Vital Signs/Intake and Output Vital Signs (last 24 hours): Temp Pulse Resp BP Pulse Ox 98.0 F 89 19 136/80 98 12/28/17 08:08 12/28/17 09:22 12/28/17 08:08 12/28/17 09:22 12/28/17 08:08 Intake and Output: 12/28/17 12/28/17 06:59 18:59 Intake Total 240 Output Total 2 Balance 238 - Medications Medications: Current Medications Aspirin (Ecotrin) 81 mg PO HS [facility] Last Admin: 12/22/17 01:59 Dose: Not Given Dextrose (Dextrose 50% Inj) 0 ml IV STAT PRN; Protocol PRN Reason: Hypoglycemia Protocol Dextrose (Glutose 15) 0 gm PO ONCE PRN; Protocol PRN Reason: Hypoglycemia Protocol Dicyclomine HCl (Bentyl) 10 mg PO TID PRN PRN Reason: GI distress Docusate Sodium (Colace) 100 mg PO BID PRN PRN Reason: GI distress Ergocalciferol (Drisdol 50,000 Intl Units Cap) 1 cap PO [facility] Last Admin: 12/22/17 01:59 Dose: Not Given Famotidine (Pepcid) 20 mg PO BID [facility] Last Admin: 12/22/17 08:47 Dose: Not Given Fenofibrate (Tricor) 145 mg PO [facility] Glipizide (Glucotrol) 5 mg PO BID [facility] Last Admin: 12/22/17 08:45 Dose: Not Given Glucagon (Glucagen Diagnostic Kit) 0 mg IM STAT PRN; Protocol PRN Reason: Hypoglycemia Protocol Guaifenesin/Dextromethorphan (Mucinex-Dm 600-30 Mg) 1 tab PO BID [facility] Last Admin: 12/28/17 09:26 Dose: 1 tab Doxycycline Hyclate 100 mg/ (Sodium Chloride) 100 mls @ 100 mls/hr IVPB Q12 [facility] PRN Reason: Protocol Last Admin: 12/28/17 09:23 Dose: 100 mls/hr Gentamicin Sulfate 180 mg/ (Sodium Chloride) 254.5 mls @ 100 mls/hr IVPB DAILY [facility] PRN Reason: Protocol Last Admin: 12/28/17 09:25 Dose: 100 mls/hr Metronidazole (Flagyl 500mg/100ml Ns) 100 mls @ 100 mls/hr IVPB Q8@0400,1200, 2000 [facility] PRN Reason: Protocol Last Admin: 12/28/17 11:51 Dose: 100 mls/hr Insulin Human Regular (Humulin R) 0 units SC ACHS [facility] PRN Reason: Protocol Last Admin: 12/28/17 11:52 Dose: 4 units Losartan Potassium (Cozaar) 100 mg PO DAILY [facility] Last Admin: 12/28/17 09:22 Dose: 100 mg Metformin HCl (Glucophage) 1,000 mg PO BID [facility] Last Admin: 12/22/17 08:45 Dose: Not Given Methimazole (Tapazole) 20 mg PO BID [facility] Last Admin: 12/22/17 08:47 Dose: Not Given Morphine Sulfate (Morphine) 2 mg IVP Q4 PRN PRN Reason: Pain, severe (8-10) Ondansetron HCl (Zofran Odt) 4 mg PO Q6 PRN PRN Reason: Nausea/Vomiting Pantoprazole Sodium (Protonix Inj) 40 mg IVP Q12H [facility] Last Admin: 12/28/17 09:22 Dose: 40 mg Tramadol HCl (Ultram) 50 mg PO Q8 PRN PRN Reason: Pain, severe (8-10) - Labs Labs: 12/28/17 07:51 12/28/17 07:51 PT 14.8 Seconds (9.8-13.1) H 12/20/17 16:40 INR 1.3 (0.9-1.2) H 12/20/17 16:40 APTT 31.1 Seconds (25.6-37.1) 12/20/17 16:40 - Constitutional Appears: Non-toxic, No Acute Distress - Head Exam Head Exam: ATRAUMATIC, NORMAL INSPECTION, NORMOCEPHALIC - Eye Exam Eye Exam: Normal appearance - ENT Exam ENT Exam: Mucous Membranes Moist - Neck Exam Neck Exam: Full ROM. absent: Tenderness - Respiratory Exam Respiratory Exam: Clear to Ausculation Bilateral. absent: Accessory Muscle Use , Decreased Breath Sounds, Rales, Rhonchi, Wheezes, Respiratory Distress - Cardiovascular Exam Cardiovascular Exam: REGULAR RHYTHM. absent: Tachycardia - GI/Abdominal Exam GI & Abdominal Exam: Soft, Tenderness (at incision site ), Normal Bowel Sounds. absent: Distended Additional comments: incision site dressed, c/d/i, ESMER drain RUQ draining 5 cc serosanguinous fluid - Extremities Exam Extremities Exam: absent: Calf Tenderness, Pedal Edema, Tenderness Additional comments: PICC line in right upper extremity - Neurological Exam Neurological Exam: Alert, Awake, Oriented x3 - Skin Skin Exam: Dry, Intact, Normal Color, Warm Assessment and Plan (1) Abdominal pain Status: Acute (2) Ovarian cyst Status: Resolved - Assessment and Plan (Free Text) Plan: c/w present management, POD7 [facility] [employer] recommendations appreciated General surgery recommendations appreciated Infectious Disease recommendations appreciated - Blood cx 4/2: No growth 48Hrs - Urine culture 4/3: Final, no growth - Wound cx 4/3: E.coli - culture/Pathology 4/2: 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 f/u CT abdomen/pelvis w/ IV and PO contrast flagyl 500 mg IV Q8h day 8 gentamicin 180 mg IV daily day 8 doxycycline 100 mg IV Q12h day 9 losartan 100 mg PO daily for BP control protonix 40 mg IV Q12h pain control w/ Morphine 2 mg IV Q4 insulin sliding scale hypoglycemic protocol Patient tolerating PO monitor for acute changes encourage incentive spirometry encourage out of bed to chair DVT PPX: SCDs dispo planning DC tomorrow, continue IV abx at home via right arm PICC line <Bruce Blood - Last Filed: 12/29/17 22:26> Objective - Vital Signs/Intake and Output Vital Signs (last 24 hours): Temp Pulse Resp BP Pulse Ox 97.9 F 86 18 139/83 99 12/29/17 17:00 12/29/17 16:36 12/29/17 16:36 12/29/17 16:36 12/29/17 16:36 Intake and Output: 12/29/17 12/30/17 18:59 06:59 Output Total 3 Balance -3 - Medications Medications: Current Medications Acetaminophen (Tylenol 325mg Tab) 650 mg PO Q6 PRN PRN Reason: Pain, Mild (1-3) Last Admin: 12/29/17 11:31 Dose: 650 mg Aspirin (Ecotrin) 81 mg PO HS [facility] Last Admin: 12/22/17 01:59 Dose: Not Given Dextrose (Dextrose 50% Inj) 0 ml IV STAT PRN; Protocol PRN Reason: Hypoglycemia Protocol Dextrose (Glutose 15) 0 gm PO ONCE PRN; Protocol PRN Reason: Hypoglycemia Protocol Dicyclomine HCl (Bentyl) 10 mg PO TID PRN PRN Reason: GI distress Docusate Sodium (Colace) 100 mg PO BID PRN PRN Reason: GI distress Ergocalciferol (Drisdol 50,000 Intl Units Cap) 1 cap PO [facility] Last Admin: 12/22/17 01:59 Dose: Not Given Famotidine (Pepcid) 20 mg PO BID [facility] Last Admin: 12/22/17 08:47 Dose: Not Given Fenofibrate (Tricor) 145 mg PO [facility] Glipizide (Glucotrol) 5 mg PO BID [facility] Last Admin: 12/22/17 08:45 Dose: Not Given Glucagon (Glucagen Diagnostic Kit) 0 mg IM STAT PRN; Protocol PRN Reason: Hypoglycemia Protocol Guaifenesin/Dextromethorphan (Mucinex-Dm 600-30 Mg) 1 tab PO BID [facility] Last Admin: 12/29/17 17:29 Dose: 1 tab Gentamicin Sulfate 180 mg/ (Sodium Chloride) 254.5 mls @ 100 mls/hr IVPB DAILY [facility] PRN Reason: Protocol Last Admin: 12/29/17 08:19 Dose: 100 mls/hr Metronidazole (Flagyl 500mg/100ml Ns) 100 mls @ 100 mls/hr IVPB Q8 [facility] PRN Reason: Protocol Doxycycline Hyclate 100 mg/ (Sodium Chloride) 100 mls @ 100 mls/hr IVPB Q12 [facility] PRN Reason: Protocol Last Admin: 12/29/17 21:13 Dose: 100 mls/hr Insulin Human Regular (Humulin R) 0 units SC ACHS [facility] PRN Reason: Protocol Last Admin: 12/29/17 17:28 Dose: 8 units Losartan Potassium (Cozaar) 100 mg PO DAILY [facility] Last Admin: 12/29/17 08:17 Dose: 100 mg Metformin HCl (Glucophage) 1,000 mg PO BID [facility] Last Admin: 12/22/17 08:45 Dose: Not Given Methimazole (Tapazole) 20 mg PO BID [facility] Last Admin: 12/22/17 08:47 Dose: Not Given Morphine Sulfate (Morphine) 2 mg IVP Q4 PRN PRN Reason: Pain, severe (8-10) Last Admin: 12/28/17 23:25 Dose: 2 mg Ondansetron HCl (Zofran Odt) 4 mg PO Q6 PRN PRN Reason: Nausea/Vomiting Pantoprazole Sodium (Protonix Inj) 40 mg IVP DAILY [facility] Tramadol HCl (Ultram) 50 mg PO Q8 PRN PRN Reason: Pain, severe (8-10) - Labs Labs: 12/29/17 12:50 12/29/17 12:50 PT 14.8 Seconds (9.8-13.1) H 12/20/17 16:40 INR 1.3 (0.9-1.2) H 12/20/17 16:40 APTT 31.1 Seconds (25.6-37.1) 12/20/17 16:40 Assessment and Plan (1) Pelvic abscess Status: Acute (2) Abdominal pain Status: Acute (3) Complicated UTI (urinary tract infection) Status: Acute (4) Ovarian mass, left Status: Acute (5) Uncontrolled diabetes mellitus Status: Acute - Assessment and Plan (Free Text) Plan: I was present during evaluation and discussed with Dr Nunes re plans of care and mgt. Bruce Blood M.D.
--- NOTE | 2017-12-28 13:14 | CT ---
PROCEDURE: CT Abdomen and Pelvis with contrast HISTORY: intraabdominal and pelvic abscess COMPARISON: 12/07/2017, 12/10/2017, 12/20/2017. Serial CT scans abdomen and pelvis December 20, 2017 pelvic ultrasound TECHNIQUE: Contrast dose: 95 cc Omnipaque 300. Radiation dose: Total exam DLP = 480.87 taylor mGy-cm. This CT exam was performed using one or more of the following dose reduction techniques: Automated exposure control, adjustment of the mA and/or kV according to patient size, and/or use of iterative reconstruction technique. FINDINGS: LOWER THORAX: Unremarkable. LIVER: Unremarkable. No gross lesion or ductal dilatation. GALLBLADDER AND BILE DUCTS: Unremarkable. PANCREAS: Unremarkable. No gross lesion or ductal dilatation. SPLEEN: Unremarkable. ADRENALS: Unremarkable. No mass. KIDNEYS AND URETERS: Unremarkable. No hydronephrosis. No solid mass. VASCULATURE: Unremarkable. No aortic aneurysm. BOWEL: Unremarkable. No obstruction. No gross mural thickening. APPENDIX: A normal appendix is not visualized. PERITONEUM: Free air identified consistent with prior surgery. Small ocular also subdiaphragmatic air identified. Additional ocular also apparent pelvis. LYMPH NODES: Unremarkable. No enlarged lymph nodes. BLADDER: Unremarkable. REPRODUCTIVE: The uterus is indistinguishable from multiloculated abscess ease/fluid collections including the more anterior collection to the left of the midline previously this collection with an air-fluid level measured 7.6 x 7.9 cm at the same axial images this now measures 4.6 x 5.8 cm. There is not communication between this collection and a multiloculated abscess in the cul-de-sac interposed between the uterus and the rectum. This measures approximately 4.2 x 7.2 cm. BONES: No acute fracture. OTHER FINDINGS: Postoperative changes anterior abdominal pelvic wall. IMPRESSION: Complex multiloculated inflammatory process/abscess in the pelvis. The more anterior and left-sided component has decreased in size compared to the prior preoperative study an measurements are provided in the commentary. The multiloculated collection in the pelvis is more ill-defined on the current study extending from the posterior wall of the uterus to the rectum. Additional postoperative findings described above.
--- NOTE | 2017-12-28 14:25 | CP.PCM.PN ---
Subjective - Date & Time of Evaluation Date of Evaluation: 12/28/17 Time of Evaluation: 14:20 - Subjective Subjective: I D NOTE STILL C PAIN BUT IMPRONING HAS SOME DRAINAGE 7CC CT REVIEWED PATIENT STILL NEEDING IV ANTIBIOTICS Objective - Vital Signs/Intake and Output Vital Signs (last 24 hours): Temp Pulse Resp BP Pulse Ox 98.0 F 89 19 136/80 98 12/28/17 08:08 12/28/17 09:22 12/28/17 08:08 12/28/17 09:22 12/28/17 08:08 Intake and Output: 12/28/17 12/28/17 06:59 18:59 Intake Total 240 Output Total 2 Balance 238 - Medications Medications: Current Medications Aspirin (Ecotrin) 81 mg PO HS [facility] Last Admin: 12/22/17 01:59 Dose: Not Given Dextrose (Dextrose 50% Inj) 0 ml IV STAT PRN; Protocol PRN Reason: Hypoglycemia Protocol Dextrose (Glutose 15) 0 gm PO ONCE PRN; Protocol PRN Reason: Hypoglycemia Protocol Dicyclomine HCl (Bentyl) 10 mg PO TID PRN PRN Reason: GI distress Docusate Sodium (Colace) 100 mg PO BID PRN PRN Reason: GI distress Ergocalciferol (Drisdol 50,000 Intl Units Cap) 1 cap PO WE [facility] Last Admin: 12/22/17 01:59 Dose: Not Given Famotidine (Pepcid) 20 mg PO BID [facility] Last Admin: 12/22/17 08:47 Dose: Not Given Fenofibrate (Tricor) 145 mg PO [facility] Glipizide (Glucotrol) 5 mg PO BID [facility] Last Admin: 12/22/17 08:45 Dose: Not Given Glucagon (Glucagen Diagnostic Kit) 0 mg IM STAT PRN; Protocol PRN Reason: Hypoglycemia Protocol Guaifenesin/Dextromethorphan (Mucinex-Dm 600-30 Mg) 1 tab PO BID [facility] Last Admin: 12/28/17 09:26 Dose: 1 tab Doxycycline Hyclate 100 mg/ (Sodium Chloride) 100 mls @ 100 mls/hr IVPB Q12 [facility] PRN Reason: Protocol Last Admin: 12/28/17 09:23 Dose: 100 mls/hr Gentamicin Sulfate 180 mg/ (Sodium Chloride) 254.5 mls @ 100 mls/hr IVPB DAILY [facility] PRN Reason: Protocol Last Admin: 12/28/17 09:25 Dose: 100 mls/hr Metronidazole (Flagyl 500mg/100ml Ns) 100 mls @ 100 mls/hr IVPB Q8@0400,1200, 2000 [facility] PRN Reason: Protocol Last Admin: 12/28/17 11:51 Dose: 100 mls/hr Insulin Human Regular (Humulin R) 0 units SC ACHS [facility] PRN Reason: Protocol Last Admin: 12/28/17 11:52 Dose: 4 units Losartan Potassium (Cozaar) 100 mg PO DAILY [facility] Last Admin: 12/28/17 09:22 Dose: 100 mg Metformin HCl (Glucophage) 1,000 mg PO BID [facility] Last Admin: 12/22/17 08:45 Dose: Not Given Methimazole (Tapazole) 20 mg PO BID [facility] Last Admin: 12/22/17 08:47 Dose: Not Given Morphine Sulfate (Morphine) 2 mg IVP Q4 PRN PRN Reason: Pain, severe (8-10) Last Admin: 12/28/17 12:47 Dose: 2 mg Ondansetron HCl (Zofran Odt) 4 mg PO Q6 PRN PRN Reason: Nausea/Vomiting Pantoprazole Sodium (Protonix Inj) 40 mg IVP Q12H [facility] Last Admin: 12/28/17 09:22 Dose: 40 mg Tramadol HCl (Ultram) 50 mg PO Q8 PRN PRN Reason: Pain, severe (8-10) - Labs Labs: 12/28/17 07:51 12/28/17 07:51 PT 14.8 Seconds (9.8-13.1) H 12/20/17 16:40 INR 1.3 (0.9-1.2) H 12/20/17 16:40 APTT 31.1 Seconds (25.6-37.1) 12/20/17 16:40
[2017-12-29] MEDS: metroNIDAZOLE 500mg/100ml NS 100 ML IVPB SCH (04:01)
--- NOTE | 2017-12-29 06:14 | CP.PCM.PN ---
<Shruthi Boo - Last Filed: 12/29/17 06:09> Subjective - Date & Time of Evaluation Date of Evaluation: 12/29/17 Time of Evaluation: 06:09 - Subjective Subjective: OBGYN Progress Note 47 YO admitted for abdominal pain, ovarian abscess POD8; S/p ex laparotomy for left TOA, removal of left ovarian cyst and enterorrhaphy No acute overnight events. Pt is tolerating diet, is having regular BM. Continues to endorse pain in the RLQ, the previous lower pelvic pain is minimal. Pt is ambulating without any difficulties. Denies chest pain, dyspnea, palpitations, n/v/d/c and remains afebrile. KIRILL still intact ~ 5cc serosangunious fluid Objective - Vital Signs/Intake and Output Vital Signs (last 24 hours): Temp Pulse Resp BP Pulse Ox 98.2 F 91 H 18 147/82 97 12/29/17 00:04 12/29/17 00:04 12/29/17 00:04 12/29/17 00:04 12/29/17 00:04 Intake and Output: 12/28/17 12/29/17 18:59 06:59 Output Total 0 Balance 0 - Medications Medications: Current Medications Aspirin (Ecotrin) 81 mg PO HS [facility] Last Admin: 12/22/17 01:59 Dose: Not Given Dextrose (Dextrose 50% Inj) 0 ml IV STAT PRN; Protocol PRN Reason: Hypoglycemia Protocol Dextrose (Glutose 15) 0 gm PO ONCE PRN; Protocol PRN Reason: Hypoglycemia Protocol Dicyclomine HCl (Bentyl) 10 mg PO TID PRN PRN Reason: GI distress Docusate Sodium (Colace) 100 mg PO BID PRN PRN Reason: GI distress Ergocalciferol (Drisdol 50,000 Intl Units Cap) 1 cap PO WE [facility] Last Admin: 12/22/17 01:59 Dose: Not Given Famotidine (Pepcid) 20 mg PO BID [facility] Last Admin: 12/22/17 08:47 Dose: Not Given Fenofibrate (Tricor) 145 mg PO HS [facility] Glipizide (Glucotrol) 5 mg PO BID [facility] Last Admin: 12/22/17 08:45 Dose: Not Given Glucagon (Glucagen Diagnostic Kit) 0 mg IM STAT PRN; Protocol PRN Reason: Hypoglycemia Protocol Guaifenesin/Dextromethorphan (Mucinex-Dm 600-30 Mg) 1 tab PO BID [facility] Last Admin: 12/28/17 16:25 Dose: 1 tab Doxycycline Hyclate 100 mg/ (Sodium Chloride) 100 mls @ 100 mls/hr IVPB Q12 [facility] PRN Reason: Protocol Last Admin: 12/28/17 20:22 Dose: 100 mls/hr Gentamicin Sulfate 180 mg/ (Sodium Chloride) 254.5 mls @ 100 mls/hr IVPB DAILY [facility] PRN Reason: Protocol Last Admin: 12/28/17 09:25 Dose: 100 mls/hr Metronidazole (Flagyl 500mg/100ml Ns) 100 mls @ 100 mls/hr IVPB Q8@0400,1200, 2000 [facility] PRN Reason: Protocol Last Admin: 12/29/17 04:01 Dose: 100 mls/hr Insulin Human Regular (Humulin R) 0 units SC ACHS [facility] PRN Reason: Protocol Last Admin: 12/28/17 21:16 Dose: Not Given Losartan Potassium (Cozaar) 100 mg PO DAILY [facility] Last Admin: 12/28/17 09:22 Dose: 100 mg Metformin HCl (Glucophage) 1,000 mg PO BID [facility] Last Admin: 12/22/17 08:45 Dose: Not Given Methimazole (Tapazole) 20 mg PO BID [facility] Last Admin: 12/22/17 08:47 Dose: Not Given Morphine Sulfate (Morphine) 2 mg IVP Q4 PRN PRN Reason: Pain, severe (8-10) Last Admin: 12/28/17 23:25 Dose: 2 mg Ondansetron HCl (Zofran Odt) 4 mg PO Q6 PRN PRN Reason: Nausea/Vomiting Pantoprazole Sodium (Protonix Inj) 40 mg IVP Q12H [facility] Last Admin: 12/28/17 20:26 Dose: 40 mg Tramadol HCl (Ultram) 50 mg PO Q8 PRN PRN Reason: Pain, severe (8-10) - Labs Labs: 12/28/17 07:51 12/28/17 07:51 PT 14.8 Seconds (9.8-13.1) H 12/20/17 16:40 INR 1.3 (0.9-1.2) H 12/20/17 16:40 APTT 31.1 Seconds (25.6-37.1) 12/20/17 16:40 - Constitutional Appears: No Acute Distress - Head Exam Head Exam: ATRAUMATIC, NORMOCEPHALIC - Eye Exam Eye Exam: EOMI, Normal appearance - ENT Exam ENT Exam: Mucous Membranes Moist - Neck Exam Neck Exam: Full ROM - Respiratory Exam Respiratory Exam: Clear to Ausculation Bilateral, NORMAL BREATHING PATTERN. absent: Rales, Wheezes - Cardiovascular Exam Cardiovascular Exam: REGULAR RHYTHM, +S1, +S2 - GI/Abdominal Exam GI & Abdominal Exam: Soft, Tenderness (tenderness to palaption superior to the KIRILL). absent: Distended, Guarding, Rebound Additional comments: Ex lap surgical dressing intact, some serosangunious fluid noted in the dressing Kirill intact, RUQ, draining sero-sangunious fluid ~5cc - Extremities Exam Extremities Exam: Full ROM, Normal Inspection. absent: Calf Tenderness, Pedal Edema - Neurological Exam Neurological Exam: Alert, Awake, Oriented x3 - Psychiatric Exam Psychiatric exam: Normal Affect, Normal Mood - Skin Skin Exam: Dry, Intact, Normal Color, Warm Assessment and Plan - Assessment and Plan (Free Text) Assessment: Assessment/Plan: 47 y/o Female admitted for pelvic pain/left ovarian abscess. POD 8, s/p exploratory laporatomy for left ovarian cyst removal secondary to a TOA and enterorrhaphy 1. Pelvic pain/left ovarian abscess - s/p cyst removal; KIRILL drain intact - Pathology final; sig for endometriotic cysts and abscess - Pt remains afebrile, WBC down-trending 9.4 (12/25/17), 10.8 (12/24/17) from 20 (12/23/17). - KIRILL drain is draining serosanguineous fluid ~ 5 cc. - CT abd/pel 12/28: Complex multiloculated inflammatory process/abscess in the pelvis. - Blood cx from 12/20: Final, no growth - Urine culture 2: Final, no growth - Wound cx 12/21: Final, E. Coli - Encourage ambulation, and incentive spirometry - Continue management as per primary team, ID and Surgery <Jaz Cramer - Last Filed: 12/29/17 10:22> Objective - Vital Signs/Intake and Output Vital Signs (last 24 hours): Temp Pulse Resp BP Pulse Ox 98 F 89 20 145/92 H 99 12/29/17 07:46 12/29/17 08:17 12/29/17 07:46 12/29/17 08:17 12/29/17 07:46 - Medications Medications: Current Medications Aspirin (Ecotrin) 81 mg PO HS [facility] Last Admin: 12/22/17 01:59 Dose: Not Given Dextrose (Dextrose 50% Inj) 0 ml IV STAT PRN; Protocol PRN Reason: Hypoglycemia Protocol Dextrose (Glutose 15) 0 gm PO ONCE PRN; Protocol PRN Reason: Hypoglycemia Protocol Dicyclomine HCl (Bentyl) 10 mg PO TID PRN PRN Reason: GI distress Docusate Sodium (Colace) 100 mg PO BID PRN PRN Reason: GI distress Ergocalciferol (Drisdol 50,000 Intl Units Cap) 1 cap PO WE [facility] Last Admin: 12/22/17 01:59 Dose: Not Given Famotidine (Pepcid) 20 mg PO BID [facility] Last Admin: 12/22/17 08:47 Dose: Not Given Fenofibrate (Tricor) 145 mg PO [facility] Glipizide (Glucotrol) 5 mg PO BID [facility] Last Admin: 12/22/17 08:45 Dose: Not Given Glucagon (Glucagen Diagnostic Kit) 0 mg IM STAT PRN; Protocol PRN Reason: Hypoglycemia Protocol Guaifenesin/Dextromethorphan (Mucinex-Dm 600-30 Mg) 1 tab PO BID [facility] Last Admin: 12/29/17 08:20 Dose: 1 tab Doxycycline Hyclate 100 mg/ (Sodium Chloride) 100 mls @ 100 mls/hr IVPB Q12 [facility] PRN Reason: Protocol Last Admin: 12/28/17 20:22 Dose: 100 mls/hr Gentamicin Sulfate 180 mg/ (Sodium Chloride) 254.5 mls @ 100 mls/hr IVPB DAILY [facility] PRN Reason: Protocol Last Admin: 12/29/17 08:19 Dose: 100 mls/hr Metronidazole (Flagyl 500mg/100ml Ns) 100 mls @ 100 mls/hr IVPB Q8@0400,1200, 2000 [facility] PRN Reason: Protocol Last Admin: 12/29/17 04:01 Dose: 100 mls/hr Insulin Human Regular (Humulin R) 0 units SC ACHS [facility] PRN Reason: Protocol Last Admin: 12/29/17 08:20 Dose: 6 units Losartan Potassium (Cozaar) 100 mg PO DAILY [facility] Last Admin: 12/29/17 08:17 Dose: 100 mg Metformin HCl (Glucophage) 1,000 mg PO BID [facility] Last Admin: 12/22/17 08:45 Dose: Not Given Methimazole (Tapazole) 20 mg PO BID [facility] Last Admin: 12/22/17 08:47 Dose: Not Given Morphine Sulfate (Morphine) 2 mg IVP Q4 PRN PRN Reason: Pain, severe (8-10) Last Admin: 12/28/17 23:25 Dose: 2 mg Ondansetron HCl (Zofran Odt) 4 mg PO Q6 PRN PRN Reason: Nausea/Vomiting Pantoprazole Sodium (Protonix Inj) 40 mg IVP Q12H [facility] Last Admin: 12/29/17 08:20 Dose: 40 mg Tramadol HCl (Ultram) 50 mg PO Q8 PRN PRN Reason: Pain, severe (8-10) - Labs Labs: 12/28/17 07:51 12/28/17 07:51 PT 14.8 Seconds (9.8-13.1) H 12/20/17 16:40 INR 1.3 (0.9-1.2) H 12/20/17 16:40 APTT 31.1 Seconds (25.6-37.1) 12/20/17 16:40 Assessment and Plan - Assessment and Plan (Free Text) Assessment: OB Hospitalist Addendum: Pt seen and examined by me. Agree w/ above. POD 8 s/ p L/s converted to laparotomy, KAREN, removal of tubo-ovarian abscess w/ repair of incidental enterotomy by surgeon. KIRILL drain in place. Pt c/o RLQ pain. 06/2018 CT scan revealed multiloculated collections in pelvis. Pt to be seen by surgery today. (ES)
[2017-12-29] MEDS: GENTAMICIN IVPB SCH (08:19)
[2017-12-29] MEDS: SODIUM CHLORIDE 0.9% IVPB SCH (08:19)
[2017-12-29] MEDS: guaiFENesin-DM 600-30 mg ER Tab PO SCH ×2 (08:20→17:29)
[2017-12-29] MEDS: Insulin Regular 100 units/ml SC SCH ×5 (08:20→22:27)
--- NOTE | 2017-12-29 11:37 | CP.PCM.PN ---
<Chris Suggs - Last Filed: 12/29/17 17:23> Subjective - Date & Time of Evaluation Date of Evaluation: 12/29/17 Time of Evaluation: 11:00 - Subjective Subjective: General Surgery Note for Dr. Alvarado Patient seen and examined at bedside. No acute event overnight. Patient still complains of pain in lower abdomen. She states pain is the same. She is tolerating diet. Admits to passing gas and having BMs. She has been afebrile. Patient has no other complaints at this time. Objective - Vital Signs/Intake and Output Vital Signs (last 24 hours): Temp Pulse Resp BP Pulse Ox 98 F 89 20 145/92 H 99 12/29/17 07:46 12/29/17 08:17 12/29/17 07:46 12/29/17 08:17 12/29/17 07:46 - Medications Medications: Current Medications Acetaminophen (Tylenol 325mg Tab) 650 mg PO Q6 PRN PRN Reason: Pain, Mild (1-3) Last Admin: 12/29/17 11:31 Dose: 650 mg Aspirin (Ecotrin) 81 mg PO [facility] Last Admin: 12/22/17 01:59 Dose: Not Given Dextrose (Dextrose 50% Inj) 0 ml IV STAT PRN; Protocol PRN Reason: Hypoglycemia Protocol Dextrose (Glutose 15) 0 gm PO ONCE PRN; Protocol PRN Reason: Hypoglycemia Protocol Dicyclomine HCl (Bentyl) 10 mg PO TID PRN PRN Reason: GI distress Docusate Sodium (Colace) 100 mg PO BID PRN PRN Reason: GI distress Ergocalciferol (Drisdol 50,000 Intl Units Cap) 1 cap PO WE [facility] Last Admin: 12/22/17 01:59 Dose: Not Given Famotidine (Pepcid) 20 mg PO BID [facility] Last Admin: 12/22/17 08:47 Dose: Not Given Fenofibrate (Tricor) 145 mg PO [facility] Glipizide (Glucotrol) 5 mg PO BID [facility] Last Admin: 12/22/17 08:45 Dose: Not Given Glucagon (Glucagen Diagnostic Kit) 0 mg IM STAT PRN; Protocol PRN Reason: Hypoglycemia Protocol Guaifenesin/Dextromethorphan (Mucinex-Dm 600-30 Mg) 1 tab PO BID [facility] Last Admin: 12/29/17 08:20 Dose: 1 tab Doxycycline Hyclate 100 mg/ (Sodium Chloride) 100 mls @ 100 mls/hr IVPB Q12 [facility] PRN Reason: Protocol Last Admin: 12/28/17 20:22 Dose: 100 mls/hr Gentamicin Sulfate 180 mg/ (Sodium Chloride) 254.5 mls @ 100 mls/hr IVPB DAILY [facility] PRN Reason: Protocol Last Admin: 12/29/17 08:19 Dose: 100 mls/hr Insulin Human Regular (Humulin R) 0 units SC ACHS [facility] PRN Reason: Protocol Last Admin: 12/29/17 08:20 Dose: 6 units Losartan Potassium (Cozaar) 100 mg PO DAILY [facility] Last Admin: 12/29/17 08:17 Dose: 100 mg Metformin HCl (Glucophage) 1,000 mg PO BID [facility] Last Admin: 12/22/17 08:45 Dose: Not Given Methimazole (Tapazole) 20 mg PO BID [facility] Last Admin: 12/22/17 08:47 Dose: Not Given Morphine Sulfate (Morphine) 2 mg IVP Q4 PRN PRN Reason: Pain, severe (8-10) Last Admin: 12/28/17 23:25 Dose: 2 mg Ondansetron HCl (Zofran Odt) 4 mg PO Q6 PRN PRN Reason: Nausea/Vomiting Pantoprazole Sodium (Protonix Inj) 40 mg IVP Q12H [facility] Last Admin: 12/29/17 08:20 Dose: 40 mg Tramadol HCl (Ultram) 50 mg PO Q8 PRN PRN Reason: Pain, severe (8-10) - Labs Labs: 12/28/17 07:51 12/28/17 07:51 PT 14.8 Seconds (9.8-13.1) H 12/20/17 16:40 INR 1.3 (0.9-1.2) H 12/20/17 16:40 APTT 31.1 Seconds (25.6-37.1) 12/20/17 16:40 - Constitutional Appears: No Acute Distress - ENT Exam ENT Exam: Mucous Membranes Moist - Respiratory Exam Respiratory Exam: NORMAL BREATHING PATTERN - Cardiovascular Exam Cardiovascular Exam: REGULAR RHYTHM - GI/Abdominal Exam GI & Abdominal Exam: Soft, Tenderness (suprapubic), Normal Bowel Sounds. absent : Distended, Firm, Guarding, Rigid, Rebound Additional comments: midline incision with packing dressing clean dry and intact (both were changed today) - Extremities Exam Extremities Exam: Normal Capillary Refill - Neurological Exam Neurological Exam: Alert, Awake, Oriented x3 - Psychiatric Exam Psychiatric exam: Normal Affect, Normal Mood - Skin Skin Exam: Dry, Warm Assessment and Plan - Assessment and Plan (Free Text) Plan: 47F s/p ex-lap, removal of Tubo-ovarian abscess, repair of enterotomy POD#8 - IR drainage of fluid collection in pelvis - Pain control - Glucose control - Dressing changes PRN - Further recs discuss with Dr. Christiano Suggs PGY1 <Guido Alvarado - Last Filed: 01/02/18 15:07> Objective - Vital Signs/Intake and Output Vital Signs (last 24 hours): Temp Pulse Resp BP Pulse Ox 98.3 F 82 20 145/79 99 01/02/18 08:20 01/02/18 08:20 01/02/18 08:20 01/02/18 08:20 01/02/18 08:20 Intake and Output: 01/02/18 01/02/18 06:59 18:59 Output Total 10 Balance -10 - Medications Medications: Current Medications Acetaminophen (Tylenol 325mg Tab) 650 mg PO Q6 PRN PRN Reason: Pain, Mild (1-3) Last Admin: 01/01/18 21:35 Dose: 650 mg Aspirin (Ecotrin) 81 mg PO HS [facility] Last Admin: 12/22/17 01:59 Dose: Not Given Dextrose (Dextrose 50% Inj) 0 ml IV STAT PRN; Protocol PRN Reason: Hypoglycemia Protocol Dextrose (Glutose 15) 0 gm PO ONCE PRN; Protocol PRN Reason: Hypoglycemia Protocol Dicyclomine HCl (Bentyl) 10 mg PO TID PRN PRN Reason: GI distress Docusate Sodium (Colace) 100 mg PO BID PRN PRN Reason: GI distress Ergocalciferol (Drisdol 50,000 Intl Units Cap) 1 cap PO WE [facility] Last Admin: 12/22/17 01:59 Dose: Not Given Famotidine (Pepcid) 20 mg PO BID [facility] Last Admin: 12/22/17 08:47 Dose: Not Given Fenofibrate (Tricor) 145 mg PO [facility] Glipizide (Glucotrol) 5 mg PO BID [facility] Last Admin: 12/22/17 08:45 Dose: Not Given Glucagon (Glucagen Diagnostic Kit) 0 mg IM STAT PRN; Protocol PRN Reason: Hypoglycemia Protocol Guaifenesin/Dextromethorphan (Mucinex-Dm 600-30 Mg) 1 tab PO BID [facility] Last Admin: 01/02/18 08:32 Dose: 1 tab Gentamicin Sulfate 180 mg/ (Sodium Chloride) 254.5 mls @ 100 mls/hr IVPB DAILY [facility] PRN Reason: Protocol Last Admin: 01/02/18 09:59 Dose: 100 mls/hr Metronidazole (Flagyl 500mg/100ml Ns) 100 mls @ 100 mls/hr IVPB Q8 [facility] PRN Reason: Protocol Last Admin: 01/02/18 08:31 Dose: 100 mls/hr Doxycycline Hyclate 100 mg/ (Sodium Chloride) 100 mls @ 100 mls/hr IVPB Q12 [facility] PRN Reason: Protocol Last Admin: 01/02/18 08:31 Dose: 100 mls/hr Insulin Detemir (Levemir) 5 units SC HS [facility] Last Admin: 01/01/18 21:33 Dose: 5 units Insulin Human Regular (Humulin R) 0 units SC ACHS [facility] PRN Reason: Protocol Last Admin: 01/02/18 12:22 Dose: 6 units Insulin Human Regular (Humulin R) 5 units SC ACTID [facility] Last Admin: 01/02/18 12:22 Dose: 5 u Losartan Potassium (Cozaar) 100 mg PO DAILY [facility] Last Admin: 01/02/18 08:32 Dose: 100 mg Metformin HCl (Glucophage) 1,000 mg PO BID [facility] Last Admin: 12/22/17 08:45 Dose: Not Given Methimazole (Tapazole) 20 mg PO BID [facility] Last Admin: 12/22/17 08:47 Dose: Not Given Morphine Sulfate (Morphine) 2 mg IVP Q4 PRN PRN Reason: Pain, severe (8-10) Last Admin: 12/31/17 17:21 Dose: 2 mg Ondansetron HCl (Zofran Odt) 4 mg PO Q6 PRN PRN Reason: Nausea/Vomiting Pantoprazole Sodium (Protonix Inj) 40 mg IVP DAILY [facility] Last Admin: 01/02/18 09:36 Dose: 40 mg Tramadol HCl (Ultram) 50 mg PO Q8 PRN PRN Reason: Pain, severe (8-10) - Labs Labs: 01/02/18 06:55 01/02/18 06:55 PT 14.8 Seconds (9.8-13.1) H 12/20/17 16:40 INR 1.3 (0.9-1.2) H 12/20/17 16:40 APTT 31.1 Seconds (25.6-37.1) 12/20/17 16:40
[2017-12-29 12:55] LABS: BASO % 0.2 % (0.0-2.0); EOS # 0.1 K/uL (0.0-0.7); EOS % 0.5 % (0.0-4.0); HEMOGLOBIN 9.4 g/dL (12.0-16.0); LYMPH # 1.5 K/uL (1.0-4.3); LYMPH % 12.4 % (20.0-40.0); MEAN CELL VOLUME 77.2 fl (81.0-99.0); MEAN CORPUSCULAR HEMOGLOBIN 25.7 pg (27.0-31.0); MEAN CORPUSCULAR HGB CONC 33.4 g/dL (33.0-37.0); MONO # 0.9 K/uL (0.0-0.8); MONO % 7.1 % (0.0-10.0); NEUT # 9.8 K/uL (1.8-7.0); NEUT % 79.8 % (50.0-75.0); RBC 3.66 Mil/uL (3.80-5.20); RED CELL DISTRIBUTION WIDTH 13.1 % (11.5-14.5); WHITE BLOOD COUNT 12.2 K/uL (4.8-10.8)
[2017-12-29 13:07] LABS: ALB/GLOB RATIO 0.7 (1.0-2.1); ALBUMIN 2.4 g/dL (3.5-5.0); ALT/SGPT 30 U/L (9-52); AST/SGOT 21 U/L (14-36); BLOOD UREA NITROGEN 10 mg/dl (7-17); CALCIUM 8.3 mg/dL (8.4-10.2); GFR AFRICAN-AMERICAN > 60; GFR NON-AFRICAN AMERICAN > 60
--- NOTE | 2017-12-29 15:29 | CP.PCM.PN ---
<Dell Nunes - Last Filed: 12/29/17 15:27> Subjective - Date & Time of Evaluation Date of Evaluation: 12/29/17 Time of Evaluation: 08:15 - Subjective Subjective: Patient seen and examined at bedside this morning. There are no acute events overnight, NAD. Patient s/p ex laparotomy with removal of infected left ovarian cyst and enterorrhaphy POD8. Patient reports right sided lower abdominal pain denies nausea, vomiting, or fever. Patient reports she has gas and bowel movement this morning. Patient tolerating PO w/o issue. Patient seen by BAG LINER and surgery. ESMER drain 5 cc. Objective - Vital Signs/Intake and Output Vital Signs (last 24 hours): Temp Pulse Resp BP Pulse Ox 98 F 89 20 145/90 99 12/29/17 09:00 12/29/17 09:00 12/29/17 09:00 12/29/17 09:00 12/29/17 09:00 - Medications Medications: Current Medications Acetaminophen (Tylenol 325mg Tab) 650 mg PO Q6 PRN PRN Reason: Pain, Mild (1-3) Last Admin: 12/29/17 11:31 Dose: 650 mg Aspirin (Ecotrin) 81 mg PO HS [facility] Last Admin: 12/22/17 01:59 Dose: Not Given Dextrose (Dextrose 50% Inj) 0 ml IV STAT PRN; Protocol PRN Reason: Hypoglycemia Protocol Dextrose (Glutose 15) 0 gm PO ONCE PRN; Protocol PRN Reason: Hypoglycemia Protocol Dicyclomine HCl (Bentyl) 10 mg PO TID PRN PRN Reason: GI distress Docusate Sodium (Colace) 100 mg PO BID PRN PRN Reason: GI distress Ergocalciferol (Drisdol 50,000 Intl Units Cap) 1 cap PO WE [facility] Last Admin: 12/22/17 01:59 Dose: Not Given Famotidine (Pepcid) 20 mg PO BID [facility] Last Admin: 12/22/17 08:47 Dose: Not Given Fenofibrate (Tricor) 145 mg PO [facility] Glipizide (Glucotrol) 5 mg PO BID [facility] Last Admin: 12/22/17 08:45 Dose: Not Given Glucagon (Glucagen Diagnostic Kit) 0 mg IM STAT PRN; Protocol PRN Reason: Hypoglycemia Protocol Guaifenesin/Dextromethorphan (Mucinex-Dm 600-30 Mg) 1 tab PO BID [facility] Last Admin: 12/29/17 08:20 Dose: 1 tab Gentamicin Sulfate 180 mg/ (Sodium Chloride) 254.5 mls @ 100 mls/hr IVPB DAILY [facility] PRN Reason: Protocol Last Admin: 12/29/17 08:19 Dose: 100 mls/hr Insulin Human Regular (Humulin R) 0 units SC ACHS [facility] PRN Reason: Protocol Last Admin: 12/29/17 13:08 Dose: 6 units Losartan Potassium (Cozaar) 100 mg PO DAILY [facility] Last Admin: 12/29/17 08:17 Dose: 100 mg Metformin HCl (Glucophage) 1,000 mg PO BID [facility] Last Admin: 12/22/17 08:45 Dose: Not Given Methimazole (Tapazole) 20 mg PO BID [facility] Last Admin: 12/22/17 08:47 Dose: Not Given Morphine Sulfate (Morphine) 2 mg IVP Q4 PRN PRN Reason: Pain, severe (8-10) Last Admin: 12/28/17 23:25 Dose: 2 mg Ondansetron HCl (Zofran Odt) 4 mg PO Q6 PRN PRN Reason: Nausea/Vomiting Pantoprazole Sodium (Protonix Inj) 40 mg IVP Q12H [facility] Last Admin: 12/29/17 08:20 Dose: 40 mg Tramadol HCl (Ultram) 50 mg PO Q8 PRN PRN Reason: Pain, severe (8-10) - Labs Labs: 12/29/17 12:50 12/29/17 12:50 PT 14.8 Seconds (9.8-13.1) H 12/20/17 16:40 INR 1.3 (0.9-1.2) H 12/20/17 16:40 APTT 31.1 Seconds (25.6-37.1) 12/20/17 16:40 - Constitutional Appears: Non-toxic, No Acute Distress - Head Exam Head Exam: ATRAUMATIC, NORMAL INSPECTION, NORMOCEPHALIC - Eye Exam Eye Exam: Normal appearance - ENT Exam ENT Exam: Mucous Membranes Moist - Neck Exam Neck Exam: Full ROM. absent: Tenderness - Respiratory Exam Respiratory Exam: Clear to Ausculation Bilateral. absent: Accessory Muscle Use , Decreased Breath Sounds, Rales, Rhonchi, Wheezes, Respiratory Distress - Cardiovascular Exam Cardiovascular Exam: REGULAR RHYTHM. absent: Tachycardia - GI/Abdominal Exam GI & Abdominal Exam: Soft, Tenderness, Normal Bowel Sounds. absent: Distended Additional comments: tender by ESMER drain site incision site dressed, c/d/i, ESMER drain RUQ draining 5 cc serosanguinous fluid - Extremities Exam Extremities Exam: absent: Calf Tenderness, Pedal Edema, Tenderness Additional comments: PICC line in right upper extremity - Neurological Exam Neurological Exam: Alert, Awake, Oriented x3 - Skin Skin Exam: Dry, Intact, Normal Color, Warm Assessment and Plan (1) Abdominal pain Status: Acute (2) Ovarian cyst Status: Resolved - Assessment and Plan (Free Text) Plan: c/w present management, POD8 BILL ADJUSTER recommendations appreciated General surgery recommendations appreciated Infectious Disease recommendations appreciated - Blood cx 4/2: No growth 48Hrs - Urine culture 4/3: Final, no growth - Wound cx 4/3: E.coli - culture/Pathology 4/2: 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 CT abdomen/pelvis w/ IV and PO contrast: multiloculated process/abscess from posterior of uterus to rectum gentamicin 180 mg IV daily day 9 losartan 100 mg PO daily for BP control protonix 40 mg IV Q12h pain control w/ Morphine 2 mg IV Q4 insulin sliding scale hypoglycemic protocol Patient tolerating PO monitor for acute changes encourage incentive spirometry encourage out of bed to chair DVT PPX: SCDs <Bruce Blood - Last Filed: 12/29/17 22:27> Objective - Vital Signs/Intake and Output Vital Signs (last 24 hours): Temp Pulse Resp BP Pulse Ox 97.9 F 86 18 139/83 99 12/29/17 17:00 12/29/17 16:36 12/29/17 16:36 12/29/17 16:36 12/29/17 16:36 Intake and Output: 12/29/17 12/30/17 18:59 06:59 Output Total 3 Balance -3 - Medications Medications: Current Medications Acetaminophen (Tylenol 325mg Tab) 650 mg PO Q6 PRN PRN Reason: Pain, Mild (1-3) Last Admin: 12/29/17 11:31 Dose: 650 mg Aspirin (Ecotrin) 81 mg PO HS [facility] Last Admin: 12/22/17 01:59 Dose: Not Given Dextrose (Dextrose 50% Inj) 0 ml IV STAT PRN; Protocol PRN Reason: Hypoglycemia Protocol Dextrose (Glutose 15) 0 gm PO ONCE PRN; Protocol PRN Reason: Hypoglycemia Protocol Dicyclomine HCl (Bentyl) 10 mg PO TID PRN PRN Reason: GI distress Docusate Sodium (Colace) 100 mg PO BID PRN PRN Reason: GI distress Ergocalciferol (Drisdol 50,000 Intl Units Cap) 1 cap PO WE [facility] Last Admin: 12/22/17 01:59 Dose: Not Given Famotidine (Pepcid) 20 mg PO BID [facility] Last Admin: 12/22/17 08:47 Dose: Not Given Fenofibrate (Tricor) 145 mg PO [facility] Glipizide (Glucotrol) 5 mg PO BID [facility] Last Admin: 12/22/17 08:45 Dose: Not Given Glucagon (Glucagen Diagnostic Kit) 0 mg IM STAT PRN; Protocol PRN Reason: Hypoglycemia Protocol Guaifenesin/Dextromethorphan (Mucinex-Dm 600-30 Mg) 1 tab PO BID [facility] Last Admin: 12/29/17 17:29 Dose: 1 tab Gentamicin Sulfate 180 mg/ (Sodium Chloride) 254.5 mls @ 100 mls/hr IVPB DAILY [facility] PRN Reason: Protocol Last Admin: 12/29/17 08:19 Dose: 100 mls/hr Metronidazole (Flagyl 500mg/100ml Ns) 100 mls @ 100 mls/hr IVPB Q8 [facility] PRN Reason: Protocol Doxycycline Hyclate 100 mg/ (Sodium Chloride) 100 mls @ 100 mls/hr IVPB Q12 [facility] PRN Reason: Protocol Last Admin: 12/29/17 21:13 Dose: 100 mls/hr Insulin Human Regular (Humulin R) 0 units SC ACHS [facility] PRN Reason: Protocol Last Admin: 12/29/17 17:28 Dose: 8 units Losartan Potassium (Cozaar) 100 mg PO DAILY [facility] Last Admin: 12/29/17 08:17 Dose: 100 mg Metformin HCl (Glucophage) 1,000 mg PO BID [facility] Last Admin: 12/22/17 08:45 Dose: Not Given Methimazole (Tapazole) 20 mg PO BID [facility] Last Admin: 12/22/17 08:47 Dose: Not Given Morphine Sulfate (Morphine) 2 mg IVP Q4 PRN PRN Reason: Pain, severe (8-10) Last Admin: 12/28/17 23:25 Dose: 2 mg Ondansetron HCl (Zofran Odt) 4 mg PO Q6 PRN PRN Reason: Nausea/Vomiting Pantoprazole Sodium (Protonix Inj) 40 mg IVP DAILY [facility] Tramadol HCl (Ultram) 50 mg PO Q8 PRN PRN Reason: Pain, severe (8-10) - Labs Labs: 12/29/17 12:50 12/29/17 12:50 PT 14.8 Seconds (9.8-13.1) H 12/20/17 16:40 INR 1.3 (0.9-1.2) H 12/20/17 16:40 APTT 31.1 Seconds (25.6-37.1) 12/20/17 16:40 Assessment and Plan (1) Pelvic abscess Status: Acute (2) Abdominal pain Status: Acute (3) Complicated UTI (urinary tract infection) Status: Acute (4) Ovarian mass, left Status: Acute (5) Uncontrolled diabetes mellitus Status: Acute - Assessment and Plan (Free Text) Plan: I was present during evaluation and discussed with Dr Nunes re plans of care and mgt. Bruce Blood M.D.
--- NOTE | 2017-12-29 22:30 | CP.PCM.PN ---
Subjective - Date & Time of Evaluation Date of Evaluation: 12/27/17 Time of Evaluation: 11:00 - Subjective Subjective: Patient was able to tolerate po Had bm daily Still with a lot of abd pain but more so on the right side. For Ct scan Has no fever. CBC is normal CMP normal Objective - Vital Signs/Intake and Output Vital Signs (last 24 hours): Temp Pulse Resp BP Pulse Ox 97.9 F 86 18 139/83 99 12/29/17 17:00 12/29/17 16:36 12/29/17 16:36 12/29/17 16:36 12/29/17 16:36 Intake and Output: 12/29/17 12/30/17 18:59 06:59 Output Total 3 Balance -3 - Medications Medications: Current Medications Acetaminophen (Tylenol 325mg Tab) 650 mg PO Q6 PRN PRN Reason: Pain, Mild (1-3) Last Admin: 12/29/17 11:31 Dose: 650 mg Aspirin (Ecotrin) 81 mg PO HS [facility] Last Admin: 12/22/17 01:59 Dose: Not Given Dextrose (Dextrose 50% Inj) 0 ml IV STAT PRN; Protocol PRN Reason: Hypoglycemia Protocol Dextrose (Glutose 15) 0 gm PO ONCE PRN; Protocol PRN Reason: Hypoglycemia Protocol Dicyclomine HCl (Bentyl) 10 mg PO TID PRN PRN Reason: GI distress Docusate Sodium (Colace) 100 mg PO BID PRN PRN Reason: GI distress Ergocalciferol (Drisdol 50,000 Intl Units Cap) 1 cap PO WE [facility] Last Admin: 12/22/17 01:59 Dose: Not Given Famotidine (Pepcid) 20 mg PO BID [facility] Last Admin: 12/22/17 08:47 Dose: Not Given Fenofibrate (Tricor) [address] [facility] Glipizide (Glucotrol) 5 mg PO BID [facility] Last Admin: 12/22/17 08:45 Dose: Not Given Glucagon (Glucagen Diagnostic Kit) 0 mg IM STAT PRN; Protocol PRN Reason: Hypoglycemia Protocol Guaifenesin/Dextromethorphan (Mucinex-Dm 600-30 Mg) 1 tab PO BID [facility] Last Admin: 12/29/17 17:29 Dose: 1 tab Gentamicin Sulfate 180 mg/ (Sodium Chloride) 254.5 mls @ 100 mls/hr IVPB DAILY [facility] PRN Reason: Protocol Last Admin: 12/29/17 08:19 Dose: 100 mls/hr Metronidazole (Flagyl 500mg/100ml Ns) 100 mls @ 100 mls/hr IVPB Q8 [facility] PRN Reason: Protocol Doxycycline Hyclate 100 mg/ (Sodium Chloride) 100 mls @ 100 mls/hr IVPB Q12 [facility] PRN Reason: Protocol Last Admin: 12/29/17 21:13 Dose: 100 mls/hr Insulin Human Regular (Humulin R) 0 units SC ACHS [facility] PRN Reason: Protocol Last Admin: 12/29/17 22:27 Dose: 2 units Losartan Potassium (Cozaar) 100 mg PO DAILY [facility] Last Admin: 12/29/17 08:17 Dose: 100 mg Metformin HCl (Glucophage) 1,000 mg PO BID [facility] Last Admin: 12/22/17 08:45 Dose: Not Given Methimazole (Tapazole) 20 mg PO BID [facility] Last Admin: 12/22/17 08:47 Dose: Not Given Morphine Sulfate (Morphine) 2 mg IVP Q4 PRN PRN Reason: Pain, severe (8-10) Last Admin: 12/28/17 23:25 Dose: 2 mg Ondansetron HCl (Zofran Odt) 4 mg PO Q6 PRN PRN Reason: Nausea/Vomiting Pantoprazole Sodium (Protonix Inj) 40 mg IVP DAILY [facility] Tramadol HCl (Ultram) 50 mg PO Q8 PRN PRN Reason: Pain, severe (8-10) - Labs Labs: 12/29/17 12:50 12/29/17 12:50 PT 14.8 Seconds (9.8-13.1) H 12/20/17 16:40 INR 1.3 (0.9-1.2) H 12/20/17 16:40 APTT 31.1 Seconds (25.6-37.1) 12/20/17 16:40 - Head Exam Head Exam: NORMAL INSPECTION - Eye Exam Eye Exam: Normal appearance - ENT Exam ENT Exam: Mucous Membranes Moist - Respiratory Exam Respiratory Exam: Clear to Ausculation Bilateral - Cardiovascular Exam Cardiovascular Exam: REGULAR RHYTHM - GI/Abdominal Exam GI & Abdominal Exam: Tenderness, Normal Bowel Sounds - Neurological Exam Neurological Exam: Awake, Oriented x3 Assessment and Plan (1) Pelvic abscess Status: Acute (2) Abdominal pain Status: Acute (3) Complicated UTI (urinary tract infection) Status: Acute (4) Ovarian mass, left Status: Acute (5) Uncontrolled diabetes mellitus Status: Acute - Assessment and Plan (Free Text) Plan: Con tmeds For CT scan surgical eval IR eval cont diet hydration
[2017-12-30] MEDS: metroNIDAZOLE 500mg/100ml NS 100 ML IVPB SCH ×2 (00:27→08:20)
[2017-12-30] MEDS: Lactated Ringer's 1,000 ML IV SCH ×2 (00:28→12:03)
[2017-12-30] MEDS: Insulin Regular 100 units/ml SC SCH ×3 (06:31→22:30)
--- NOTE | 2017-12-30 06:32 | CP.PCM.PN ---
Subjective - Date & Time of Evaluation Date of Evaluation: 12/30/17 Time of Evaluation: 06:01 - Subjective Subjective: OBGYN Progress Note 47 YO admitted for abdominal pain, ovarian abscess POD9; S/p ex laparotomy for left TOA, removal of left ovarian cyst and enterorrhaphy Pt was NPO after midnight for procedure today. Pt continues to have pain in the RLQ, around ESMER site. Pt is ambulating around the room and to the bathroom without any difficulties. Regular BM. Denies chest pain, dyspnea, palpitations, n/v/d/c and remains afebrile. ESMER still intact--draining ~ 2cc serosangunious fluid Objective - Vital Signs/Intake and Output Vital Signs (last 24 hours): Temp Pulse Resp BP Pulse Ox 98.5 F 92 H 19 132/75 97 12/30/17 00:26 12/30/17 00:26 12/30/17 00:26 12/30/17 00:26 12/30/17 00:26 Intake and Output: 12/29/17 12/30/17 18:59 06:59 Output Total 3 Balance -3 - Medications Medications: Current Medications Acetaminophen (Tylenol 325mg Tab) 650 mg PO Q6 PRN PRN Reason: Pain, Mild (1-3) Last Admin: 12/29/17 22:31 Dose: 650 mg Aspirin (Ecotrin) 81 mg PO [facility] Last Admin: 12/22/17 01:59 Dose: Not Given Dextrose (Dextrose 50% Inj) 0 ml IV STAT PRN; Protocol PRN Reason: Hypoglycemia Protocol Dextrose (Glutose 15) 0 gm PO ONCE PRN; Protocol PRN Reason: Hypoglycemia Protocol Dicyclomine HCl (Bentyl) 10 mg PO TID PRN PRN Reason: GI distress Docusate Sodium (Colace) 100 mg PO BID PRN PRN Reason: GI distress Ergocalciferol (Drisdol 50,000 Intl Units Cap) 1 cap PO WE [facility] Last Admin: 12/22/17 01:59 Dose: Not Given Famotidine (Pepcid) 20 mg PO BID [facility] Last Admin: 12/22/17 08:47 Dose: Not Given Fenofibrate (Tricor) 145 mg PO [facility] Glipizide (Glucotrol) 5 mg PO BID [facility] Last Admin: 04/04/18 08:45 Dose: Not Given Glucagon (Glucagen Diagnostic Kit) 0 mg IM STAT PRN; Protocol PRN Reason: Hypoglycemia Protocol Guaifenesin/Dextromethorphan (Mucinex-Dm 600-30 Mg) 1 tab PO BID [facility] Last Admin: 12/29/17 17:29 Dose: 1 tab Gentamicin Sulfate 180 mg/ (Sodium Chloride) 254.5 mls @ 100 mls/hr IVPB DAILY [facility] PRN Reason: Protocol Last Admin: 12/29/17 08:19 Dose: 100 mls/hr Metronidazole (Flagyl 500mg/100ml Ns) 100 mls @ 100 mls/hr IVPB Q8 [facility] PRN Reason: Protocol Last Admin: 12/30/17 00:27 Dose: 100 mls/hr Doxycycline Hyclate 100 mg/ (Sodium Chloride) 100 mls @ 100 mls/hr IVPB Q12 [facility] PRN Reason: Protocol Last Admin: 12/29/17 21:13 Dose: 100 mls/hr Lactated Ringer's (Lactated Ringer's) 1,000 mls @ 90 mls/hr IV .Q11H7M [facility] Last Admin: 12/30/17 00:28 Dose: 90 mls/hr Insulin Human Regular (Humulin R) 0 units SC ACHS [facility] PRN Reason: Protocol Last Admin: 12/29/17 22:27 Dose: 2 units Losartan Potassium (Cozaar) 100 mg PO DAILY [facility] Last Admin: 12/29/17 08:17 Dose: 100 mg Metformin HCl (Glucophage) 1,000 mg PO BID [facility] Last Admin: 12/22/17 08:45 Dose: Not Given Methimazole (Tapazole) 20 mg PO BID [facility] Last Admin: 12/22/17 08:47 Dose: Not Given Morphine Sulfate (Morphine) 2 mg IVP Q4 PRN PRN Reason: Pain, severe (8-10) Last Admin: 12/28/17 23:25 Dose: 2 mg Ondansetron HCl (Zofran Odt) 4 mg PO Q6 PRN PRN Reason: Nausea/Vomiting Pantoprazole Sodium (Protonix Inj) 40 mg IVP DAILY [facility] Tramadol HCl (Ultram) 50 mg PO Q8 PRN PRN Reason: Pain, severe (8-10) - Labs Labs: 12/29/17 12:50 12/29/17 12:50 PT 14.8 Seconds (9.8-13.1) H 12/20/17 16:40 INR 1.3 (0.9-1.2) H 12/20/17 16:40 APTT 31.1 Seconds (25.6-37.1) 12/20/17 16:40 - Constitutional Appears: No Acute Distress - Head Exam Head Exam: ATRAUMATIC, NORMOCEPHALIC - Eye Exam Eye Exam: EOMI, Normal appearance - ENT Exam ENT Exam: Mucous Membranes Moist - Respiratory Exam Respiratory Exam: Clear to Ausculation Bilateral, NORMAL BREATHING PATTERN. absent: Rales, Wheezes - Cardiovascular Exam Cardiovascular Exam: REGULAR RHYTHM, +S1, +S2 - GI/Abdominal Exam GI & Abdominal Exam: Soft, Tenderness (tenderness to palpation of the RLQ, around the ESMER site ), Normal Bowel Sounds. absent: Distended, Guarding Additional comments: ex lap verticle incision; dressing intact and drainage noted in the inferior aspect of the dressing. Fluid is sero-sanguineous ESMER intact, minimal drainage ~ 2 CC sero-sanguineous - Extremities Exam Extremities Exam: Full ROM. absent: Calf Tenderness, Pedal Edema - Neurological Exam Neurological Exam: Alert, Awake, Oriented x3 - Psychiatric Exam Psychiatric exam: Normal Affect, Normal Mood - Skin Skin Exam: Dry, Normal Color, Warm Assessment and Plan - Assessment and Plan (Free Text) Assessment: Assessment/Plan: 47 y/o Female admitted for pelvic pain/left ovarian abscess. POD 9, s/p exploratory laporatomy for left ovarian cyst removal secondary to a TOA and enterorrhaphy. 1. Pelvic pain/left ovarian abscess - s/p cyst removal; ESMER drain intact - Pathology final; sig for endometriotic cysts and abscess - Pt remains afebrile, WBC slowly trending up 12.2 (12/29) from 9.4 (12/25/17). - ESMER intact; draining minimal fluid~ 2 cc. - Blood cx from 12/20: Final, no growth - Urine culture 2: Final, no growth - Wound cx 3: Final, E. Coli - Encourage ambulation, and incentive spirometry - NPO for IR guided pelvic fluid drainage today (12/30) - Continue management as per primary team, ID and Surgery
--- NOTE | 2017-12-30 07:58 | CP.PCM.PN ---
Subjective - Date & Time of Evaluation Date of Evaluation: 12/30/17 Time of Evaluation: 07:30 - Subjective Subjective: General Surgery Note for Dr. Alvardao 47 y.o female seen and evaluated at bedside for s/p ex-lap, removal of Tubo- ovarian abscess, repair of enterotomy POD#9. Patient is seen resting comfortably in bed, in NAD, and AA0x3. Denies acute overnight events. Reports feeling chills last night. No fevers. Denies nausea and vomiting. Reports pain is less today. Patient reports passing gas. Denies BM today or yesterday however has been having BM. Objective - Vital Signs/Intake and Output Vital Signs (last 24 hours): Temp Pulse Resp BP Pulse Ox 98.5 F 92 H 19 132/75 97 12/30/17 00:26 12/30/17 00:26 12/30/17 00:26 12/30/17 00:26 12/30/17 00:26 Intake and Output: 12/30/17 12/30/17 06:59 18:59 Intake Total 640 Balance 640 - Medications Medications: Current Medications Acetaminophen (Tylenol 325mg Tab) 650 mg PO Q6 PRN PRN Reason: Pain, Mild (1-3) Last Admin: 12/29/17 22:31 Dose: 650 mg Aspirin (Ecotrin) 81 mg PO [facility] Last Admin: 12/22/17 01:59 Dose: Not Given Dextrose (Dextrose 50% Inj) 0 ml IV STAT PRN; Protocol PRN Reason: Hypoglycemia Protocol Dextrose (Glutose 15) 0 gm PO ONCE PRN; Protocol PRN Reason: Hypoglycemia Protocol Dicyclomine HCl (Bentyl) 10 mg PO TID PRN PRN Reason: GI distress Docusate Sodium (Colace) 100 mg PO BID PRN PRN Reason: GI distress Ergocalciferol (Drisdol 50,000 Intl Units Cap) 1 cap PO WE [facility] Last Admin: 12/22/17 01:59 Dose: Not Given Famotidine (Pepcid) 20 mg PO BID [facility] Last Admin: 12/22/17 08:47 Dose: Not Given Fenofibrate (Tricor) 145 mg PO [facility] Glipizide (Glucotrol) 5 mg PO BID [facility] Last Admin: 12/22/17 08:45 Dose: Not Given Glucagon (Glucagen Diagnostic Kit) 0 mg IM STAT PRN; Protocol PRN Reason: Hypoglycemia Protocol Guaifenesin/Dextromethorphan (Mucinex-Dm 600-30 Mg) 1 tab PO BID [facility] Last Admin: 12/29/17 17:29 Dose: 1 tab Gentamicin Sulfate 180 mg/ (Sodium Chloride) 254.5 mls @ 100 mls/hr IVPB DAILY [facility] PRN Reason: Protocol Last Admin: 12/29/17 08:19 Dose: 100 mls/hr Metronidazole (Flagyl 500mg/100ml Ns) 100 mls @ 100 mls/hr IVPB Q8 [facility] PRN Reason: Protocol Last Admin: 12/30/17 00:27 Dose: 100 mls/hr Doxycycline Hyclate 100 mg/ (Sodium Chloride) 100 mls @ 100 mls/hr IVPB Q12 [facility] PRN Reason: Protocol Last Admin: 12/29/17 21:13 Dose: 100 mls/hr Lactated Ringer's (Lactated Ringer's) 1,000 mls @ 90 mls/hr IV .Q11H7M [facility] Last Admin: 12/30/17 00:28 Dose: 90 mls/hr Insulin Human Regular (Humulin R) 0 units SC ACHS [facility] PRN Reason: Protocol Last Admin: 12/30/17 06:31 Dose: Not Given Losartan Potassium (Cozaar) 100 mg PO DAILY [facility] Last Admin: 12/29/17 08:17 Dose: 100 mg Metformin HCl (Glucophage) 1,000 mg PO BID [facility] Last Admin: 12/22/17 08:45 Dose: Not Given Methimazole (Tapazole) 20 mg PO BID [facility] Last Admin: 12/22/17 08:47 Dose: Not Given Morphine Sulfate (Morphine) 2 mg IVP Q4 PRN PRN Reason: Pain, severe (8-10) Last Admin: 12/28/17 23:25 Dose: 2 mg Ondansetron HCl (Zofran Odt) 4 mg PO Q6 PRN PRN Reason: Nausea/Vomiting Pantoprazole Sodium (Protonix Inj) 40 mg IVP DAILY [facility] Tramadol HCl (Ultram) 50 mg PO Q8 PRN PRN Reason: Pain, severe (8-10) - Labs Labs: 12/29/17 12:50 12/29/17 12:50 PT 14.8 Seconds (9.8-13.1) H 12/20/17 16:40 INR 1.3 (0.9-1.2) H 12/20/17 16:40 APTT 31.1 Seconds (25.6-37.1) 12/20/17 16:40 - Constitutional Appears: Well, Non-toxic, No Acute Distress - ENT Exam ENT Exam: Mucous Membranes Moist - Respiratory Exam Respiratory Exam: NORMAL BREATHING PATTERN - Cardiovascular Exam Cardiovascular Exam: +S1, +S2 - GI/Abdominal Exam GI & Abdominal Exam: Soft Additional comments: Soft, Tenderness (suprapubic), Normal Bowel Sounds. absent: Distended, Firm, Guarding, Rigid, Rebound midline incision with packing dressing clean dry and intact (both were changed today) - Extremities Exam Extremities Exam: Normal Capillary Refill - Neurological Exam Neurological Exam: Alert, Awake, Oriented x3 - Psychiatric Exam Psychiatric exam: Normal Affect, Normal Mood - Skin Skin Exam: Dry, Intact, Normal Color, Warm Assessment and Plan - Assessment and Plan (Free Text) Assessment: 47F s/p ex-lap, removal of Tubo-ovarian abscess, repair of enterotomy POD#9 Plan: - IR drainage of fluid collection in pelvis today - Pain control - Glucose control - Dressing changes PRN - Further recs discuss with Dr. Alvarado
[2017-12-30] MEDS: guaiFENesin-DM 600-30 mg ER Tab PO SCH (08:21)
[2017-12-30] MEDS: SODIUM CHLORIDE 0.9% IVPB SCH (11:59)
[2017-12-30] MEDS: GENTAMICIN IVPB SCH (11:59)
[2017-12-30 12:11] LABS: BASO % 0.3 % (0.0-2.0); EOS % 0.2 % (0.0-4.0); HEMOGLOBIN 9.9 g/dL (12.0-16.0); LYMPH # 1.5 K/uL (1.0-4.3); MEAN CELL VOLUME 76.9 fl (81.0-99.0); MEAN CORPUSCULAR HEMOGLOBIN 25.3 pg (27.0-31.0); MEAN CORPUSCULAR HGB CONC 32.9 g/dL (33.0-37.0); MEAN PLATELET VOLUME 8.3 fl (7.2-11.7); MONO # 0.9 K/uL (0.0-0.8); MONO % 5.7 % (0.0-10.0); NEUT # 13.8 K/uL (1.8-7.0); NEUT % 84.8 % (50.0-75.0); PLATELET COUNT 393 K/uL (130-400); RBC 3.91 Mil/uL (3.80-5.20); WHITE BLOOD COUNT 16.2 K/uL (4.8-10.8)
[2017-12-30 13:06] LABS: ANISOCYTOSIS SLIGHT; HYPOCHROMIC SLIGHT; LARGE PLATELETS PRESENT; LYMPHOCYTE 10 % (20-50); MONOCYTE 6 % (0-10); NEUTROPHIL 84 % (42-75); OVALOCYTES SLIGHT; PLATELET ESTIMATE NORMAL (NORMAL); TOTAL CELLS COUNTED 100
[2017-12-30] MEDS ORDERED: Lidocaine Hydrochloride 1% 10 ML ONE (15:13)
[2017-12-30] MEDS ORDERED: Midazolam 2 MG/2 ML VIAL ONE (15:56)
[2017-12-30] MEDS ORDERED: Iodixanol 320 MG/ML 100 ML BOTTLE IV ONE (16:09)
[2017-12-30] MEDS ORDERED: HYDROmorphone 0.5 mg/0.5 ml ISec IVP PRN (16:37)
--- NOTE | 2017-12-30 16:40 | CP.PCM.PN ---
<Dell Nunes - Last Filed: 12/30/17 16:38> Subjective - Date & Time of Evaluation Date of Evaluation: 12/30/17 Time of Evaluation: 10:00 - Subjective Subjective: Patient seen and examined at bedside this morning. There are no acute events overnight, NAD. Patient s/p ex laparotomy with removal of infected left ovarian cyst and enterorrhaphy POD9. Patient reports right sided lower abdominal pain denies nausea, vomiting, or fever. Patient reports she has gas and bowel movement this morning. Patient tolerating PO w/o issue. Patient seen by CAR AUDIO INSTALLER and surgery. ESMER drain 2 cc. Objective - Vital Signs/Intake and Output Vital Signs (last 24 hours): Temp Pulse Resp BP Pulse Ox 98.6 F 92 H 22 165/87 H 100 12/30/17 08:22 12/30/17 08:28 12/30/17 08:22 12/30/17 08:28 12/30/17 08:22 Intake and Output: 12/30/17 12/30/17 06:59 18:59 Intake Total 640 Balance 640 - Medications Medications: Current Medications Acetaminophen (Tylenol 325mg Tab) 650 mg PO Q6 PRN PRN Reason: Pain, Mild (1-3) Last Admin: 12/29/17 22:31 Dose: 650 mg Aspirin (Ecotrin) 81 mg PO [facility] Last Admin: 12/22/17 01:59 Dose: Not Given Dextrose (Dextrose 50% Inj) 0 ml IV STAT PRN; Protocol PRN Reason: Hypoglycemia Protocol Dextrose (Glutose 15) 0 gm PO ONCE PRN; Protocol PRN Reason: Hypoglycemia Protocol Dicyclomine HCl (Bentyl) 10 mg PO TID PRN PRN Reason: GI distress Docusate Sodium (Colace) 100 mg PO BID PRN PRN Reason: GI distress Ergocalciferol (Drisdol 50,000 Intl Units Cap) 1 cap PO [facility] Last Admin: 12/22/17 01:59 Dose: Not Given Famotidine (Pepcid) 20 mg PO BID [facility] Last Admin: 12/22/17 08:47 Dose: Not Given Fenofibrate (Tricor) 145 mg PO [facility] Glipizide (Glucotrol) 5 mg PO BID [facility] Last Admin: 12/22/17 08:45 Dose: Not Given Glucagon (Glucagen Diagnostic Kit) 0 mg IM STAT PRN; Protocol PRN Reason: Hypoglycemia Protocol Guaifenesin/Dextromethorphan (Mucinex-Dm 600-30 Mg) 1 tab PO BID [facility] Last Admin: 12/30/17 08:21 Dose: Not Given Gentamicin Sulfate 180 mg/ (Sodium Chloride) 254.5 mls @ 100 mls/hr IVPB DAILY [facility] PRN Reason: Protocol Last Admin: 12/30/17 11:59 Dose: 100 mls/hr Metronidazole (Flagyl 500mg/100ml Ns) 100 mls @ 100 mls/hr IVPB Q8 [facility] PRN Reason: Protocol Last Admin: 12/30/17 08:20 Dose: 100 mls/hr Doxycycline Hyclate 100 mg/ (Sodium Chloride) 100 mls @ 100 mls/hr IVPB Q12 [facility] PRN Reason: Protocol Last Admin: 12/30/17 08:22 Dose: 100 mls/hr Lactated Ringer's (Lactated Ringer's) 1,000 mls @ 90 mls/hr IV .[id number] [facility] Last Admin: 12/30/17 12:03 Dose: Not Given Insulin Human Regular (Humulin R) 0 units SC ACHS [facility] PRN Reason: Protocol Last Admin: 12/30/17 12:02 Dose: 6 units Losartan Potassium (Cozaar) 100 mg PO DAILY [facility] Last Admin: 12/30/17 08:28 Dose: 100 mg Metformin HCl (Glucophage) 1,000 mg PO BID [facility] Last Admin: 12/22/17 08:45 Dose: Not Given Methimazole (Tapazole) 20 mg PO BID [facility] Last Admin: 12/22/17 08:47 Dose: Not Given Morphine Sulfate (Morphine) 2 mg IVP Q4 PRN PRN Reason: Pain, severe (8-10) Last Admin: 12/28/17 23:25 Dose: 2 mg Ondansetron HCl (Zofran Odt) 4 mg PO Q6 PRN PRN Reason: Nausea/Vomiting Pantoprazole Sodium (Protonix Inj) 40 mg IVP DAILY [facility] Last Admin: 12/30/17 08:29 Dose: 40 mg Tramadol HCl (Ultram) 50 mg PO Q8 PRN PRN Reason: Pain, severe (8-10) - Labs Labs: 12/30/17 12:05 12/29/17 12:50 PT 14.8 Seconds (9.8-13.1) H 12/20/17 16:40 INR 1.3 (0.9-1.2) H 12/20/17 16:40 APTT 31.1 Seconds (25.6-37.1) 12/20/17 16:40 - Constitutional Appears: Non-toxic, No Acute Distress - Head Exam Head Exam: ATRAUMATIC, NORMAL INSPECTION, NORMOCEPHALIC - Eye Exam Eye Exam: Normal appearance - ENT Exam ENT Exam: Mucous Membranes Moist - Neck Exam Neck Exam: Full ROM. absent: Tenderness - Respiratory Exam Respiratory Exam: Clear to Ausculation Bilateral. absent: Accessory Muscle Use , Decreased Breath Sounds, Rales, Rhonchi, Wheezes, Respiratory Distress - Cardiovascular Exam Cardiovascular Exam: REGULAR RHYTHM. absent: Tachycardia - GI/Abdominal Exam GI & Abdominal Exam: Soft Additional comments: tender by ESMER drain site incision site dressed, c/d/i, ESMER drain RUQ draining 2 cc serosanguinous fluid - Extremities Exam Extremities Exam: absent: Calf Tenderness, Pedal Edema, Tenderness - Neurological Exam Neurological Exam: Alert, Awake, Oriented x3 - Skin Skin Exam: Dry, Intact, Normal Color, Warm Assessment and Plan (1) Abdominal pain Status: Acute (2) Ovarian cyst Status: Resolved - Assessment and Plan (Free Text) Plan: c/w present management, POD9 [employer]BER recommendations appreciated General surgery recommendations appreciated Infectious Disease recommendations appreciated - Blood cx 4/2: No growth 48Hrs - Urine culture 4/3: Final, no growth - Wound cx 4/3: E.coli - culture/Pathology 4/2: 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 CT abdomen/pelvis w/ IV and PO contrast: multiloculated process/abscess from posterior of uterus to rectum IR drainage of fluid/abscess today flagyl 500 mg IV Q8h day 10 gentamicin 180 mg IV daily day 10 doxycycline 100 mg IV Q12h day 11 losartan 100 mg PO daily for BP control protonix 40 mg IV Q12h pain control w/ Morphine 2 mg IV Q4 insulin sliding scale hypoglycemic protocol Patient tolerating PO monitor for acute changes encourage incentive spirometry encourage out of bed to chair DVT PPX: SCDs <Bruce Blood - Last Filed: 01/05/18 11:35> Objective - Vital Signs/Intake and Output Vital Signs (last 24 hours): Temp Pulse Resp BP Pulse Ox 98.0 F 76 20 155/81 H 97 01/05/18 08:33 01/05/18 08:33 01/05/18 08:33 01/05/18 08:33 01/05/18 08:33 Intake and Output: 01/05/18 01/05/18 06:59 18:59 Output Total 50 Balance -50 - Medications Medications: Current Medications Acetaminophen (Tylenol 325mg Tab) 650 mg PO Q6 PRN PRN Reason: Pain, Mild (1-3) Last Admin: 01/01/18 21:35 Dose: 650 mg Aspirin (Ecotrin) 81 mg PO HS [facility] Last Admin: 12/22/17 01:59 Dose: Not Given Dextrose (Dextrose 50% Inj) 0 ml IV STAT PRN; Protocol PRN Reason: Hypoglycemia Protocol Dextrose (Glutose 15) 0 gm PO ONCE PRN; Protocol PRN Reason: Hypoglycemia Protocol Dicyclomine HCl (Bentyl) 10 mg PO TID PRN PRN Reason: GI distress Docusate Sodium (Colace) 100 mg PO BID PRN PRN Reason: GI distress Ergocalciferol (Drisdol 50,000 Intl Units Cap) 1 cap PO [facility] Last Admin: 12/22/17 01:59 Dose: Not Given Famotidine (Pepcid) 20 mg PO BID [facility] Last Admin: 12/22/17 08:47 Dose: Not Given Fenofibrate (Tricor) 145 mg PO [facility] Glipizide (Glucotrol) 5 mg PO BID [facility] Last Admin: 12/22/17 08:45 Dose: Not Given Glucagon (Glucagen Diagnostic Kit) 0 mg IM STAT PRN; Protocol PRN Reason: Hypoglycemia Protocol Guaifenesin/Dextromethorphan (Mucinex-Dm 600-30 Mg) 1 tab PO BID [facility] Last Admin: 01/05/18 08:30 Dose: 1 tab Gentamicin Sulfate 180 mg/ (Sodium Chloride) 254.5 mls @ 100 mls/hr IVPB DAILY [facility] PRN Reason: Protocol Last Admin: 01/05/18 08:30 Dose: 100 mls/hr Metronidazole (Flagyl 500mg/100ml Ns) 100 mls @ 100 mls/hr IVPB Q8 [facility] PRN Reason: Protocol Last Admin: 01/05/18 08:30 Dose: 100 mls/hr Doxycycline Hyclate 100 mg/ (Sodium Chloride) 100 mls @ 100 mls/hr IVPB Q12 [facility] PRN Reason: Protocol Last Admin: 01/05/18 08:29 Dose: 100 mls/hr Insulin Detemir (Levemir) 8 units SC HS [facility] Last Admin: 01/04/18 21:37 Dose: 8 units Insulin Human Regular (Humulin R) 0 units SC ACHS [facility] PRN Reason: Protocol Last Admin: 01/05/18 08:29 Dose: 4 units Insulin Human Regular (Humulin R) 5 units SC ACTID [facility] Last Admin: 01/05/18 08:29 Dose: 5 u Losartan Potassium (Cozaar) 100 mg PO DAILY [facility] Last Admin: 01/05/18 08:30 Dose: 100 mg Metformin HCl (Glucophage) 1,000 mg PO BID [facility] Last Admin: 12/22/17 08:45 Dose: Not Given Methimazole (Tapazole) 20 mg PO BID [facility] Last Admin: 12/22/17 08:47 Dose: Not Given Ondansetron HCl (Zofran Odt) 4 mg PO Q6 PRN PRN Reason: Nausea/Vomiting Pantoprazole Sodium (Protonix Ec Tab) 40 mg PO DAILY [facility] Sitagliptin Phosphate (Januvia) 100 mg PO DAILY [facility] Last Admin: 01/05/18 08:31 Dose: 100 mg Tramadol HCl (Ultram) 50 mg PO Q8 PRN PRN Reason: Pain, severe (8-10) - Labs Labs: 01/04/18 10:18 01/02/18 06:55 PT 14.8 Seconds (9.8-13.1) H 12/20/17 16:40 INR 1.3 (0.9-1.2) H 12/20/17 16:40 APTT 31.1 Seconds (25.6-37.1) 12/20/17 16:40 Assessment and Plan (1) Pelvic abscess Status: Acute (2) Abdominal pain Status: Acute (3) Complicated UTI (urinary tract infection) Status: Acute (4) Ovarian mass, left Status: Acute (5) Uncontrolled diabetes mellitus Status: Acute - Assessment and Plan (Free Text) Plan: I was present during evaluation and discussed with Dr Nunes re plans of care and treatment. Bruce Blood M.D.
--- NOTE | 2017-12-30 16:42 | PCM.SURG1 ---
Surgeon's Initial Post Op Note - Surgeon's Notes Surgeon: Chicho Nichols MD Clam Picker: None Type of Anesthesia: MAC Pre-Operative Diagnosis: pelvic abscess Operative Findings: gas and fluid containing left lower quadrant collection extending to pelvic floor. 8 Azeri pigtail catheter with sideholes extending from anterior aspect of pelvic collection to pelvic floor Post-Operative Diagnosis: same Operation Performed: US and Fluoroscopy Guided Pelvic Abscess Drainage Specimen/Specimens Removed: 10 cc purulent appearing fluid removed and submitted Estimated Blood Loss: EBL {In ML}: 3 Date of Surgery/Procedure: 12/30/17 Time of Surgery/Procedure: 16:30
[2017-12-30] MEDS ORDERED: Lactated Ringer's 1,000 ML IV ONE (16:50)
[2017-12-31] MEDS: metroNIDAZOLE 500mg/100ml NS 100 ML IVPB SCH ×3 (00:11→16:01)
--- NOTE | 2017-12-31 06:39 | CP.PCM.PN ---
Subjective - Date & Time of Evaluation Date of Evaluation: 12/31/17 Time of Evaluation: 06:37 - Subjective Subjective: OBGYN Progress Note 47 YO admitted for abdominal pain, ovarian abscess POD10; S/p ex laparotomy for left TOA, removal of left ovarian cyst and enterorrhaphy POD1: S/p IR guided drainage of pelvic fluid Approximately 10cc of pelvic fluid was drained by IR yesterday. Pt was febrile with tmax of 100.4 overnight, afebrile this AM. Pt is tolerating diet, is having regular BM. Endorsing pain in LLQ at tube site, improvement in pain in RLQ. Pt is ambulating. Denies chest pain, dyspnea, palpitations, n/v/d/c and remains afebrile. ESMER still intact--draining ~ 3cc serosangunious fluid Pigtail cath--no drainage noted in collection bag, serosangunious fluid noted in tube Objective - Vital Signs/Intake and Output Vital Signs (last 24 hours): Temp Pulse Resp BP Pulse Ox 98.5 F 89 19 138/81 97 12/31/17 06:15 12/31/17 06:15 12/31/17 06:15 12/31/17 06:15 12/31/17 06:15 Intake and Output: 12/30/17 12/31/17 18:59 06:59 Intake Total 200 Output Total 30 Balance 200 -30 - Medications Medications: Current Medications Acetaminophen (Tylenol 325mg Tab) 650 mg PO Q6 PRN PRN Reason: Pain, Mild (1-3) Last Admin: 12/29/17 22:31 Dose: 650 mg Aspirin (Ecotrin) 81 mg PO [facility] Last Admin: 12/22/17 01:59 Dose: Not Given Dextrose (Dextrose 50% Inj) 0 ml IV STAT PRN; Protocol PRN Reason: Hypoglycemia Protocol Dextrose (Glutose 15) 0 gm PO ONCE PRN; Protocol PRN Reason: Hypoglycemia Protocol Dicyclomine HCl (Bentyl) 10 mg PO TID PRN PRN Reason: GI distress Docusate Sodium (Colace) 100 mg PO BID PRN PRN Reason: GI distress Ergocalciferol (Drisdol 50,000 Intl Units Cap) 1 cap PO [facility] Last Admin: 12/22/17 01:59 Dose: Not Given Famotidine (Pepcid) 20 mg PO BID [facility] Last Admin: 12/22/17 08:47 Dose: Not Given Fenofibrate (Tricor) 145 mg PO HS [facility] Glipizide (Glucotrol) 5 mg PO BID [facility] Last Admin: 12/22/17 08:45 Dose: Not Given Glucagon (Glucagen Diagnostic Kit) 0 mg IM STAT PRN; Protocol PRN Reason: Hypoglycemia Protocol Guaifenesin/Dextromethorphan (Mucinex-Dm 600-30 Mg) 1 tab PO BID [facility] Last Admin: 12/30/17 08:21 Dose: Not Given Gentamicin Sulfate 180 mg/ (Sodium Chloride) 254.5 mls @ 100 mls/hr IVPB DAILY [facility] PRN Reason: Protocol Last Admin: 12/30/17 11:59 Dose: 100 mls/hr Metronidazole (Flagyl 500mg/100ml Ns) 100 mls @ 100 mls/hr IVPB Q8 [facility] PRN Reason: Protocol Last Admin: 12/31/17 00:11 Dose: 100 mls/hr Doxycycline Hyclate 100 mg/ (Sodium Chloride) 100 mls @ 100 mls/hr IVPB Q12 [facility] PRN Reason: Protocol Last Admin: 12/30/17 20:10 Dose: 100 mls/hr Insulin Human Regular (Humulin R) 0 units SC ACHS [facility] PRN Reason: Protocol Last Admin: 12/30/17 22:30 Dose: Not Given Losartan Potassium (Cozaar) 100 mg PO DAILY [facility] Last Admin: 12/30/17 08:28 Dose: 100 mg Metformin HCl (Glucophage) 1,000 mg PO BID [facility] Last Admin: 12/22/17 08:45 Dose: Not Given Methimazole (Tapazole) 20 mg PO BID [facility] Last Admin: 12/22/17 08:47 Dose: Not Given Morphine Sulfate (Morphine) 2 mg IVP Q4 PRN PRN Reason: Pain, severe (8-10) Last Admin: 12/28/17 23:25 Dose: 2 mg Ondansetron HCl (Zofran Odt) 4 mg PO Q6 PRN PRN Reason: Nausea/Vomiting Pantoprazole Sodium (Protonix Inj) 40 mg IVP DAILY [facility] Last Admin: 12/30/17 08:29 Dose: 40 mg Tramadol HCl (Ultram) 50 mg PO Q8 PRN PRN Reason: Pain, severe (8-10) - Labs Labs: 12/30/17 12:05 12/29/17 12:50 PT 14.8 Seconds (9.8-13.1) H 12/20/17 16:40 INR 1.3 (0.9-1.2) H 12/20/17 16:40 APTT 31.1 Seconds (25.6-37.1) 12/20/17 16:40 - Constitutional Appears: No Acute Distress - Head Exam Head Exam: ATRAUMATIC, NORMOCEPHALIC - Eye Exam Eye Exam: EOMI, Normal appearance - Neck Exam Neck Exam: Full ROM - Respiratory Exam Respiratory Exam: Clear to Ausculation Bilateral, NORMAL BREATHING PATTERN. absent: Rales, Wheezes - Cardiovascular Exam Cardiovascular Exam: REGULAR RHYTHM, +S1, +S2 - GI/Abdominal Exam GI & Abdominal Exam: Soft, Tenderness (To palation of the LLQ> RLQ) Additional comments: Ex lap site covered with gauze. No discharge noted. RUQ Esmer intact draining 3cc cloudy sersangunious fluid. Pigtail cath drain noted in LLQ , no fluid collected in bag. - Extremities Exam Extremities Exam: Full ROM. absent: Calf Tenderness, Pedal Edema - Neurological Exam Neurological Exam: Alert, Awake - Psychiatric Exam Psychiatric exam: Normal Affect, Normal Mood - Skin Skin Exam: Dry, Intact, Normal Color, Warm Assessment and Plan - Assessment and Plan (Free Text) Assessment: Assessment/Plan: 47 y/o Female admitted for pelvic pain/left ovarian abscess. POD 10, s/p exploratory laporatomy for left ovarian cyst removal secondary to a TOA and enterorrhaphy. POD1, s/p IR guided pelvic fluid drainage. 1. Pelvic pain/left ovarian abscess - S/p cyst removal; ESMER drain intact - Pathology final; sig for endometriotic cysts and abscess - S/p IR guided drainage of pelvic fluid/abscess; Pigtail cath drain noted in LLQ - Low grade fever overnight, Tmax of 100.4 - WBC is tending up 16.5 (12/30) from 12.2 (12/29), 9 (12/25) - ESMER drain is draining serosanguineous fluid ~ 3 cc. - Blood cx from 12/20: Final, no growth - Urine culture 2: Final, no growth - Wound cx 4/3: Final, E. Coli - Encourage ambulation, and incentive spirometry - Continue management as per primary team, ID and Surgery
[2017-12-31] MEDS: Insulin Regular 100 units/ml SC SCH ×6 (06:43→22:16)
[2017-12-31 07:34] LABS: BASO % 0.2 % (0.0-2.0); EOS % 0.3 % (0.0-4.0); HEMOGLOBIN 9.2 g/dL (12.0-16.0); LYMPH # 1.2 K/uL (1.0-4.3); LYMPH % 8.1 % (20.0-40.0); MEAN CELL VOLUME 77.2 fl (81.0-99.0); MEAN CORPUSCULAR HEMOGLOBIN 25.5 pg (27.0-31.0); MEAN PLATELET VOLUME 8.6 fl (7.2-11.7); MONO # 1.1 K/uL (0.0-0.8); MONO % 7.3 % (0.0-10.0); NEUT # 12.5 K/uL (1.8-7.0); NEUT % 84.1 % (50.0-75.0); RBC 3.63 Mil/uL (3.80-5.20); RED CELL DISTRIBUTION WIDTH 13.1 % (11.5-14.5); WHITE BLOOD COUNT 14.9 K/uL (4.8-10.8)
[2017-12-31 07:41] LABS: ALB/GLOB RATIO 0.7 (1.0-2.1); ALBUMIN 2.3 g/dL (3.5-5.0); ALT/SGPT 33 U/L (9-52); AST/SGOT 18 U/L (14-36); BLOOD UREA NITROGEN 9 mg/dl (7-17); CALCIUM 8.3 mg/dL (8.4-10.2); GFR AFRICAN-AMERICAN > 60; GFR NON-AFRICAN AMERICAN > 60
--- NOTE | 2017-12-31 08:20 | OP ---
PROCEDURE DATE: 12/21/2017 PREOPERATIVE DIAGNOSIS: Left tubo-ovarian abscess. POSTOPERATIVE DIAGNOSES: 1. Left tubo-ovarian abscess. 2. Enterotomy. PROCEDURE: 1. Exploratory laparoscopy convert to exploratory laparotomy. 2. Left salpingo-oophorectomy. 3. Enterorrhaphy. 4. Enterolysis and omental flap. SURGEONS: Lupillo Prince DO and Guido Alvarado MD TYPE OF ANESTHESIA: General endotracheal. CLINICAL INFORMATION: Ms. Willingham is a 47-year-old female who was troubled by malaise, fatigue, low-grade fever and chills approximately a week before coming to the [facility] Emergency Room. She was found to have an abscess in the left lower quadrant adjacent to the adnexa consistent with tubo-ovarian abscess and she was taken to the OR by the SOFTWARE IMPLEMENTATION PROJECT MANAGER service for laparoscopy and aspiration and evacuation of tubo-ovarian abscess. Upon entering___ encountered multiple adhesions because of previous surgery including three C-sections and I created inadvertent enterotomy requiring . DESCRIPTION OF PROCEDURE: The patient at that time when I entered the operating room was already intubated in supine position with the port that was inserted by the job lithographer in the periumbilical area. The mid supra and infraumbilical midline incision was infiltrated with local anesthetic and incised with a #[address] down to the pubis. Dissection continued through the subcutaneous tissue into the linea alba and the peritoneal cavity was accessed. Multiple dense adhesions were encountered, which were taken down in the sharp and blunt fashion without any collateral damage. Upon completing the dissection, the enterotomy was identified in the proximal ileum and was closed in 2 layers using interrupted 2-0 silk and an omental flap was also secured to the newly constructed enterorrhaphy with 2-0 interrupted silk. The abdomen was inspected and palpated and irrigated with normal saline. There were multiple areas of small bowel that were adherent firm, thick exudate. There was a large tubo-ovarian abscess in the left side of the pelvis, which was removed by the job lithographer. With my help using LigaSure and securing the gonadal vessels with [id number] 2-0 silk stitches. The wound was irrigated with copious amounts of warm normal saline and ESMER #10 was placed through the separate stab wound incisions of the right lower quadrant deepened to the pelvis and adjacent also to the anastomosis . Abdomen was closed in 2 layers using #1 continuous PDS for the fascia and kaleb for the skin, which were kept apart approximately 1 to 1.5 inches and the wound in between was packed all the way down the fascia with 1-inch iodoform gauze. Sterile dressings were applied. At the end of the surgery, the counts of instruments, gauze, and needles counts were correct x2. The patient tolerated the surgery well and was transferred in stable condition to recovery room. Guido Alvarado MD
--- NOTE | 2017-12-31 08:38 | CP.PCM.PN ---
Subjective - Date & Time of Evaluation Date of Evaluation: 12/31/17 Time of Evaluation: 07:35 - Subjective Subjective: General Surgery Note for Dr. Alvarado Patient seen and evaluated at bedside. No acute event overnight. Patient is resting comfortably in bed comfortably. She is s/p IR drainage for pelvic fluid collection POD#1. Abdominal pain has improved but she is complaining of pain at IR drain site. Denies nausea and vomiting. Patient reports passing gas. Objective - Vital Signs/Intake and Output Vital Signs (last 24 hours): Temp Pulse Resp BP Pulse Ox 98.5 F 89 19 138/81 97 12/31/17 06:15 12/31/17 06:15 12/31/17 06:15 12/31/17 06:15 12/31/17 06:15 Intake and Output: 12/31/17 12/31/17 06:59 18:59 Output Total 30 Balance -30 - Medications Medications: Current Medications Acetaminophen (Tylenol 325mg Tab) 650 mg PO Q6 PRN PRN Reason: Pain, Mild (1-3) Last Admin: 12/29/17 22:31 Dose: 650 mg Aspirin (Ecotrin) 81 mg PO HS [facility] Last Admin: 12/22/17 01:59 Dose: Not Given Dextrose (Dextrose 50% Inj) 0 ml IV STAT PRN; Protocol PRN Reason: Hypoglycemia Protocol Dextrose (Glutose 15) 0 gm PO ONCE PRN; Protocol PRN Reason: Hypoglycemia Protocol Dicyclomine HCl (Bentyl) 10 mg PO TID PRN PRN Reason: GI distress Docusate Sodium (Colace) 100 mg PO BID PRN PRN Reason: GI distress Ergocalciferol (Drisdol 50,000 Intl Units Cap) 1 cap PO WE [facility] Last Admin: 12/22/17 01:59 Dose: Not Given Famotidine (Pepcid) 20 mg PO BID [facility] Last Admin: 12/22/17 08:47 Dose: Not Given Fenofibrate (Tricor) 145 mg PO HS [facility] Glipizide (Glucotrol) 5 mg PO BID [facility] Last Admin: 12/22/17 08:45 Dose: Not Given Glucagon (Glucagen Diagnostic Kit) 0 mg IM STAT PRN; Protocol PRN Reason: Hypoglycemia Protocol Guaifenesin/Dextromethorphan (Mucinex-Dm 600-30 Mg) 1 tab PO BID [facility] Last Admin: 12/30/17 08:21 Dose: Not Given Gentamicin Sulfate 180 mg/ (Sodium Chloride) 254.5 mls @ 100 mls/hr IVPB DAILY [facility] PRN Reason: Protocol Last Admin: 12/30/17 11:59 Dose: 100 mls/hr Metronidazole (Flagyl 500mg/100ml Ns) 100 mls @ 100 mls/hr IVPB Q8 [facility] PRN Reason: Protocol Last Admin: 12/31/17 00:11 Dose: 100 mls/hr Doxycycline Hyclate 100 mg/ (Sodium Chloride) 100 mls @ 100 mls/hr IVPB Q12 [facility] PRN Reason: Protocol Last Admin: 12/30/17 20:10 Dose: 100 mls/hr Insulin Human Regular (Humulin R) 0 units SC ACHS [facility] PRN Reason: Protocol Last Admin: 12/31/17 06:43 Dose: 4 units Losartan Potassium (Cozaar) 100 mg PO DAILY [facility] Last Admin: 12/30/17 08:28 Dose: 100 mg Metformin HCl (Glucophage) 1,000 mg PO BID [facility] Last Admin: 12/22/17 08:45 Dose: Not Given Methimazole (Tapazole) 20 mg PO BID [facility] Last Admin: 12/22/17 08:47 Dose: Not Given Morphine Sulfate (Morphine) 2 mg IVP Q4 PRN PRN Reason: Pain, severe (8-10) Last Admin: 12/28/17 23:25 Dose: 2 mg Ondansetron HCl (Zofran Odt) 4 mg PO Q6 PRN PRN Reason: Nausea/Vomiting Pantoprazole Sodium (Protonix Inj) 40 mg IVP DAILY [facility] Last Admin: 12/30/17 08:29 Dose: 40 mg Tramadol HCl (Ultram) 50 mg PO Q8 PRN PRN Reason: Pain, severe (8-10) - Labs Labs: 12/31/17 06:20 12/31/17 06:20 PT 14.8 Seconds (9.8-13.1) H 12/20/17 16:40 INR 1.3 (0.9-1.2) H 12/20/17 16:40 APTT 31.1 Seconds (25.6-37.1) 12/20/17 16:40 - Constitutional Appears: No Acute Distress - Head Exam Head Exam: ATRAUMATIC, NORMOCEPHALIC - ENT Exam ENT Exam: Mucous Membranes Moist - Respiratory Exam Respiratory Exam: NORMAL BREATHING PATTERN - Cardiovascular Exam Cardiovascular Exam: REGULAR RHYTHM - GI/Abdominal Exam GI & Abdominal Exam: Soft, Normal Bowel Sounds. absent: Tenderness Additional comments: midline incision with packing dressing clean dry and intact - Extremities Exam Extremities Exam: Normal Capillary Refill - Neurological Exam Neurological Exam: Alert, Awake, Oriented x3 - Psychiatric Exam Psychiatric exam: Normal Affect, Normal Mood - Skin Skin Exam: Dry, Warm Assessment and Plan - Assessment and Plan (Free Text) Assessment: 47F s/p ex-lap, removal of Tubo-ovarian abscess, repair of enterotomy POD#10 - Wound vac application - Packing change today - Pain control - Glucose control - Dressing changes PRN - Further recommendations as per Dr. Christiano Suggs PGY1
[2017-12-31] MEDS: guaiFENesin-DM 600-30 mg ER Tab PO SCH ×2 (09:00→17:16)
--- NOTE | 2017-12-31 11:58 | RAD ---
PROCEDURE: ULTRASOUND AND FLUOROSCOPY-GUIDED ABSCESS DRAINAGE CLINICAL HISTORY: 47-year-old female with postsurgical pelvic abscess is referred to Interventional Radiology for percutaneous abscess drainage. COMPARISON: CT scan of the abdomen and pelvis dated 12/28/2017 PROCEDURE: 1. Focused ultrasound of the pelvis. 2. Ultrasound and fluoroscopy-guided abscess drainage. PRE-PROCEDURE FINDINGS: 1. Gas and fluid-filled collection in the anterior left lower quadrant POST-PROCEDURE FINDINGS: 1. No evidence of post-procedural complication. INTERVENTIONAL RADIOLOGIST: Chicho Nichols M.D. (the attending was present for the entire procedure) ANESTHESIA: Provided by the attending anesthesiologist. Sedation was supervised by the anesthesiology attending with the presence of independent radiology nursing monitoring. Physiological data monitoring was performed throughout the entire procedure. The patient's blood pressure, EKG and pulse oximetry were recorded. The patient tolerated the procedure and sedation without untoward reactions. The intra-procedural sedation time was 20 minutes. MEDICATIONS: Lidocaine 1% for local subcutaneous analgesia. COMPLICATIONS: None. PROCEDURE DESCRIPTION AND FINDINGS: The risks, benefits, alternatives and possible complications of the procedure were fully discussed; all questions were answered and informed consent was obtained. The patient was brought into the interventional suite and a pre-procedure 'time-out' was performed. The patient was placed on the fluoroscopy table in the supine position. The fluid collection was localized under ultrasound-guidance and a anderson was made on the overlying skin. The left lower quadrant was prepped and draped in the usual sterile fashion. Maximum sterile barrier precautions were maintained throughout the entire procedure. Preliminary focused ultrasound images of the pelvis again demonstrate gas and fluid-filled collection in the anterior left lower quadrant. Following subcutaneous infiltration of lidocaine 1% for local analgesia, under ultrasound-guidance, an 18-gauge trocar needle was advanced into the left lower quadrant collection. The ultrasound images were permanently recorded and submitted to the PACS.An 0.035 guidewire was looped within the collection and optimal position was confirmed with fluoroscopic imaging. The needle was exchanged for 5 [place] Berenstein catheter. Contrast was injected via the catheter at which demonstrated extension of the collection to the pelvic floor. The catheter was manipulated to the inferior-most aspect of the collection. The catheter was then removed over the guidewire. After serial dilatation, an 8 [place] biliary drainage pigtail catheter was advanced over the guidewire into the collection with sideholes extending from the inferior aspect of the collection of the pelvic floor to the anterior left lower quadrant component. Approximately 10 mL of purulent appearing fluid was aspirated and was sent to microbiology for culture and sensitivity. Post-procedure imaging demonstrated optimal pigtail catheter placement without evidence of complications. The catheter was secured to the skin utilizing a sterile adhesive bandage and left to external gravity bag drainage. The patient tolerated the procedure well without immediate post-procedure complications and was transferred back to the floor in stable condition. IMPRESSION: Successful ultrasound and fluoroscopy-guided drainage of pelvic abscess with placement of 8 [place] biliary pigtail catheter within the collection.
[2017-12-31] MEDS: SODIUM CHLORIDE 0.9% IVPB SCH (12:35)
[2017-12-31] MEDS: GENTAMICIN IVPB SCH (12:35)
[2017-12-31] MEDS: Insulin Detemir 100 Units/ml Inj SC SCH (22:15)
--- NOTE | 2018-01-01 00:38 | CP.PCM.PN ---
Subjective - Date & Time of Evaluation Date of Evaluation: 12/31/17 Time of Evaluation: 10:15 - Subjective Subjective: Patient is resting in bed comfortably. She is s/p IR drainage for pelvic fluid collection POD#1. Abdominal pain has improved but she is complaining of pain at IR drain site. Denies nausea and vomiting. Patient reports passing gas. Objective - Vital Signs/Intake and Output Vital Signs (last 24 hours): Temp Pulse Resp BP Pulse Ox 99.5 F 93 H 18 148/80 98 12/31/17 17:23 12/31/17 17:23 12/31/17 17:23 12/31/17 17:23 12/31/17 17:23 Intake and Output: 12/31/17 01/01/18 18:59 06:59 Output Total 0 Balance 0 - Medications Medications: Current Medications Acetaminophen (Tylenol 325mg Tab) 650 mg PO Q6 PRN PRN Reason: Pain, Mild (1-3) Last Admin: 12/31/17 23:29 Dose: 650 mg Aspirin (Ecotrin) 81 mg PO [facility] Last Admin: 12/22/17 01:59 Dose: Not Given Dextrose (Dextrose 50% Inj) 0 ml IV STAT PRN; Protocol PRN Reason: Hypoglycemia Protocol Dextrose (Glutose 15) 0 gm PO ONCE PRN; Protocol PRN Reason: Hypoglycemia Protocol Dicyclomine HCl (Bentyl) 10 mg PO TID PRN PRN Reason: GI distress Docusate Sodium (Colace) 100 mg PO BID PRN PRN Reason: GI distress Ergocalciferol (Drisdol 50,000 Intl Units Cap) 1 cap PO [facility] Last Admin: 12/22/17 01:59 Dose: Not Given Famotidine (Pepcid) 20 mg PO BID [facility] Last Admin: 12/22/17 08:47 Dose: Not Given Fenofibrate (Tricor) 145 mg PO [facility] Glipizide (Glucotrol) 5 mg PO BID [facility] Last Admin: 12/22/17 08:45 Dose: Not Given Glucagon (Glucagen Diagnostic Kit) 0 mg IM STAT PRN; Protocol PRN Reason: Hypoglycemia Protocol Guaifenesin/Dextromethorphan (Mucinex-Dm 600-30 Mg) 1 tab PO BID [facility] Last Admin: 12/31/17 17:16 Dose: 1 tab Gentamicin Sulfate 180 mg/ (Sodium Chloride) 254.5 mls @ 100 mls/hr IVPB DAILY [facility] PRN Reason: Protocol Last Admin: 12/31/17 12:35 Dose: 100 mls/hr Metronidazole (Flagyl 500mg/100ml Ns) 100 mls @ 100 mls/hr IVPB Q8 [facility]ASH[facility] PRN Reason: Protocol Last Admin: 12/31/17 16:01 Dose: 100 mls/hr Doxycycline Hyclate 100 mg/ (Sodium Chloride) 100 mls @ 100 mls/hr IVPB Q12 [facility] PRN Reason: Protocol Last Admin: 12/31/17 22:14 Dose: 100 mls/hr Insulin Detemir (Levemir) 5 units SC HS [facility] Last Admin: 12/31/17 22:15 Dose: 5 units Insulin Human Regular (Humulin R) 0 units SC ACHS [facility] PRN Reason: Protocol Last Admin: 12/31/17 22:16 Dose: Not Given Insulin Human Regular (Humulin R) 5 units SC ACTID [facility] Last Admin: 12/31/17 17:16 Dose: 5 u Losartan Potassium (Cozaar) 100 mg PO DAILY [facility] Last Admin: 12/31/17 08:59 Dose: 100 mg Metformin HCl (Glucophage) 1,000 mg PO BID [facility] Last Admin: 12/22/17 08:45 Dose: Not Given Methimazole (Tapazole) 20 mg PO BID [facility] Last Admin: 12/22/17 08:47 Dose: Not Given Morphine Sulfate (Morphine) 2 mg IVP Q4 PRN PRN Reason: Pain, severe (8-10) Last Admin: 12/31/17 17:21 Dose: 2 mg Ondansetron HCl (Zofran Odt) 4 mg PO Q6 PRN PRN Reason: Nausea/Vomiting Pantoprazole Sodium (Protonix Inj) 40 mg IVP DAILY [facility] Last Admin: 12/31/17 08:58 Dose: 40 mg Tramadol HCl (Ultram) 50 mg PO Q8 PRN PRN Reason: Pain, severe (8-10) - Labs Labs: 12/31/17 06:20 12/31/17 06:20 PT 14.8 Seconds (9.8-13.1) H 12/20/17 16:40 INR 1.3 (0.9-1.2) H 12/20/17 16:40 APTT 31.1 Seconds (25.6-37.1) 12/20/17 16:40 - Constitutional Appears: Well, Non-toxic, No Acute Distress - Head Exam Head Exam: ATRAUMATIC - Eye Exam Eye Exam: EOMI, Normal appearance - ENT Exam ENT Exam: Mucous Membranes Moist, Normal Exam - Neck Exam Neck Exam: Full ROM - Respiratory Exam Respiratory Exam: Clear to Ausculation Bilateral - Cardiovascular Exam Cardiovascular Exam: REGULAR RHYTHM - GI/Abdominal Exam GI & Abdominal Exam: Soft, Tenderness Additional comments: midline incision with packing dressing clean dry and intact and wound vac, dora LQ drainage ESMER - Extremities Exam Extremities Exam: Full ROM, Normal Capillary Refill, Normal Inspection - Back Exam Back Exam: NORMAL INSPECTION - Neurological Exam Neurological Exam: Alert, Awake, Normal Gait, Oriented x3 - Psychiatric Exam Psychiatric exam: Normal Affect, Normal Mood - Skin Skin Exam: Normal Color, Warm Assessment and Plan - Assessment and Plan (Free Text) Assessment: 47F s/p ex-lap, removal of Tubo-ovarian abscess, repair of enterotomy - Wound vac - Packing changes - Pain control - Glucose control - Dressing changes PRN - insulin SS, consider add levamir for better sugar control
[2018-01-01] MEDS: metroNIDAZOLE 500mg/100ml NS 100 ML IVPB SCH ×3 (01:07→17:46)
[2018-01-01] MEDS: guaiFENesin-DM 600-30 mg ER Tab PO SCH ×2 (09:53→17:48)
[2018-01-01] MEDS: Insulin Regular 100 units/ml SC SCH ×7 (09:55→21:33)
[2018-01-01] MEDS: GENTAMICIN IVPB SCH (09:57)
[2018-01-01] MEDS: SODIUM CHLORIDE 0.9% IVPB SCH (09:57)
--- NOTE | 2018-01-01 13:59 | CP.PCM.PN ---
Subjective - Date & Time of Evaluation Date of Evaluation: 01/01/18 Time of Evaluation: 13:55 - Subjective Subjective: I D NOTE POST OP DAY 1 :IR DRAINAGE 10cc PURULENT MATERIAL CULTURE ,SO FAR GROWING GRAM NEGATIVE RODS (LIKELY E.COLI HAS BEEN DOMINANT BACTERIA WBC:14.9 RENAL STATUS IS STILL STABLE PATIENT STILL HAS PAIN IS THERE POSSIBLE GI/ PERF/FISTULA ? CONTINUE GENTAMICIN/DOXYCYCLINE/FLAGYL Objective - Vital Signs/Intake and Output Vital Signs (last 24 hours): Temp Pulse Resp BP Pulse Ox 98 F 85 18 134/81 98 01/01/18 08:53 01/01/18 08:53 01/01/18 08:53 01/01/18 08:53 01/01/18 08:53 - Medications Medications: Current Medications Acetaminophen (Tylenol 325mg Tab) 650 mg PO Q6 PRN PRN Reason: Pain, Mild (1-3) Last Admin: 12/31/17 23:29 Dose: 650 mg Aspirin (Ecotrin) 81 mg PO [facility] Last Admin: 12/22/17 01:59 Dose: Not Given Dextrose (Dextrose 50% Inj) 0 ml IV STAT PRN; Protocol PRN Reason: Hypoglycemia Protocol Dextrose (Glutose 15) 0 gm PO ONCE PRN; Protocol PRN Reason: Hypoglycemia Protocol Dicyclomine HCl (Bentyl) 10 mg PO TID PRN PRN Reason: GI distress Docusate Sodium (Colace) 100 mg PO BID PRN PRN Reason: GI distress Ergocalciferol (Drisdol 50,000 Intl Units Cap) 1 cap PO [facility] Last Admin: 12/22/17 01:59 Dose: Not Given Famotidine (Pepcid) 20 mg PO BID [facility] Last Admin: 12/22/17 08:47 Dose: Not Given Fenofibrate (Tricor) 145 mg PO [facility] Glipizide (Glucotrol) 5 mg PO BID [facility] Last Admin: 12/22/17 08:45 Dose: Not Given Glucagon (Glucagen Diagnostic Kit) 0 mg IM STAT PRN; Protocol PRN Reason: Hypoglycemia Protocol Guaifenesin/Dextromethorphan (Mucinex-Dm 600-30 Mg) 1 tab PO BID [facility] Last Admin: 01/01/18 09:53 Dose: 1 tab Gentamicin Sulfate 180 mg/ (Sodium Chloride) 254.5 mls @ 100 mls/hr IVPB DAILY [facility] PRN Reason: Protocol Last Admin: 01/01/18 09:57 Dose: 100 mls/hr Metronidazole (Flagyl 500mg/100ml Ns) 100 mls @ 100 mls/hr IVPB Q8 [facility] PRN Reason: Protocol Last Admin: 01/01/18 09:55 Dose: 100 mls/hr Doxycycline Hyclate 100 mg/ (Sodium Chloride) 100 mls @ 100 mls/hr IVPB Q12 [facility] PRN Reason: Protocol Last Admin: 01/01/18 09:53 Dose: 100 mls/hr Insulin Detemir (Levemir) 5 units SC HS [facility] Last Admin: 12/31/17 22:15 Dose: 5 units Insulin Human Regular (Humulin R) 0 units SC ACHS [facility] PRN Reason: Protocol Last Admin: 01/01/18 12:47 Dose: 6 units Insulin Human Regular (Humulin R) 5 units SC ACTID [facility] Last Admin: 01/01/18 12:48 Dose: 5 u Losartan Potassium (Cozaar) 100 mg PO DAILY [facility] Last Admin: 01/01/18 09:57 Dose: 100 mg Metformin HCl (Glucophage) 1,000 mg PO BID [facility] Last Admin: 12/22/17 08:45 Dose: Not Given Methimazole (Tapazole) 20 mg PO BID [facility] Last Admin: 12/22/17 08:47 Dose: Not Given Morphine Sulfate (Morphine) 2 mg IVP Q4 PRN PRN Reason: Pain, severe (8-10) Last Admin: 12/31/17 17:21 Dose: 2 mg Ondansetron HCl (Zofran Odt) 4 mg PO Q6 PRN PRN Reason: Nausea/Vomiting Pantoprazole Sodium (Protonix Inj) 40 mg IVP DAILY [facility] Last Admin: 01/01/18 09:53 Dose: 40 mg Tramadol HCl (Ultram) 50 mg PO Q8 PRN PRN Reason: Pain, severe (8-10) - Labs Labs: 12/31/17 06:20 12/31/17 06:20 PT 14.8 Seconds (9.8-13.1) H 12/20/17 16:40 INR 1.3 (0.9-1.2) H 12/20/17 16:40 APTT 31.1 Seconds (25.6-37.1) 12/20/17 16:40
[2018-01-01 16:11] LABS: HEMOGLOBIN 9.6 g/dL (12.0-16.0); MEAN CELL VOLUME 79.2 fl (81.0-99.0); MEAN CORPUSCULAR HEMOGLOBIN 25.6 pg (27.0-31.0); MEAN CORPUSCULAR HGB CONC 32.4 g/dL (33.0-37.0); RBC 3.74 Mil/uL (3.80-5.20); RED CELL DISTRIBUTION WIDTH 13.5 % (11.5-14.5)
[2018-01-01 17:09] LABS: WHITE BLOOD COUNT 12.4 K/uL (4.8-10.8)
[2018-01-01] MEDS: Insulin Detemir 100 Units/ml Inj SC SCH (21:33)
--- NOTE | 2018-01-01 22:01 | CP.PCM.PN ---
Subjective - Date & Time of Evaluation Date of Evaluation: 01/01/18 Time of Evaluation: 17:00 - Subjective Subjective: Lying in bed, looks much better today, less pain, her wound vac is being switched to low wall suction, there's about 40cc of purulent fluid in suction bag, no N/V/D Objective - Vital Signs/Intake and Output Vital Signs (last 24 hours): Temp Pulse Resp BP Pulse Ox 98.7 F 86 17 143/79 98 01/01/18 16:13 01/01/18 16:13 01/01/18 16:13 01/01/18 16:13 01/01/18 16:13 Intake and Output: 01/01/18 01/02/18 18:59 06:59 Output Total 10 Balance -10 - Medications Medications: Current Medications Acetaminophen (Tylenol 325mg Tab) 650 mg PO Q6 PRN PRN Reason: Pain, Mild (1-3) Last Admin: 01/01/18 21:35 Dose: 650 mg Aspirin (Ecotrin) 81 mg PO [facility] Last Admin: 12/22/17 01:59 Dose: Not Given Dextrose (Dextrose 50% Inj) 0 ml IV STAT PRN; Protocol PRN Reason: Hypoglycemia Protocol Dextrose (Glutose 15) 0 gm PO ONCE PRN; Protocol PRN Reason: Hypoglycemia Protocol Dicyclomine HCl (Bentyl) 10 mg PO TID PRN PRN Reason: GI distress Docusate Sodium (Colace) 100 mg PO BID PRN PRN Reason: GI distress Ergocalciferol (Drisdol 50,000 Intl Units Cap) 1 cap PO [facility] Last Admin: 12/22/17 01:59 Dose: Not Given Famotidine (Pepcid) 20 mg PO BID [facility] Last Admin: 12/22/17 08:47 Dose: Not Given Fenofibrate (Tricor) 145 mg PO [facility] Glipizide (Glucotrol) 5 mg PO BID [facility] Last Admin: 12/22/17 08:45 Dose: Not Given Glucagon (Glucagen Diagnostic Kit) 0 mg IM STAT PRN; Protocol PRN Reason: Hypoglycemia Protocol Guaifenesin/Dextromethorphan (Mucinex-Dm 600-30 Mg) 1 tab PO BID [facility] Last Admin: 01/01/18 17:48 Dose: 1 tab Gentamicin Sulfate 180 mg/ (Sodium Chloride) 254.5 mls @ 100 mls/hr IVPB DAILY [facility] PRN Reason: Protocol Last Admin: 01/01/18 09:57 Dose: 100 mls/hr Metronidazole (Flagyl 500mg/100ml Ns) 100 mls @ 100 mls/hr IVPB Q8 [facility] PRN Reason: Protocol Last Admin: 01/01/18 17:46 Dose: 100 mls/hr Doxycycline Hyclate 100 mg/ (Sodium Chloride) 100 mls @ 100 mls/hr IVPB Q12 [facility] PRN Reason: Protocol Last Admin: 01/01/18 21:32 Dose: 100 mls/hr Insulin Detemir (Levemir) 5 units SC HS [facility] Last Admin: 01/01/18 21:33 Dose: 5 units Insulin Human Regular (Humulin R) 0 units SC ACHS [facility] PRN Reason: Protocol Last Admin: 01/01/18 21:33 Dose: 2 units Insulin Human Regular (Humulin R) 5 units SC ACTID [facility] Last Admin: 01/01/18 17:48 Dose: 5 u Losartan Potassium (Cozaar) 100 mg PO DAILY [facility] Last Admin: 01/01/18 09:57 Dose: 100 mg Metformin HCl (Glucophage) 1,000 mg PO BID [facility] Last Admin: 12/22/17 08:45 Dose: Not Given Methimazole (Tapazole) 20 mg PO BID [facility] Last Admin: 12/22/17 08:47 Dose: Not Given Morphine Sulfate (Morphine) 2 mg IVP Q4 PRN PRN Reason: Pain, severe (8-10) Last Admin: 12/31/17 17:21 Dose: 2 mg Ondansetron HCl (Zofran Odt) 4 mg PO Q6 PRN PRN Reason: Nausea/Vomiting Pantoprazole Sodium (Protonix Inj) 40 mg IVP DAILY [facility] Last Admin: 01/01/18 09:53 Dose: 40 mg Tramadol HCl (Ultram) 50 mg PO Q8 PRN PRN Reason: Pain, severe (8-10) - Labs Labs: 01/01/18 15:48 12/31/17 06:20 PT 14.8 Seconds (9.8-13.1) H 12/20/17 16:40 INR 1.3 (0.9-1.2) H 12/20/17 16:40 APTT 31.1 Seconds (25.6-37.1) 12/20/17 16:40 - Constitutional Appears: Well, No Acute Distress - Head Exam Head Exam: ATRAUMATIC - Eye Exam Eye Exam: EOMI Pupil Exam: PERRL - ENT Exam ENT Exam: Mucous Membranes Moist - Neck Exam Neck Exam: Full ROM, Normal Inspection - Respiratory Exam Respiratory Exam: Clear to Ausculation Bilateral, NORMAL BREATHING PATTERN - Cardiovascular Exam Cardiovascular Exam: REGULAR RHYTHM - GI/Abdominal Exam GI & Abdominal Exam: Soft, Tenderness, Normal Bowel Sounds Additional comments: open wound mid abdomen with packing, dora low q with ESMER drainage tube - Extremities Exam Extremities Exam: Full ROM, Normal Capillary Refill, Normal Inspection - Back Exam Back Exam: NORMAL INSPECTION - Neurological Exam Neurological Exam: Alert, Awake, Oriented x3 - Psychiatric Exam Psychiatric exam: Normal Affect, Normal Mood - Skin Skin Exam: Dry, Normal Color, Warm Assessment and Plan - Assessment and Plan (Free Text) Assessment: 47F s/p ex-lap, removal of Tubo-ovarian abscess, repair of enterotomy, doing better - Wound vac - Packing changes - Pain control - Glucose control - Dressing changes PRN - insulin SS, consider add levamir for better sugar control - WBC trending down
[2018-01-02] MEDS: metroNIDAZOLE 500mg/100ml NS 100 ML IVPB SCH ×3 (00:57→16:58)
--- NOTE | 2018-01-02 06:48 | CP.PCM.PN ---
<Chris Suggs - Last Filed: 01/02/18 07:37> Subjective - Date & Time of Evaluation Date of Evaluation: 01/02/18 Time of Evaluation: 07:25 - Subjective Subjective: General Surgery Progress Note for Dr. Alvarado Patient was seen and evaluated at bedside. No acute event overnight. Patient states pain has improved and is controlled. Wound vac is in place and connected to wall suction. Denies any fevers/chills. She is tolerating diet, passing gas and having BMs. Objective - Vital Signs/Intake and Output Vital Signs (last 24 hours): Temp Pulse Resp BP Pulse Ox 98.3 F 83 17 145/82 97 01/02/18 00:04 01/02/18 00:04 01/02/18 00:04 01/02/18 00:04 01/02/18 00:04 Intake and Output: 01/01/18 01/02/18 18:59 06:59 Output Total 10 Balance -10 - Medications Medications: Current Medications Acetaminophen (Tylenol 325mg Tab) 650 mg PO Q6 PRN PRN Reason: Pain, Mild (1-3) Last Admin: 01/01/18 21:35 Dose: 650 mg Aspirin (Ecotrin) 81 mg PO HS [facility] Last Admin: 12/22/17 01:59 Dose: Not Given Dextrose (Dextrose 50% Inj) 0 ml IV STAT PRN; Protocol PRN Reason: Hypoglycemia Protocol Dextrose (Glutose 15) 0 gm PO ONCE PRN; Protocol PRN Reason: Hypoglycemia Protocol Dicyclomine HCl (Bentyl) 10 mg PO TID PRN PRN Reason: GI distress Docusate Sodium (Colace) 100 mg PO BID PRN PRN Reason: GI distress Ergocalciferol (Drisdol 50,000 Intl Units Cap) 1 cap PO WE [facility] Last Admin: 12/22/17 01:59 Dose: Not Given Famotidine (Pepcid) 20 mg PO BID [facility] Last Admin: 12/22/17 08:47 Dose: Not Given Fenofibrate (Tricor) 145 mg PO HS [facility] Glipizide (Glucotrol) 5 mg PO BID [facility] Last Admin: 12/22/17 08:45 Dose: Not Given Glucagon (Glucagen Diagnostic Kit) 0 mg IM STAT PRN; Protocol PRN Reason: Hypoglycemia Protocol Guaifenesin/Dextromethorphan (Mucinex-Dm 600-30 Mg) 1 tab PO BID [facility] Last Admin: 01/01/18 17:48 Dose: 1 tab Gentamicin Sulfate 180 mg/ (Sodium Chloride) 254.5 mls @ 100 mls/hr IVPB DAILY [facility] PRN Reason: Protocol Last Admin: 01/01/18 09:57 Dose: 100 mls/hr Metronidazole (Flagyl 500mg/100ml Ns) 100 mls @ 100 mls/hr IVPB Q8 [facility] PRN Reason: Protocol Last Admin: 01/02/18 00:57 Dose: 100 mls/hr Doxycycline Hyclate 100 mg/ (Sodium Chloride) 100 mls @ 100 mls/hr IVPB Q12 [facility] PRN Reason: Protocol Last Admin: 01/01/18 21:32 Dose: 100 mls/hr Insulin Detemir (Levemir) 5 units SC HS [facility] Last Admin: 01/01/18 21:33 Dose: 5 units Insulin Human Regular (Humulin R) 0 units SC ACHS [facility] PRN Reason: Protocol Last Admin: 01/01/18 21:33 Dose: 2 units Insulin Human Regular (Humulin R) 5 units SC ACTID [facility] Last Admin: 01/01/18 17:48 Dose: 5 u Losartan Potassium (Cozaar) 100 mg PO DAILY [facility] Last Admin: 01/01/18 09:57 Dose: 100 mg Metformin HCl (Glucophage) 1,000 mg PO BID [facility] Last Admin: 12/22/17 08:45 Dose: Not Given Methimazole (Tapazole) 20 mg PO BID [facility] Last Admin: 12/22/17 08:47 Dose: Not Given Morphine Sulfate (Morphine) 2 mg IVP Q4 PRN PRN Reason: Pain, severe (8-10) Last Admin: 12/31/17 17:21 Dose: 2 mg Ondansetron HCl (Zofran Odt) 4 mg PO Q6 PRN PRN Reason: Nausea/Vomiting Pantoprazole Sodium (Protonix Inj) 40 mg IVP DAILY [facility] Last Admin: 01/01/18 09:53 Dose: 40 mg Tramadol HCl (Ultram) 50 mg PO Q8 PRN PRN Reason: Pain, severe (8-10) - Labs Labs: 01/01/18 15:48 12/31/17 06:20 PT 14.8 Seconds (9.8-13.1) H 12/20/17 16:40 INR 1.3 (0.9-1.2) H 12/20/17 16:40 APTT 31.1 Seconds (25.6-37.1) 12/20/17 16:40 - Constitutional Appears: No Acute Distress - ENT Exam ENT Exam: Mucous Membranes Moist - Respiratory Exam Respiratory Exam: NORMAL BREATHING PATTERN - Cardiovascular Exam Cardiovascular Exam: REGULAR RHYTHM - GI/Abdominal Exam GI & Abdominal Exam: Soft, Tenderness (mild), Normal Bowel Sounds. absent: Distended, Firm, Guarding, Rigid Additional comments: IR drain in LLQ with 10 cc of drainage overnight Incision with wound vac applied - Extremities Exam Extremities Exam: Normal Capillary Refill - Neurological Exam Neurological Exam: Alert, Awake, Oriented x3 - Psychiatric Exam Psychiatric exam: Normal Affect, Normal Mood - Skin Skin Exam: Dry, Warm Assessment and Plan - Assessment and Plan (Free Text) Plan: 47F s/p ex-lap, removal of Tubo-ovarian abscess, repair of enterotomy POD#12, s/ p IR drainage of pelvic collection POD#2 - Wound vac - Iv antibiotics - Pain control - Glucose control - Further recommendations as per Dr. Christiano Suggs PGY1 <Guido Alvarado - Last Filed: 01/02/18 15:08> Objective - Vital Signs/Intake and Output Vital Signs (last 24 hours): Temp Pulse Resp BP Pulse Ox 98.3 F 82 20 145/79 99 01/02/18 08:20 01/02/18 08:20 01/02/18 08:20 01/02/18 08:20 01/02/18 08:20 Intake and Output: 01/02/18 01/02/18 06:59 18:59 Output Total 10 Balance -10 - Medications Medications: Current Medications Acetaminophen (Tylenol 325mg Tab) 650 mg PO Q6 PRN PRN Reason: Pain, Mild (1-3) Last Admin: 01/01/18 21:35 Dose: 650 mg Aspirin (Ecotrin) 81 mg PO HS [facility] Last Admin: 12/22/17 01:59 Dose: Not Given Dextrose (Dextrose 50% Inj) 0 ml IV STAT PRN; Protocol PRN Reason: Hypoglycemia Protocol Dextrose (Glutose 15) 0 gm PO ONCE PRN; Protocol PRN Reason: Hypoglycemia Protocol Dicyclomine HCl (Bentyl) 10 mg PO TID PRN PRN Reason: GI distress Docusate Sodium (Colace) 100 mg PO BID PRN PRN Reason: GI distress Ergocalciferol (Drisdol 50,000 Intl Units Cap) 1 cap PO WE [facility] Last Admin: 12/22/17 01:59 Dose: Not Given Famotidine (Pepcid) 20 mg PO BID [facility] Last Admin: 12/22/17 08:47 Dose: Not Given Fenofibrate (Tricor) 145 mg PO [facility] Glipizide (Glucotrol) 5 mg PO BID [facility] Last Admin: 12/22/17 08:45 Dose: Not Given Glucagon (Glucagen Diagnostic Kit) 0 mg IM STAT PRN; Protocol PRN Reason: Hypoglycemia Protocol Guaifenesin/Dextromethorphan (Mucinex-Dm 600-30 Mg) 1 tab PO BID [facility] Last Admin: 01/02/18 08:32 Dose: 1 tab Gentamicin Sulfate 180 mg/ (Sodium Chloride) 254.5 mls @ 100 mls/hr IVPB DAILY [facility] PRN Reason: Protocol Last Admin: 01/02/18 09:59 Dose: 100 mls/hr Metronidazole (Flagyl 500mg/100ml Ns) 100 mls @ 100 mls/hr IVPB Q8 [facility] PRN Reason: Protocol Last Admin: 01/02/18 08:31 Dose: 100 mls/hr Doxycycline Hyclate 100 mg/ (Sodium Chloride) 100 mls @ 100 mls/hr IVPB Q12 [facility] PRN Reason: Protocol Last Admin: 01/02/18 08:31 Dose: 100 mls/hr Insulin Detemir (Levemir) 5 units SC HS [facility] Last Admin: 01/01/18 21:33 Dose: 5 units Insulin Human Regular (Humulin R) 0 units SC ACHS [facility] PRN Reason: Protocol Last Admin: 01/02/18 12:22 Dose: 6 units Insulin Human Regular (Humulin R) 5 units SC ACTID [facility] Last Admin: 01/02/18 12:22 Dose: 5 u Losartan Potassium (Cozaar) 100 mg PO DAILY [facility] Last Admin: 01/02/18 08:32 Dose: 100 mg Metformin HCl (Glucophage) 1,000 mg PO BID [facility] Last Admin: 12/22/17 08:45 Dose: Not Given Methimazole (Tapazole) 20 mg PO BID [facility] Last Admin: 12/22/17 08:47 Dose: Not Given Morphine Sulfate (Morphine) 2 mg IVP Q4 PRN PRN Reason: Pain, severe (8-10) Last Admin: 12/31/17 17:21 Dose: 2 mg Ondansetron HCl (Zofran Odt) 4 mg PO Q6 PRN PRN Reason: Nausea/Vomiting Pantoprazole Sodium (Protonix Inj) 40 mg IVP DAILY [facility] Last Admin: 01/02/18 09:36 Dose: 40 mg Tramadol HCl (Ultram) 50 mg PO Q8 PRN PRN Reason: Pain, severe (8-10) - Labs Labs: 01/02/18 06:55 01/02/18 06:55 PT 14.8 Seconds (9.8-13.1) H 12/20/17 16:40 INR 1.3 (0.9-1.2) H 12/20/17 16:40 APTT 31.1 Seconds (25.6-37.1) 12/20/17 16:40 Assessment and Plan - Assessment and Plan (Free Text) Plan: Pt w/o complaints/sleeping comfortably. VAC 50ml Perc drain minimal On ADA diet tolerating well WBC 9.9 Improved Continue current care
--- NOTE | 2018-01-02 06:52 | CP.PCM.PN ---
Subjective - Date & Time of Evaluation Date of Evaluation: 01/01/18 Time of Evaluation: 06:49 - Subjective Subjective: General Surgery Progress Note for Dr. Alvarado This pt was seen and evaluated this AM at bedside no acute events overnight. Wound vac with inconsistent suction repeatedly turning off over night. Pt denies any fevers chills chest pain nausea vomiting diarrhea however complains of minor discomfort at lower wound edge. Objective - Vital Signs/Intake and Output Vital Signs (last 24 hours): Temp Pulse Resp BP Pulse Ox 98.3 F 83 17 145/82 97 01/02/18 00:04 01/02/18 00:04 01/02/18 00:04 01/02/18 00:04 01/02/18 00:04 Intake and Output: 01/01/18 01/02/18 18:59 06:59 Output Total 10 Balance -10 - Medications Medications: Current Medications Acetaminophen (Tylenol 325mg Tab) 650 mg PO Q6 PRN PRN Reason: Pain, Mild (1-3) Last Admin: 01/01/18 21:35 Dose: 650 mg Aspirin (Ecotrin) 81 mg PO [facility] Last Admin: 12/22/17 01:59 Dose: Not Given Dextrose (Dextrose 50% Inj) 0 ml IV STAT PRN; Protocol PRN Reason: Hypoglycemia Protocol Dextrose (Glutose 15) 0 gm PO ONCE PRN; Protocol PRN Reason: Hypoglycemia Protocol Dicyclomine HCl (Bentyl) 10 mg PO TID PRN PRN Reason: GI distress Docusate Sodium (Colace) 100 mg PO BID PRN PRN Reason: GI distress Ergocalciferol (Drisdol 50,000 Intl Units Cap) 1 cap PO [facility] Last Admin: 12/22/17 01:59 Dose: Not Given Famotidine (Pepcid) 20 mg PO BID [facility] Last Admin: 12/22/17 08:47 Dose: Not Given Fenofibrate (Tricor) 145 mg PO [facility] Glipizide (Glucotrol) 5 mg PO BID [facility] Last Admin: 12/22/17 08:45 Dose: Not Given Glucagon (Glucagen Diagnostic Kit) 0 mg IM STAT PRN; Protocol PRN Reason: Hypoglycemia Protocol Guaifenesin/Dextromethorphan (Mucinex-Dm 600-30 Mg) 1 tab PO BID [facility] Last Admin: 01/01/18 17:48 Dose: 1 tab Gentamicin Sulfate 180 mg/ (Sodium Chloride) 254.5 mls @ 100 mls/hr IVPB DAILY [facility] PRN Reason: Protocol Last Admin: 01/01/18 09:57 Dose: 100 mls/hr Metronidazole (Flagyl 500mg/100ml Ns) 100 mls @ 100 mls/hr IVPB Q8 [facility] PRN Reason: Protocol Last Admin: 01/02/18 00:57 Dose: 100 mls/hr Doxycycline Hyclate 100 mg/ (Sodium Chloride) 100 mls @ 100 mls/hr IVPB Q12 [facility] PRN Reason: Protocol Last Admin: 01/01/18 21:32 Dose: 100 mls/hr Insulin Detemir (Levemir) 5 units SC HS [facility] Last Admin: 01/01/18 21:33 Dose: 5 units Insulin Human Regular (Humulin R) 0 units SC ACHS [facility] PRN Reason: Protocol Last Admin: 01/01/18 21:33 Dose: 2 units Insulin Human Regular (Humulin R) 5 units SC ACTID [facility] Last Admin: 01/01/18 17:48 Dose: 5 u Losartan Potassium (Cozaar) 100 mg PO DAILY [facility] Last Admin: 01/01/18 09:57 Dose: 100 mg Metformin HCl (Glucophage) 1,000 mg PO BID [facility] Last Admin: 12/22/17 08:45 Dose: Not Given Methimazole (Tapazole) 20 mg PO BID [facility] Last Admin: 12/22/17 08:47 Dose: Not Given Morphine Sulfate (Morphine) 2 mg IVP Q4 PRN PRN Reason: Pain, severe (8-10) Last Admin: 12/31/17 17:21 Dose: 2 mg Ondansetron HCl (Zofran Odt) 4 mg PO Q6 PRN PRN Reason: Nausea/Vomiting Pantoprazole Sodium (Protonix Inj) 40 mg IVP DAILY [facility] Last Admin: 01/01/18 09:53 Dose: 40 mg Tramadol HCl (Ultram) 50 mg PO Q8 PRN PRN Reason: Pain, severe (8-10) - Labs Labs: 01/01/18 15:48 12/31/17 06:20 PT 14.8 Seconds (9.8-13.1) H 12/20/17 16:40 INR 1.3 (0.9-1.2) H 12/20/17 16:40 APTT 31.1 Seconds (25.6-37.1) 12/20/17 16:40 - Constitutional Appears: Non-toxic, No Acute Distress - Head Exam Head Exam: ATRAUMATIC - Eye Exam Eye Exam: EOMI - ENT Exam ENT Exam: Mucous Membranes Moist - Respiratory Exam Respiratory Exam: NORMAL BREATHING PATTERN - Cardiovascular Exam Cardiovascular Exam: +S1, +S2 - GI/Abdominal Exam GI & Abdominal Exam: Soft. absent: Distended, Firm, Guarding, Rigid, Tenderness Additional comments: Wound with wound vac in place suctioning however with leak. Pelvuic drain 30cc purulendt fluid, wound vac with minimal serosang - Neurological Exam Neurological Exam: Alert, Awake - Psychiatric Exam Psychiatric exam: Normal Affect, Normal Mood Assessment and Plan - Assessment and Plan (Free Text) Assessment: 47F s/p ex-lap, removal of Tubo-ovarian abscess, repair of enterotomy POD#11 - Wound vac application - Packing change today - Pain control - Glucose control - D/W Dr. Chrisitano Becerra PGY2
[2018-01-02] MEDS: Insulin Regular 100 units/ml SC SCH ×7 (07:56→21:52)
[2018-01-02] MEDS: GENTAMICIN IVPB SCH ×2 (08:31→09:59)
[2018-01-02] MEDS: SODIUM CHLORIDE 0.9% IVPB SCH ×2 (08:31→09:59)
[2018-01-02] MEDS: guaiFENesin-DM 600-30 mg ER Tab PO SCH ×2 (08:32→17:00)
[2018-01-02 09:25] LABS: BASO % 0.4 % (0.0-2.0); EOS # 0.1 K/uL (0.0-0.7); EOS % 0.7 % (0.0-4.0); HEMOGLOBIN 9.3 g/dL (12.0-16.0); LYMPH # 1.5 K/uL (1.0-4.3); MEAN CELL VOLUME 76.9 fl (81.0-99.0); MEAN CORPUSCULAR HEMOGLOBIN 25.9 pg (27.0-31.0); MEAN CORPUSCULAR HGB CONC 33.7 g/dL (33.0-37.0); MEAN PLATELET VOLUME 8.5 fl (7.2-11.7); MONO # 0.7 K/uL (0.0-0.8); MONO % 7.2 % (0.0-10.0); NEUT # 7.6 K/uL (1.8-7.0); NEUT % 76.7 % (50.0-75.0); RBC 3.57 Mil/uL (3.80-5.20); RED CELL DISTRIBUTION WIDTH 12.9 % (11.5-14.5); WHITE BLOOD COUNT 9.9 K/uL (4.8-10.8)
[2018-01-02 09:39] LABS: BLOOD UREA NITROGEN 6 mg/dl (7-17); CALCIUM 8.5 mg/dL (8.4-10.2); GFR AFRICAN-AMERICAN > 60; GFR NON-AFRICAN AMERICAN > 60
--- NOTE | 2018-01-02 16:46 | CP.PCM.PN ---
Subjective - Date & Time of Evaluation Date of Evaluation: 01/02/18 Time of Evaluation: 16:40 - Subjective Subjective: feeling better today but still with generalized weakness Objective - Vital Signs/Intake and Output Vital Signs (last 24 hours): Temp Pulse Resp BP Pulse Ox 98.4 F 83 20 145/84 98 01/02/18 16:32 01/02/18 16:32 01/02/18 16:32 01/02/18 16:32 01/02/18 16:32 Intake and Output: 01/02/18 01/02/18 06:59 18:59 Output Total 10 Balance -10 - Medications Medications: Current Medications Acetaminophen (Tylenol 325mg Tab) 650 mg PO Q6 PRN PRN Reason: Pain, Mild (1-3) Last Admin: 01/01/18 21:35 Dose: 650 mg Aspirin (Ecotrin) [address] [facility] Last Admin: 12/22/17 01:59 Dose: Not Given Dextrose (Dextrose 50% Inj) 0 ml IV STAT PRN; Protocol PRN Reason: Hypoglycemia Protocol Dextrose (Glutose 15) 0 gm PO ONCE PRN; Protocol PRN Reason: Hypoglycemia Protocol Dicyclomine HCl (Bentyl) 10 mg PO TID PRN PRN Reason: GI distress Docusate Sodium (Colace) 100 mg PO BID PRN PRN Reason: GI distress Ergocalciferol (Drisdol 50,000 Intl Units Cap) 1 cap PO [facility] Last Admin: 12/22/17 01:59 Dose: Not Given Famotidine (Pepcid) 20 mg PO BID [facility] Last Admin: 12/22/17 08:47 Dose: Not Given Fenofibrate (Tricor) 145 mg [address] [facility] Glipizide (Glucotrol) 5 mg PO BID [facility] Last Admin: 12/22/17 08:45 Dose: Not Given Glucagon (Glucagen Diagnostic Kit) 0 mg IM STAT PRN; Protocol PRN Reason: Hypoglycemia Protocol Guaifenesin/Dextromethorphan (Mucinex-Dm 600-30 Mg) 1 tab PO BID [facility] Last Admin: 01/02/18 08:32 Dose: 1 tab Gentamicin Sulfate 180 mg/ (Sodium Chloride) 254.5 mls @ 100 mls/hr IVPB DAILY [facility] PRN Reason: Protocol Last Admin: 01/02/18 09:59 Dose: 100 mls/hr Metronidazole (Flagyl 500mg/100ml Ns) 100 mls @ 100 mls/hr IVPB Q8 [facility] PRN Reason: Protocol Last Admin: 01/02/18 08:31 Dose: 100 mls/hr Doxycycline Hyclate 100 mg/ (Sodium Chloride) 100 mls @ 100 mls/hr IVPB Q12 [facility] PRN Reason: Protocol Last Admin: 01/02/18 08:31 Dose: 100 mls/hr Insulin Detemir (Levemir) 8 units SC HS [facility] Insulin Human Regular (Humulin R) 0 units SC ACHS [facility] PRN Reason: Protocol Last Admin: 01/02/18 12:22 Dose: 6 units Insulin Human Regular (Humulin R) 5 units SC ACTID [facility] Last Admin: 01/02/18 12:22 Dose: 5 u Losartan Potassium (Cozaar) 100 mg PO DAILY [facility] Last Admin: 01/02/18 08:32 Dose: 100 mg Metformin HCl (Glucophage) 1,000 mg PO BID [facility] Last Admin: 12/22/17 08:45 Dose: Not Given Methimazole (Tapazole) 20 mg PO BID [facility] Last Admin: 12/22/17 08:47 Dose: Not Given Morphine Sulfate (Morphine) 2 mg IVP Q4 PRN PRN Reason: Pain, severe (8-10) Last Admin: 12/31/17 17:21 Dose: 2 mg Ondansetron HCl (Zofran Odt) 4 mg PO Q6 PRN PRN Reason: Nausea/Vomiting Pantoprazole Sodium (Protonix Inj) 40 mg IVP DAILY [facility] Last Admin: 01/02/18 09:36 Dose: 40 mg Tramadol HCl (Ultram) 50 mg PO Q8 PRN PRN Reason: Pain, severe (8-10) - Labs Labs: 01/02/18 06:55 01/02/18 06:55 PT 14.8 Seconds (9.8-13.1) H 12/20/17 16:40 INR 1.3 (0.9-1.2) H 12/20/17 16:40 APTT 31.1 Seconds (25.6-37.1) 12/20/17 16:40 - Constitutional Appears: Well, No Acute Distress - Head Exam Head Exam: ATRAUMATIC, NORMAL INSPECTION - Eye Exam Eye Exam: EOMI, Normal appearance Pupil Exam: NORMAL ACCOMODATION - ENT Exam ENT Exam: Mucous Membranes Moist - Neck Exam Neck Exam: Full ROM - Respiratory Exam Respiratory Exam: Clear to Ausculation Bilateral, NORMAL BREATHING PATTERN - Cardiovascular Exam Cardiovascular Exam: REGULAR RHYTHM - GI/Abdominal Exam GI & Abdominal Exam: Soft, Normal Bowel Sounds Additional comments: drainage tube to wall suction with purulent fluid - Extremities Exam Extremities Exam: Full ROM, Normal Capillary Refill, Normal Inspection - Back Exam Back Exam: NORMAL INSPECTION - Neurological Exam Neurological Exam: Alert, Awake, Oriented x3 - Psychiatric Exam Psychiatric exam: Normal Affect - Skin Skin Exam: Dry, Normal Color, Warm Assessment and Plan - Assessment and Plan (Free Text) Assessment: 47F s/p ex-lap, removal of Tubo-ovarian abscess, repair of enterotomy, doing better - Wound vac - Packing changes - Pain control - Glucose control - Dressing changes PRN - insulin SS, consider add levamir for better sugar control - WBC normalized, continue ABX, monitor CBC
[2018-01-02] MEDS: Insulin Detemir 100 Units/ml Inj SC SCH (21:55)
[2018-01-03] MEDS: metroNIDAZOLE 500mg/100ml NS 100 ML IVPB SCH ×3 (00:47→16:30)
[2018-01-03] MEDS: Insulin Regular 100 units/ml SC SCH ×7 (07:01→21:54)
--- NOTE | 2018-01-03 07:36 | CP.PCM.PN ---
Subjective - Date & Time of Evaluation Date of Evaluation: 01/03/18 Time of Evaluation: 07:34 - Subjective Subjective: General Surgery Consult note for Dr. Alvarado 47M was seen and examined this AM at bedside no acute events to report overnight. Pt reports improvement in pain. Denies nausea vomiting or diarrhea, chest pain, or SOB. Objective - Vital Signs/Intake and Output Vital Signs (last 24 hours): Temp Pulse Resp BP Pulse Ox 98.0 F 82 19 151/61 H 99 01/03/18 00:00 01/03/18 00:00 01/03/18 00:00 01/03/18 00:00 01/03/18 00:00 Intake and Output: 01/03/18 01/03/18 06:59 18:59 Intake Total 200 Output Total 400 Balance -200 - Medications Medications: Current Medications Acetaminophen (Tylenol 325mg Tab) 650 mg PO Q6 PRN PRN Reason: Pain, Mild (1-3) Last Admin: 01/01/18 21:35 Dose: 650 mg Aspirin (Ecotrin) 81 mg PO HS [facility] Last Admin: 12/22/17 01:59 Dose: Not Given Dextrose (Dextrose 50% Inj) 0 ml IV STAT PRN; Protocol PRN Reason: Hypoglycemia Protocol Dextrose (Glutose 15) 0 gm PO ONCE PRN; Protocol PRN Reason: Hypoglycemia Protocol Dicyclomine HCl (Bentyl) 10 mg PO TID PRN PRN Reason: GI distress Docusate Sodium (Colace) 100 mg PO BID PRN PRN Reason: GI distress Ergocalciferol (Drisdol 50,000 Intl Units Cap) 1 cap PO WE [facility] Last Admin: 12/22/17 01:59 Dose: Not Given Famotidine (Pepcid) 20 mg PO BID [facility] Last Admin: 12/22/17 08:47 Dose: Not Given Fenofibrate (Tricor) 145 mg PO [facility] Glipizide (Glucotrol) 5 mg PO BID [facility] Last Admin: 12/22/17 08:45 Dose: Not Given Glucagon (Glucagen Diagnostic Kit) 0 mg IM STAT PRN; Protocol PRN Reason: Hypoglycemia Protocol Guaifenesin/Dextromethorphan (Mucinex-Dm 600-30 Mg) 1 tab PO BID [facility] Last Admin: 01/02/18 17:00 Dose: 1 tab Gentamicin Sulfate 180 mg/ (Sodium Chloride) 254.5 mls @ 100 mls/hr IVPB DAILY [facility] PRN Reason: Protocol Last Admin: 01/02/18 09:59 Dose: 100 mls/hr Metronidazole (Flagyl 500mg/100ml Ns) 100 mls @ 100 mls/hr IVPB Q8 [facility] PRN Reason: Protocol Last Admin: 01/03/18 00:47 Dose: 100 mls/hr Doxycycline Hyclate 100 mg/ (Sodium Chloride) 100 mls @ 100 mls/hr IVPB Q12 [facility] PRN Reason: Protocol Last Admin: 01/02/18 21:00 Dose: 100 mls/hr Insulin Detemir (Levemir) 8 units SC HS [facility] Last Admin: 01/02/18 21:55 Dose: 8 units Insulin Human Regular (Humulin R) 0 units SC ACHS [facility] PRN Reason: Protocol Last Admin: 01/03/18 07:01 Dose: Not Given Insulin Human Regular (Humulin R) 5 units SC ACTID [facility] Last Admin: 01/02/18 16:59 Dose: 5 u Losartan Potassium (Cozaar) 100 mg PO DAILY [facility] Last Admin: 01/02/18 08:32 Dose: 100 mg Metformin HCl (Glucophage) 1,000 mg PO BID [facility] Last Admin: 12/22/17 08:45 Dose: Not Given Methimazole (Tapazole) 20 mg PO BID [facility] Last Admin: 12/22/17 08:47 Dose: Not Given Morphine Sulfate (Morphine) 2 mg IVP Q4 PRN PRN Reason: Pain, severe (8-10) Last Admin: 01/03/18 02:05 Dose: 2 mg Ondansetron HCl (Zofran Odt) 4 mg PO Q6 PRN PRN Reason: Nausea/Vomiting Pantoprazole Sodium (Protonix Inj) 40 mg IVP DAILY [facility] Last Admin: 01/02/18 09:36 Dose: 40 mg Tramadol HCl (Ultram) 50 mg PO Q8 PRN PRN Reason: Pain, severe (8-10) - Labs Labs: 01/02/18 06:55 01/02/18 06:55 PT 14.8 Seconds (9.8-13.1) H 12/20/17 16:40 INR 1.3 (0.9-1.2) H 12/20/17 16:40 APTT 31.1 Seconds (25.6-37.1) 12/20/17 16:40 - Constitutional Appears: No Acute Distress - ENT Exam ENT Exam: Mucous Membranes Moist - Respiratory Exam Respiratory Exam: NORMAL BREATHING PATTERN - Cardiovascular Exam Cardiovascular Exam: REGULAR RHYTHM - GI/Abdominal Exam GI & Abdominal Exam: Soft, Tenderness (mild), Normal Bowel Sounds. absent: Distended, Firm, Guarding, Rigid Additional comments: IR drain in LLQ with 10 cc purulence Wound vac 30cc purulence ESMER 0 - Extremities Exam Extremities Exam: Normal Capillary Refill - Neurological Exam Neurological Exam: Alert, Awake, Oriented x3 - Psychiatric Exam Psychiatric exam: Normal Affect, Normal Mood - Skin Skin Exam: Dry, Warm Assessment and Plan - Assessment and Plan (Free Text) Assessment: 47F s/p ex-lap, removal of Tubo-ovarian abscess, repair of enterotomy POD#13, s/ p IR drainage of pelvic collection POD#3 - Wound vac 30cc output will change today, will plan for likely DC with drain - Iv antibiotics, discuss with ID abx recommendations for discharge - Pain control - Glucose control - Remove ESMER drain today - D/W Dr. Christiano Becerra PGY2
[2018-01-03] MEDS: guaiFENesin-DM 600-30 mg ER Tab PO SCH ×2 (09:26→16:29)
[2018-01-03] MEDS: SODIUM CHLORIDE 0.9% IVPB SCH (09:39)
[2018-01-03] MEDS: GENTAMICIN IVPB SCH (09:39)
[2018-01-03] MEDS ORDERED: Iohexol 240 (50 ml) PO ONE (14:39)
[2018-01-03] MEDS: Insulin Detemir 100 Units/ml Inj SC SCH (21:56)
[2018-01-04] MEDS: metroNIDAZOLE 500mg/100ml NS 100 ML IVPB SCH ×3 (01:24→17:38)
--- NOTE | 2018-01-04 06:17 | CP.PCM.PN ---
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 POD14; S/p ex laparotomy for left TOA, removal of left ovarian cyst and enterorrhaphy. POD4: S /p IR guided drainage of pelvic fluid No acute overnight events. C/o abdominal discomfort, well controlled with medication. Pt is tolerating diet, is having regular BM, ambulating in the room w/o any difficulty. Denies chest pain, dyspnea, palpitations, n/v/d/c and remains afebrile. ESMER drain removed, Left drain 20cc overnight Objective - Vital Signs/Intake and Output Vital Signs (last 24 hours): Temp Pulse Resp BP Pulse Ox 99.0 F 85 18 137/82 98 01/03/18 23:38 01/03/18 23:38 01/03/18 23:38 01/03/18 23:38 01/03/18 23:38 Intake and Output: 01/03/18 01/04/18 18:59 06:59 Intake Total 790 Output Total 15 Balance 775 - Medications Medications: Current Medications Acetaminophen (Tylenol 325mg Tab) 650 mg PO Q6 PRN PRN Reason: Pain, Mild (1-3) Last Admin: 01/01/18 21:35 Dose: 650 mg Aspirin (Ecotrin) 81 mg PO [facility] Last Admin: 12/22/17 01:59 Dose: Not Given Dextrose (Dextrose 50% Inj) 0 ml IV STAT PRN; Protocol PRN Reason: Hypoglycemia Protocol Dextrose (Glutose 15) 0 gm PO ONCE PRN; Protocol PRN Reason: Hypoglycemia Protocol Dicyclomine HCl (Bentyl) 10 mg PO TID PRN PRN Reason: GI distress Docusate Sodium (Colace) 100 mg PO BID PRN PRN Reason: GI distress Ergocalciferol (Drisdol 50,000 Intl Units Cap) 1 cap PO WE [facility] Last Admin: 12/22/17 01:59 Dose: Not Given Famotidine (Pepcid) 20 mg PO BID [facility] Last Admin: 12/22/17 08:47 Dose: Not Given Fenofibrate (Tricor) 145 mg PO [facility] Glipizide (Glucotrol) 5 mg PO BID [facility] Last Admin: 12/22/17 08:45 Dose: Not Given Glucagon (Glucagen Diagnostic Kit) 0 mg IM STAT PRN; Protocol PRN Reason: Hypoglycemia Protocol Guaifenesin/Dextromethorphan (Mucinex-Dm 600-30 Mg) 1 tab PO BID [facility] Last Admin: 01/03/18 16:29 Dose: 1 tab Gentamicin Sulfate 180 mg/ (Sodium Chloride) 254.5 mls @ 100 mls/hr IVPB DAILY [facility] PRN Reason: Protocol Last Admin: 01/03/18 09:39 Dose: 100 mls/hr Metronidazole (Flagyl 500mg/100ml Ns) 100 mls @ 100 mls/hr IVPB Q8 [facility] PRN Reason: Protocol Last Admin: 01/04/18 01:24 Dose: 100 mls/hr Doxycycline Hyclate 100 mg/ (Sodium Chloride) 100 mls @ 100 mls/hr IVPB Q12 [facility] PRN Reason: Protocol Last Admin: 01/03/18 21:15 Dose: 100 mls/hr Insulin Detemir (Levemir) 8 units SC HS [facility] Last Admin: 01/03/18 21:56 Dose: 8 units Insulin Human Regular (Humulin R) 0 units SC ACHS [facility] PRN Reason: Protocol Last Admin: 01/03/18 21:54 Dose: Not Given Insulin Human Regular (Humulin R) 5 units SC ACTID [facility] Last Admin: 01/03/18 16:30 Dose: 5 u Losartan Potassium (Cozaar) 100 mg PO DAILY [facility] Last Admin: 01/03/18 09:28 Dose: 100 mg Metformin HCl (Glucophage) 1,000 mg PO BID [facility] Last Admin: 12/22/17 08:45 Dose: Not Given Methimazole (Tapazole) 20 mg PO BID [facility] Last Admin: 12/22/17 08:47 Dose: Not Given Ondansetron HCl (Zofran Odt) 4 mg PO Q6 PRN PRN Reason: Nausea/Vomiting Pantoprazole Sodium (Protonix Inj) 40 mg IVP DAILY [facility] Last Admin: 01/03/18 09:27 Dose: 40 mg Tramadol HCl (Ultram) 50 mg PO Q8 PRN PRN Reason: Pain, severe (8-10) - Labs Labs: 01/02/18 06:55 01/02/18 06:55 PT 14.8 Seconds (9.8-13.1) H 12/20/17 16:40 INR 1.3 (0.9-1.2) H 12/20/17 16:40 APTT 31.1 Seconds (25.6-37.1) 12/20/17 16:40 - Constitutional Appears: No Acute Distress - Head Exam Head Exam: NORMAL INSPECTION - Eye Exam Eye Exam: EOMI, Normal appearance - ENT Exam ENT Exam: Mucous Membranes Moist - Neck Exam Neck Exam: Normal Inspection - Respiratory Exam Respiratory Exam: Clear to Ausculation Bilateral, NORMAL BREATHING PATTERN - Cardiovascular Exam Cardiovascular Exam: REGULAR RHYTHM, +S1, +S2 - GI/Abdominal Exam GI & Abdominal Exam: Tenderness (Around incision site ), Normal Bowel Sounds ( Incision site covered, dry and intact ). absent: Distended, Guarding Additional comments: Left drainage tube with purulent fluid - Extremities Exam Extremities Exam: Normal Inspection - Back Exam Back Exam: NORMAL INSPECTION - Neurological Exam Neurological Exam: Alert, Awake, Oriented x3 - Psychiatric Exam Psychiatric exam: Normal Affect - Skin Skin Exam: Dry, Intact, Normal Color, Warm Assessment and Plan - Assessment and Plan (Free Text) Assessment: A/P: 47 y/o Female admitted for pelvic pain/left ovarian abscess. POD 14, s/p exploratory laporatomy for left ovarian cyst removal secondary to a TOA and enterorrhaphy. POD4, s/p IR guided pelvic fluid drainage. Pelvic pain/left ovarian abscess - S/p cyst removal; ESMER drain removed 01/03 - Pathology final; sig for endometriotic cysts and abscess - S/p IR guided drainage of pelvic fluid/abscess - Pt remains afebrile, WBC 9.9 on 01/02 - Blood cx from 12/20: Final, no growth - Urine culture 12/20: Final, no growth - Wound cx 12/21: Final, E. Coli - Pelvic fluid 12/31: Final, E.coli - Encourage ambulation, and incentive spirometry - F/u abd/pelvic CT, 01/04 - Pain management - Out patient BUSINESS ANALYSIS ANALYST follow up after discharge - Continue management as per primary team, ID and Surgery <Lupillo Prince - Last Filed: 01/04/18 23:52> Objective - Vital Signs/Intake and Output Vital Signs (last 24 hours): Temp Pulse Resp BP Pulse Ox 98.3 F 82 20 148/82 98 01/04/18 15:55 01/04/18 15:55 01/04/18 15:55 01/04/18 15:55 01/04/18 15:55 Intake and Output: 01/04/18 01/05/18 18:59 06:59 Intake Total 800 Output Total 70 Balance 730 - Medications Medications: Current Medications Acetaminophen (Tylenol 325mg Tab) 650 mg PO Q6 PRN PRN Reason: Pain, Mild (1-3) Last Admin: 01/01/18 21:35 Dose: 650 mg Aspirin (Ecotrin) 81 mg PO HS [facility] Last Admin: 12/22/17 01:59 Dose: Not Given Dextrose (Dextrose 50% Inj) 0 ml IV STAT PRN; Protocol PRN Reason: Hypoglycemia Protocol Dextrose (Glutose 15) 0 gm PO ONCE PRN; Protocol PRN Reason: Hypoglycemia Protocol Dicyclomine HCl (Bentyl) 10 mg PO TID PRN PRN Reason: GI distress Docusate Sodium (Colace) 100 mg PO BID PRN PRN Reason: GI distress Ergocalciferol (Drisdol 50,000 Intl Units Cap) 1 cap PO WE [facility] Last Admin: 12/22/17 01:59 Dose: Not Given Famotidine (Pepcid) 20 mg PO BID [facility] Last Admin: 12/22/17 08:47 Dose: Not Given Fenofibrate (Tricor) 145 mg PO [facility] Glipizide (Glucotrol) 5 mg PO BID [facility] Last Admin: 12/22/17 08:45 Dose: Not Given Glucagon (Glucagen Diagnostic Kit) 0 mg IM STAT PRN; Protocol PRN Reason: Hypoglycemia Protocol Guaifenesin/Dextromethorphan (Mucinex-Dm 600-30 Mg) 1 tab PO BID [facility] Last Admin: 01/04/18 17:40 Dose: 1 tab Gentamicin Sulfate 180 mg/ (Sodium Chloride) 254.5 mls @ 100 mls/hr IVPB DAILY [facility] PRN Reason: Protocol Last Admin: 01/04/18 09:19 Dose: 100 mls/hr Metronidazole (Flagyl 500mg/100ml Ns) 100 mls @ 100 mls/hr IVPB Q8 [facility] PRN Reason: Protocol Last Admin: 01/04/18 17:38 Dose: 100 mls/hr Doxycycline Hyclate 100 mg/ (Sodium Chloride) 100 mls @ 100 mls/hr IVPB Q12 [facility] PRN Reason: Protocol Last Admin: 01/04/18 20:47 Dose: 100 mls/hr Insulin Detemir (Levemir) 8 units SC HS [facility] Last Admin: 01/04/18 21:37 Dose: 8 units Insulin Human Regular (Humulin R) 0 units SC ACHS [facility] PRN Reason: Protocol Last Admin: 01/04/18 21:32 Dose: Not Given Insulin Human Regular (Humulin R) 5 units SC ACTID [facility] Last Admin: 01/04/18 17:39 Dose: 5 u Losartan Potassium (Cozaar) 100 mg PO DAILY [facility] Last Admin: 01/04/18 09:17 Dose: Not Given Metformin HCl (Glucophage) 1,000 mg PO BID [facility] Last Admin: 12/22/17 08:45 Dose: Not Given Methimazole (Tapazole) 20 mg PO BID [facility] Last Admin: 12/22/17 08:47 Dose: Not Given Ondansetron HCl (Zofran Odt) 4 mg PO Q6 PRN PRN Reason: Nausea/Vomiting Pantoprazole Sodium (Protonix Inj) 40 mg IVP DAILY [facility] Last Admin: 01/04/18 09:19 Dose: 40 mg Sitagliptin Phosphate (Januvia) 100 mg PO DAILY [facility] Last Admin: 01/04/18 11:05 Dose: Not Given Tramadol HCl (Ultram) 50 mg PO Q8 PRN PRN Reason: Pain, severe (8-10) - Labs Labs: 01/04/18 10:18 01/02/18 06:55 PT 14.8 Seconds (9.8-13.1) H 12/20/17 16:40 INR 1.3 (0.9-1.2) H 12/20/17 16:40 APTT 31.1 Seconds (25.6-37.1) 12/20/17 16:40 Assessment and Plan - Assessment and Plan (Free Text) Plan: OB Hospitalist on-call: Pt seen on rounds... CT scan showed decreased size of abscess; drain in place...followed with general surgery/NOAH SCHMIDT
--- NOTE | 2018-01-04 07:31 | CP.PCM.PN ---
<Chris Suggs - Last Filed: 01/04/18 07:31> Subjective - Date & Time of Evaluation Date of Evaluation: 01/04/18 Time of Evaluation: 07:15 - Subjective Subjective: General Surgery Consult note for Dr. Alvarado Patient was seen and examined at bedside. No acute event overnight. Patient denies pain. Wound vac was changed yesterday. Tolerating diet. Denies fever/ chills, nausea/vomiting or diarrhea, chest pain, or SOB. Objective - Vital Signs/Intake and Output Vital Signs (last 24 hours): Temp Pulse Resp BP Pulse Ox 99.0 F 85 18 137/82 98 01/03/18 23:38 01/03/18 23:38 01/03/18 23:38 01/03/18 23:38 01/03/18 23:38 Intake and Output: 01/04/18 01/04/18 06:59 18:59 Intake Total 200 Output Total 70 Balance 130 - Medications Medications: Current Medications Acetaminophen (Tylenol 325mg Tab) 650 mg PO Q6 PRN PRN Reason: Pain, Mild (1-3) Last Admin: 01/01/18 21:35 Dose: 650 mg Aspirin (Ecotrin) 81 mg PO HS [facility] Last Admin: 12/22/17 01:59 Dose: Not Given Dextrose (Dextrose 50% Inj) 0 ml IV STAT PRN; Protocol PRN Reason: Hypoglycemia Protocol Dextrose (Glutose 15) 0 gm PO ONCE PRN; Protocol PRN Reason: Hypoglycemia Protocol Dicyclomine HCl (Bentyl) 10 mg PO TID PRN PRN Reason: GI distress Docusate Sodium (Colace) 100 mg PO BID PRN PRN Reason: GI distress Ergocalciferol (Drisdol 50,000 Intl Units Cap) 1 cap PO WE [facility] Last Admin: 12/22/17 01:59 Dose: Not Given Famotidine (Pepcid) 20 mg PO BID [facility] Last Admin: 12/22/17 08:47 Dose: Not Given Fenofibrate (Tricor) 145 mg PO [facility] Glipizide (Glucotrol) 5 mg PO BID [facility] Last Admin: 12/22/17 08:45 Dose: Not Given Glucagon (Glucagen Diagnostic Kit) 0 mg IM STAT PRN; Protocol PRN Reason: Hypoglycemia Protocol Guaifenesin/Dextromethorphan (Mucinex-Dm 600-30 Mg) 1 tab PO BID [facility] Last Admin: 01/03/18 16:29 Dose: 1 tab Gentamicin Sulfate 180 mg/ (Sodium Chloride) 254.5 mls @ 100 mls/hr IVPB DAILY [facility] PRN Reason: Protocol Last Admin: 01/03/18 09:39 Dose: 100 mls/hr Metronidazole (Flagyl 500mg/100ml Ns) 100 mls @ 100 mls/hr IVPB Q8 [facility] PRN Reason: Protocol Last Admin: 01/04/18 01:24 Dose: 100 mls/hr Doxycycline Hyclate 100 mg/ (Sodium Chloride) 100 mls @ 100 mls/hr IVPB Q12 [facility] PRN Reason: Protocol Last Admin: 01/03/18 21:15 Dose: 100 mls/hr Insulin Detemir (Levemir) 8 units SC HS [facility] Last Admin: 01/03/18 21:56 Dose: 8 units Insulin Human Regular (Humulin R) 0 units SC ACHS [facility] PRN Reason: Protocol Last Admin: 01/03/18 21:54 Dose: Not Given Insulin Human Regular (Humulin R) 5 units SC ACTID [facility] Last Admin: 01/03/18 16:30 Dose: 5 u Losartan Potassium (Cozaar) 100 mg PO DAILY [facility] Last Admin: 01/03/18 09:28 Dose: 100 mg Metformin HCl (Glucophage) 1,000 mg PO BID [facility] Last Admin: 12/22/17 08:45 Dose: Not Given Methimazole (Tapazole) 20 mg PO BID [facility] Last Admin: 12/22/17 08:47 Dose: Not Given Ondansetron HCl (Zofran Odt) 4 mg PO Q6 PRN PRN Reason: Nausea/Vomiting Pantoprazole Sodium (Protonix Inj) 40 mg IVP DAILY [facility] Last Admin: 01/03/18 09:27 Dose: 40 mg Tramadol HCl (Ultram) 50 mg PO Q8 PRN PRN Reason: Pain, severe (8-10) - Labs Labs: 01/02/18 06:55 01/02/18 06:55 PT 14.8 Seconds (9.8-13.1) H 12/20/17 16:40 INR 1.3 (0.9-1.2) H 12/20/17 16:40 APTT 31.1 Seconds (25.6-37.1) 12/20/17 16:40 - Constitutional Appears: No Acute Distress - Head Exam Head Exam: ATRAUMATIC, NORMOCEPHALIC - ENT Exam ENT Exam: Mucous Membranes Moist - Respiratory Exam Respiratory Exam: NORMAL BREATHING PATTERN - Cardiovascular Exam Cardiovascular Exam: REGULAR RHYTHM - GI/Abdominal Exam GI & Abdominal Exam: Soft, Normal Bowel Sounds. absent: Distended, Firm, Guarding, Tenderness Additional comments: IR drain in LLQ with 50 cc of purulent output Wound vac in place with 20 cc of purulent output - Neurological Exam Neurological Exam: Alert, Awake, CN II-XII Intact, Oriented x3 - Psychiatric Exam Psychiatric exam: Normal Affect, Normal Mood - Skin Skin Exam: Dry, Warm Assessment and Plan - Assessment and Plan (Free Text) Assessment: 47F s/p ex-lap, removal of Tubo-ovarian abscess, repair of enterotomy POD#14, s/ p IR drainage of pelvic collection POD#4 - Wound vac on continuous suction at 125 mmHg - IV antibiotics, discuss with ID abx recommendations for discharge - Glucose control - Further recommendations as per Dr. Christiano Suggs PGY1 <Guido Alvarado - Last Filed: 01/04/18 09:28> Objective - Vital Signs/Intake and Output Vital Signs (last 24 hours): Temp Pulse Resp BP Pulse Ox 98.3 F 66 18 135/83 97 01/04/18 08:16 01/04/18 08:16 01/04/18 08:16 01/04/18 08:16 01/04/18 08:16 Intake and Output: 01/04/18 01/04/18 06:59 18:59 Intake Total 200 Output Total 70 Balance 130 - Medications Medications: Current Medications Acetaminophen (Tylenol 325mg Tab) 650 mg PO Q6 PRN PRN Reason: Pain, Mild (1-3) Last Admin: 01/01/18 21:35 Dose: 650 mg Aspirin (Ecotrin) 81 mg PO HS [facility] Last Admin: 12/22/17 01:59 Dose: Not Given Dextrose (Dextrose 50% Inj) 0 ml IV STAT PRN; Protocol PRN Reason: Hypoglycemia Protocol Dextrose (Glutose 15) 0 gm PO ONCE PRN; Protocol PRN Reason: Hypoglycemia Protocol Dicyclomine HCl (Bentyl) 10 mg PO TID PRN PRN Reason: GI distress Docusate Sodium (Colace) 100 mg PO BID PRN PRN Reason: GI distress Ergocalciferol (Drisdol 50,000 Intl Units Cap) 1 cap PO WE [facility] Last Admin: 12/22/17 01:59 Dose: Not Given Famotidine (Pepcid) 20 mg PO BID [facility] Last Admin: 12/22/17 08:47 Dose: Not Given Fenofibrate (Tricor) 145 mg PO [facility] Glipizide (Glucotrol) 5 mg PO BID [facility] Last Admin: 12/22/17 08:45 Dose: Not Given Glucagon (Glucagen Diagnostic Kit) 0 mg IM STAT PRN; Protocol PRN Reason: Hypoglycemia Protocol Guaifenesin/Dextromethorphan (Mucinex-Dm 600-30 Mg) 1 tab PO BID [facility] Last Admin: 01/04/18 09:18 Dose: Not Given Gentamicin Sulfate 180 mg/ (Sodium Chloride) 254.5 mls @ 100 mls/hr IVPB DAILY [facility] PRN Reason: Protocol Last Admin: 01/04/18 09:19 Dose: 100 mls/hr Metronidazole (Flagyl 500mg/100ml Ns) 100 mls @ 100 mls/hr IVPB Q8 [facility] PRN Reason: Protocol Last Admin: 01/04/18 01:24 Dose: 100 mls/hr Doxycycline Hyclate 100 mg/ (Sodium Chloride) 100 mls @ 100 mls/hr IVPB Q12 [facility] PRN Reason: Protocol Last Admin: 01/04/18 09:19 Dose: 100 mls/hr Insulin Detemir (Levemir) 8 units SC [facility] Last Admin: 01/03/18 21:56 Dose: 8 units Insulin Human Regular (Humulin R) 0 units SC ACHS [facility] PRN Reason: Protocol Last Admin: 01/04/18 09:17 Dose: Not Given Insulin Human Regular (Humulin R) 5 units SC ACTID [facility] Last Admin: 01/04/18 09:18 Dose: Not Given Losartan Potassium (Cozaar) 100 mg PO DAILY [facility] Last Admin: 01/04/18 09:17 Dose: Not Given Metformin HCl (Glucophage) 1,000 mg PO BID [facility] Last Admin: 12/22/17 08:45 Dose: Not Given Methimazole (Tapazole) 20 mg PO BID [facility] Last Admin: 12/22/17 08:47 Dose: Not Given Ondansetron HCl (Zofran Odt) 4 mg PO Q6 PRN PRN Reason: Nausea/Vomiting Pantoprazole Sodium (Protonix Inj) 40 mg IVP DAILY [facility] Last Admin: 01/04/18 09:19 Dose: 40 mg Tramadol HCl (Ultram) 50 mg PO Q8 PRN PRN Reason: Pain, severe (8-10) - Labs Labs: 01/02/18 06:55 01/02/18 06:55 PT 14.8 Seconds (9.8-13.1) H 12/20/17 16:40 INR 1.3 (0.9-1.2) H 12/20/17 16:40 APTT 31.1 Seconds (25.6-37.1) 12/20/17 16:40 Assessment and Plan - Assessment and Plan (Free Text) Plan: Pt w/ postop pelvic abscess after surgery for Lt tuboovarian abscess. Clinically improved.Afebrile/Nl WBC/No abd pain VAC dressing/perc drain with small amount of bloody purulent discharge. Plan to repeat CT abd/pelvis to reassess pelvic abscess Reconsult ID for poss switch to po ABX SW/VNS for home VAC Will finalize plans after CT results become abaailable and consult with PMD.
[2018-01-04] MEDS: Insulin Regular 100 units/ml SC SCH ×8 (09:17→21:32)
[2018-01-04] MEDS: guaiFENesin-DM 600-30 mg ER Tab PO SCH ×2 (09:18→17:40)
[2018-01-04] MEDS: GENTAMICIN IVPB SCH (09:19)
[2018-01-04] MEDS: SODIUM CHLORIDE 0.9% IVPB SCH (09:19)
[2018-01-04 10:42] LABS: BASO % 0.5 % (0.0-2.0); EOS # 0.1 K/uL (0.0-0.7); EOS % 0.9 % (0.0-4.0); LYMPH # 1.6 K/uL (1.0-4.3); LYMPH % 18.8 % (20.0-40.0); MEAN CELL VOLUME 77.2 fl (81.0-99.0); MEAN CORPUSCULAR HEMOGLOBIN 25.6 pg (27.0-31.0); MEAN CORPUSCULAR HGB CONC 33.2 g/dL (33.0-37.0); MEAN PLATELET VOLUME 8.2 fl (7.2-11.7); MONO # 0.6 K/uL (0.0-0.8); MONO % 6.7 % (0.0-10.0); NEUT # 6.1 K/uL (1.8-7.0); NEUT % 73.1 % (50.0-75.0); RBC 3.52 Mil/uL (3.80-5.20); RED CELL DISTRIBUTION WIDTH 13.1 % (11.5-14.5); WHITE BLOOD COUNT 8.3 K/uL (4.8-10.8)
--- NOTE | 2018-01-04 14:00 | CP.PCM.PN ---
<Dell Nunes - Last Filed: 01/04/18 13:56> Subjective - Date & Time of Evaluation Date of Evaluation: 01/04/18 Time of Evaluation: 10:15 - Subjective Subjective: Patient seen and examined at bedside this morning. There are no acute events overnight, NAD. Patient s/p ex laparotomy with removal of infected left ovarian cyst and enterorrhaphy POD14; s/p IR drainage POD4. Patient reports mild right sided lower abdominal pain but denies nausea, vomiting, or fever. Patient reports she has gas and bowel movement this morning. Patient tolerating PO w/o issue. Patient seen by [employer] and surgery. Wound vac drained 20 cc purulent fluid. IR drained 50 cc purulent fluid. Objective - Vital Signs/Intake and Output Vital Signs (last 24 hours): Temp Pulse Resp BP Pulse Ox 98.3 F 66 18 135/83 97 01/04/18 08:16 01/04/18 08:16 01/04/18 08:16 01/04/18 08:16 01/04/18 08:16 Intake and Output: 01/04/18 01/04/18 06:59 18:59 Intake Total 200 Output Total 70 Balance 130 - Medications Medications: Current Medications Acetaminophen (Tylenol 325mg Tab) 650 mg PO Q6 PRN PRN Reason: Pain, Mild (1-3) Last Admin: 01/01/18 21:35 Dose: 650 mg Aspirin (Ecotrin) 81 mg PO HS [facility] Last Admin: 12/22/17 01:59 Dose: Not Given Dextrose (Dextrose 50% Inj) 0 ml IV STAT PRN; Protocol PRN Reason: Hypoglycemia Protocol Dextrose (Glutose 15) 0 gm PO ONCE PRN; Protocol PRN Reason: Hypoglycemia Protocol Dicyclomine HCl (Bentyl) 10 mg PO TID PRN PRN Reason: GI distress Docusate Sodium (Colace) 100 mg PO BID PRN PRN Reason: GI distress Ergocalciferol (Drisdol 50,000 Intl Units Cap) 1 cap PO WE [facility] Last Admin: 12/22/17 01:59 Dose: Not Given Famotidine (Pepcid) 20 mg PO BID [facility] Last Admin: 12/22/17 08:47 Dose: Not Given Fenofibrate (Tricor) 145 mg PO [facility] Glipizide (Glucotrol) 5 mg PO BID [facility] Last Admin: 12/22/17 08:45 Dose: Not Given Glucagon (Glucagen Diagnostic Kit) 0 mg IM STAT PRN; Protocol PRN Reason: Hypoglycemia Protocol Guaifenesin/Dextromethorphan (Mucinex-Dm 600-30 Mg) 1 tab PO BID [facility] Last Admin: 01/04/18 09:18 Dose: Not Given Gentamicin Sulfate 180 mg/ (Sodium Chloride) 254.5 mls @ 100 mls/hr IVPB DAILY [facility] PRN Reason: Protocol Last Admin: 01/04/18 09:19 Dose: 100 mls/hr Metronidazole (Flagyl 500mg/100ml Ns) 100 mls @ 100 mls/hr IVPB Q8 [facility] PRN Reason: Protocol Last Admin: 01/04/18 12:00 Dose: 100 mls/hr Doxycycline Hyclate 100 mg/ (Sodium Chloride) 100 mls @ 100 mls/hr IVPB Q12 [facility] PRN Reason: Protocol Last Admin: 01/04/18 09:19 Dose: 100 mls/hr Insulin Detemir (Levemir) 8 units SC HS [facility] Last Admin: 01/03/18 21:56 Dose: 8 units Insulin Human Regular (Humulin R) 0 units SC ACHS [facility] PRN Reason: Protocol Last Admin: 01/04/18 12:27 Dose: Not Given Insulin Human Regular (Humulin R) 5 units SC ACTID [facility] Last Admin: 01/04/18 12:27 Dose: Not Given Losartan Potassium (Cozaar) 100 mg PO DAILY [facility] Last Admin: 01/04/18 09:17 Dose: Not Given Metformin HCl (Glucophage) 1,000 mg PO BID [facility] Last Admin: 12/22/17 08:45 Dose: Not Given Methimazole (Tapazole) 20 mg PO BID [facility] Last Admin: 12/22/17 08:47 Dose: Not Given Ondansetron HCl (Zofran Odt) 4 mg PO Q6 PRN PRN Reason: Nausea/Vomiting Pantoprazole Sodium (Protonix Inj) 40 mg IVP DAILY [facility] Last Admin: 01/04/18 09:19 Dose: 40 mg Sitagliptin Phosphate (Januvia) 100 mg PO DAILY [facility] Last Admin: 01/04/18 11:05 Dose: Not Given Tramadol HCl (Ultram) 50 mg PO Q8 PRN PRN Reason: Pain, severe (8-10) - Labs Labs: 01/04/18 10:18 01/02/18 06:55 PT 14.8 Seconds (9.8-13.1) H 12/20/17 16:40 INR 1.3 (0.9-1.2) H 12/20/17 16:40 APTT 31.1 Seconds (25.6-37.1) 12/20/17 16:40 - Constitutional Appears: Non-toxic, No Acute Distress - Head Exam Head Exam: ATRAUMATIC, NORMAL INSPECTION, NORMOCEPHALIC - Eye Exam Eye Exam: Normal appearance - ENT Exam ENT Exam: Mucous Membranes Moist - Neck Exam Neck Exam: Full ROM. absent: Tenderness - Respiratory Exam Respiratory Exam: Clear to Ausculation Bilateral. absent: Accessory Muscle Use , Decreased Breath Sounds, Rales, Rhonchi, Wheezes, Respiratory Distress - Cardiovascular Exam Cardiovascular Exam: REGULAR RHYTHM. absent: Tachycardia - GI/Abdominal Exam GI & Abdominal Exam: Soft, Tenderness (at incision site), Normal Bowel Sounds. absent: Distended Additional comments: IR drain in LLQ with 50 cc of purulent output Wound vac in place with 20 cc of purulent output - Extremities Exam Extremities Exam: absent: Calf Tenderness, Pedal Edema, Tenderness - Neurological Exam Neurological Exam: Alert, Awake, Oriented x3 - Skin Skin Exam: Dry, Normal Color, Warm Assessment and Plan (1) Abdominal pain Status: Acute (2) Ovarian cyst Status: Resolved - Assessment and Plan (Free Text) Plan: c/w present management, POD14 [employer] recommendations appreciated General surgery recommendations appreciated Infectious Disease recommendations appreciated - Blood cx 4/2: No growth 48Hrs - Urine culture 4/3: Final, no growth - Wound cx 4/3: E.coli - culture/Pathology 4/2: 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 CT abdomen/pelvis w/ IV and PO contrast: multiloculated process/abscess from posterior of uterus to rectum f/u repeat Ct abdomen/pelvis flagyl 500 mg IV Q8h day 15 gentamicin 180 mg IV daily day 15 doxycycline 100 mg IV Q12h day 16 insulin levemir 8 units SC HS losartan 100 mg PO daily for BP control protonix 40 mg IV Q12h pain control w/ tylenol 650 mg PO Q6h prn insulin sliding scale hypoglycemic protocol Patient tolerating PO monitor for acute changes encourage incentive spirometry encourage out of bed to chair DVT PPX: SCDs <Bruce Blood L - Last Filed: 01/05/18 11:38> Objective - Vital Signs/Intake and Output Vital Signs (last 24 hours): Temp Pulse Resp BP Pulse Ox 98.0 F 76 20 155/81 H 97 01/05/18 08:33 01/05/18 08:33 01/05/18 08:33 01/05/18 08:33 01/05/18 08:33 Intake and Output: 01/05/18 01/05/18 06:59 18:59 Output Total 50 Balance -50 - Medications Medications: Current Medications Acetaminophen (Tylenol 325mg Tab) 650 mg PO Q6 PRN PRN Reason: Pain, Mild (1-3) Last Admin: 01/01/18 21:35 Dose: 650 mg Aspirin (Ecotrin) 81 mg PO [facility] Last Admin: 12/22/17 01:59 Dose: Not Given Dextrose (Dextrose 50% Inj) 0 ml IV STAT PRN; Protocol PRN Reason: Hypoglycemia Protocol Dextrose (Glutose 15) 0 gm PO ONCE PRN; Protocol PRN Reason: Hypoglycemia Protocol Dicyclomine HCl (Bentyl) 10 mg PO TID PRN PRN Reason: GI distress Docusate Sodium (Colace) 100 mg PO BID PRN PRN Reason: GI distress Ergocalciferol (Drisdol 50,000 Intl Units Cap) 1 cap PO [facility] Last Admin: 12/22/17 01:59 Dose: Not Given Famotidine (Pepcid) 20 mg PO BID [facility] Last Admin: 12/22/17 08:47 Dose: Not Given Fenofibrate (Tricor) 145 mg PO [facility] Glipizide (Glucotrol) 5 mg PO BID [facility] Last Admin: 12/22/17 08:45 Dose: Not Given Glucagon (Glucagen Diagnostic Kit) 0 mg IM STAT PRN; Protocol PRN Reason: Hypoglycemia Protocol Guaifenesin/Dextromethorphan (Mucinex-Dm 600-30 Mg) 1 tab PO BID [facility] Last Admin: 01/05/18 08:30 Dose: 1 tab Gentamicin Sulfate 180 mg/ (Sodium Chloride) 254.5 mls @ 100 mls/hr IVPB DAILY [facility] PRN Reason: Protocol Last Admin: 01/05/18 08:30 Dose: 100 mls/hr Metronidazole (Flagyl 500mg/100ml Ns) 100 mls @ 100 mls/hr IVPB Q8 [facility] PRN Reason: Protocol Last Admin: 01/05/18 08:30 Dose: 100 mls/hr Doxycycline Hyclate 100 mg/ (Sodium Chloride) 100 mls @ 100 mls/hr IVPB Q12 [facility] PRN Reason: Protocol Last Admin: 01/05/18 08:29 Dose: 100 mls/hr Insulin Detemir (Levemir) 8 units SC HS [facility] Last Admin: 01/04/18 21:37 Dose: 8 units Insulin Human Regular (Humulin R) 0 units SC ACHS [facility] PRN Reason: Protocol Last Admin: 01/05/18 08:29 Dose: 4 units Insulin Human Regular (Humulin R) 5 units SC ACTID [facility] Last Admin: 01/05/18 08:29 Dose: 5 u Losartan Potassium (Cozaar) 100 mg PO DAILY [facility] Last Admin: 01/05/18 08:30 Dose: 100 mg Metformin HCl (Glucophage) 1,000 mg PO BID [facility] Last Admin: 12/22/17 08:45 Dose: Not Given Methimazole (Tapazole) 20 mg PO BID [facility] Last Admin: 12/22/17 08:47 Dose: Not Given Ondansetron HCl (Zofran Odt) 4 mg PO Q6 PRN PRN Reason: Nausea/Vomiting Pantoprazole Sodium (Protonix Ec Tab) 40 mg PO DAILY [facility] Sitagliptin Phosphate (Januvia) 100 mg PO DAILY [facility] Last Admin: 01/05/18 08:31 Dose: 100 mg Tramadol HCl (Ultram) 50 mg PO Q8 PRN PRN Reason: Pain, severe (8-10) - Labs Labs: 01/04/18 10:18 01/02/18 06:55 PT 14.8 Seconds (9.8-13.1) H 12/20/17 16:40 INR 1.3 (0.9-1.2) H 12/20/17 16:40 APTT 31.1 Seconds (25.6-37.1) 12/20/17 16:40 Assessment and Plan (1) Pelvic abscess Status: Acute (2) Abdominal pain Status: Acute (3) Complicated UTI (urinary tract infection) Status: Acute (4) Ovarian mass, left Status: Acute (5) Uncontrolled diabetes mellitus Status: Acute - Assessment and Plan (Free Text) Plan: I was present during evaluation and discussed with Dr Nunes re plans of care and tx. Bruce Blood M.D.
[2018-01-04] MEDS ORDERED: Chlorhexidine Gluconate 1 APPL/PKT TP ONE (15:52)
[2018-01-04] MEDS ORDERED: Iohexol 300 100 ML IJ ONE (16:06)
[2018-01-04] MEDS ORDERED: Sodium Chloride 0.9% 100 ML ONE (16:07)
[2018-01-04] MEDS ORDERED: Iohexol 300 50 ML ONE (16:07)
[2018-01-04] MEDS ORDERED: Iohexol 240 (50 ml) PO ONE (16:07)
--- NOTE | 2018-01-04 17:32 | CT ---
PROCEDURE: CT Abdomen and Pelvis with contrast HISTORY: Pelvic cyst COMPARISON: 12/28/2017 TECHNIQUE: Contrast dose: 90 mL Omnipaque 300 Water soluble rectal contrast was administered prior to this examination. Oral contrast was also administered. Radiation dose: Total exam DLP = 430.22 mGy-cm. This CT exam was performed using one or more of the following dose reduction techniques: Automated exposure control, adjustment of the mA and/or kV according to patient size, and/or use of iterative reconstruction technique. FINDINGS: LOWER THORAX: Unremarkable. LIVER: Unremarkable. No gross lesion or ductal dilatation. GALLBLADDER AND BILE DUCTS: Status post cholecystectomy PANCREAS: Unremarkable. No gross lesion or ductal dilatation. SPLEEN: Unremarkable. ADRENALS: Unremarkable. No mass. KIDNEYS AND URETERS: Unremarkable. No hydronephrosis. No solid mass. VASCULATURE: Unremarkable. No aortic aneurysm. BOWEL: No evidence of perforation of the rectum or sigmoid colon. No evidence of bowel obstruction. Retained feces. APPENDIX: Normal appendix. PERITONEUM: There is decreased size of the abscess in the recto uterine pouch as compared to 12/28/2017. There has been interval placement of a percutaneous drainage catheter into this collection. There is once again a thin walled left adnexal structure containing bubbles gas and heterogeneous fat and soft tissue attenuation. Likely phlegmonous. There is a small collection of gas and fluid seen extending from the anterior cephalad aspect of this structure beyond the confines that thin rim all described above. Likely small abscess. There has been interval removal of right parasagittal surgical drain. There is an open anterior abdominal midline wound. There is no pneumoperitoneum appreciated. There are bubbles of gas seen at the deepest aspect of the anterior abdominal wound, however. The amount of gas has diminished when compared to the prior examination. LYMPH NODES: Unremarkable. No enlarged lymph nodes. BLADDER: Unremarkable. REPRODUCTIVE: Unremarkable uterus BONES: No acute fracture. OTHER FINDINGS: None. IMPRESSION: No evidence of colonic perforation. Decreased size of recto uterine pouch abscess. Percutaneous surgical drain is now seen within this abscess. There has been interval removal of a right parasagittal surgical drain. There is a thin walled collection of gas and heterogeneous fat and soft tissue attenuation material in the left adnexal region, with a small collection of gas and fluid protruding from the anterior the cephalad aspect of this abscess/ phlegmon. Open midline anterior abdominal wound.
[2018-01-04] MEDS: Insulin Detemir 100 Units/ml Inj SC SCH (21:37)
[2018-01-05] MEDS: metroNIDAZOLE 500mg/100ml NS 100 ML IVPB SCH ×3 (01:01→17:44)
[2018-01-05] MEDS: Insulin Regular 100 units/ml SC SCH ×7 (08:29→22:20)
[2018-01-05] MEDS: GENTAMICIN IVPB SCH (08:30)
[2018-01-05] MEDS: SODIUM CHLORIDE 0.9% IVPB SCH (08:30)
[2018-01-05] MEDS: guaiFENesin-DM 600-30 mg ER Tab PO SCH ×2 (08:30→17:44)
--- NOTE | 2018-01-05 11:32 | CP.PCM.PN ---
Subjective - Date & Time of Evaluation Date of Evaluation: 01/03/18 Time of Evaluation: 10:30 - Subjective Subjective: Patient remains stable Has no fever Still with mild abd tenderness on the LLQ area. Has no chest pain or SOB. Objective - Vital Signs/Intake and Output Vital Signs (last 24 hours): Temp Pulse Resp BP Pulse Ox 98.0 F 76 20 155/81 H 97 01/05/18 08:33 01/05/18 08:33 01/05/18 08:33 01/05/18 08:33 01/05/18 08:33 Intake and Output: 01/05/18 01/05/18 06:59 18:59 Output Total 50 Balance -50 - Medications Medications: Current Medications Acetaminophen (Tylenol 325mg Tab) 650 mg PO Q6 PRN PRN Reason: Pain, Mild (1-3) Last Admin: 01/01/18 21:35 Dose: 650 mg Aspirin (Ecotrin) 81 mg PO [facility] Last Admin: 12/22/17 01:59 Dose: Not Given Dextrose (Dextrose 50% Inj) 0 ml IV STAT PRN; Protocol PRN Reason: Hypoglycemia Protocol Dextrose (Glutose 15) 0 gm PO ONCE PRN; Protocol PRN Reason: Hypoglycemia Protocol Dicyclomine HCl (Bentyl) 10 mg PO TID PRN PRN Reason: GI distress Docusate Sodium (Colace) 100 mg PO BID PRN PRN Reason: GI distress Ergocalciferol (Drisdol 50,000 Intl Units Cap) 1 cap PO [facility] Last Admin: 12/22/17 01:59 Dose: Not Given Famotidine (Pepcid) 20 mg PO BID [facility] Last Admin: 12/22/17 08:47 Dose: Not Given Fenofibrate (Tricor) 145 mg PO [facility] Glipizide (Glucotrol) 5 mg PO BID [facility] Last Admin: 12/22/17 08:45 Dose: Not Given Glucagon (Glucagen Diagnostic Kit) 0 mg IM STAT PRN; Protocol PRN Reason: Hypoglycemia Protocol Guaifenesin/Dextromethorphan (Mucinex-Dm 600-30 Mg) 1 tab PO BID [facility] Last Admin: 01/05/18 08:30 Dose: 1 tab Gentamicin Sulfate 180 mg/ (Sodium Chloride) 254.5 mls @ 100 mls/hr IVPB DAILY [facility] PRN Reason: Protocol Last Admin: 01/05/18 08:30 Dose: 100 mls/hr Metronidazole (Flagyl 500mg/100ml Ns) 100 mls @ 100 mls/hr IVPB Q8 [facility] PRN Reason: Protocol Last Admin: 01/05/18 08:30 Dose: 100 mls/hr Doxycycline Hyclate 100 mg/ (Sodium Chloride) 100 mls @ 100 mls/hr IVPB Q12 [facility] PRN Reason: Protocol Last Admin: 01/05/18 08:29 Dose: 100 mls/hr Insulin Detemir (Levemir) 8 units SC HS [facility] Last Admin: 01/04/18 21:37 Dose: 8 units Insulin Human Regular (Humulin R) 0 units SC ACHS [facility] PRN Reason: Protocol Last Admin: 01/05/18 08:29 Dose: 4 units Insulin Human Regular (Humulin R) 5 units SC ACTID [facility] Last Admin: 01/05/18 08:29 Dose: 5 u Losartan Potassium (Cozaar) 100 mg PO DAILY [facility] Last Admin: 01/05/18 08:30 Dose: 100 mg Metformin HCl (Glucophage) 1,000 mg PO BID [facility] Last Admin: 12/22/17 08:45 Dose: Not Given Methimazole (Tapazole) 20 mg PO BID [facility] Last Admin: 12/22/17 08:47 Dose: Not Given Ondansetron HCl (Zofran Odt) 4 mg PO Q6 PRN PRN Reason: Nausea/Vomiting Pantoprazole Sodium (Protonix Ec Tab) 40 mg PO DAILY [facility] Sitagliptin Phosphate (Januvia) 100 mg PO DAILY [facility] Last Admin: 01/05/18 08:31 Dose: 100 mg Tramadol HCl (Ultram) 50 mg PO Q8 PRN PRN Reason: Pain, severe (8-10) - Labs Labs: 01/04/18 10:18 01/02/18 06:55 PT 14.8 Seconds (9.8-13.1) H 12/20/17 16:40 INR 1.3 (0.9-1.2) H 12/20/17 16:40 APTT 31.1 Seconds (25.6-37.1) 12/20/17 16:40 - Head Exam Head Exam: NORMAL INSPECTION - Eye Exam Eye Exam: Normal appearance - ENT Exam ENT Exam: Mucous Membranes Moist - Respiratory Exam Respiratory Exam: Clear to Ausculation Bilateral - Cardiovascular Exam Cardiovascular Exam: REGULAR RHYTHM - GI/Abdominal Exam GI & Abdominal Exam: Tenderness - Neurological Exam Neurological Exam: Awake, Oriented x3 Assessment and Plan (1) Pelvic abscess Status: Acute (2) Abdominal pain Status: Acute (3) Complicated UTI (urinary tract infection) Status: Acute (4) Ovarian mass, left Status: Acute (5) Uncontrolled diabetes mellitus Status: Acute - Assessment and Plan (Free Text) Plan: Cont meds Cont tx Cont PT follow up with Surgery
--- NOTE | 2018-01-05 11:42 | CP.PCM.PN ---
Subjective - Date & Time of Evaluation Date of Evaluation: 01/05/18 Time of Evaluation: 11:41 - Subjective Subjective: patient is doing a lot better. Has no fever Still with some drain. CT scan showed improvement and diminished areas of abscesses. Has less pain and tenderness on the LLQ area. Objective - Vital Signs/Intake and Output Vital Signs (last 24 hours): Temp Pulse Resp BP Pulse Ox 98.0 F 76 20 155/81 H 97 01/05/18 08:33 01/05/18 08:33 01/05/18 08:33 01/05/18 08:33 01/05/18 08:33 Intake and Output: 01/05/18 01/05/18 06:59 18:59 Output Total 50 Balance -50 - Medications Medications: Current Medications Acetaminophen (Tylenol 325mg Tab) 650 mg PO Q6 PRN PRN Reason: Pain, Mild (1-3) Last Admin: 01/01/18 21:35 Dose: 650 mg Aspirin (Ecotrin) 81 mg PO [facility] Last Admin: 12/22/17 01:59 Dose: Not Given Dextrose (Dextrose 50% Inj) 0 ml IV STAT PRN; Protocol PRN Reason: Hypoglycemia Protocol Dextrose (Glutose 15) 0 gm PO ONCE PRN; Protocol PRN Reason: Hypoglycemia Protocol Dicyclomine HCl (Bentyl) 10 mg PO TID PRN PRN Reason: GI distress Docusate Sodium (Colace) 100 mg PO BID PRN PRN Reason: GI distress Ergocalciferol (Drisdol 50,000 Intl Units Cap) 1 cap PO [facility] Last Admin: 12/22/17 01:59 Dose: Not Given Famotidine (Pepcid) 20 mg PO BID [facility] Last Admin: 12/22/17 08:47 Dose: Not Given Fenofibrate (Tricor) 145 mg PO [facility] Glipizide (Glucotrol) 5 mg PO BID [facility] Last Admin: 12/22/17 08:45 Dose: Not Given Glucagon (Glucagen Diagnostic Kit) 0 mg IM STAT PRN; Protocol PRN Reason: Hypoglycemia Protocol Guaifenesin/Dextromethorphan (Mucinex-Dm 600-30 Mg) 1 tab PO BID [facility] Last Admin: 01/05/18 08:30 Dose: 1 tab Gentamicin Sulfate 180 mg/ (Sodium Chloride) 254.5 mls @ 100 mls/hr IVPB DAILY [facility] PRN Reason: Protocol Last Admin: 01/05/18 08:30 Dose: 100 mls/hr Metronidazole (Flagyl 500mg/100ml Ns) 100 mls @ 100 mls/hr IVPB Q8 [facility] PRN Reason: Protocol Last Admin: 01/05/18 08:30 Dose: 100 mls/hr Doxycycline Hyclate 100 mg/ (Sodium Chloride) 100 mls @ 100 mls/hr IVPB Q12 [facility] PRN Reason: Protocol Last Admin: 01/05/18 08:29 Dose: 100 mls/hr Insulin Detemir (Levemir) 8 units SC HS [facility] Last Admin: 01/04/18 21:37 Dose: 8 units Insulin Human Regular (Humulin R) 0 units SC ACHS [facility] PRN Reason: Protocol Last Admin: 01/05/18 08:29 Dose: 4 units Insulin Human Regular (Humulin R) 5 units SC ACTID [facility] Last Admin: 01/05/18 08:29 Dose: 5 u Losartan Potassium (Cozaar) 100 mg PO DAILY [facility] Last Admin: 01/05/18 08:30 Dose: 100 mg Metformin HCl (Glucophage) 1,000 mg PO BID [facility] Last Admin: 12/22/17 08:45 Dose: Not Given Methimazole (Tapazole) 20 mg PO BID [facility] Last Admin: 12/22/17 08:47 Dose: Not Given Ondansetron HCl (Zofran Odt) 4 mg PO Q6 PRN PRN Reason: Nausea/Vomiting Pantoprazole Sodium (Protonix Ec Tab) 40 mg PO DAILY [facility] Sitagliptin Phosphate (Januvia) 100 mg PO DAILY [facility] Last Admin: 01/05/18 08:31 Dose: 100 mg Tramadol HCl (Ultram) 50 mg PO Q8 PRN PRN Reason: Pain, severe (8-10) - Labs Labs: 01/04/18 10:18 01/02/18 06:55 PT 14.8 Seconds (9.8-13.1) H 12/20/17 16:40 INR 1.3 (0.9-1.2) H 12/20/17 16:40 APTT 31.1 Seconds (25.6-37.1) 12/20/17 16:40 - Head Exam Head Exam: NORMAL INSPECTION - Eye Exam Eye Exam: Normal appearance - ENT Exam ENT Exam: Mucous Membranes Moist - Respiratory Exam Respiratory Exam: Clear to Ausculation Bilateral - Cardiovascular Exam Cardiovascular Exam: REGULAR RHYTHM - GI/Abdominal Exam GI & Abdominal Exam: Normal Bowel Sounds - Neurological Exam Neurological Exam: Awake, Oriented x3 Assessment and Plan (1) Pelvic abscess Status: Acute (2) Abdominal pain Status: Acute (3) Complicated UTI (urinary tract infection) Status: Acute (4) Ovarian mass, left Status: Acute (5) Uncontrolled diabetes mellitus Status: Acute - Assessment and Plan (Free Text) Plan: Cont meds Cont tx Cont PT pain meds
--- NOTE | 2018-01-05 17:46 | CP.PCM.PN ---
<Simón Patel - Last Filed: 01/05/18 17:47> Subjective - Date & Time of Evaluation Date of Evaluation: 01/05/18 Time of Evaluation: 10:00 - Subjective Subjective: General Surgery Progress Note for Dr. Alvarado Patient was seen and examined at bedside s/p ex-lap, removal of Tubo-ovarian abscess, repair of enterotomy POD#15, s/p IR drainage of pelvic collection POD# 5. Patient denies acute event overnight. Patient reports pain to the area of pigtails. Patient is tolerating diet. Denies fever/chills, nausea/vomiting or diarrhea, chest pain, or SOB during visitation. Objective - Vital Signs/Intake and Output Vital Signs (last 24 hours): Temp Pulse Resp BP Pulse Ox 98.4 F 79 20 153/82 H 99 01/05/18 16:32 01/05/18 16:32 01/05/18 16:32 01/05/18 16:32 01/05/18 16:32 Intake and Output: 01/05/18 01/05/18 06:59 18:59 Output Total 50 Balance -50 - Medications Medications: Current Medications Acetaminophen (Tylenol 325mg Tab) 650 mg PO Q6 PRN PRN Reason: Pain, Mild (1-3) Last Admin: 01/01/18 21:35 Dose: 650 mg Aspirin (Ecotrin) 81 mg PO [facility] Last Admin: 12/22/17 01:59 Dose: Not Given Dextrose (Dextrose 50% Inj) 0 ml IV STAT PRN; Protocol PRN Reason: Hypoglycemia Protocol Dextrose (Glutose 15) 0 gm PO ONCE PRN; Protocol PRN Reason: Hypoglycemia Protocol Dicyclomine HCl (Bentyl) 10 mg PO TID PRN PRN Reason: GI distress Docusate Sodium (Colace) 100 mg PO BID PRN PRN Reason: GI distress Ergocalciferol (Drisdol 50,000 Intl Units Cap) 1 cap PO [facility] Last Admin: 12/22/17 01:59 Dose: Not Given Famotidine (Pepcid) 20 mg PO BID [facility] Last Admin: 12/22/17 08:47 Dose: Not Given Fenofibrate (Tricor) 145 mg PO [facility] Glipizide (Glucotrol) 5 mg PO BID [facility] Last Admin: 12/22/17 08:45 Dose: Not Given Glucagon (Glucagen Diagnostic Kit) 0 mg IM STAT PRN; Protocol PRN Reason: Hypoglycemia Protocol Guaifenesin/Dextromethorphan (Mucinex-Dm 600-30 Mg) 1 tab PO BID [facility] Last Admin: 01/05/18 08:30 Dose: 1 tab Gentamicin Sulfate 180 mg/ (Sodium Chloride) 254.5 mls @ 100 mls/hr IVPB DAILY [facility] PRN Reason: Protocol Last Admin: 01/05/18 08:30 Dose: 100 mls/hr Metronidazole (Flagyl 500mg/100ml Ns) 100 mls @ 100 mls/hr IVPB Q8 [facility] PRN Reason: Protocol Last Admin: 01/05/18 08:30 Dose: 100 mls/hr Doxycycline Hyclate 100 mg/ (Sodium Chloride) 100 mls @ 100 mls/hr IVPB Q12 [facility] PRN Reason: Protocol Last Admin: 01/05/18 08:29 Dose: 100 mls/hr Insulin Detemir (Levemir) 8 units SC HS [facility] Last Admin: 01/04/18 21:37 Dose: 8 units Insulin Human Regular (Humulin R) 0 units SC ACHS [facility] PRN Reason: Protocol Last Admin: 01/05/18 13:17 Dose: 4 units Insulin Human Regular (Humulin R) 5 units SC ACTID [facility] Last Admin: 01/05/18 13:18 Dose: 5 u Losartan Potassium (Cozaar) 100 mg PO DAILY [facility] Last Admin: 01/05/18 08:30 Dose: 100 mg Metformin HCl (Glucophage) 1,000 mg PO BID [facility] Last Admin: 12/22/17 08:45 Dose: Not Given Methimazole (Tapazole) 20 mg PO BID [facility] Last Admin: 12/22/17 08:47 Dose: Not Given Ondansetron HCl (Zofran Odt) 4 mg PO Q6 PRN PRN Reason: Nausea/Vomiting Pantoprazole Sodium (Protonix Ec Tab) 40 mg PO DAILY [facility] Sitagliptin Phosphate (Januvia) 100 mg PO DAILY [facility] Last Admin: 01/05/18 08:31 Dose: 100 mg Tramadol HCl (Ultram) 50 mg PO Q8 PRN PRN Reason: Pain, severe (8-10) - Labs Labs: 01/04/18 10:18 01/02/18 06:55 PT 14.8 Seconds (9.8-13.1) H 12/20/17 16:40 INR 1.3 (0.9-1.2) H 12/20/17 16:40 APTT 31.1 Seconds (25.6-37.1) 12/20/17 16:40 - Constitutional Appears: No Acute Distress - Head Exam Head Exam: ATRAUMATIC, NORMOCEPHALIC - ENT Exam ENT Exam: Mucous Membranes Moist - Cardiovascular Exam Cardiovascular Exam: REGULAR RHYTHM - GI/Abdominal Exam GI & Abdominal Exam: Soft, Normal Bowel Sounds. absent: Distended, Firm, Guarding, Tenderness - Neurological Exam Neurological Exam: Alert, Awake, CN II-XII Intact, Oriented x3 - Psychiatric Exam Psychiatric exam: Normal Affect, Normal Mood - Skin Skin Exam: Dry, Warm Assessment and Plan - Assessment and Plan (Free Text) Assessment: 47F s/p ex-lap, removal of Tubo-ovarian abscess, repair of enterotomy POD#15, s/ p IR drainage of pelvic collection POD#5 Plan: - Reinforce dressings with tegaderm, replaced wound vac machine - Wound Vac therapy on continuous suction at 125 mmHg, no leakage detected - IV antibiotics, discuss with ID abx recommendations for discharge - Glucose control - Further recommendations as per Dr. Christiano Patel DPM PGY-1 <Guido Alvarado - Last Filed: 01/06/18 13:29> Subjective - Subjective Subjective: Agree with assessment/plan. Objective - Vital Signs/Intake and Output Vital Signs (last 24 hours): Temp Pulse Resp BP Pulse Ox 98.2 F 82 20 139/85 98 01/06/18 08:54 01/06/18 08:54 01/06/18 08:54 01/06/18 08:54 01/06/18 08:54 - Medications Medications: Current Medications Acetaminophen (Tylenol 325mg Tab) 650 mg PO Q6 PRN PRN Reason: Pain, Mild (1-3) Last Admin: 01/01/18 21:35 Dose: 650 mg Aspirin (Ecotrin) 81 mg PO HS [facility] Last Admin: 12/22/17 01:59 Dose: Not Given Dextrose (Dextrose 50% Inj) 0 ml IV STAT PRN; Protocol PRN Reason: Hypoglycemia Protocol Dextrose (Glutose 15) 0 gm PO ONCE PRN; Protocol PRN Reason: Hypoglycemia Protocol Dicyclomine HCl (Bentyl) 10 mg PO TID PRN PRN Reason: GI distress Docusate Sodium (Colace) 100 mg PO BID PRN PRN Reason: GI distress Ergocalciferol (Drisdol 50,000 Intl Units Cap) 1 cap PO [facility] Last Admin: 12/22/17 01:59 Dose: Not Given Famotidine (Pepcid) 20 mg PO BID [facility] Last Admin: 12/22/17 08:47 Dose: Not Given Fenofibrate (Tricor) 145 mg PO [facility] Glipizide (Glucotrol) 5 mg PO BID [facility] Last Admin: 12/22/17 08:45 Dose: Not Given Glucagon (Glucagen Diagnostic Kit) 0 mg IM STAT PRN; Protocol PRN Reason: Hypoglycemia Protocol Guaifenesin/Dextromethorphan (Mucinex-Dm 600-30 Mg) 1 tab PO BID [facility] Last Admin: 01/06/18 08:15 Dose: 1 tab Gentamicin Sulfate 180 mg/ (Sodium Chloride) 254.5 mls @ 100 mls/hr IVPB DAILY [facility] PRN Reason: Protocol Last Admin: 01/06/18 08:12 Dose: 100 mls/hr Metronidazole (Flagyl 500mg/100ml Ns) 100 mls @ 100 mls/hr IVPB Q8 [facility] PRN Reason: Protocol Last Admin: 01/06/18 08:13 Dose: 100 mls/hr Doxycycline Hyclate 100 mg/ (Sodium Chloride) 100 mls @ 100 mls/hr IVPB Q12 [facility] PRN Reason: Protocol Last Admin: 01/06/18 08:14 Dose: 100 mls/hr Insulin Detemir (Levemir) 8 units SC HS [facility] Last Admin: 01/05/18 22:23 Dose: 8 units Insulin Human Regular (Humulin R) 0 units SC ACHS [facility] PRN Reason: Protocol Last Admin: 01/06/18 12:40 Dose: 8 units Insulin Human Regular (Humulin R) 5 units SC ACTID [facility] Last Admin: 01/06/18 12:40 Dose: 5 u Losartan Potassium (Cozaar) 100 mg PO DAILY [facility] Last Admin: 01/06/18 08:16 Dose: 100 mg Metformin HCl (Glucophage) 1,000 mg PO BID [facility] Last Admin: 12/22/17 08:45 Dose: Not Given Methimazole (Tapazole) 20 mg PO BID [facility] Last Admin: 12/22/17 08:47 Dose: Not Given Ondansetron HCl (Zofran Odt) 4 mg PO Q6 PRN PRN Reason: Nausea/Vomiting Pantoprazole Sodium (Protonix Ec Tab) 40 mg PO [facility]ILY [facility] Last Admin: 01/06/18 08:15 Dose: 40 mg Sitagliptin Phosphate (Januvia) 100 mg PO DAILY [facility] Last Admin: 01/06/18 08:15 Dose: 100 mg Tramadol HCl (Ultram) 50 mg PO Q8 PRN PRN Reason: Pain, severe (8-10) - Labs Labs: 01/06/18 08:36 01/06/18 08:36 PT 14.8 Seconds (9.8-13.1) H 12/20/17 16:40 INR 1.3 (0.9-1.2) H 12/20/17 16:40 APTT 31.1 Seconds (25.6-37.1) 12/20/17 16:40
--- NOTE | 2018-01-05 17:49 | CP.PCM.PN ---
Subjective - Date & Time of Evaluation Date of Evaluation: 01/05/18 Time of Evaluation: 17:50 - Subjective Subjective: I D NOTE AFEBRILE CT SCAN IMPROVING WBC:8.3,HGB:9,POLYS:73.1 CONTINUE SAME RX:DOXYCYCLINE,GENTAMICIN,FLAGYL Objective - Vital Signs/Intake and Output Vital Signs (last 24 hours): Temp Pulse Resp BP Pulse Ox 98.4 F 79 20 153/82 H 99 01/05/18 16:32 01/05/18 16:32 01/05/18 16:32 01/05/18 16:32 01/05/18 16:32 Intake and Output: 01/05/18 01/05/18 06:59 18:59 Output Total 50 Balance -50 - Medications Medications: Current Medications Acetaminophen (Tylenol 325mg Tab) 650 mg PO Q6 PRN PRN Reason: Pain, Mild (1-3) Last Admin: 01/01/18 21:35 Dose: 650 mg Aspirin (Ecotrin) 81 mg PO [facility] Last Admin: 12/22/17 01:59 Dose: Not Given Dextrose (Dextrose 50% Inj) 0 ml IV STAT PRN; Protocol PRN Reason: Hypoglycemia Protocol Dextrose (Glutose 15) 0 gm PO ONCE PRN; Protocol PRN Reason: Hypoglycemia Protocol Dicyclomine HCl (Bentyl) 10 mg PO TID PRN PRN Reason: GI distress Docusate Sodium (Colace) 100 mg PO BID PRN PRN Reason: GI distress Ergocalciferol (Drisdol 50,000 Intl Units Cap) 1 cap PO [facility] Last Admin: 12/22/17 01:59 Dose: Not Given Famotidine (Pepcid) 20 mg PO BID [facility] Last Admin: 12/22/17 08:47 Dose: Not Given Fenofibrate (Tricor) 145 mg PO [facility] Glipizide (Glucotrol) 5 mg PO BID [facility] Last Admin: 12/22/17 08:45 Dose: Not Given Glucagon (Glucagen Diagnostic Kit) 0 mg IM STAT PRN; Protocol PRN Reason: Hypoglycemia Protocol Guaifenesin/Dextromethorphan (Mucinex-Dm 600-30 Mg) 1 tab PO BID [facility] Last Admin: 01/05/18 17:44 Dose: 1 tab Gentamicin Sulfate 180 mg/ (Sodium Chloride) 254.5 mls @ 100 mls/hr IVPB DAILY [facility] PRN Reason: Protocol Last Admin: 01/05/18 08:30 Dose: 100 mls/hr Metronidazole (Flagyl 500mg/100ml Ns) 100 mls @ 100 mls/hr IVPB Q8 [facility] PRN Reason: Protocol Last Admin: 01/05/18 17:44 Dose: 100 mls/hr Doxycycline Hyclate 100 mg/ (Sodium Chloride) 100 mls @ 100 mls/hr IVPB Q12 [facility] PRN Reason: Protocol Last Admin: 01/05/18 08:29 Dose: 100 mls/hr Insulin Detemir (Levemir) 8 units SC HS [facility] Last Admin: 01/04/18 21:37 Dose: 8 units Insulin Human Regular (Humulin R) 0 units SC ACHS [facility] PRN Reason: Protocol Last Admin: 01/05/18 17:43 Dose: 2 units Insulin Human Regular (Humulin R) 5 units SC ACTID [facility] Last Admin: 01/05/18 17:44 Dose: 5 u Losartan Potassium (Cozaar) 100 mg PO DAILY [facility] Last Admin: 01/05/18 08:30 Dose: 100 mg Metformin HCl (Glucophage) 1,000 mg PO BID [facility] Last Admin: 12/22/17 08:45 Dose: Not Given Methimazole (Tapazole) 20 mg PO BID [facility] Last Admin: 12/22/17 08:47 Dose: Not Given Ondansetron HCl (Zofran Odt) 4 mg PO Q6 PRN PRN Reason: Nausea/Vomiting Pantoprazole Sodium (Protonix Ec Tab) 40 mg PO DAILY [facility] Sitagliptin Phosphate (Januvia) 100 mg PO DAILY [facility] Last Admin: 01/05/18 08:31 Dose: 100 mg Tramadol HCl (Ultram) 50 mg PO Q8 PRN PRN Reason: Pain, severe (8-10) - Labs Labs: 01/04/18 10:18 01/02/18 06:55 PT 14.8 Seconds (9.8-13.1) H 12/20/17 16:40 INR 1.3 (0.9-1.2) H 12/20/17 16:40 APTT 31.1 Seconds (25.6-37.1) 12/20/17 16:40
[2018-01-05] MEDS: Insulin Detemir 100 Units/ml Inj SC SCH (22:23)
[2018-01-06] MEDS: metroNIDAZOLE 500mg/100ml NS 100 ML IVPB SCH ×3 (00:18→16:36)
[2018-01-06] MEDS: SODIUM CHLORIDE 0.9% IVPB SCH (08:12)
[2018-01-06] MEDS: GENTAMICIN IVPB SCH (08:12)
[2018-01-06] MEDS: guaiFENesin-DM 600-30 mg ER Tab PO SCH ×2 (08:15→16:36)
[2018-01-06] MEDS: Pantoprazole 40 mg EC Tab PO SCH (08:15)
[2018-01-06] MEDS: Insulin Regular 100 units/ml SC SCH ×7 (08:17→22:20)
--- NOTE | 2018-01-06 08:35 | CP.PCM.PN ---
Subjective - Date & Time of Evaluation Date of Evaluation: 01/06/18 Time of Evaluation: 07:50 - Subjective Subjective: General Surgery Progress Note for Dr. Alvarado Patient was seen and examined at bedside s/p ex-lap, removal of Tubo-ovarian abscess, repair of enterotomy POD#16, s/p IR drainage of pelvic collection POD# 6. Patient denies acute event overnight. Denies fever/chills, nausea/vomiting or diarrhea, chest pain, or SOB during visitation. Objective - Vital Signs/Intake and Output Vital Signs (last 24 hours): Temp Pulse Resp BP Pulse Ox 98.5 F 82 18 138/85 98 01/05/18 23:52 01/06/18 08:16 01/05/18 23:52 01/06/18 08:16 01/05/18 23:52 - Medications Medications: Current Medications Acetaminophen (Tylenol 325mg Tab) 650 mg PO Q6 PRN PRN Reason: Pain, Mild (1-3) Last Admin: 01/01/18 21:35 Dose: 650 mg Aspirin (Ecotrin) 81 mg PO [facility] Last Admin: 12/22/17 01:59 Dose: Not Given Dextrose (Dextrose 50% Inj) 0 ml IV STAT PRN; Protocol PRN Reason: Hypoglycemia Protocol Dextrose (Glutose 15) 0 gm PO ONCE PRN; Protocol PRN Reason: Hypoglycemia Protocol Dicyclomine HCl (Bentyl) 10 mg PO TID PRN PRN Reason: GI distress Docusate Sodium (Colace) 100 mg PO BID PRN PRN Reason: GI distress Ergocalciferol (Drisdol 50,000 Intl Units Cap) 1 cap PO [facility] Last Admin: 12/22/17 01:59 Dose: Not Given Famotidine (Pepcid) 20 mg PO BID [facility] Last Admin: 12/22/17 08:47 Dose: Not Given Fenofibrate (Tricor) 145 mg PO [facility] Glipizide (Glucotrol) 5 mg PO BID [facility] Last Admin: 12/22/17 08:45 Dose: Not Given Glucagon (Glucagen Diagnostic Kit) 0 mg IM STAT PRN; Protocol PRN Reason: Hypoglycemia Protocol Guaifenesin/Dextromethorphan (Mucinex-Dm 600-30 Mg) 1 tab PO BID [facility] Last Admin: 01/06/18 08:15 Dose: 1 tab Gentamicin Sulfate 180 mg/ (Sodium Chloride) 254.5 mls @ 100 mls/hr IVPB DAILY [facility] PRN Reason: Protocol Last Admin: 01/06/18 08:12 Dose: 100 mls/hr Metronidazole (Flagyl 500mg/100ml Ns) 100 mls @ 100 mls/hr IVPB Q8 [facility] PRN Reason: Protocol Last Admin: 01/06/18 08:13 Dose: 100 mls/hr Doxycycline Hyclate 100 mg/ (Sodium Chloride) 100 mls @ 100 mls/hr IVPB Q12 [facility] PRN Reason: Protocol Last Admin: 01/06/18 08:14 Dose: 100 mls/hr Insulin Detemir (Levemir) 8 units SC HS [facility] Last Admin: 01/05/18 22:23 Dose: 8 units Insulin Human Regular (Humulin R) 0 units SC ACHS [facility] PRN Reason: Protocol Last Admin: 01/06/18 08:17 Dose: 2 units Insulin Human Regular (Humulin R) 5 units SC ACTID [facility] Last Admin: 01/06/18 08:17 Dose: 5 u Losartan Potassium (Cozaar) 100 mg PO DAILY [facility] Last Admin: 01/06/18 08:16 Dose: 100 mg Metformin HCl (Glucophage) 1,000 mg PO BID [facility] Last Admin: 12/22/17 08:45 Dose: Not Given Methimazole (Tapazole) 20 mg PO BID [facility] Last Admin: 12/22/17 08:47 Dose: Not Given Ondansetron HCl (Zofran Odt) 4 mg PO Q6 PRN PRN Reason: Nausea/Vomiting Pantoprazole Sodium (Protonix Ec Tab) 40 mg PO DAILY [facility] Last Admin: 01/06/18 08:15 Dose: 40 mg Sitagliptin Phosphate (Januvia) 100 mg PO DAILY [facility] Last Admin: 01/06/18 08:15 Dose: 100 mg Tramadol HCl (Ultram) 50 mg PO Q8 PRN PRN Reason: Pain, severe (8-10) - Labs Labs: 01/04/18 10:18 01/02/18 06:55 PT 14.8 Seconds (9.8-13.1) H 12/20/17 16:40 INR 1.3 (0.9-1.2) H 12/20/17 16:40 APTT 31.1 Seconds (25.6-37.1) 12/20/17 16:40 - Constitutional Appears: Well, Non-toxic, No Acute Distress - Eye Exam Eye Exam: Normal appearance - ENT Exam ENT Exam: Mucous Membranes Moist - Respiratory Exam Respiratory Exam: NORMAL BREATHING PATTERN - Cardiovascular Exam Cardiovascular Exam: +S1, +S2 - GI/Abdominal Exam GI & Abdominal Exam: Tenderness Additional comments: Soft, Normal Bowel Sounds. absent: Distended, Firm, Guarding, Tenderness Dressing c/d/i without strikethrough - Neurological Exam Neurological Exam: Alert, Awake, Oriented x3 - Psychiatric Exam Psychiatric exam: Normal Affect, Normal Mood - Skin Skin Exam: Dry, Intact, Normal Color, Warm Assessment and Plan - Assessment and Plan (Free Text) Assessment: 47F s/p ex-lap, removal of Tubo-ovarian abscess, repair of enterotomy POD#16, s/ p IR drainage of pelvic collection POD#6 Plan: - Wound Vac on and continous - Will change wound vac prior to d/c - IV antibiotics, discuss with ID abx recommendations for discharge - Glucose control - Further recommendations as per Dr. Christiano Patel DPM PGY-1
[2018-01-06 08:54] LABS: BASO % 0.7 % (0.0-2.0); EOS # 0.1 K/uL (0.0-0.7); EOS % 1.4 % (0.0-4.0); HEMOGLOBIN 9.3 g/dL (12.0-16.0); LYMPH # 1.5 K/uL (1.0-4.3); LYMPH % 23.5 % (20.0-40.0); MEAN CELL VOLUME 76.7 fl (81.0-99.0); MEAN CORPUSCULAR HEMOGLOBIN 25.8 pg (27.0-31.0); MEAN CORPUSCULAR HGB CONC 33.6 g/dL (33.0-37.0); MONO # 0.5 K/uL (0.0-0.8); MONO % 7.3 % (0.0-10.0); NEUT # 4.2 K/uL (1.8-7.0); NEUT % 67.1 % (50.0-75.0); NRBC % 0.1 % (0.0-0.0); RBC 3.6 Mil/uL (3.80-5.20); RED CELL DISTRIBUTION WIDTH 13.4 % (11.5-14.5); WHITE BLOOD COUNT 6.2 K/uL (4.8-10.8)
[2018-01-06 09:23] LABS: ALB/GLOB RATIO 0.7 (1.0-2.1); ALBUMIN 2.5 g/dL (3.5-5.0); ALT/SGPT 32 U/L (9-52); AST/SGOT 26 U/L (14-36); BLOOD UREA NITROGEN 10 mg/dl (7-17); CALCIUM 8.5 mg/dL (8.4-10.2); GFR AFRICAN-AMERICAN > 60; GFR NON-AFRICAN AMERICAN > 60
--- NOTE | 2018-01-06 10:16 | CP.PCM.PCO ---
Assessment/Plan - Assessment/Plan Assessment (Free Text): Spoke with Dr. Alvarado this am, he is aware of CT scan results. No further surgical intervention at this time, pt is to be monitored on antibiotics. Patient may be discharged home with wound vac changes QOD and outpatient follow up and monitoring. Per Dr. Espinosa, pt can be discharged on PO doxycycline 100mg BID and IV gentamicin 120mg IV daily for two weeks. Further antibiotics therapy will be determined outpatient based on f/u scans an pt progression. Rx given.
--- NOTE | 2018-01-06 14:28 | CP.PCM.PN ---
<Dell Nunes - Last Filed: 01/06/18 14:26> Subjective - Date & Time of Evaluation Date of Evaluation: 01/06/18 Time of Evaluation: 10:45 - Subjective Subjective: Patient seen and examined at bedside this morning. There are no acute events overnight, NAD. Patient s/p ex laparotomy with removal of infected left ovarian cyst and enterorrhaphy POD16; s/p IR drainage POD6. Patient reports mild right sided lower abdominal pain but denies nausea, vomiting, or fever. Patient reports she has gas and bowel movement this morning. Patient tolerating PO w/o issue. Wound vac drained 20 cc purulent fluid. IR drained 10 cc purulent fluid. Objective - Vital Signs/Intake and Output Vital Signs (last 24 hours): Temp Pulse Resp BP Pulse Ox 98.2 F 82 20 139/85 98 01/06/18 08:54 01/06/18 08:54 01/06/18 08:54 01/06/18 08:54 01/06/18 08:54 - Medications Medications: Current Medications Acetaminophen (Tylenol 325mg Tab) 650 mg PO Q6 PRN PRN Reason: Pain, Mild (1-3) Last Admin: 01/01/18 21:35 Dose: 650 mg Aspirin (Ecotrin) 81 mg PO [facility] Last Admin: 12/22/17 01:59 Dose: Not Given Dicyclomine HCl (Bentyl) 10 mg PO TID PRN PRN Reason: GI distress Docusate Sodium (Colace) 100 mg PO BID PRN PRN Reason: GI distress Ergocalciferol (Drisdol 50,000 Intl Units Cap) 1 cap PO [facility] Last Admin: 12/22/17 01:59 Dose: Not Given Famotidine (Pepcid) 20 mg PO BID [facility] Last Admin: 12/22/17 08:47 Dose: Not Given Fenofibrate (Tricor) 145 mg PO [facility] Glipizide (Glucotrol) 5 mg PO BID [facility] Last Admin: 12/22/17 08:45 Dose: Not Given Guaifenesin/Dextromethorphan (Mucinex-Dm 600-30 Mg) 1 tab PO BID [facility] Last Admin: 01/06/18 08:15 Dose: 1 tab Gentamicin Sulfate 180 mg/ (Sodium Chloride) 254.5 mls @ 100 mls/hr IVPB DAILY [facility] PRN Reason: Protocol Last Admin: 01/06/18 08:12 Dose: 100 mls/hr Metronidazole (Flagyl 500mg/100ml Ns) 100 mls @ 100 mls/hr IVPB Q8 [facility] PRN Reason: Protocol Last Admin: 01/06/18 08:13 Dose: 100 mls/hr Doxycycline Hyclate 100 mg/ (Sodium Chloride) 100 mls @ 100 mls/hr IVPB Q12 [facility] PRN Reason: Protocol Last Admin: 01/06/18 08:14 Dose: 100 mls/hr Insulin Detemir (Levemir) 8 units SC HS [facility] Last Admin: 01/05/18 22:23 Dose: 8 units Insulin Human Regular (Humulin R) 0 units SC ACHS [facility] PRN Reason: Protocol Last Admin: 01/06/18 12:40 Dose: 8 units Insulin Human Regular (Humulin R) 5 units SC ACTID [facility] Last Admin: 01/06/18 12:40 Dose: 5 u Losartan Potassium (Cozaar) 100 mg PO DAILY [facility] Last Admin: 01/06/18 08:16 Dose: 100 mg Metformin HCl (Glucophage) 1,000 mg PO BID [facility] Last Admin: 12/22/17 08:45 Dose: Not Given Methimazole (Tapazole) 20 mg PO BID [facility] Last Admin: 12/22/17 08:47 Dose: Not Given Ondansetron HCl (Zofran Odt) 4 mg PO Q6 PRN PRN Reason: Nausea/Vomiting Pantoprazole Sodium (Protonix Ec Tab) 40 mg PO DAILY [facility] Last Admin: 01/06/18 08:15 Dose: 40 mg Sitagliptin Phosphate (Januvia) 100 mg PO DAILY [facility] Last Admin: 01/06/18 08:15 Dose: 100 mg Tramadol HCl (Ultram) 50 mg PO Q8 PRN PRN Reason: Pain, severe (8-10) - Labs Labs: 01/06/18 08:36 01/06/18 08:36 PT 14.8 Seconds (9.8-13.1) H 12/20/17 16:40 INR 1.3 (0.9-1.2) H 12/20/17 16:40 APTT 31.1 Seconds (25.6-37.1) 12/20/17 16:40 - Constitutional Appears: Non-toxic, No Acute Distress - Head Exam Head Exam: ATRAUMATIC, NORMAL INSPECTION, NORMOCEPHALIC - Eye Exam Eye Exam: Normal appearance - ENT Exam ENT Exam: Mucous Membranes Moist - Neck Exam Neck Exam: Full ROM. absent: Tenderness - Respiratory Exam Respiratory Exam: Clear to Ausculation Bilateral. absent: Accessory Muscle Use , Decreased Breath Sounds, Rales, Rhonchi, Wheezes, Respiratory Distress - GI/Abdominal Exam GI & Abdominal Exam: Soft, Tenderness, Normal Bowel Sounds. absent: Distended Additional comments: IR drain in LLQ with 10 cc of purulent output Wound vac in place with 20 cc of purulent output - Extremities Exam Extremities Exam: absent: Calf Tenderness, Pedal Edema, Tenderness Additional comments: PICC line in right upper extremity - Neurological Exam Neurological Exam: Alert, Awake, Oriented x3 - Skin Skin Exam: Dry, Intact, Normal Color, Warm Assessment and Plan (1) Abdominal pain Status: Acute (2) Ovarian cyst Status: Resolved - Assessment and Plan (Free Text) Plan: c/w present management, POD16 [employer] recommendations appreciated General surgery recommendations appreciated Infectious Disease recommendations appreciated - Blood cx 4/2: No growth 48Hrs - Urine culture 4/3: Final, no growth - Wound cx 4/3: E.coli - culture/Pathology 4/2: 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 CT abdomen/pelvis w/ IV and PO contrast: multiloculated process/abscess from posterior of uterus to rectum repeat CT abdomen/pelvis 01/04/2018: decreased size of fluid collection, no colonic perforation flagyl 500 mg IV Q8h day 17 gentamicin 180 mg IV daily day 17 doxycycline 100 mg IV Q12h day 18 insulin levemir 8 units SC HS losartan 100 mg PO daily for BP control protonix 40 mg IV Q12h pain control w/ tylenol 650 mg PO Q6h prn insulin sliding scale hypoglycemic protocol Patient tolerating PO monitor for acute changes encourage incentive spirometry encourage out of bed to chair DVT PPX: SCDs dispo DC to home w/ wound vac and IV antibiotics <Bruce Blood - Last Filed: 01/06/18 22:12> Objective - Vital Signs/Intake and Output Vital Signs (last 24 hours): Temp Pulse Resp BP Pulse Ox 99.6 F 89 20 157/83 H 99 01/06/18 16:34 01/06/18 16:34 01/06/18 16:34 01/06/18 16:34 01/06/18 16:34 Intake and Output: 01/06/18 01/07/18 18:59 06:59 Intake Total 1030 Output Total 50 Balance 980 - Medications Medications: Current Medications Acetaminophen (Tylenol 325mg Tab) 650 mg PO Q6 PRN PRN Reason: Pain, Mild (1-3) Last Admin: 01/01/18 21:35 Dose: 650 mg Aspirin (Ecotrin) 81 mg PO [facility] Last Admin: 12/22/17 01:59 Dose: Not Given Dicyclomine HCl (Bentyl) 10 mg PO TID PRN PRN Reason: GI distress Docusate Sodium (Colace) 100 mg PO BID PRN PRN Reason: GI distress Ergocalciferol (Drisdol 50,000 Intl Units Cap) 1 cap PO [facility] Last Admin: 12/22/17 01:59 Dose: Not Given Famotidine (Pepcid) 20 mg PO BID [facility] Last Admin: 12/22/17 08:47 Dose: Not Given Fenofibrate (Tricor) 145 mg PO [facility] Glipizide (Glucotrol) 5 mg PO BID [facility] Last Admin: 12/22/17 08:45 Dose: Not Given Guaifenesin/Dextromethorphan (Mucinex-Dm 600-30 Mg) 1 tab PO BID [facility] Last Admin: 01/06/18 16:36 Dose: 1 tab Gentamicin Sulfate 180 mg/ (Sodium Chloride) 254.5 mls @ 100 mls/hr IVPB DAILY [facility] PRN Reason: Protocol Last Admin: 01/06/18 08:12 Dose: 100 mls/hr Metronidazole (Flagyl 500mg/100ml Ns) 100 mls @ 100 mls/hr IVPB Q8 [facility] PRN Reason: Protocol Last Admin: 01/06/18 16:36 Dose: 100 mls/hr Doxycycline Hyclate 100 mg/ (Sodium Chloride) 100 mls @ 100 mls/hr IVPB Q12 [facility] PRN Reason: Protocol Last Admin: 01/06/18 22:00 Dose: 100 mls/hr Insulin Detemir (Levemir) 8 units SC [facility] Last Admin: 01/05/18 22:23 Dose: 8 units Insulin Human Regular (Humulin R) 0 units SC ACHS [facility] PRN Reason: Protocol Last Admin: 01/06/18 16:37 Dose: Not Given Insulin Human Regular (Humulin R) 5 units SC ACTID [facility] Last Admin: 01/06/18 16:36 Dose: 5 u Losartan Potassium (Cozaar) 100 mg PO DAILY [facility] Last Admin: 01/06/18 08:16 Dose: 100 mg Metformin HCl (Glucophage) 1,000 mg PO BID [facility] Last Admin: 12/22/17 08:45 Dose: Not Given Methimazole (Tapazole) 20 mg PO BID [facility] Last Admin: 12/22/17 08:47 Dose: Not Given Ondansetron HCl (Zofran Odt) 4 mg PO Q6 PRN PRN Reason: Nausea/Vomiting Pantoprazole Sodium (Protonix Ec Tab) 40 mg PO DAILY [facility] Last Admin: 01/06/18 08:15 Dose: 40 mg Sitagliptin Phosphate (Januvia) 100 mg PO DAILY [facility] Last Admin: 01/06/18 08:15 Dose: 100 mg Tramadol HCl (Ultram) 50 mg PO Q8 PRN PRN Reason: Pain, severe (8-10) - Labs Labs: 01/06/18 08:36 01/06/18 08:36 PT 14.8 Seconds (9.8-13.1) H 12/20/17 16:40 INR 1.3 (0.9-1.2) H 12/20/17 16:40 APTT 31.1 Seconds (25.6-37.1) 12/20/17 16:40 Assessment and Plan (1) Pelvic abscess Status: Acute (2) Abdominal pain Status: Acute (3) Complicated UTI (urinary tract infection) Status: Acute (4) Ovarian mass, left Status: Acute (5) Uncontrolled diabetes mellitus Status: Acute - Assessment and Plan (Free Text) Plan: I was present during evaluation and discussed with Dr Nunes re plans of care and mgt. Bruce Blood M.D.
[2018-01-06] MEDS: Insulin Detemir 100 Units/ml Inj SC SCH (22:09)
[2018-01-07] MEDS: metroNIDAZOLE 500mg/100ml NS 100 ML IVPB SCH ×3 (00:13→17:23)
[2018-01-07] MEDS: Insulin Regular 100 units/ml SC SCH ×6 (06:44→17:24)
--- NOTE | 2018-01-07 08:02 | CP.PCM.PN ---
Subjective - Date & Time of Evaluation Date of Evaluation: 01/07/18 Time of Evaluation: 07:30 - Subjective Subjective: General Surgery Progress Note for Dr. Alvarado Patient was seen and examined at bedside s/p ex-lap, removal of Tubo-ovarian abscess, repair of enterotomy POD#17, s/p IR drainage of pelvic collection POD# 7. Patient denies acute event overnight. Denies fever/chills, nausea/vomiting or diarrhea, chest pain, or SOB during visitation. Patient reports that she had pain in the middle of the pain at the lower abdomen but has resolved. No pain during visitation. Denies urinary or bowel problems. Objective - Vital Signs/Intake and Output Vital Signs (last 24 hours): Temp Pulse Resp BP Pulse Ox 98.6 F 89 20 154/84 H 98 01/07/18 01:00 01/07/18 00:01 01/07/18 00:01 01/07/18 00:01 01/07/18 00:01 Intake and Output: 01/07/18 01/07/18 06:59 18:59 Intake Total 300 200 Output Total 50 80 Balance 250 120 - Medications Medications: Current Medications Acetaminophen (Tylenol 325mg Tab) 650 mg PO Q6 PRN PRN Reason: Pain, Mild (1-3) Last Admin: 01/01/18 21:35 Dose: 650 mg Aspirin (Ecotrin) 81 mg PO [facility] Last Admin: 12/22/17 01:59 Dose: Not Given Dicyclomine HCl (Bentyl) 10 mg PO TID PRN PRN Reason: GI distress Docusate Sodium (Colace) 100 mg PO BID PRN PRN Reason: GI distress Ergocalciferol (Drisdol 50,000 Intl Units Cap) 1 cap PO [facility] Last Admin: 12/22/17 01:59 Dose: Not Given Famotidine (Pepcid) 20 mg PO BID [facility] Last Admin: 12/22/17 08:47 Dose: Not Given Fenofibrate (Tricor) 145 mg PO [facility] Glipizide (Glucotrol) 5 mg PO BID [facility] Last Admin: 12/22/17 08:45 Dose: Not Given Guaifenesin/Dextromethorphan (Mucinex-Dm 600-30 Mg) 1 tab PO BID [facility] Last Admin: 01/06/18 16:36 Dose: 1 tab Gentamicin Sulfate 180 mg/ (Sodium Chloride) 254.5 mls @ 100 mls/hr IVPB DAILY [facility] PRN Reason: Protocol Last Admin: 01/06/18 08:12 Dose: 100 mls/hr Metronidazole (Flagyl 500mg/100ml Ns) 100 mls @ 100 mls/hr IVPB Q8 [facility] PRN Reason: Protocol Last Admin: 01/07/18 00:13 Dose: 100 mls/hr Doxycycline Hyclate 100 mg/ (Sodium Chloride) 100 mls @ 100 mls/hr IVPB Q12 [facility] PRN Reason: Protocol Last Admin: 01/06/18 22:00 Dose: 100 mls/hr Insulin Detemir (Levemir) 8 units SC HS [facility] Last Admin: 01/06/18 22:09 Dose: 8 units Insulin Human Regular (Humulin R) 0 units SC ACHS [facility] PRN Reason: Protocol Last Admin: 01/07/18 06:44 Dose: 2 units Insulin Human Regular (Humulin R) 5 units SC ACTID [facility] Last Admin: 01/06/18 16:36 Dose: 5 u Losartan Potassium (Cozaar) 100 mg PO DAILY [facility] Last Admin: 01/06/18 08:16 Dose: 100 mg Metformin HCl (Glucophage) 1,000 mg PO BID [facility] Last Admin: 12/22/17 08:45 Dose: Not Given Methimazole (Tapazole) 20 mg PO BID [facility] Last Admin: 12/22/17 08:47 Dose: Not Given Ondansetron HCl (Zofran Odt) 4 mg PO Q6 PRN PRN Reason: Nausea/Vomiting Pantoprazole Sodium (Protonix Ec Tab) 40 mg PO DAILY [facility] Last Admin: 01/06/18 08:15 Dose: 40 mg Sitagliptin Phosphate (Januvia) 100 mg PO DAILY [facility] Last Admin: 01/06/18 08:15 Dose: 100 mg Tramadol HCl (Ultram) 50 mg PO Q8 PRN PRN Reason: Pain, severe (8-10) - Labs Labs: 01/06/18 08:36 01/06/18 08:36 PT 14.8 Seconds (9.8-13.1) H 12/20/17 16:40 INR 1.3 (0.9-1.2) H 12/20/17 16:40 APTT 31.1 Seconds (25.6-37.1) 12/20/ 16:40 - Constitutional Appears: Well, Non-toxic, No Acute Distress - Head Exam Head Exam: NORMOCEPHALIC - Eye Exam Eye Exam: Normal appearance - Respiratory Exam Respiratory Exam: NORMAL BREATHING PATTERN - Cardiovascular Exam Cardiovascular Exam: +S1, +S2 - GI/Abdominal Exam Additional comments: Soft, Normal Bowel Sounds. absent: Distended, Firm, Guarding, Tenderness Dressing c/d/i without strikethrough - Extremities Exam Extremities Exam: absent: Calf Tenderness - Neurological Exam Neurological Exam: Alert, Awake, Oriented x3 - Psychiatric Exam Psychiatric exam: Normal Affect, Normal Mood Assessment and Plan - Assessment and Plan (Free Text) Assessment: 47F s/p ex-lap, removal of Tubo-ovarian abscess, repair of enterotomy POD#17, s/ p IR drainage of pelvic collection POD#7 Plan: - Wound Vac on and continous, sangious-purulence drainage in canister - Will change wound vac prior to discharge - Waiting for home wound vac approval - IV antibiotics per ID abx recommendations - Glucose control - Further recommendations as per Dr. Christiano Patel DPM PGY-1
[2018-01-07] MEDS: GENTAMICIN IVPB SCH (08:29)
[2018-01-07] MEDS: SODIUM CHLORIDE 0.9% IVPB SCH (08:29)
[2018-01-07] MEDS: Pantoprazole 40 mg EC Tab PO SCH (08:30)
[2018-01-07] MEDS: guaiFENesin-DM 600-30 mg ER Tab PO SCH ×2 (08:30→17:22)
[2018-01-07 09:05] VITALS: RESP 18
--- NOTE | 2018-01-07 13:16 | CP.PCM.PN ---
Subjective - Date & Time of Evaluation Date of Evaluation: 01/07/18 Time of Evaluation: 10:50 - Subjective Subjective: Patient seen and examined at bedside this morning. There are no acute events overnight, NAD. Patient s/p ex laparotomy with removal of infected left ovarian cyst and enterorrhaphy POD17; s/p IR drainage POD7. Patient reports minimal right sided lower abdominal pain but denies nausea, vomiting, or fever. Patient reports she has gas and bowel movement this morning. Patient tolerating PO w/o issue. Wound vac drained 80 cc purulent fluid. IR drained 20 cc purulent fluid. Objective - Vital Signs/Intake and Output Vital Signs (last 24 hours): Temp Pulse Resp BP Pulse Ox 98.2 F 76 18 138/81 99 01/07/18 09:05 01/07/18 09:05 01/07/18 09:05 01/07/18 09:05 01/07/18 09:05 Intake and Output: 01/07/18 01/07/18 06:59 18:59 Intake Total 300 200 Output Total 50 80 Balance 250 120 - Medications Medications: Current Medications Acetaminophen (Tylenol 325mg Tab) 650 mg PO Q6 PRN PRN Reason: Pain, Mild (1-3) Last Admin: 01/01/18 21:35 Dose: 650 mg Aspirin (Ecotrin) 81 mg PO [facility] Last Admin: 12/22/17 01:59 Dose: Not Given Dicyclomine HCl (Bentyl) 10 mg PO TID PRN PRN Reason: GI distress Docusate Sodium (Colace) 100 mg PO BID PRN PRN Reason: GI distress Ergocalciferol (Drisdol 50,000 Intl Units Cap) 1 cap PO [facility] Last Admin: 12/22/17 01:59 Dose: Not Given Famotidine (Pepcid) 20 mg PO BID [facility] Last Admin: 12/22/17 08:47 Dose: Not Given Fenofibrate (Tricor) 145 mg PO [facility] Glipizide (Glucotrol) 5 mg PO BID [facility] Last Admin: 12/22/17 08:45 Dose: Not Given Guaifenesin/Dextromethorphan (Mucinex-Dm 600-30 Mg) 1 tab PO BID [facility] Last Admin: 01/07/18 08:30 Dose: 1 tab Gentamicin Sulfate 180 mg/ (Sodium Chloride) 254.5 mls @ 100 mls/hr IVPB DAILY [facility] PRN Reason: Protocol Last Admin: 01/07/18 08:29 Dose: 100 mls/hr Metronidazole (Flagyl 500mg/100ml Ns) 100 mls @ 100 mls/hr IVPB Q8 [facility] PRN Reason: Protocol Last Admin: 01/07/18 08:28 Dose: 100 mls/hr Doxycycline Hyclate 100 mg/ (Sodium Chloride) 100 mls @ 100 mls/hr IVPB Q12 [facility] PRN Reason: Protocol Last Admin: 01/07/18 08:29 Dose: 100 mls/hr Insulin Detemir (Levemir) 8 units SC HS [facility] Last Admin: 01/06/18 22:09 Dose: 8 units Insulin Human Regular (Humulin R) 0 units SC ACHS [facility] PRN Reason: Protocol Last Admin: 01/07/18 12:47 Dose: 6 units Insulin Human Regular (Humulin R) 5 units SC ACTID [facility] Last Admin: 01/07/18 12:47 Dose: 5 u Losartan Potassium (Cozaar) 100 mg PO DAILY [facility] Last Admin: 01/07/18 08:31 Dose: 100 mg Metformin HCl (Glucophage) 1,000 mg PO BID [facility] Last Admin: 12/22/17 08:45 Dose: Not Given Methimazole (Tapazole) 20 mg PO BID [facility] Last Admin: 12/22/17 08:47 Dose: Not Given Ondansetron HCl (Zofran Odt) 4 mg PO Q6 PRN PRN Reason: Nausea/Vomiting Pantoprazole Sodium (Protonix Ec Tab) 40 mg PO DAILY [facility] Last Admin: 01/07/18 08:30 Dose: 40 mg Sitagliptin Phosphate (Januvia) 100 mg PO DAILY [facility] Last Admin: 01/07/18 08:30 Dose: 100 mg Tramadol HCl (Ultram) 50 mg PO Q8 PRN PRN Reason: Pain, severe (8-10) - Labs Labs: 01/06/18 08:36 01/06/18 08:36 PT 14.8 Seconds (9.8-13.1) H 12/20/17 16:40 INR 1.3 (0.9-1.2) H 12/20/17 16:40 APTT 31.1 Seconds (25.6-37.1) 12/20/17 16:40 - Constitutional Appears: Non-toxic, No Acute Distress - Head Exam Head Exam: ATRAUMATIC, NORMAL INSPECTION, NORMOCEPHALIC - Eye Exam Eye Exam: Normal appearance - ENT Exam ENT Exam: Mucous Membranes Moist - Neck Exam Neck Exam: Full ROM. absent: Tenderness - Respiratory Exam Respiratory Exam: Clear to Ausculation Bilateral. absent: Accessory Muscle Use , Decreased Breath Sounds, Rales, Rhonchi, Wheezes, Respiratory Distress - GI/Abdominal Exam GI & Abdominal Exam: Soft, Tenderness, Normal Bowel Sounds. absent: Distended Additional comments: IR drain in LLQ with 20 cc of purulent output Wound vac in place with 80 cc of purulent output - Extremities Exam Extremities Exam: absent: Calf Tenderness, Pedal Edema, Tenderness Additional comments: PICC line in right upper extremity - Neurological Exam Neurological Exam: Alert, Awake, Oriented x3 - Skin Skin Exam: Dry, Intact, Normal Color, Warm Assessment and Plan (1) Abdominal pain Status: Acute (2) Ovarian cyst Status: Resolved - Assessment and Plan (Free Text) Plan: c/w present management, POD16 [employer] recommendations appreciated General surgery recommendations appreciated Infectious Disease recommendations appreciated - Blood cx 4/2: No growth 48Hrs - Urine culture 4/3: Final, no growth - Wound cx 4/3: E.coli - culture/Pathology 4/2: 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 CT abdomen/pelvis w/ IV and PO contrast: multiloculated process/abscess from posterior of uterus to rectum repeat CT abdomen/pelvis 01/04/2018: decreased size of fluid collection, no colonic perforation flagyl 500 mg IV Q8h day 18 gentamicin 180 mg IV daily day 18 doxycycline 100 mg IV Q12h day 17 insulin levemir 8 units SC HS losartan 100 mg PO daily for BP control protonix 40 mg IV Q12h pain control w/ tylenol 650 mg PO Q6h prn insulin sliding scale hypoglycemic protocol Patient tolerating PO monitor for acute changes encourage incentive spirometry encourage out of bed to chair DVT PPX: SCDs dispo DC to home w/ wound vac and IV antibiotics; wound vac approved, awaiting antibiotics approval
[2018-01-07 16:25] VITALS: BP 151/83; PULSE 78; TEMP 98.9; O2SAT 98
== END 2018-01-07 19:00 | disposition home or self-care (01) | DRG 150 ==
LOC: H.ER 16:11 → H.ERHOLD 18:38 → H.TEL 22:23 → H.ICU/CCU 12-22 00:46 → H.MEDSURG1 12-22 15:55
PROVIDERS: ADMIT Family Medicine; ATTEND Family Medicine
PROC: 0UT10ZZ Resection of Left Ovary, Open Approach (ICD-10-PCS; 2017-12-21)
PROC: 0W9G00Z Drainage of Peritoneal Cavity with Drainage Device, Open Approach (ICD-10-PCS; 2017-12-21)
PROC: 0UT60ZZ Resection of Left Fallopian Tube, Open Approach (ICD-10-PCS; 2017-12-21)
PROC: 3E0T3BZ Introduction of Anesthetic Agent into Peripheral Nerves and Plexi, Percutaneous Approach (ICD-10-PCS; 2017-12-21)
PROC: 3E0T33Z Introduction of Anti-inflammatory into Peripheral Nerves and Plexi, Percutaneous Approach (ICD-10-PCS; 2017-12-21)
PROC: 0DNW0ZZ Release Peritoneum, Open Approach (ICD-10-PCS; principal; 2017-12-21 19:00)
PROC: 0DUU07Z Supplement Omentum with Autologous Tissue Substitute, Open Approach (ICD-10-PCS; 2017-12-21 19:00)
PROC: 0W9G3ZX Drainage of Peritoneal Cavity, Percutaneous Approach, Diagnostic (ICD-10-PCS; 2017-12-30)
DX: K65.1 Peritoneal abscess (principal); N70.03 Acute salpingitis and oophoritis; N39.0 Urinary tract infection, site not specified; E11.65 Type 2 diabetes mellitus with hyperglycemia; K66.0 Peritoneal adhesions (postprocedural) (postinfection); N83.292 Other ovarian cyst, left side; B96.20 Unspecified Escherichia coli [E. coli] as the cause of diseases classified elsewhere; Z16.12 Extended spectrum beta lactamase (ESBL) resistance; I10 Essential (primary) hypertension; E78.5 Hyperlipidemia, unspecified; E78.00 Pure hypercholesterolemia, unspecified; E03.9 Hypothyroidism, unspecified; Z53.31 Laparoscopic surgical procedure converted to open procedure; Z88.0 Allergy status to penicillin; Z79.82 Long term (current) use of aspirin; Z91.013 Allergy to seafood; Z79.84 Long term (current) use of oral hypoglycemic drugs

== ENCOUNTER 2018-12-05 15:44 | Observation (INO) | payer MEDICAID ==
[2018-12-05 15:44] VITALS: BMI 24.5
[2018-12-05] MEDS ORDERED: Sodium Chloride 0.9% 1,000 ML IV STA (16:25)
--- NOTE | 2018-12-05 16:44 | ED PDOC ---
HPI: General Adult Time Seen by Provider: 12/05/18 15:59 Chief Complaint (Nursing): High Blood Sugar Chief Complaint (Provider): Weakenss and Lightheadedness History Per: Patient History/Exam Limitations: no limitations Onset/Duration Of Symptoms: Days (x2 weeks) Current Symptoms Are (Timing): Still Present Additional Complaint(s): 48 year old female with a history of diabetes and secondary diabetic retinopathy presents to the ED with 2 weeks of progressively worsening generalized weakness, lightheadedness and body aches consistent with previous episodes of uncontrolled diabetes. Patient reports she developed blurry vision, prominent more on the right side today. She reports mild headaches and urinary frequency but denies any dysuria or chest pain. Patient went to PMD today who advised her to come here for further management of uncontrolled diabetes. She states she has a strict diabetic diet and has been taking medications as prescribed. Patient has also been giving herself supplemental insulin at every meal for the last two weeks. She reports that two weeks ago she got over a flu-like illness. PMD: Caitie Past Medical History Reviewed: Historical Data, Nursing Documentation, Vital Signs - Medical History PMH: Diabetes, Diverticulitis (Diverticulosis), Gall Bladder Disease, HTN, Hypercholesterolemia, Hyperthyroidism, Sexually Transmitted Disease Denies: HIV, Chronic Kidney Disease - Surgical History Surgical History: Cholecystectomy - Family History Family History: States: Unknown Family Hx - Immunization History Hx Tetanus Toxoid Vaccination: No Hx Influenza Vaccination: No Hx Pneumococcal Vaccination: No - Home Medications Home Medications: Ambulatory Orders Medication Instructions Recorded Lisinopril [Zestril] 40 mg PO DAILY 11/13/16 Methimazole 10 mg PO DAILY 11/13/16 Aspirin [Ecotrin] 81 mg PO DAILY 11/02/17 Empagliflozin [Jardiance] 25 mg PO DAILY 11/02/17 MetFORMIN [glucoPHAGE] 1,000 mg PO BID 11/02/17 GlipiZIDE [Glucotrol] 5 mg PO BID #30 tab 12/15/17 Dulaglutide [Trulicity] 1.5 mg SC MO 12/20/17 Ergocalciferol (Vitamin D2) 50,000 unit PO WE 12/20/17 [Vitamin D2] Ezetimibe [Zetia] 10 mg PO HS 12/05/18 Fenofibrate,Micronized 200 mg PO HS 12/05/18 [Fenofibrate] Icosapent Ethyl [Vascepa] 2 gm PO Q12 12/05/18 Insulin Glargine,Hum.rec.anlog 20 unit SC HS 12/05/18 [Basaglar Leiaikpen U-100] Metoprolol Succinate XL [Toprol XL] 25 mg PO DAILY 12/05/18 Omeprazole 40 mg PO DAILY 12/05/18 - Allergies Allergies/Adverse Reactions: Allergies Allergy/AdvReac Type Severity Reaction Status Date / Time hazelnut Allergy RASH Verified 01/28/18 11:54 shellfish derived Allergy RASH Verified 01/28/18 11:54 piperacillin [From Zosyn] AdvReac RASH Verified 01/28/18 11:54 tazobactam [From Zosyn] AdvReac RASH Verified 01/28/18 11:54 Review of Systems ROS Statement: Except As Marked, All Systems Reviewed And Found Negative Eyes: Positive for: Vision Change (blurry) Cardiovascular: Positive for: Light Headedness. Negative for: Chest Pain Genitourinary Female: Positive for: Frequency. Negative for: Dysuria Musculoskeletal: Positive for: Other (body aches) Neurological: Positive for: Weakness, Headache Physical Exam - Reviewed Nursing Documentation Reviewed: Yes Vital Signs Reviewed: Yes - Physical Exam Appears: Positive for: Well, No Acute Distress Head Exam: Positive for: ATRAUMATIC, NORMOCEPHALIC Skin: Positive for: Warm, Dry Eye Exam: Positive for: EOMI, PERRL ENT: Positive for: Other (dry mucous membranes) Neck: Positive for: Painless ROM, Supple Cardiovascular/Chest: Positive for: Regular Rate, Rhythm. Negative for: Murmur Respiratory: Positive for: Normal Breath Sounds. Negative for: Respiratory Distress Gastrointestinal/Abdominal: Positive for: Soft. Negative for: Tenderness Back: Positive for: Normal Inspection. Negative for: Decreased ROM Extremity: Positive for: Normal ROM. Negative for: Deformity Lymphatic: Negative for: Adenopathy Neurological/Psych: Positive for: Awake, Alert. Negative for: Motor/Sensory Deficits - Laboratory Results Result Diagrams: 12/05/18 17:36 12/05/18 18:30 Medical Decision Making Medical Decision Making: Time: 1624 Impression: Uncontrolled diabetes Plan: --Type and screen --VBG --EKG --CMP --Magnesium --phosphorus --Troponin --U preg --U dip --CBC --PTT --PT/INR --Blood culture --IV fluids --Patient to be hospitalized for stipulation of diabetes, pending ER workup --TERI Mott PMD ---- Scribe Attestation: Documented by Janelle Bhat, acting as a scribe for Maria Esther Reyna MD. Provider Scribe Attestation: All medical record entries made by the Scribe were at my direction and personally dictated by me. I have reviewed the chart and agree that the record accurately reflects my personal performance of the history, physical exam, medical decision making, and the department course for this patient. I have also personally directed, reviewed, and agree with the discharge instructions and disposition. Disposition - Clinical Impression Clinical Impression: Hyperglycemia, Uncontrolled diabetes mellitus Counseled Patient/Family Regarding: Studies Performed, Diagnosis - Disposition Disposition Time: 18:45 Condition: FAIR - Pt Status Changed To: Hospital Disposition Of: Inpatient - Admit Certification Admit to Inpatient:: After my assessment, the patient will require hospitalization for at least two midnights. This is because of the severity of symptoms shown, intensity of services needed, and/or the medical risk in this patient being treated as an outpatient. - POA Present On Arrival: Poor Glycemic Control
[2018-12-05 17:53] LABS: VENOUS BLOOD GAS BASE EXCESS 1.8 mmol/L (0.0-2.0); VENOUS BLOOD GAS PCO2 53 mmHg (40-60); VENOUS BLOOD GAS PO2 23 mm/Hg (30-55); VENOUS BLOOD PH 7.34 (7.32-7.43)
[2018-12-05 17:57] LABS: BASO % 0.5 % (0.0-2.0); EOS # 0.1 K/uL (0.0-0.7); EOS % 1.4 % (0.0-4.0); HEMOGLOBIN 13.5 g/dL (12.0-16.0); LYMPH # 1.7 K/uL (1.0-4.3); MEAN CELL VOLUME 78.3 fl (81.0-99.0); MEAN CORPUSCULAR HGB CONC 37.1 g/dL (33.0-37.0); MEAN PLATELET VOLUME 9.7 fl (7.2-11.7); MONO # 0.2 K/uL (0.0-0.8); MONO % 4.4 % (0.0-10.0); NEUT # 3.2 K/uL (1.8-7.0); NEUT % 61.7 % (50.0-75.0); NRBC % 0.4 % (0.0-0.0); RBC 4.66 Mil/uL (3.80-5.20); RED CELL DISTRIBUTION WIDTH 12.7 % (11.5-14.5); WHITE BLOOD COUNT 5.2 K/uL (4.8-10.8)
[2018-12-05 18:09] LABS: INR 0.9; PROTHROMBIN TIME 10.4 Seconds (9.8-13.1)
[2018-12-05 18:11] LABS: PARTIAL THROMBOPLASTIN TIME 32.3 Seconds (25.6-37.1)
[2018-12-05] MEDS ORDERED: Insulin Regular 100 units/ml SC STA (18:40)
[2018-12-05 18:54] LABS: BLOOD UREA NITROGEN 16 mg/dl (7-17); CALCIUM 8.6 mg/dL (8.4-10.2); GFR NON-AFRICAN AMERICAN > 60
[2018-12-05 19:00] LABS: ALB/GLOB RATIO 1.1 (1.0-2.1); ALBUMIN 4.1 g/dL (3.5-5.0); ALT/SGPT < 6 U/L (9-52); AST/SGOT 41 U/L (14-36)
[2018-12-05] MEDS ORDERED: Insulin Regular 100 units/ml ONE (20:29)
[2018-12-06] MEDS: Sodium Chloride 0.9% 1,000 ML IV SCH ×3 (00:13→17:29)
[2018-12-06 06:43] LABS: MONO # 0.3 K/uL (0.0-0.8)
[2018-12-06 07:03] LABS: ALBUMIN 3.3 g/dL (3.5-5.0); ALT/SGPT 24 U/L (9-52); AST/SGOT 16 U/L (14-36); BLOOD UREA NITROGEN 13 mg/dl (7-17); CALCIUM 8.8 mg/dL (8.4-10.2); GFR NON-AFRICAN AMERICAN > 60
[2018-12-06 07:25] LABS: BASO % 0.7 % (0.0-2.0); EOS # 0.2 K/uL (0.0-0.7); LYMPH # 2.2 K/uL (1.0-4.3); LYMPH % 34.8 % (20.0-40.0); MEAN CELL VOLUME 76.8 fl (81.0-99.0); MEAN CORPUSCULAR HEMOGLOBIN 26.3 pg (27.0-31.0); MEAN CORPUSCULAR HGB CONC 34.3 g/dL (33.0-37.0); MEAN PLATELET VOLUME 8.8 fl (7.2-11.7); MONO % 4.8 % (0.0-10.0); NEUT # 3.5 K/uL (1.8-7.0); NEUT % 56.7 % (50.0-75.0); NRBC % 0.2 % (0.0-0.0); RBC 4.36 Mil/uL (3.80-5.20); RED CELL DISTRIBUTION WIDTH 12.5 % (11.5-14.5); WHITE BLOOD COUNT 6.2 K/uL (4.8-10.8)
[2018-12-06] MEDS ORDERED: Insulin Regular 100 units/ml SC SCH (07:30)
[2018-12-06 07:34] LABS: HEMOGLOBIN 11.5 g/dL (12.0-16.0)
[2018-12-06] MEDS: Omega-3-Acid Ethyl Esters 1 GM Cap PO SCH ×2 (08:28→21:07)
[2018-12-06] MEDS: Metoprolol Succinate 25 mg XL Tab PO SCH (08:29)
[2018-12-06] MEDS: Pantoprazole 40 mg EC Tab PO SCH (08:30)
[2018-12-06] MEDS: Insulin Lispro (humaLOG) 100 Units/ml Inj SC SCH ×4 (12:57→22:20)
--- NOTE | 2018-12-06 21:22 | CARD ---
APPROVED REPORT Date of service: 12/05/2018 EKG Measurement Heart [id number] <Conclusion> Sinus bradycardia Otherwise normal ECG
[2018-12-06] MEDS ORDERED: Insulin Detemir 100 Units/ml Inj SC SCH (22:00)
[2018-12-06] MEDS ORDERED: INSULIN GLARGINE HUM REC ANLOG 20 UNIT SC SCH (22:00)
--- NOTE | 2018-12-07 01:27 | CON ---
DATE: 12/06/2018 ENDOCRINOLOGY CONSULTATION LOCATION: Room 655. HISTORY OF PRESENT ILLNESS: This is a 48-year-old female with known history of type 2 insulin-requiring diabetes, on combination therapy, presenting here with progressively worsening dizziness and generalized body weakness with supervening marked hyperglycemic accelerations over the past two weeks or so prior to admission and is now being referred for diabetic evaluation and further metabolic management. PAST MEDICAL HISTORY: As mentioned above, history of type 2 insulin-requiring diabetes, on a combination of Trulicity given as 1.5 mg subcutaneously once a week with Basaglar given as 20 units at bedtime in combination with glipizide given as 5 mg b.i.d. and metformin as 1 g b.i.d., history of hypertension and dyslipidemia, history of diverticulitis, and previous admissions for exacerbation of the same with underlying colonic diverticulosis, history of hyperthyroidism, on Tapazole, given as 5 mg once daily, history of hypertension and dyslipidemia as mentioned, history of sexually-transmitted disease, exact disease entity is not known at this time. FAMILY HISTORY: Positive for diabetes and hypertension. SOCIAL HISTORY: The patient has a supportive family. No known substance use. REVIEW OF SYSTEMS: Admits to generalized body weakness with progressive bouts of dizziness and lightheadedness, worse in the last 10 days or so prior to admission. Also admits to bifrontal headaches with visual blurring. No chest pains or palpitations or PND. Her oral intake has been variable with nausea, dyspepsia, and vague upper abdominal pains. Also admits to marked polyuria, nocturia, and polydipsia with lower extremity painful paresthesias. PHYSICAL EXAMINATION: GENERAL: This is an average built female, in no apparent distress. VITAL SIGNS: Blood pressure of 140/80, pulse of 100 beats per minute and regular, temperature 98, respirations 20, height is 5 feet 7 inches, weight is 171 pounds. HEENT: Head normocephalic. Eyes anicteric with pink conjunctivae. Funduscopy not possible at this time. Ears, nose, and throat, otherwise, normal. NECK: Supple. Thyroid gland is normal in size. No carotid bruits or cervical adenopathy. CARDIOPULMONARY: Some adynamic precordium. S1, S2. Rapid and regular. LUNGS: Clear to auscultation. ABDOMEN: Flat, soft with positive bowel sounds. EXTREMITIES: No peripheral edema. Pulses are +2 bilaterally. LABORATORY DATA: The initial chemistries showed a BUN of 16, sodium 136, potassium 4.8, chloride 100, CO2 of 22, glucose 358, and creatinine 0.8. Her A1c is extremely elevated at 12.9%, clearly indicative of suboptimal metabolic control of her diabetic condition even prior to this admission, and clearly the combination therapy is not working efficiently at this time as noted. PLAN OF MANAGEMENT: We will modify once again her current insulin regimen and switch her over to a more physiologic basal and bolus insulin drug combination with Humalog to be given as 6 units t.i.d. before meals to start today as ordered. We will also modify the coverage scale to obviate hypoglycemia and detailed orders have been given. We will continue the Levemir given as 20 units subcutaneously at bedtime daily as ordered. We will obtain serial chemistries and supplement accordingly as needed. We will follow. Cherrie Calix MD
[2018-12-07 07:25] LABS: BLOOD UREA NITROGEN 12 mg/dl (7-17); CALCIUM 8.9 mg/dL (8.4-10.2); GFR NON-AFRICAN AMERICAN > 60
[2018-12-07 08:23] VITALS: BP 132/71; PULSE 69; RESP 18; TEMP 98.2; O2SAT 99
[2018-12-07] MEDS: Omega-3-Acid Ethyl Esters 1 GM Cap PO SCH (09:15)
[2018-12-07] MEDS: Metoprolol Succinate 25 mg XL Tab PO SCH (09:15)
[2018-12-07] MEDS: Pantoprazole 40 mg EC Tab PO SCH (09:16)
[2018-12-07] MEDS: Insulin Lispro (humaLOG) 100 Units/ml Inj SC SCH ×4 (09:17→13:00)
[2018-12-07] MEDS ORDERED: Ergocalciferol 50,000 Intl Units Cap PO SCH (23:36)
--- NOTE | 2018-12-08 08:36 | PN ---
DATE: 12/07/2018 ENDOCRINOLOGY FOLLOWUP NOTE LOCATION: In room 655. SUBJECTIVE: This is a 48-year-old female with recent uncontrolled type 2 insulin-requiring diabetes, now being followed closely for metabolic management. She presented here with marked hyperglycemic accelerations and dehydration and has improved clinically and metabolically as noted thereof. Her glycemic levels today have ranged from 187 to 217 and 220 mg/dL. Her A1c is extremely elevated at 12.9%, indicative of suboptimal metabolic control of her diabetic condition even prior to this admission. Her chemistry showed a BUN of 12, sodium 139, potassium 4.1, chloride 102, CO2 of 25, glucose 206 and creatinine 0.9. ASSESSMENT: This is a 48-year-old female with uncontrolled and decompensated type 2 insulin-requiring diabetes, presenting here with marked hyperglycemic accelerations and with hyperosmolar hyperglycemic state and dehydration and has since then improved clinically and metabolically as noted thereof. PLAN OF MANAGEMENT: We will continue the same basal and bolus insulin regimen to allow for dose equilibration and keep her on the Levemir given as 20 units subcu at bedtime daily as ordered. We will continue the Humalog given as 8 units t.i.d. before meals and titrate even to 10 units as her oral intake improves at home as noted. She has been advised to follow with her medical doctor for ongoing diabetic management, especially with the imperative need for a basal and bolus insulin drug combination at least at this time to optimize metabolic control. She was previously on Jardiance, Trulicity, and metformin as noted at home and given by her primary physician. Cherrie Calix MD
== END 2018-12-07 15:38 | disposition home or self-care (01) ==
LOC: H.ER 15:44 → H.ERHOLD 18:57 → H.MEDSURG1 22:45
PROVIDERS: ADMIT Family Medicine; ATTEND Family Medicine
DX: E11.00 Type 2 diabetes mellitus with hyperosmolarity without nonketotic hyperglycemic-hyperosmolar coma (NKHHC) (principal); E11.319 Type 2 diabetes mellitus with unspecified diabetic retinopathy without macular edema; Z79.4 Long term (current) use of insulin; E86.0 Dehydration; I10 Essential (primary) hypertension; E78.5 Hyperlipidemia, unspecified; E78.00 Pure hypercholesterolemia, unspecified; K57.30 Diverticulosis of large intestine without perforation or abscess without bleeding; Z79.82 Long term (current) use of aspirin; Z79.84 Long term (current) use of oral hypoglycemic drugs
CPT/HCPCS: 36415; 80048; 80053; 81025; 82803; 82948; 83036; 83735; 84100; 84484; 85025; 85610; 85730; 86850; 86900; 87040; 93005; 96360; 96372; 99285; G0378; J7030